=== PATIENT | female | born 1985 | race Caucasian/White ===

== ENCOUNTER 2017-03-28 03:09 | Emergency (ER) | payer MEDICAID ==
[2017-03-28] MEDS ORDERED: Sodium Chloride 0.9% 1,000 ML IV ONE ×2 (03:42→05:45)
[2017-03-28] MEDS ORDERED: HYDROmorphone 2 MG/ML SDV IVPUSH ONE ×2 (03:43→05:08)
[2017-03-28] MEDS ORDERED: diphenhydrAMINE 50 MG/ML SDV IVPUSH ONE ×2 (03:43→05:45)
[2017-03-28] MEDS ORDERED: fentaNYL 100 MCG/2 ML SDV IVPUSH ONE (03:44)
[2017-03-28] MEDS ORDERED: methylPREDNISolone Sodium Succinate 125 MG/2 ML SDV IM ONE (05:30)
[2017-03-28] MEDS ORDERED: Acetaminophen/HYDROcodone 325-5 MG Tab PO ONE (05:34)
[2017-03-28] MEDS ORDERED: methylPREDNISolone Sodium Succinate 125 MG/2 ML SDV IVPUSH ONE (05:55)
[2017-03-28] MEDS ORDERED: Nicotine Polacrilex 2 MG Gum CHEW SCH (06:00)
[2017-03-28] MEDS: Nicotine 21 MG/24 Hr Patch TRDERM ONE ×2 (06:31→08:04)
[2017-03-28 07:05] VITALS: BP 106/75
--- NOTE | 2017-03-29 13:03 | ER ---
DATE SEEN: 03/28/2017 DIAGNOSIS: Abdominal pain. CHIEF COMPLAINT: Abdominal pain. HISTORY OF PRESENT ILLNESS: This is a 31-year-old 3, para 3-0-0-3. Last menstrual period 1 month ago. Comes in with onset of abdominal discomfort after indiscreetly eating grapes. She had urge to eat grapes. She had no other causes of abdominal discomfort. PAST MEDICAL HISTORY: Ulcerative colitis, cyclical vomiting, suicidal ideation, x3, depression, anxiety, developmental delay, obesity, pancreatitis, GERD, and renal stones. No diabetes, heart disease, high blood pressure, or asthma. ALLERGIES: Adhesive, cefdinir, fluticasone, and Dilaudid causes itching. Other allergies: Latex, Seroquel, and Zoloft. CURRENT MEDICATIONS: 1. Sulfasalazine 500 mg b.i.d. 2. Omeprazole 40 mg daily. 3. Remeron 15 mg at bedtime. 4. Vistaril p.r.n. REVIEW OF SYSTEMS: Negative except as noted above. She denies compromise of vision or oral sores. She has some suggestion of fever blister in the right lower lip. HEENT: Otherwise negative. CARDIORESPIRATORY: Negative for shortness of breath, cough, chest pain, irregular heartbeat, lightheadedness, or dizziness. GI: Positive for GERD. Abdominal discomfort intermittently. Denies blood in her stool, black tarry stool, change of bowels. She has had "constipation with CAT scan before" "that chalky stuff." : Denies frequency, urgency, or dysuria. MUSCULOSKELETAL: No complaints. No joint pains. No arthritis. NEURO: Complaints of occipital headache. It is worse as this attack started. PSYCHIATRIC: Depression is unchanged. At this point, she is not suicidal; has mild anxiety and mild depression. PHYSICAL EXAMINATION: VITAL SIGNS: Blood pressure on arrival 135/85, heart rate 92, respirations 20, oxygen saturation 100%, and 37.0 degrees centigrade. Blood pressure is now 114/75. Blood pressure at 0430 hours is 114/75, heart rate 90, respirations 16. GENERAL: Overweight pleasant woman, mild distress. HEENT: PERRLA intact. Pharynx without abnormality. No evidence for opacification or cataracts. Lymph is normal. NECK: Supple. No thyromegaly. No adenopathy. LUNGS: Clear to auscultation without rales or rhonchi. HEART: S1, S2. No irregular rate and rhythm. ABDOMEN: Soft. Mild generalized guarding. No rebound. No heel-jar rebound. RECTAL: Not performed. PELVIC: Not performed. EXTREMITIES: Lower extremities without edema. No joint abnormalities. NEUROLOGIC: Deep tendon reflexes were symmetrical and 1+. Oriented x3. Strength appropriate. LABORATORY FINDINGS: White count 10,500, PMNs 84, lymphs 13, monos 3; mean platelet volume 7.3, is low, platelet count 332,000; hemoglobin 14.2. No abnormality in RBC index. Complete metabolic panel: Low CO2 of 19 reflecting metabolic acidosis, normal sodium 139, potassium 3.6, chloride 109, glucose 155 - reactive glucose elevation, amylase elevated at 139 reflecting pancreatitis. EMERGENCY ROOM COURSE: The patient received 125 mg of Solu-Medrol, fentanyl 100 mcg IV followed by 2 mg of Dilaudid IV, Reglan 10 mg IV, and Zofran 4 mg IV. ASSESSMENT: 1. Ulcerative colitis flare secondary to dietary indiscretion, eating grapes. 2. Overweight. 3. History of depression. 4. Documented gastroesophageal reflux disease, pancreatitis, renal stones, C- sections x3, suicidal ideation in the past, and cyclic vomiting in the past. 5. Pancreatitis. PLAN: 1. Recent endoscopy performed by Dr. Jennings was inadequate because of extensive stools and stopped. It needs to be repeated in 3 months. She needs to follow up with Dr. Jennings to have that rescheduled. 2. The patient dismissed with 8 tablets of Lortab 5/325. 3. Prednisone 10 mg b.i.d. x5 days and then daily for 5 days. 4. Follow up with doctor in the next 3 to 5 days, earlier if worse. Push fluids. The patient dismissed as noted above. The patient was seen at 0335 hours. /[id number] RADHA/HUSSAIN
== END 2017-03-28 06:10 | disposition home or self-care (01) ==
LOC: FB.ED 03:09
DX: K51.90 Ulcerative colitis, unspecified, without complications (principal); K85.90 Acute pancreatitis without necrosis or infection, unspecified; F32.9 Major depressive disorder, single episode, unspecified; E66.9 Obesity, unspecified; K21.9 Gastro-esophageal reflux disease without esophagitis; Z91.040 Latex allergy status
CPT/HCPCS: 36415; 80053; 82150; 85025; 86140; 96365; 96366; 96375; 96376; 99284; A9270; J1170; J1200; J2930; J3010; J7040; 96361; 96374

== ENCOUNTER 2017-04-05 10:12 | Emergency (ER) | payer MEDICAID ==
[2017-04-05] MEDS ORDERED: Alum Hydroxide/Mag Hydroxide 15 ML, Lidocaine 2% 15 ML PO STA ×2 (10:41)
[2017-04-05] MEDS ORDERED: Ondansetron 8 MG Tab.DIS PO ONE (10:41)
--- NOTE | 2017-04-05 10:48 | EDM.PDOC ---
ED HPI GENERAL MEDICAL PROBLEM - General Chief Complaint: Abdominal Pain Stated Complaint: STOMACH PAIN AND NAUSEA Time Seen by Provider: 04/05/17 10:34 Source of Information: Reports: Patient History Limitations: Reports: No Limitations - History of Present Illness INITIAL COMMENTS - FREE TEXT/NARRATIVE: 31 y.o.w.f came to the ed due to N/V since Thursday last week. Pt is well know in this ed for presenting for the same symptoms. Pt denied . She is requesting to be admitted. Onset: Today Onset Date: 04/05/17 Onset Time: 03:00 Duration: Hour(s):, Getting Worse Location: Reports: Abdomen Quality: Reports: Ache, Burning, Dull, Throbbing Severity: Moderate Improves with: Reports: Medication Worsens with: Reports: Eating Context: Reports: Other (was started on Abx Thursday) Associated Symptoms: Reports: Nausea/Vomiting Abdominal Pain Score (Numeric/FACES): 10 - Related Data Allergies Allergy/AdvReac Type Severity Reaction Status Date / Time adhesive Allergy Rash Verified 04/05/17 10:39 cefdinir [From Omnicef] Allergy Rash Verified 04/05/17 10:39 fluticasone propionate Allergy Headache Verified 04/05/17 10:39 [From Flonase] hydrocodone bitartrate Allergy Cannot Verified 04/05/17 10:39 [From Vicodin] Remember hydromorphone [From Dilaudid] Allergy Itching Verified 04/05/17 10:39 latex Allergy Hives Verified 04/05/17 10:39 quetiapine fumarate Allergy Confusion Verified 04/05/17 10:39 [From Seroquel] sertraline HCl [From Zoloft] Allergy Confusion Verified 04/05/17 10:39 Home Meds: Home Meds Mirtazapine [Remeron] 15 mg PO BEDTIME 12/21/15 [History] Omeprazole 40 mg PO DAILY #30 cap.sr 10/14/16 [Rx] Metoclopramide HCl [Reglan] 10 mg PO Q6HR PRN #16 tablet 03/28/17 [Rx] Prednisone [IJD: Prednisone] 10 mg PO BID #15 tab 03/28/17 [Rx] hydrOXYzine Pamoate [Vistaril] 1 cap PO ASDIRECTED 03/28/17 [History] Ondansetron [Zofran ODT] 4 mg PO Q6H PRN #16 tab.dis 04/05/17 [Rx] Sulfamethoxazole/Trimethoprim [IMW: Sulfamethoxazole/Trimethoprim DS] 1 tab PO DAILY 04/05/17 [History] Past Medical History - Past Health History Medical/Surgical History: Denies Medical/Surgical History HEENT History: Reports: Impaired Vision Other HEENT History: CHRONIC MYOPIA Cardiovascular History: Reports: None Respiratory History: Reports: Asthma Other Respiratory History: activity induced asthma Gastrointestinal History: Reports: GERD, Inflammatory Bowel Disease, Pancreatitis Other Gastrointestinal History: colitis Genitourinary History: Reports: Renal Calculus [employer] History: Reports: Neurological History: Reports: Migraines Psychiatric History: Reports: ADHD, Anxiety, Depression, Developmental Delay, Suicide Attempt Endocrine/Metabolic History: Reports: Obesity/BMI 30+ Hematologic History: Reports: None Immunologic History: Reports: None Oncologic (Cancer) History: Reports: None Dermatologic History: Reports: None - Infectious Disease History Infectious Disease History: Reports: Chicken Pox - Past Surgical History Head Surgeries/Procedures: Reports: None Female Surgical History: Reports: Section, Lithotripsy/ESWL, Tubal Ligation Musculoskeletal Surgical History: Reports: Arthroscopic Knee Social & Family History - Family History Cardiac: Reports: SC Musculoskeletal: Reports: RA Oncologic: Reports: Pancreatic - Tobacco Use Smoking Status *Q: Never Smoker Years of Tobacco use: 8 Used Tobacco, but Quit: No Second Hand Smoke Exposure: No - Caffeine Use Caffeine Use: Reports: Soda - Alcohol Use Days Per Week of Alcohol Use: 0 - Recreational Drug Use Recreational Drug Use: No Recreational Drug Type: Reports: Dilaudid, Other (see below) Recreational Drug Use Frequency: Daily ED ROS GENERAL - Review of Systems Review Of Systems: See Below Constitutional: Reports: No Symptoms HEENT: Reports: No Symptoms Respiratory: Reports: No Symptoms Cardiovascular: Reports: No Symptoms Endocrine: Reports: No Symptoms GI/Abdominal: Reports: Abdominal Pain, Nausea, Vomiting : Reports: No Symptoms Musculoskeletal: Reports: No Symptoms Skin: Reports: No Symptoms Neurological: Reports: No Symptoms Psychiatric: Reports: No Symptoms Hematologic/Lymphatic: Reports: No Symptoms Immunologic: Reports: No Symptoms ED EXAM, GI/ABD - Physical Exam Exam: See Below Exam Limited By: No Limitations General Appearance: Alert, WD/WN, Mild Distress, Obese Eyes: Bilateral: Normal Appearance Ears: Normal External Exam Nose: Normal Inspection Throat/Mouth: Normal Inspection Head: Atraumatic, Normocephalic Neck: Normal Inspection, Supple, Non-Tender, Full Range of Motion Respiratory/Chest: No Respiratory Distress, Lungs Clear, Normal Breath Sounds, No Accessory Muscle Use, Chest Non-Tender Cardiovascular: Normal Peripheral Pulses, Regular Rate, Rhythm, No Edema, No Gallop GI/Abdominal Exam: Rebound, Tender (Female) Exam: Deferred Rectal (Female) Exam: Deferred Back Exam: Normal Inspection, Full Range of Motion Extremities: Normal Inspection, Normal Range of Motion, Non-Tender, No Pedal Edema Neurological: Alert, Oriented, CN II-XII Intact, Normal Cognition, Normal Gait Psychiatric: Normal Affect, Normal Mood Skin Exam: Warm, Dry, Intact, Normal Color Lymphatic: No Adenopathy Course - Vital Signs Text/Narrative:: 31 y.o.w.f came to the ed due to N/V since Thursday last week. Pt is well know in this ed for presenting for the same symptoms. Pt denied . She is requesting to be admitted. No DM. PE: well nurished w f with forceful vomiting. No blood in her vomited material. epigastric tenderness. Labs: WBC 14.2, Na and K were nl. Amylase was 173, DB was 0.3 UA: Ketons + Serum Glc 172 HCG urine was neg. Impression: Epigastric tenderness, Gastritis, dehydration. Tx: NS 2 liters, Protonix, Zofran, Reglan, Phenergen and benadry Reexam: Pt stopped vomiting and could keep liquids down after the meds were given. Plan: D/C with instructions Last Recorded V/S: Last Vital Signs Temp 37.1 C 04/05/17 10:34 Pulse 63 04/05/17 10:34 Resp 18 04/05/17 10:34 BP 138/96 H 04/05/17 10:34 Pulse Ox 98 04/05/17 10:34 - Orders/Labs/Meds Orders: Active Orders 24 hr Category Date Time Status Abdomen Ltd [US] Stat Exams 04/06/17 09:30 Ordered Labs: Laboratory Tests 04/05/17 04/05/17 04/05/17 Range/Units 11:00 11:00 11:00 WBC 14.2 H (4.5-12.0) X10-3/uL RBC 4.83 (3.23-5.20) x10(6)uL Hgb 14.6 (11.5-15.5) g/dL Hct 43.1 (30.0-51.3) % MCV 89.3 (80-96) fL MCH 30.2 (27.7-33.6) pg MCHC 33.8 (32.2-35.4) g/dL RDW 13.6 (11.5-15.5) % Plt Count 333 (125-369) X10(3)uL MPV 7.4 (7.4-10.4) fL Add Manual Diff Yes Neutrophils % (Manual) 79 (46-82) % Band Neutrophils % 1 (0-6) % Lymphocytes % (Manual) 18 (13-37) % Monocytes % (Manual) 2 L (4-12) % Sodium 136 (135-145) mmol/L Potassium 3.5 (3.5-5.3) mmol/L Chloride 104 D (100-110) mmol/L Carbon Dioxide 20 L (23-29) mmol/L BUN 13 (5-20) mg/dL Creatinine 1.0 (0.6-1.3) mg/dL Est Cr Clr Drug Dosing 59.62 mL/min Estimated GFR (MDRD) > 60 (>60) BUN/Creatinine Ratio 13.0 (9-20) Glucose 117 H (80-116) mg/dL Calcium 9.4 (8.6-10.2) mg/dL Total Bilirubin 1.1 (0.1-1.3) mg/dL Direct Bilirubin 0.3 H (0.1-0.2) mg/dL AST 28 H D (5-27) IU/L ALT 20 D (14-26) IU/L Alkaline Phosphatase 63 (56-112) IU/L Total Protein 8.4 H (6.0-8.0) g/dL Albumin 4.7 (3.5-5.2) g/dL Amylase (28-100) U/L Urine Color (YELLOW) Urine Appearance (CLEAR) Urine pH (5.0-6.5) Ur Specific [place] (1.010-1.025) Urine Protein (NEGATIVE) mg/dL Urine Glucose (UA) (NEGATIVE) mg/dL Urine Ketones (NEGATIVE) mg/dL Urine Occult Blood (NEGATIVE) Urine Nitrite (NEGATIVE) Urine Bilirubin (NEGATIVE) Urine Urobilinogen (NEGATIVE) mg/dL Ur Leukocyte Esterase (NEGATIVE) Urine RBC (0) Urine WBC (0) Ur Squamous Epith Cells (NS,R,O) Urine Bacteria (NS) Urine Mucus (NS) Urine HCG, Qual (NEGATIVE) 04/05/17 04/05/17 04/05/17 Range/Units 11:00 11:05 11:05 WBC (4.5-12.0) X10-3/uL RBC (3.23-5.20) x10(6)uL Hgb (11.5-15.5) g/dL Hct (30.0-51.3) % MCV (80-96) fL MCH (27.7-33.6) pg MCHC (32.2-35.4) g/dL RDW (11.5-15.5) % Plt Count (125-369) X10(3)uL MPV (7.4-10.4) fL Add Manual Diff Neutrophils % (Manual) (46-82) % Band Neutrophils % (0-6) % Lymphocytes % (Manual) (13-37) % Monocytes % (Manual) (4-12) % Sodium (135-145) mmol/L Potassium (3.5-5.3) mmol/L Chloride (100-110) mmol/L Carbon Dioxide (23-29) mmol/L BUN (5-20) mg/dL Creatinine (0.6-1.3) mg/dL Est Cr Clr Drug Dosing mL/min Estimated GFR (MDRD) (>60) BUN/Creatinine Ratio (9-20) Glucose (80-116) mg/dL Calcium (8.6-10.2) mg/dL Total Bilirubin (0.1-1.3) mg/dL Direct Bilirubin (0.1-0.2) mg/dL AST (5-27) IU/L ALT (14-26) IU/L Alkaline Phosphatase (56-112) IU/L Total Protein (6.0-8.0) g/dL Albumin (3.5-5.2) g/dL Amylase 176 H (28-100) U/L Urine Color Yellow (YELLOW) Urine Appearance Slightly cloudy (CLEAR) Urine pH 6.0 (5.0-6.5) Ur Specific [place] 1.020 (1.010-1.025) Urine Protein Trace (NEGATIVE) mg/dL Urine Glucose (UA) Normal (NEGATIVE) mg/dL Urine Ketones 50 H (NEGATIVE) mg/dL Urine Occult Blood Large H (NEGATIVE) Urine Nitrite Negative (NEGATIVE) Urine Bilirubin Small H (NEGATIVE) Urine Urobilinogen 1 H (NEGATIVE) mg/dL Ur Leukocyte Esterase Negative (NEGATIVE) Urine RBC 0-5 (0) Urine WBC 0-5 (0) Ur Squamous Epith Cells Few H (NS,R,O) Urine Bacteria Few H (NS) Urine Mucus Moderate H (NS) Urine HCG, Qual Negative (NEGATIVE) Meds: Medications Discontinued Medications Generic Name Dose Route Start Last Admin Trade Name Freq PRN Reason Stop Dose Admin Al Hydroxide/Mg Hydroxide 15 0 ml 04/05/17 10:41 04/05/17 13:13 ml/ Lidocaine HCl 15 ml PO 04/05/17 10:42 Not Given ONETIME STA Diphenhydramine HCl 50 mg 04/05/17 11:53 04/05/17 12:01 Benadryl IVPUSH 04/05/17 11:54 50 mg ONETIME ONE Administration Sodium Chloride 1,000 mls @ 999 mls/hr 04/05/17 10:49 04/05/17 11:15 Normal Saline IV 04/05/17 11:49 999 mls/hr .BOLUS ONE Administration Sodium Chloride 1,000 mls @ 999 mls/hr 04/05/17 12:19 04/05/17 12:22 Normal Saline IV 04/05/17 13:19 999 mls/hr .BOLUS ONE Administration Promethazine HCl 12.5 mg/ 50.5 mls @ 200 mls/hr 04/05/17 12:35 04/05/17 12:48 Sodium Chloride IV 04/05/17 12:50 200 mls/hr ONETIME STA Administration Ketorolac Tromethamine 30 mg 04/05/17 12:21 04/05/17 12:24 Toradol IVPUSH 04/05/17 12:22 30 mg ONETIME ONE Administration Metoclopramide HCl 10 mg 04/05/17 12:18 04/05/17 12:24 Reglan IVPUSH 04/05/17 12:19 10 mg ONETIME ONE Administration Ondansetron HCl 8 mg 04/05/17 10:41 04/05/17 10:45 Zofran Odt PO 04/05/17 10:42 8 mg ONETIME ONE Administration Ondansetron HCl 8 mg 04/05/17 10:50 04/05/17 11:16 Zofran IVPUSH 04/05/17 10:51 8 mg ONETIME ONE Administration Pantoprazole Sodium 40 mg 04/05/17 10:51 04/05/17 11:21 Protonix Iv IVPUSH 04/05/17 10:52 40 mg ONETIME ONE Administration Departure - Departure Time of Disposition: 13:41 Disposition: Home, Self-Care 01 Condition: Good Clinical Impression: Dehydration, Epigastric abdominal pain Gastritis Qualifiers: Gastritis type: unspecified gastritis Chronicity: unspecified Gastritis bleeding: without bleeding Qualified Code(s): K29.70 - Gastritis, unspecified, without bleeding - Discharge Information Prescriptions: Ondansetron [Zofran ODT] 4 mg PO Q6H PRN #16 tab.dis PRN Reason: Nausea Referrals: Jordan Seymour MD [Primary Care Provider] - Forms: ED Department Discharge Additional Instructions: Please come back for an US Abdomen limited at 9.30 am. Please do not eat anything after midnight tonight. Please take the meds as recommended. Please come back if your symptoms get worse acutely. You could see Dr. Sung in am as well. - My Orders Last 24 Hours: My Active Orders 04/06/17 09:30 Abdomen Ltd [US] Stat - Assessment/Plan Last 24 Hours: My Active Orders 04/06/17 09:30 Abdomen Ltd [US] Stat
[2017-04-05] MEDS ORDERED: Sodium Chloride 0.9% 1,000 ML IV ONE ×2 (10:49→12:19)
[2017-04-05] MEDS ORDERED: Ondansetron 4 MG/2 ML SDV IVPUSH ONE (10:50)
[2017-04-05] MEDS ORDERED: Pantoprazole 40 MG Vial IVPUSH ONE (10:51)
[2017-04-05] MEDS ORDERED: Sodium Chloride 0.9% 10 ML Syringe FLUSH PRN (11:00)
[2017-04-05] MEDS ORDERED: diphenhydrAMINE 50 MG/ML SDV IVPUSH ONE (11:53)
[2017-04-05] MEDS ORDERED: Metoclopramide 10 MG/2 ML SDV IVPUSH ONE (12:18)
[2017-04-05] MEDS ORDERED: Ketorolac 30 MG/ML SDV IVPUSH ONE (12:21)
[2017-04-05] MEDS ORDERED: Promethazine 12.5 MG in Sodium Chloride 0.9% 50 ML IV STA (12:35)
[2017-04-05 13:54] VITALS: BP 136/78
== END 2017-04-05 13:50 | disposition home or self-care (01) ==
LOC: FB.ED 10:12
DX: E86.0 Dehydration (principal); K29.70 Gastritis, unspecified, without bleeding; F90.9 Attention-deficit hyperactivity disorder, unspecified type; K21.9 Gastro-esophageal reflux disease without esophagitis; J45.909 Unspecified asthma, uncomplicated; F41.9 Anxiety disorder, unspecified; F32.9 Major depressive disorder, single episode, unspecified; E66.9 Obesity, unspecified; Z88.8 Allergy status to other drugs, medicaments and biological substances; Z79.899 Other long term (current) drug therapy; Z98.51 Tubal ligation status; Z68.35 Body mass index [BMI] 35.0-35.9, adult
CPT/HCPCS: 36415; 80048; 80076; 81001; 81025; 82150; 85025; 96361; 96365; 96375; 99284; A9270; C9113; J1200; J1885; J2405; J2550; J2765; J7040; J7050

== ENCOUNTER 2017-04-06 07:17 | Inpatient (IN) | payer MEDICAID ==
[2017-04-06] MEDS ORDERED: Sodium Chloride 0.9% 1,000 ML IV ONE (07:44)
[2017-04-06] MEDS ORDERED: diphenhydrAMINE 50 MG/ML SDV IVPUSH ONE (07:44)
[2017-04-06] MEDS ORDERED: Promethazine 12.5 MG in Sodium Chloride 0.9% 50 ML IV STA (07:44)
[2017-04-06] MEDS ORDERED: Pantoprazole 40 MG Vial IVPUSH SCH (09:00)
[2017-04-06] MEDS ORDERED: Potassium Chloride 20 MEQ Tab.ER PO ONE (09:52)
--- NOTE | 2017-04-06 09:58 | EDM.PDOC ---
ED HPI GENERAL MEDICAL PROBLEM - General Chief Complaint: General Stated Complaint: CHEST PAIN Time Seen by Provider: 04/06/17 07:25 Source of Information: Reports: Patient, EMS History Limitations: Reports: No Limitations - History of Present Illness INITIAL COMMENTS - FREE TEXT/NARRATIVE: 31 y.o.w.f came to the ed with N/V. Pt was seen by me yesterday for same. Pt was admitted multiple times for same. Onset: Unknown/Unsure Onset Date: 04/05/17 Onset Time: 08:00 Duration: Day(s):, Intermittent Location: Reports: Abdomen Quality: Reports: Burning Severity: Moderate Improves with: Reports: Medication Context: Reports: Other (?) Thoracic Pain Score (Numeric/FACES): 8 - Related Data Allergies Allergy/AdvReac Type Severity Reaction Status Date / Time adhesive Allergy Rash Verified 04/06/17 07:24 cefdinir [From Omnicef] Allergy Rash Verified 04/06/17 07:24 fluticasone propionate Allergy Headache Verified 04/06/17 07:24 [From Flonase] hydrocodone bitartrate Allergy Cannot Verified 04/06/17 07:24 [From Vicodin] Remember hydromorphone [From Dilaudid] Allergy Itching Verified 04/06/17 07:24 latex Allergy Hives Verified 04/06/17 07:24 quetiapine fumarate Allergy Confusion Verified 04/06/17 07:24 [From Seroquel] sertraline HCl [From Zoloft] Allergy Confusion Verified 04/06/17 07:24 Home Meds: Home Meds Mirtazapine [Remeron] 15 mg PO BEDTIME 12/21/15 [History] Omeprazole 40 mg PO DAILY #30 cap.sr 10/14/16 [Rx] Metoclopramide HCl [Reglan] 10 mg PO Q6HR PRN #16 tablet 03/28/17 [Rx] Prednisone [IJD: Prednisone] 10 mg PO BID #15 tab 03/28/17 [Rx] hydrOXYzine Pamoate [Vistaril] 1 cap PO ASDIRECTED 03/28/17 [History] Ondansetron [Zofran ODT] 4 mg PO Q6H PRN #16 tab.dis 04/05/17 [Rx] Sulfamethoxazole/Trimethoprim [IMW: Sulfamethoxazole/Trimethoprim DS] 1 tab PO DAILY 04/05/17 [History] Past Medical History - Past Health History Medical/Surgical History: Denies Medical/Surgical History HEENT History: Reports: Impaired Vision, Other (See Below) Other HEENT History: CHRONIC MYOPIA Cardiovascular History: Reports: None Respiratory History: Reports: Asthma Other Respiratory History: activity induced asthma Gastrointestinal History: Reports: GERD, Inflammatory Bowel Disease, Pancreatitis Other Gastrointestinal History: colitis Genitourinary History: Reports: Renal Calculus 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: Neurological History: Reports: Migraines Psychiatric History: Reports: ADHD, Anxiety, Depression, Developmental Delay, Suicide Attempt Endocrine/Metabolic History: Reports: Obesity/BMI 30+ Hematologic History: Reports: None Immunologic History: Reports: None Oncologic (Cancer) History: Reports: None Dermatologic History: Reports: None - Infectious Disease History Infectious Disease History: Reports: Chicken Pox - Past Surgical History Head Surgeries/Procedures: Reports: None Female Surgical History: Reports: Section, Lithotripsy/ESWL, Tubal Ligation Musculoskeletal Surgical History: Reports: Arthroscopic Knee Social & Family History - Family History Cardiac: Reports: [place] Musculoskeletal: Reports: RA Oncologic: Reports: Pancreatic - Tobacco Use Smoking Status *Q: Never Smoker Years of Tobacco use: 8 Used Tobacco, but Quit: No Second Hand Smoke Exposure: No - Caffeine Use Caffeine Use: Reports: Soda - Alcohol Use Days Per Week of Alcohol Use: 0 - Recreational Drug Use Recreational Drug Use: No Recreational Drug Type: Reports: Dilaudid, Other (see below) Recreational Drug Use Frequency: Daily ED ROS GENERAL - Review of Systems Review Of Systems: See Below Constitutional: Reports: No Symptoms HEENT: Reports: No Symptoms Respiratory: Reports: No Symptoms Cardiovascular: Reports: No Symptoms Endocrine: Reports: No Symptoms GI/Abdominal: Reports: Abdominal Pain : Reports: No Symptoms Musculoskeletal: Reports: No Symptoms Skin: Reports: No Symptoms Neurological: Reports: No Symptoms Psychiatric: Reports: No Symptoms Hematologic/Lymphatic: Reports: No Symptoms Immunologic: Reports: No Symptoms ED EXAM, GENERAL - Physical Exam Exam: See Below Exam Limited By: No Limitations General Appearance: Alert, WD/WN, Mild Distress Eye Exam: Bilateral Eye: Normal Inspection Ears: Normal External Exam Ear Exam: Bilateral Ear: Auricle Normal Nose: Normal Inspection, Normal Mucosa Throat/Mouth: Normal Inspection, Normal Lips Head: Atraumatic, Normocephalic Neck: Normal Inspection, Supple, Non-Tender Respiratory/Chest: No Respiratory Distress, Lungs Clear, Normal Breath Sounds Cardiovascular: Normal Peripheral Pulses, Regular Rate, Rhythm, No Edema, No Murmur Peripheral Pulses: 1+: Femoral (L), Femoral (R) GI/Abdominal: Tender (epigastric) (Female) Exam: Deferred Rectal (Female) Exam: Deferred Back Exam: Normal Inspection, Full Range of Motion Extremities: Normal Inspection, Normal Range of Motion Neurological: Alert, Oriented, CN II-XII Intact, Normal Cognition, Normal Gait Psychiatric: Depressed Mood Skin Exam: Warm, Dry, Intact, Normal Color, No Rash Lymphatic: No Adenopathy Course - Vital Signs Text/Narrative:: 31 y.o.w.f came to the ed with N/V. Pt was seen by me yesterday for same. Pt was admitted multiple times for same. PE: obese 31 y.o.w.f. with N/V, chronically, requesting strong pain meds Labs; K 3.2 Amylase 220 Imaging: US limited abd: NAD Impression: N/V intermittent forceful vomitting, Hypokalemia, elevated Amylase. Multiple admissions for same Tx: NS, Zofran, potassium, GI cocktail Reexam: Improved, still requesting "strong painmeds" Plan: D/C and f/u with Dr. Medina Addendum: Received a phone call. Dr. Medina recommended admission to the Hospital, nothing surgical Last Recorded V/S: Last Vital Signs Temp 36.6 C 04/06/17 10:10 Pulse 86 04/06/17 10:10 Resp 20 04/06/17 10:10 BP 132/68 04/06/17 10:10 Pulse Ox 99 04/06/17 10:10 - Orders/Labs/Meds Orders: Active Orders 24 hr Category Date Time Status Abdomen Ltd [US] Stat Exams 04/06/17 10:47 Taken Pantoprazole [ProTONIX IV] Med 04/06/17 09:00 Active 40 mg IVPUSH DAILY EKG 12 Lead [EK] Routine Ther 04/06/17 07:20 Ordered Medication Orders Pantoprazole Sodium (Protonix Iv) 40 mg IVPUSH DAILY [facility] Last Admin: 04/06/17 08:20 Dose: 40 mg Labs: Laboratory Tests 04/06/17 04/06/17 04/06/17 Range/Units 08:00 08:00 08:00 WBC 10.5 (4.5-12.0) X10-3/uL RBC 4.67 (3.23-5.20) x10(6)uL Hgb 13.9 (11.5-15.5) g/dL Hct 41.6 (30.0-51.3) % MCV 88.9 (80-96) fL MCH 29.7 (27.7-33.6) pg MCHC 33.4 (32.2-35.4) g/dL RDW 13.6 (11.5-15.5) % Plt Count 300 (125-369) X10(3)uL MPV 7.1 L (7.4-10.4) fL Neut % (Auto) 79.5 (46-82) % Lymph % (Auto) 14.6 (13-37) % [place] % (Auto) 5.5 (4-12) % Eos % (Auto) 0 L (1.0-5.0) % Baso % (Auto) 0 (0-2) % Neut # (Auto) 8.4 H (1.6-8.3) # Lymph # (Auto) 1.5 (0.6-5.0) # [place] # (Auto) 0.6 (0.0-1.3) # Eos # (Auto) 0.0 (0.0-0.8) # Baso # (Auto) 0.0 (0.0-0.2) # Sodium 136 (135-145) mmol/L Potassium 3.2 L (3.5-5.3) mmol/L Chloride 105 (100-110) mmol/L Carbon Dioxide 19 L (23-29) mmol/L BUN 12 (5-20) mg/dL Creatinine 0.9 (0.6-1.3) mg/dL Est Cr Clr Drug Dosing TNP Estimated GFR (MDRD) > 60 (>60) BUN/Creatinine Ratio 13.3 (9-20) Glucose 105 (80-116) mg/dL Calcium 9.0 (8.6-10.2) mg/dL Amylase 220 H (28-100) U/L Meds: Medications Generic Name Dose Route Start Last Admin Trade Name Freq PRN Reason Stop Dose Admin Pantoprazole Sodium 40 mg 04/06/17 09:00 04/06/17 08:20 Protonix Iv IVPUSH 40 mg DAILY IRIS Administration Discontinued Medications Generic Name Dose Route Start Last Admin Trade Name Angus PRN Reason Stop Dose Admin Al Hydroxide/Mg Hydroxide 15 0 ml 04/06/17 10:02 04/06/17 10:13 ml/ Lidocaine HCl 15 ml PO 04/06/17 10:03 15 ml ONETIME STA Administration Diphenhydramine HCl 50 mg 04/06/17 07:44 04/06/17 08:16 Benadryl IVPUSH 04/06/17 07:45 50 mg ONETIME ONE Administration Promethazine HCl 12.5 mg/ 50.5 mls @ 200 mls/hr 04/06/17 07:44 04/06/17 08:13 Sodium Chloride IV 04/06/17 07:59 200 mls/hr ONETIME STA Administration Sodium Chloride 1,000 mls @ 999 mls/hr 04/06/17 07:44 04/06/17 08:12 Normal Saline IV 04/06/17 08:44 999 mls/hr .BOLUS ONE Administration Potassium Chloride 40 meq 04/06/17 09:52 04/06/17 10:07 Klor-Con M20 PO 04/06/17 09:53 40 meq ONETIME ONE Administration Departure - Departure Time of Disposition: 10:20 Disposition: Home, Self-Care 01 Condition: Good Clinical Impression: Gastritis, Elevated amylase - Discharge Information Referrals: Jordan Seymour MD [Primary Care Provider] - Forms: ED Department Discharge Additional Instructions: SEE DR MEDINA AT 1030 - My Orders Last 24 Hours: My Active Orders 04/06/17 07:20 EKG 12 Lead [EK] Routine 04/06/17 09:00 Pantoprazole [ProTONIX IV] 40 mg IVPUSH DAILY 04/06/17 10:47 Abdomen Ltd [US] Stat - Assessment/Plan Last 24 Hours: My Active Orders 04/06/17 07:20 EKG 12 Lead [EK] Routine 04/06/17 09:00 Pantoprazole [ProTONIX IV] 40 mg IVPUSH DAILY 04/06/17 10:47 Abdomen Ltd [US] Stat
[2017-04-06] MEDS: Alum Hydroxide/Mag Hydroxide 15 ML, Lidocaine 2% 15 ML PO STA ×4 (10:13→13:57)
--- NOTE | 2017-04-06 12:02 | US ---
INDICATION: Right upper quadrant abdominal pain. Mildly elevated liver enzymes. RIGHT UPPER QUADRANT/GALLBLADDER ULTRASOUND: Multiple ultrasonic images revealed the liver to have a normal appearance. The right kidney was unremarkable and measured 9.5 x 4.4 x 5.4 mm. The gallbladder appeared essentially normal except for a positive ultrasonic Carlson sign. The gallbladder measured 5.5 x 2.6 x 2.9 cm. The common bile duct was normal in caliber, measuring 3.6 mm. The IVC was phasic. The aorta was not evaluated. The pancreas was not adequately visualized due to intestinal gas. IMPRESSION: 1. No gallbladder abnormality identified except for a positive ultrasonic Carlson sign correlate clinically. 2. Pancreas not adequately visualized. MTDD
[2017-04-06] MEDS: Sodium Chloride 0.9% 1,000 ML IV SCH ×2 (12:45→21:18)
[2017-04-06] MEDS: Ondansetron 4 MG/2 ML SDV IVPUSH PRN (13:32)
[2017-04-06] MEDS ORDERED: Sodium Chloride 0.9% 1,000 ML IV SCH (14:15)
[2017-04-06] MEDS: Morphine 2 MG/ML Syringe IVPUSH PRN ×3 (14:45→20:13)
[2017-04-06] MEDS: Promethazine 12.5 MG in Sodium Chloride 0.9% 50 ML IV PRN (18:12)
--- NOTE | 2017-04-06 18:31 | PCM.HP ---
H&P History of Present Illness - General Date of Service: 04/06/17 Source of Information: Patient History Limitations: Reports: No Limitations - History of Present Illness Initial Comments - Free Text/Narative: This is a 31-year-old female patient that has a history of ulcerative colitis. She's had abdominal pain for 4 days. She was seen [facility]. She was having abdominal pain, vomiting, nausea. She states they sent her home. The next day she some vomiting some blood. She was seen again at the [facility] and they sent her home. She denies diarrhea, hematochezia or melena. She is the abdominal pain is in the top of her abdomen Alway across. He states is worse when she eats food, water [place] water. She denies L call use her NSAIDs. She denies fevers, chills dysuria, pyuria, hematuria or she does have a history of renal colic. Thoracic Pain Score (Numeric/FACES): 4 - Related Data Allergies/Adverse Reactions: Allergies Allergy/AdvReac Type Severity Reaction Status Date / Time adhesive Allergy Rash Verified 04/06/17 07:24 cefdinir [From Omnicef] Allergy Rash Verified 04/06/17 07:24 fluticasone propionate Allergy Headache Verified 04/06/17 07:24 [From Flonase] hydrocodone bitartrate Allergy Cannot Verified 04/06/17 07:24 [From Vicodin] Remember hydromorphone [From Dilaudid] Allergy Itching Verified 04/06/17 07:24 latex Allergy Hives Verified 04/06/17 07:24 quetiapine fumarate Allergy Confusion Verified 04/06/17 07:24 [From Seroquel] sertraline HCl [From Zoloft] Allergy Confusion Verified 04/06/17 07:24 Home Medications: Home Meds Mirtazapine [Remeron] 15 mg PO BEDTIME 12/21/15 [History] Omeprazole 40 mg PO DAILY #30 cap.sr 10/14/16 [Rx] hydrOXYzine Pamoate [Vistaril] 1 cap PO Q6H PRN 03/28/17 [History] Sulfamethoxazole/Trimethoprim [IMW: Sulfamethoxazole/Trimethoprim DS] 1 tab PO DAILY 04/05/17 [History] Past Medical History - Past Health History Medical/Surgical History: Denies Medical/Surgical History HEENT History: Reports: Impaired Vision, Sinusitis, Other (See Below) Other HEENT History: CHRONIC MYOPIA Cardiovascular History: Reports: None Respiratory History: Reports: Asthma Other Respiratory History: activity induced asthma Gastrointestinal History: Reports: GERD, Inflammatory Bowel Disease, Pancreatitis Other Gastrointestinal History: colitis Genitourinary History: Reports: Renal Calculus 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: Neurological History: Reports: Migraines Psychiatric History: Reports: ADHD, Anxiety, Depression, Developmental Delay, Suicide Attempt Endocrine/Metabolic History: Reports: Obesity/BMI 30+, Other (See Below) 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 Hematologic History: Reports: None Immunologic History: Reports: None Oncologic (Cancer) History: Reports: None Dermatologic History: Reports: None - Infectious Disease History Infectious Disease History: Reports: Chicken Pox - Past Surgical History Female Surgical History: Reports: Section, Lithotripsy/ESWL, Tubal Ligation Musculoskeletal Surgical History: Reports: Arthroscopic Knee Social & Family History - Family History Cardiac: Reports: MS Musculoskeletal: Reports: RA Oncologic: Reports: Pancreatic - Tobacco Use Smoking Status *Q: Never Smoker Years of Tobacco use: 8 Used Tobacco, but Quit: No Second Hand Smoke Exposure: No - Caffeine Use Caffeine Use: Reports: Soda - Alcohol Use Days Per Week of Alcohol Use: 0 - Recreational Drug Use Recreational Drug Use: No Recreational Drug Type: Reports: Dilaudid, Other (see below) Recreational Drug Use Frequency: Daily H&P Review of Systems - Review of Systems: Review Of Systems: See Below General: Reports: Malaise, Weakness, Decreased Appetite HEENT: Reports: No Symptoms Pulmonary: Reports: No Symptoms Cardiovascular: Reports: No Symptoms Gastrointestinal: Reports: Abdominal Pain, Hematemesis, Nausea, Vomiting. Denies: Constipation, Diarrhea, Hematochezia, Melena Genitourinary: Reports: No Symptoms Musculoskeletal: Reports: No Symptoms Skin: Reports: No Symptoms Psychiatric: Reports: No Symptoms Neurological: Reports: No Symptoms Hematologic/Lymphatic: Reports: No Symptoms Immunologic: Reports: No Symptoms Exam - Exam Exam: See Below - Vital Signs Vital Signs: Last Vital Signs Temp 98.1 F 04/06/17 17:12 Pulse 62 04/06/17 17:12 Resp 16 04/06/17 17:12 BP 127/77 04/06/17 17:12 Pulse Ox 100 04/06/17 17:12 Weight: 177 lb 14.4 oz - Exam General: Alert, Oriented, Cooperative, Moderate Distress HEENT: PERRLA, EACs Clear, EOMI, Mucosa Moist & [place], Nares Patent, Normal Nasal Septum, Posterior Pharynx Clear, TMs Clear Neck: Supple, Trachea Midline Lungs: Clear to Auscultation, Normal Respiratory Effort Cardiovascular: Regular Rate, Regular Rhythm, Normal S1, Normal S2. No: Systolic Murmur, Diastolic Murmur GI/Abdominal Exam: Normal Bowel Sounds, Soft, Non-Tender, No Organomegaly, No Distention, No Abnormal Bruit, No Mass Back Exam: Normal Inspection, Full Range of Motion, NT Extremities: Normal Inspection, Normal Range of Motion, No Pedal Edema, Other ( Patient is tender upper abdomen across. Some mild guarding. No rebound. No organomegaly. Carlson sign positive.) Skin: Warm, Dry, Intact Neurological: Normal Speech, Normal Tone Neuro Extensive - Mental Status: Alert, Oriented x3, Normal Cognition. No: Normal Mood/Affect Neuro Extensive - Motor, Sensory, Reflexes: Normal Gait Psychiatric: Alert, Normal Affect, Normal Mood - Patient Data Result Diagrams: 04/06/17 08:00 04/06/17 08:00 *Q Meaningful Use (ADM) - VTE *Q VTE Criteria *Q: - Stroke *Q Stroke Criteria *Q: - AMI *Q AMI Criteria *Q: - Problem List (1) Pancreatitis SNOMED Code(s): 36519199 ICD Code: K85.90 - ACUTE PANCREATITIS WITHOUT NECROSIS OR INFECTION, UNSP Status: Acute Current Visit: Yes (2) Nausea and vomiting SNOMED Code(s): 74618976 ICD Code: R11.2 - NAUSEA WITH VOMITING, UNSPECIFIED Status: Acute Current Visit: No Onset Date: 04/11/14 Problem Details: oral anti-emetics as needed. (3) Ulcerative colitis SNOMED Code(s): 29325044 ICD Code: K51.90 - ULCERATIVE COLITIS, UNSPECIFIED, WITHOUT COMPLICATIONS Status: Acute Current Visit: No Qualifiers: Ulcerative colitis location: unspecified ulcerative colitis location Digestive disease complication type: without complication Qualified Code(s): K51.90 - Ulcerative colitis, unspecified, without complications Problem List Initiated/Reviewed/Updated: Yes Orders Last 24hrs: Active Orders 24 hr Category Date Time Status Notify Provider Consults [RC] ASDIRECTED Care 04/06/17 18:23 Ordered Consult to Physician [CONS] Routine Cons 04/06/17 18:23 Ordered Abdomen Pelvis w wo Cont [CT] Routine Exams 04/06/17 18:24 Ordered AMYLASE [CHEM] AM Lab 04/07/17 05:11 Ordered CBC WITH AUTO DIFF [HEME] AM Lab 04/07/17 05:11 Ordered COMPREHENSIVE METABOLIC PN,CMP [CHEM] AM Lab 04/07/17 05:11 Ordered HCG QUALITATIVE,URINE [URCHEM] Routine Lab 04/06/17 18:21 Uncollected LIPASE [REF] Routine Lab 04/06/17 18:22 Ordered UA W/MICROSCOPIC [URIN] Routine Lab 04/06/17 18:20 Uncollected Mirtazapine [Remeron] Med 04/06/17 21:00 Ordered 15 mg PO BEDTIME Morphine Med 04/06/17 14:28 Active 2 mg IVPUSH Q2H PRN Omeprazole Med 04/07/17 09:00 Ordered 40 mg PO DAILY Ondansetron [Zofran] Med 04/06/17 13:19 Active 4 mg IVPUSH Q6H PRN Promethazine [Phenergan] 12.5 mg Med 04/06/17 14:04 Active Sodium Chloride 0.9% [Normal Saline] 50 ml IV Q6H Sulfamethoxazole/Trimethoprim [Septra DS] Med 04/07/17 09:00 Ordered 1 tab PO DAILY hydrOXYzine Pamoate [Vistaril] Med 04/06/17 18:22 Ordered 1 cap PO Q6H PRN Medication Orders Hydroxyzine Pamoate (Vistaril) mg PO Q6H PRN PRN Reason: Nausea Sodium Chloride (Normal Saline) 1,000 mls @ 125 mls/hr IV ASDIRECTED IRIS Last Admin: 04/06/17 12:45 Dose: 125 mls/hr Promethazine HCl 12.5 mg/ (Sodium Chloride) 50.5 mls @ 200 mls/hr IV Q6H PRN PRN Reason: Nausea/Vomiting Last Admin: 04/06/17 18:12 Dose: 200 mls/hr Morphine Sulfate (Morphine) 2 mg IVPUSH Q2H PRN PRN Reason: Pain Last Admin: 04/06/17 17:29 Dose: 2 mg Admin: 04/06/17 14:45 Dose: 2 mg Non-Formulary Medication (Mirtazapine [Remeron]) 15 mg PO BEDTIME IRIS Omeprazole (Omeprazole) 40 mg PO DAILY [facility] Ondansetron HCl (Zofran) 4 mg IVPUSH Q6H PRN PRN Reason: Nausea/Vomiting Last Admin: 04/06/17 13:32 Dose: 4 mg Pantoprazole Sodium (Protonix Iv) 40 mg IVPUSH DAILY [facility] Last Admin: 04/06/17 08:20 Dose: 40 mg Sodium Chloride (Saline Flush) 10 ml FLUSH ASDIRECTED PRN PRN Reason: Keep Vein Open Trimethoprim/Sulfamethoxazole (Septra Ds) 1 tab PO DAILY [facility] Assessment/Plan Comment:: 1. Admit her for observation. 2. Nothing by mouth but she can have ice chips. IV fluids. 3. MS for pain. 4. Repeat all her labs in the morning. 5. CT abdomen and pelvis. 6. Urine although she's had a tubal just make sure. 7. Discussed care with Dr. Jennings. He saw the clinic and will follow along. 8. Regular medicines with sips of water.
[2017-04-06] MEDS ORDERED: Iopamidol 755 Mg/ML 100 ML Bottle IV ONE (19:26)
[2017-04-06] MEDS: Mirtazapine 15 MG Tab PO SCH (21:50)
[2017-04-07] MEDS: Morphine 2 MG/ML Syringe IVPUSH PRN ×4 (01:32→20:36)
[2017-04-07] MEDS: Sodium Chloride 0.9% 1,000 ML IV SCH (05:01)
[2017-04-07] MEDS: Promethazine 12.5 MG in Sodium Chloride 0.9% 50 ML IV PRN ×2 (07:52→15:56)
--- NOTE | 2017-04-07 08:42 | CT ---
INDICATION: Abdominal pain, pancreatitis, amylase 220. CT ABDOMEN AND PELVIS WITH CONTRAST: Spiral 2.5-mm axial sections were obtained through the abdomen and pelvis with 91 mL Isovue-370 at 2 mL per second , with sagittal and coronal reconstructions, 04/06/2017, and compared with 08/22. Total Exam DLP = 855.93 mGy-cm. The lower lung ervin and pleural spaces visualized appeared normal, as previously. The liver, common bile duct, gallbladder, adrenal glands, kidneys, and spleen appear normal. The pancreas appears similar to the previous examination with an appearance compatible with fatty replacement. No definite evidence of pancreatitis is noted. No retroperitoneal masses were identified. Allowing for a lack of gastric distention, the appearance of the stomach was unremarkable. The appendix appeared normal with no evidence of bowel obstruction. What appears to be a follicular cyst is noted at the right ovary. Follicles are noted at the left ovary, as well as on the right. The urinary bladder was unremarkable. No significant mass lesions, organomegaly, or free fluid collections were identified in the abdomen or pelvis. Tiny, insignificant appearing, umbilical hernia is noted, including only fat. No specific abnormality was identified to suggest an etiology for the patient's upper mid abdomen pain. Depending upon clinical correlation, upper and lower endoscopy may be helpful. IMPRESSION: Essentially normal CT of the abdomen and pelvis with oral and IV contrast. CT PELVIS: Examination of the pelvis was obtained by CT, as noted above. No organomegaly, mass lesions, or free fluid collections of any significance could be identified. Probable follicular cyst is noted of minimal size at the right ovary with follicles present at both ovaries. Report faxed to Dr. Mills on 04/07/2017 at 0842 hours. [facility]
[2017-04-07] MEDS: Pantoprazole 40 MG Tab.CR PO SCH (08:49)
[2017-04-07] MEDS ORDERED: Pantoprazole 40 MG Vial IVPUSH SCH (09:00)
[2017-04-07] MEDS ORDERED: Sulfamethoxazole/Trimethoprim 800-160 MG Tab PO SCH (09:00)
--- NOTE | 2017-04-07 09:03 | PCM.PN ---
- General Info Date of Service: 04/07/17 Admission Dx/Problem (Free Text): Patient states she feels little better today. She states she had a large BM last night and that helped. She states she drank some water this morning and upset her stomach. She denies fevers, chills, dysuria, pyuria, hematuria. - Patient Data Vitals - Most Recent: Last Vital Signs Temp 99.5 F 04/07/17 08:41 Pulse 52 L 04/07/17 08:41 Resp 16 04/07/17 08:41 BP 124/81 04/07/17 08:41 Pulse Ox 98 04/07/17 08:41 Weight - Most Recent: 177 lb 14.4 oz I&O - Last 24 Hours: Intake & Output 04/06/17 04/07/17 04/07/17 22:59 06:59 14:59 Intake Total 1072 1022 Output Total 800 Balance 272 1022 Lab Results Last 24 Hours: Laboratory Results - last 24 hr 04/06/17 04/07/17 04/07/17 Range/Units 20:05 06:50 06:50 WBC 8.2 (4.5-12.0) X10-3/uL RBC 4.06 (3.23-5.20) x10(6)uL Hgb 12.2 (11.5-15.5) g/dL Hct 37.0 (30.0-51.3) % MCV 91.2 (80-96) fL MCH 30.0 (27.7-33.6) pg MCHC 32.9 (32.2-35.4) g/dL RDW 13.4 (11.5-15.5) % Plt Count 233 (125-369) X10(3)uL MPV 7.4 (7.4-10.4) fL Neut % (Auto) 50.0 (46-82) % Lymph % (Auto) 41.6 H (13-37) % [place] % (Auto) 7.2 (4-12) % Eos % (Auto) 1 (1.0-5.0) % Baso % (Auto) 0 (0-2) % Neut # (Auto) 4.1 (1.6-8.3) # Lymph # (Auto) 3.4 (0.6-5.0) # [place] # (Auto) 0.6 (0.0-1.3) # Eos # (Auto) 0.1 (0.0-0.8) # Baso # (Auto) 0.0 (0.0-0.2) # Sodium 135 (135-145) mmol/L Potassium 3.5 (3.5-5.3) mmol/L Chloride 105 (100-110) mmol/L Carbon Dioxide 23 (23-29) mmol/L BUN 9 (5-20) mg/dL Creatinine 0.7 (0.6-1.3) mg/dL Est Cr Clr Drug Dosing 93.79 mL/min Estimated GFR (MDRD) > 60 (>60) BUN/Creatinine Ratio 12.9 (9-20) Glucose 73 L (80-116) mg/dL Calcium 8.1 L (8.6-10.2) mg/dL Total Bilirubin 0.7 (0.1-1.3) mg/dL AST 22 D (5-27) IU/L ALT 31 H (14-26) IU/L Alkaline Phosphatase 47 L (56-112) IU/L Total Protein 6.0 (6.0-8.0) g/dL Albumin 3.4 L (3.5-5.2) g/dL Globulin 2.6 g/dL Albumin/Globulin Ratio 1.3 Amylase 74 (28-100) U/L Urine Color Yellow (YELLOW) Urine Appearance Clear (CLEAR) Urine pH 7.0 H (5.0-6.5) Ur Specific [place] 1.010 (1.010-1.025) Urine Protein Negative (NEGATIVE) mg/dL Urine Glucose (UA) Normal (NEGATIVE) mg/dL Urine Ketones 50 H (NEGATIVE) mg/dL Urine Occult Blood Negative (NEGATIVE) Urine Nitrite Negative (NEGATIVE) Urine Bilirubin Negative (NEGATIVE) Urine Urobilinogen Normal (NEGATIVE) mg/dL Ur Leukocyte Esterase Negative (NEGATIVE) Urine RBC 0-5 (0) Urine WBC 0-5 (0) Ur Squamous Epith Cells Occasional (NS,R,O) Urine Bacteria Rare H (NS) Med Orders - Current: Current Medications Sodium Chloride (Normal Saline) 1,000 mls @ 70 mls/hr IV ASDIRECTED [facility] Last Admin: 04/07/17 05:01 Dose: 125 mls/hr Promethazine HCl 12.5 mg/ (Sodium Chloride) 50.5 mls @ 200 mls/hr IV Q6H PRN PRN Reason: Nausea/Vomiting Last Admin: 04/07/17 07:52 Dose: 200 mls/hr Mirtazapine (Remeron) 15 mg PO BEDTIME [facility] Last Admin: 04/06/17 21:50 Dose: 15 mg Ondansetron HCl (Zofran) 4 mg IVPUSH Q6H PRN PRN Reason: Nausea/Vomiting Last Admin: 04/06/17 13:32 Dose: 4 mg Pantoprazole Sodium (Protonix) 40 mg PO DAILY [facility] Last Admin: 04/07/17 08:49 Dose: 40 mg Sodium Chloride (Saline Flush) 10 ml FLUSH ASDIRECTED PRN PRN Reason: Keep Vein Open Discontinued Medications Al Hydroxide/Mg Hydroxide 15 (ml/ Lidocaine HCl 15 ml) 0 ml PO ONETIME STA Stop: 04/06/17 10:03 Last Admin: 04/06/17 13:57 Dose: Not Given Diphenhydramine HCl (Benadryl) 50 mg IVPUSH ONETIME ONE Stop: 04/06/17 07:45 Last Admin: 04/06/17 08:16 Dose: 50 mg Hydroxyzine Pamoate (Vistaril) 50 mg PO Q6H PRN PRN Reason: Nausea Promethazine HCl 12.5 mg/ (Sodium Chloride) 50.5 mls @ 200 mls/hr IV ONETIME STA Stop: 04/06/17 07:59 Last Admin: 04/06/17 08:13 Dose: 200 mls/hr Sodium Chloride (Normal Saline) 1,000 mls @ 999 mls/hr IV .BOLUS ONE Stop: 04/06/17 08:44 Last Admin: 04/06/17 08:12 Dose: 999 mls/hr Sodium Chloride (Normal Saline) 1,000 mls @ 125 mls/hr IV ASDIRECTED [facility] Iopamidol (Isovue-370 (76%)) 100 ml IV . DIRECTED ONE Stop: 04/06/17 19:27 Last Admin: 04/06/17 19:47 Dose: 91 ml Morphine Sulfate (Morphine) 2 mg IVPUSH Q2H PRN PRN Reason: Pain Last Admin: 04/07/17 07:50 Dose: 2 mg Pantoprazole Sodium (Protonix Iv) 40 mg IVPUSH DAILY [facility] Last Admin: 04/06/17 08:20 Dose: 40 mg Pantoprazole Sodium (Protonix Iv) 40 mg IVPUSH DAILY [facility] Potassium Chloride (Klor-Con M20) 40 meq PO ONETIME ONE Stop: 04/06/17 09:53 Last Admin: 04/06/17 10:07 Dose: 40 meq Trimethoprim/Sulfamethoxazole (Septra Ds) 1 tab PO DAILY [facility] Last Admin: 04/07/17 08:49 Dose: 1 tab - Exam General: Alert, Oriented, Cooperative, No Acute Distress Neck: Supple Lungs: Normal Respiratory Effort GI/Abdominal Exam: Normal Bowel Sounds, Soft, Non-Tender, No Organomegaly, No Abnormal Bruit, No Mass - Problem List & Annotations (1) Pancreatitis SNOMED Code(s): 24740631 Code(s): K85.90 - ACUTE PANCREATITIS WITHOUT NECROSIS OR INFECTION, UNSP Status: Acute Current Visit: Yes (2) Nausea and vomiting SNOMED Code(s): 24472048 Code(s): R11.2 - NAUSEA WITH VOMITING, UNSPECIFIED Status: Acute Current Visit: No Onset Date: 04/11/14 Annotation/Comment:: oral anti-emetics as needed. (3) Ulcerative colitis SNOMED Code(s): 57226234 Code(s): K51.90 - ULCERATIVE COLITIS, UNSPECIFIED, WITHOUT COMPLICATIONS Status: Acute Current Visit: No Qualifiers: Ulcerative colitis location: unspecified ulcerative colitis location Digestive disease complication type: without complication Qualified Code(s): K51.90 - Ulcerative colitis, unspecified, without complications - Problem List Review Problem List Initiated/Reviewed/Updated: Yes - My Orders Last 24 Hours: My Active Orders 04/06/17 13:19 Ondansetron [Zofran] 4 mg IVPUSH Q6H PRN 04/06/17 18:23 Notify Provider Consults [RC] ASDIRECTED Consult to Physician [CONS] Routine 04/06/17 21:00 Mirtazapine [Remeron] 15 mg PO BEDTIME 04/07/17 09:00 Acetaminophen/HYDROcodone [[place] 325-5 MG] 1 tab PO Q4H PRN Pantoprazole [ProTONIX] 40 mg PO DAILY 04/07/17 Lunch Regular Diet [DIET] - Plan Plan:: 1. Changes including pancreatitis, amylase is back to normal. I'll start to advance her diet. 2. Stop morphine and use hydrocodone 5 x 3 25 one pill every 4 hours p.m. for pain. Comes up as an allergy but she states she's taken the past it she denies this allergy. I discussed it with her. 3. Increase ambulation. 4. Decrease IV rate from 125 mL an hour to 70 mL an hour.
[2017-04-07] MEDS: Ondansetron 4 MG/2 ML SDV IVPUSH PRN (11:17)
--- NOTE | 2017-04-07 11:30 | CONS ---
DATE OF CONSULTATION: 04/06/2017 CHIEF COMPLAINT: Epigastric abdominal pain. HISTORY OF PRESENT ILLNESS: This is a 31-year-old white female, who was admitted yesterday. She was seen by me in the clinic and thought to have signs and symptoms consistent with acute pancreatitis. She presented to the emergency department twice; once on Thursday and once on Thursday in the past 2 to 3 days complaining of pain in the epigastrium. Denies any exacerbating factors. Denies any ETOH use. She was currently on Remeron as well as Azulfidine, and she reports emesis. Amylase was elevated and was up at 220 on the day of admission. There were no LFTs done. However, an ultrasound was performed which demonstrated a normal biliary tree with no evidence of cholelithiasis or choledocholithiasis as well as no ductal dilatation. She has a history of ulcerative colitis in the past. Denies any change in bowel habits, diarrhea, black, or bloody stools. She does have a history of multiple admissions for abdominal pain which resolved after several days of bowel rest. On the basis of my evaluation, I thought she has had acute pancreatitis and I recommended admission to the medical service. I was asked to evaluate her today. She reports that the pain is still there but she is feeling better and nausea is better. MEDICATIONS: At the time includes, 1. Vistaril 50 mg 3 times a day for anxiety. 2. Remeron 30 mg once a day. 3. Azulfidine 500 mg 2 times a day with meals. 4. Xanax 0.25 mg every 12 hours as needed for nervousness. 5. Imitrex 100 mg tablets as needed for migraine. 6. Tylenol 500 mg 2 tablets by mouth every 6 hours as needed for headache. ALLERGIES: Include adhesives, Flonase, ketorolac, latex, Omnicef, Seroquel, silicon, Vicodin, and Zoloft. PAST MEDICAL HISTORY: Significant for depression, esophageal reflux, chronic lymphocytic thyroiditis, myopia, history of nephrolithiasis, ulcerative colitis, frontal sinus, dysuria, as well as anxiety. PAST SURGICAL HISTORY: Significant for bilateral knee scopes, section x3, colonoscopy, tubal ligation, lithotripsy via extracorporal shockwave therapy, tubal ligation, and upper endoscopy. FAMILY HISTORY: Significant for hypertension. SOCIAL HISTORY: She is single and works at the [employer]. She has never smoked and she denies any alcohol use or abuse. REVIEW OF SYSTEMS: GENERAL: Positive for appetite change. HEENT, RESPIRATORY, AND CARDIOVASCULAR: Negative. GASTROINTESTINAL: Positive for abdominal pain, nausea, and vomiting. GENITOURINARY: Denied any dysuria or any genitourinary issues. PHYSICAL EXAMINATION: GENERAL: On exam, this is a well-developed, well- nourished white female appearing much improved than she was yesterday. VITAL SIGNS: Her vital signs are stable. She is afebrile. LUNGS: Clear to auscultation. HEART: Regular rate and rhythm. ABDOMEN: Demonstrated some mild tenderness in the epigastrium but markedly improved from yesterday. PERTINENT DIAGNOSTIC DATA: Ultrasound as noted was negative. Lab work was essentially unremarkable. CT scan was obtained. I do not have a formal port but verbal report via Dr. Mills states she has no evidence of pancreatitis. ASSESSMENT: Epigastric pain, questionable etiology. RECOMMENDATIONS: Would continue bowel rest. As pain improves, I would advance her diet. She will probably follow her usual course of improvement after several days and then be able to be discharged to home. /[id number] /MODL
[2017-04-07] MEDS: Aluminum Hydroxide/Magnesium Hydroxide Susp 30 ML Cup PO PRN (13:29)
[2017-04-07] MEDS: Acetaminophen/HYDROcodone 325-5 MG Tab PO PRN (14:20)
[2017-04-07] MEDS: Sodium Chloride 0.9% 10 ML Syringe FLUSH PRN ×3 (15:55→20:40)
[2017-04-07] MEDS ORDERED: methylPREDNISolone Sodium Succinate 40 MG/1 ML SDV IVPUSH SCH ×2 (19:00→20:00)
[2017-04-07] MEDS: Mirtazapine 15 MG Tab PO SCH (20:35)
[2017-04-07] MEDS: sulfaSALAzine 500 MG Tab PO SCH (20:39)
--- NOTE | 2017-04-08 07:54 | PCM.PN ---
- General Info Date of Service: 04/08/17 Admission Dx/Problem (Free Text): Patient states she slept last night. Pain is much improved. Nurses stated she did not have any pain medication today. She states she felt a little nauseated but much better. She is moving her bowels. The pain is in the epigastric and cross stop the abdomen. She denies any vaginal discharge or lower abdominal pain. She denies pelvic pain. - Patient Data Vitals - Most Recent: Last Vital Signs Temp 98.2 F 04/08/17 04:00 Pulse 62 04/08/17 04:00 Resp 17 04/08/17 04:00 BP 123/80 04/08/17 04:00 Pulse Ox 96 04/08/17 04:00 Weight - Most Recent: 177 lb 14.4 oz I&O - Last 24 Hours: Intake & Output 04/07/17 04/08/17 04/08/17 22:59 06:59 14:59 Intake Total 0 Balance 0 Lab Results Last 24 Hours: Laboratory Results - last 24 hr 04/08/17 04/08/17 Range/Units 07:21 07:21 WBC 11.1 (4.5-12.0) X10-3/uL RBC 4.79 (3.23-5.20) x10(6)uL Hgb 14.5 (11.5-15.5) g/dL Hct 42.6 (30.0-51.3) % MCV 89.0 (80-96) fL MCH 30.2 (27.7-33.6) pg MCHC 34.0 (32.2-35.4) g/dL RDW 13.7 (11.5-15.5) % Plt Count 278 (125-369) X10(3)uL MPV 7.6 (7.4-10.4) fL Add Manual Diff Yes Sodium 132 L (135-145) mmol/L Potassium 3.8 (3.5-5.3) mmol/L Chloride 99 L D (100-110) mmol/L Carbon Dioxide 23 (23-29) mmol/L BUN 12 (5-20) mg/dL Creatinine 0.8 (0.6-1.3) mg/dL Est Cr Clr Drug Dosing 82.06 mL/min Estimated GFR (MDRD) > 60 (>60) BUN/Creatinine Ratio 15.0 (9-20) Glucose 155 H D (80-116) mg/dL Calcium 8.7 (8.6-10.2) mg/dL Total Bilirubin 0.7 (0.1-1.3) mg/dL AST 17 D (5-27) IU/L ALT 29 H (14-26) IU/L Alkaline Phosphatase 58 (56-112) IU/L Total Protein 7.1 (6.0-8.0) g/dL Albumin 3.9 (3.5-5.2) g/dL Globulin 3.2 g/dL Albumin/Globulin Ratio 1.2 Amylase 97 (28-100) U/L Med Orders - Current: Current Medications Hydrocodone Bitart/Acetaminophen ([place] 325-5 Mg) 1 tab PO Q4H PRN PRN Reason: Pain Last Admin: 04/07/17 14:20 Dose: 1 tab Al Hydroxide/Mg Hydroxide (Mag-Al Susp) 15 ml PO Q2H PRN PRN Reason: Indigestion Last Admin: 04/07/17 13:29 Dose: 15 ml Promethazine HCl 12.5 mg/ (Sodium Chloride) 50.5 mls @ 200 mls/hr IV Q6H PRN PRN Reason: Nausea/Vomiting Last Admin: 04/07/17 15:56 Dose: 200 mls/hr Methylprednisolone Sodium Succinate (Solu-Medrol) 40 mg IVPUSH DAILY [facility] Last Admin: 04/07/17 20:35 Dose: 40 mg Mirtazapine (Remeron) 15 mg PO BEDTIME [facility] INCLUDES [facility] Last Admin: 04/07/17 20:35 Dose: 15 mg Morphine Sulfate (Morphine) 2 mg IVPUSH Q2H PRN PRN Reason: Pain Last Admin: 04/07/17 20:36 Dose: 2 mg Ondansetron HCl (Zofran) 4 mg IVPUSH Q6H PRN PRN Reason: Nausea/Vomiting Last Admin: 04/07/17 11:17 Dose: 4 mg Pantoprazole Sodium (Protonix) 40 mg PO DAILY [facility] Last Admin: 04/07/17 08:49 Dose: 40 mg Sodium Chloride (Saline Flush) 10 ml FLUSH ASDIRECTED PRN PRN Reason: Keep Vein Open Last Admin: 04/07/17 20:40 Dose: 10 ml Sulfasalazine (Sulfasalazine) 500 mg PO BID COUNT [facility]CLUDES [facility] Last Admin: 04/07/17 20:39 Dose: 500 mg Discontinued Medications Al Hydroxide/Mg Hydroxide 15 (ml/ Lidocaine HCl 15 ml) 0 ml PO ONETIME STA Stop: 04/06/17 10:03 Last Admin: 04/06/17 13:57 Dose: Not Given Diphenhydramine HCl (Benadryl) 50 mg IVPUSH ONETIME ONE Stop: 04/06/17 07:45 Last Admin: 04/06/17 08:16 Dose: 50 mg Hydroxyzine Pamoate (Vistaril) 50 mg PO Q6H PRN PRN Reason: Nausea Promethazine HCl 12.5 mg/ (Sodium Chloride) 50.5 mls @ 200 mls/hr IV ONETIME STA Stop: 04/06/17 07:59 Last Admin: 04/06/17 08:13 Dose: 200 mls/hr Sodium Chloride (Normal Saline) 1,000 mls @ 999 mls/hr IV .BOLUS ONE Stop: 04/06/17 08:44 Last Admin: 04/06/17 08:12 Dose: 999 mls/hr Sodium Chloride (Normal Saline) 1,000 mls @ 70 mls/hr IV ASDIRECTED [facility] Last Infusion: 04/07/17 12:00 Dose: 70 mls/hr Sodium Chloride (Normal Saline) 1,000 mls @ 125 mls/hr IV ASDIRECTED [facility] Iopamidol (Isovue-370 (76%)) 100 ml IV . DIRECTED ONE Stop: 04/06/17 19:27 Last Admin: 04/06/17 19:47 Dose: 91 ml Methylprednisolone Sodium Succinate (Solu-Medrol) 40 mg IVPUSH DAILY [facility]CLUD[facility] Morphine Sulfate (Morphine) 2 mg IVPUSH Q2H PRN PRN Reason: Pain Last Admin: 04/07/17 07:50 Dose: 2 mg Pantoprazole Sodium (Protonix Iv) 40 mg IVPUSH DAILY [facility] Last Admin: 04/06/17 08:20 Dose: 40 mg Pantoprazole Sodium (Protonix Iv) 40 mg IVPUSH DAILY [facility] Potassium Chloride (Klor-Con M20) 40 meq PO ONETIME ONE Stop: 04/06/17 09:53 Last Admin: 04/06/17 10:07 Dose: 40 meq Trimethoprim/Sulfamethoxazole (Septra Ds) 1 tab PO DAILY [facility] Last Admin: 04/07/17 08:49 Dose: 1 tab - Exam General: Alert, Oriented, Severe Distress Lungs: Normal Respiratory Effort GI/Abdominal Exam: Normal Bowel Sounds, Soft, No Organomegaly, Other (Mild tenderness across the upper abdomen. No rebound or guarding. Actually improved) - Problem List & Annotations (1) Pancreatitis SNOMED Code(s): 72644603 Code(s): K85.90 - ACUTE PANCREATITIS WITHOUT NECROSIS OR INFECTION, UNSP Status: Acute Current Visit: Yes (2) Nausea and vomiting SNOMED Code(s): 70398234 Code(s): R11.2 - NAUSEA WITH VOMITING, UNSPECIFIED Status: Acute Current Visit: No Onset Date: 04/11/14 Annotation/Comment:: oral anti-emetics as needed. (3) Ulcerative colitis SNOMED Code(s): 79584176 Code(s): K51.90 - ULCERATIVE COLITIS, UNSPECIFIED, WITHOUT COMPLICATIONS Status: Acute Current Visit: No Qualifiers: Ulcerative colitis location: unspecified ulcerative colitis location Digestive disease complication type: without complication Qualified Code(s): K51.90 - Ulcerative colitis, unspecified, without complications - Problem List Review Problem List Initiated/Reviewed/Updated: Yes - My Orders Last 24 Hours: My Active Orders 04/07/17 09:00 Acetaminophen/HYDROcodone [[place] 325-5 MG] 1 tab PO Q4H PRN Pantoprazole [ProTONIX] 40 mg PO DAILY 04/07/17 13:14 Alum Hydroxide/Mag Hydroxide [Mag-Al Susp] 15 ml PO Q2H PRN 04/07/17 14:41 Convert IV to Saline Lock [OM.PC] Routine 04/07/17 17:57 Morphine 2 mg IVPUSH Q2H PRN 04/07/17 20:00 methylPREDNISolone Sod Succ [Solu-MEDROL] 40 mg IVPUSH DAILY 04/07/17 21:00 sulfaSALAzine 500 mg PO BID 04/08/17 07:21 CBC WITH AUTO DIFF [HEME] Routine SEDIMENTATION RATE MANUAL [HEME] Routine 04/08/17 Lunch Clear Liquid Diet [DIET] - Plan Plan:: 1. Labs pending 2. Stop Solu-Medrol and start prednisone. Will confer with Dr. Jennings in regards to the patient. 3. Clear liquids 4. Ambulate minimum 4 times a day
[2017-04-08] MEDS: Pantoprazole 40 MG Tab.CR PO SCH (08:32)
[2017-04-08] MEDS: predniSONE 20 MG Tab PO SCH (08:56)
[2017-04-08] MEDS: sulfaSALAzine 500 MG Tab PO SCH ×2 (09:01→23:33)
--- NOTE | 2017-04-08 11:24 | PCM.SURGPN ---
- General Info Date of Service: 04/08/17 - Review of Systems General: Reports: No Symptoms Gastrointestinal: Reports: No Symptoms - Patient Data Vitals - Most Recent: Last Vital Signs Temp 37.0 C 04/08/17 08:20 Pulse 64 04/08/17 08:20 Resp 16 04/08/17 08:20 BP 114/70 04/08/17 08:20 Pulse Ox 98 04/08/17 08:20 Weight - Most Recent: 80.694 kg I&O - Last 24 Hours: Intake & Output 04/07/17 04/08/17 04/08/17 22:59 06:59 14:59 Intake Total 0 Balance 0 Lab Results Last 24 Hrs: Laboratory Results - last 24 hr 04/08/17 04/08/17 04/08/17 Range/Units 07:21 07:21 07:21 WBC 11.1 (4.5-12.0) X10-3/uL RBC 4.79 (3.23-5.20) x10(6)uL Hgb 14.5 (11.5-15.5) g/dL Hct 42.6 (30.0-51.3) % MCV 89.0 (80-96) fL MCH 30.2 (27.7-33.6) pg MCHC 34.0 (32.2-35.4) g/dL RDW 13.7 (11.5-15.5) % Plt Count 278 (125-369) X10(3)uL MPV 7.6 (7.4-10.4) fL Add Manual Diff Yes Neutrophils % (Manual) 89 H (46-82) % Lymphocytes % (Manual) 10 L (13-37) % Monocytes % (Manual) 1 L (4-12) % ESR 7 (0-20) mm/hr Sodium 132 L (135-145) mmol/L Potassium 3.8 (3.5-5.3) mmol/L Chloride 99 L D (100-110) mmol/L Carbon Dioxide 23 (23-29) mmol/L BUN 12 (5-20) mg/dL Creatinine 0.8 (0.6-1.3) mg/dL Est Cr Clr Drug Dosing 82.06 mL/min Estimated GFR (MDRD) > 60 (>60) BUN/Creatinine Ratio 15.0 (9-20) Glucose 155 H D (80-116) mg/dL Calcium 8.7 (8.6-10.2) mg/dL Total Bilirubin 0.7 (0.1-1.3) mg/dL AST 17 D (5-27) IU/L ALT 29 H (14-26) IU/L Alkaline Phosphatase 58 (56-112) IU/L Total Protein 7.1 (6.0-8.0) g/dL Albumin 3.9 (3.5-5.2) g/dL Globulin 3.2 g/dL Albumin/Globulin Ratio 1.2 Amylase 97 (28-100) U/L Med Orders - Current: Current Medications Hydrocodone Bitart/Acetaminophen ([place] 325-5 Mg) 1 tab PO Q4H PRN PRN Reason: Pain Last Admin: 04/07/17 14:20 Dose: 1 tab Al Hydroxide/Mg Hydroxide (Mag-Al Susp) 15 ml PO Q2H PRN PRN Reason: Indigestion Last Admin: 04/07/17 13:29 Dose: 15 ml Promethazine HCl 12.5 mg/ (Sodium Chloride) 50.5 mls @ 200 mls/hr IV Q6H PRN PRN Reason: Nausea/Vomiting Last Admin: 04/07/17 15:56 Dose: 200 mls/hr Mirtazapine (Remeron) 15 mg PO BEDTIME [facility] Last Admin: 04/07/17 20:35 Dose: 15 mg Morphine Sulfate (Morphine) 2 mg IVPUSH Q2H PRN PRN Reason: Pain Last Admin: 04/07/17 20:36 Dose: 2 mg Ondansetron HCl (Zofran) 4 mg IVPUSH Q6H PRN PRN Reason: Nausea/Vomiting Last Admin: 04/07/17 11:17 Dose: 4 mg Pantoprazole Sodium (Protonix) 40 mg PO DAILY [facility] Last Admin: 04/08/17 08:32 Dose: 40 mg Prednisone (Prednisone) 40 mg PO WITHBREAKFAST [facility] Last Admin: 04/08/17 08:56 Dose: 40 mg Sodium Chloride (Saline Flush) 10 ml FLUSH ASDIRECTED PRN PRN Reason: Keep Vein Open Last Admin: 04/07/17 20:40 Dose: 10 ml Sulfasalazine (Sulfasalazine) 500 mg PO BID [facility] Last Admin: 04/08/17 09:01 Dose: 500 mg Discontinued Medications Al Hydroxide/Mg Hydroxide 15 (ml/ Lidocaine HCl 15 ml) 0 ml PO ONETIME STA Stop: 04/06/17 10:03 Last Admin: 04/06/17 13:57 Dose: Not Given Diphenhydramine HCl (Benadryl) 50 mg IVPUSH ONETIME ONE Stop: 04/06/17 07:45 Last Admin: 04/06/17 08:16 Dose: 50 mg Hydroxyzine Pamoate (Vistaril) 50 mg PO Q6H PRN PRN Reason: Nausea Promethazine HCl 12.5 mg/ (Sodium Chloride) 50.5 mls @ 200 mls/hr IV ONETIME STA Stop: 04/06/17 07:59 Last Admin: 04/06/17 08:13 Dose: 200 mls/hr Sodium Chloride (Normal Saline) 1,000 mls @ 999 mls/hr IV .BOLUS ONE Stop: 04/06/17 08:44 Last Admin: 04/06/17 08:12 Dose: 999 mls/hr Sodium Chloride (Normal Saline) 1,000 mls @ 70 mls/hr IV ASDIRECTED [facility] Last Infusion: 04/07/17 12:00 Dose: 70 mls/hr Sodium Chloride (Normal Saline) 1,000 mls @ 125 mls/hr IV ASDIRECTED [facility] Iopamidol (Isovue-370 (76%)) 100 ml IV . DIRECTED ONE Stop: 04/06/17 19:27 Last Admin: 04/06/17 19:47 Dose: 91 ml Methylprednisolone Sodium Succinate (Solu-Medrol) 40 mg IVPUSH DAILY [facility] Methylprednisolone Sodium Succinate (Solu-Medrol) 40 mg IVPUSH DAILY [facility] Last Admin: 04/07/17 20:35 Dose: 40 mg Morphine Sulfate (Morphine) 2 mg IVPUSH Q2H PRN PRN Reason: Pain Last Admin: 04/07/17 07:50 Dose: 2 mg Pantoprazole Sodium (Protonix Iv) 40 mg IVPUSH DAILY [facility] Last Admin: 04/06/17 08:20 Dose: 40 mg Pantoprazole Sodium (Protonix Iv) 40 mg IVPUSH DAILY [facility] Potassium Chloride (Klor-Con M20) 40 meq PO ONETIME ONE Stop: 04/06/17 09:53 Last Admin: 04/06/17 10:07 Dose: 40 meq Trimethoprim/Sulfamethoxazole (Septra Ds) 1 tab PO DAILY [facility] Last Admin: 04/07/17 08:49 Dose: 1 tab - Exam General: Alert, Oriented, No Acute Distress Lungs: Clear to Auscultation, Normal Respiratory Effort Cardiovascular: Regular Rate, Regular Rhythm GI/Abdominal Exam: Normal Bowel Sounds, Soft, Non-Tender - Problem List & Annotations (1) Abdominal pain SNOMED Code(s): 82099781 Code(s): R10.9 - UNSPECIFIED ABDOMINAL PAIN Status: Acute Priority: High Current Visit: No Annotation/Comment:: resolved. tolerating diet. - Problem List Review Problem List Initiated/Reviewed/Updated: Yes - My Orders Last 24 Hours: Active Orders 24 hr Category Date Time Status BRAT Diet [DIET] Diet 04/08/17 Dinner Active Clear Liquid Diet [DIET] Diet 04/08/17 Lunch Active Alum Hydroxide/Mag Hydroxide [Mag-Al Susp] Med 04/07/17 13:14 Active 15 ml PO Q2H PRN Morphine Med 04/07/17 17:57 Active 2 mg IVPUSH Q2H PRN predniSONE Med 04/08/17 08:00 Active 40 mg PO WITHBREAKFAST sulfaSALAzine Med 04/07/17 21:00 Active 500 mg PO BID Convert IV to Saline Lock [OM.PC] Routine Oth 04/07/17 14:41 Ordered Medication Orders Hydrocodone Bitart/Acetaminophen ([place] 325-5 Mg) 1 tab PO Q4H PRN PRN Reason: Pain Last Admin: 04/07/17 14:20 Dose: 1 tab Al Hydroxide/Mg Hydroxide (Mag-Al Susp) 15 ml PO Q2H PRN PRN Reason: Indigestion Last Admin: 04/07/17 13:29 Dose: 15 ml Promethazine HCl 12.5 mg/ (Sodium Chloride) 50.5 mls @ 200 mls/hr IV Q6H PRN PRN Reason: Nausea/Vomiting Last Admin: 04/07/17 15:56 Dose: 200 mls/hr Admin: 04/07/17 07:52 Dose: 200 mls/hr Admin: 04/06/17 18:12 Dose: 200 mls/hr Mirtazapine (Remeron) 15 mg PO BEDTIME [facility] Last Admin: 04/07/17 20:35 Dose: 15 mg Admin: 04/06/17 21:50 Dose: 15 mg Morphine Sulfate (Morphine) 2 mg IVPUSH Q2H PRN PRN Reason: Pain Last Admin: 04/07/17 20:36 Dose: 2 mg Admin: 04/07/17 18:15 Dose: 2 mg Ondansetron HCl (Zofran) 4 mg IVPUSH Q6H PRN PRN Reason: Nausea/Vomiting Last Admin: 04/07/17 11:17 Dose: 4 mg Admin: 04/06/17 13:32 Dose: 4 mg Pantoprazole Sodium (Protonix) 40 mg PO DAILY [facility] Last Admin: 04/08/17 08:32 Dose: 40 mg Admin: 04/07/17 08:49 Dose: 40 mg Prednisone (Prednisone) 40 mg PO WITHBREAKFAST [facility] Last Admin: 04/08/17 08:56 Dose: 40 mg Sodium Chloride (Saline Flush) 10 ml FLUSH ASDIRECTED PRN PRN Reason: Keep Vein Open Last Admin: 04/07/17 20:40 Dose: 10 ml Admin: 04/07/17 18:15 Dose: 10 ml Admin: 04/07/17 15:55 Dose: 10 ml Sulfasalazine (Sulfasalazine) 500 mg PO BID [facility] Last Admin: 04/08/17 09:01 Dose: 500 mg Admin: 04/07/17 20:39 Dose: 500 mg - Assessment Assessment (Free Text/Narrative):: appears to be getting better - Plan Plan (Free Text/Narrative):: will sign off. no recommendations
[2017-04-08] MEDS: Aluminum Hydroxide/Magnesium Hydroxide Susp 30 ML Cup PO PRN ×2 (13:48→17:53)
[2017-04-08] MEDS: Acetaminophen/HYDROcodone 325-5 MG Tab PO PRN (13:49)
[2017-04-08] MEDS: Ondansetron 4 MG/2 ML SDV IVPUSH PRN (15:34)
[2017-04-08] MEDS: Sodium Chloride 0.9% 10 ML Syringe FLUSH PRN ×2 (15:35→21:25)
[2017-04-08] MEDS: Ondansetron 4 MG Tab.DIS PO PRN ×2 (16:34→23:32)
[2017-04-08] MEDS ORDERED: Lidocaine 2% Viscous Solution 15 ML Cup PO ONE (17:42)
[2017-04-08] MEDS: Ketorolac 30 MG/ML SDV IVPUSH PRN (19:51)
[2017-04-08] MEDS: Morphine 2 MG/ML Syringe IVPUSH PRN (21:24)
[2017-04-08] MEDS: Mirtazapine 15 MG Tab PO SCH (23:33)
[2017-04-09] MEDS: Ketorolac 30 MG/ML SDV IVPUSH PRN (06:16)
[2017-04-09] MEDS: Sodium Chloride 0.9% 10 ML Syringe FLUSH PRN (06:17)
[2017-04-09] MEDS: Ondansetron 4 MG/2 ML SDV IVPUSH PRN (06:23)
[2017-04-09] MEDS: Acetaminophen/HYDROcodone 325-5 MG Tab PO PRN ×2 (07:41→12:11)
[2017-04-09] MEDS: predniSONE 20 MG Tab PO SCH (07:43)
[2017-04-09] MEDS ORDERED: LORazepam 2 MG/ML MDV IVPUSH ONE (08:03)
[2017-04-09] MEDS ORDERED: LORazepam 2 MG/ML MDV ONE (08:13)
[2017-04-09] MEDS: sulfaSALAzine 500 MG Tab PO SCH (09:08)
[2017-04-09] MEDS: Pantoprazole 40 MG Tab.CR PO SCH (09:08)
[2017-04-09] MEDS ORDERED: Omeprazole 40 MG Cap.CR PO PRN (09:08)
[2017-04-09] MEDS ORDERED: Bisacodyl 10 MG Supp RECTAL ONE (09:11)
--- NOTE | 2017-04-09 09:20 | PCM.PN ---
- General Info Date of Service: 04/09/17 Admission Dx/Problem (Free Text): Patient states she's having horrible abdominal pain this morning with vomiting. She states now it is not epigastric but it's down on her line in her lower abdomen. She denies dysuria, pyuria, hematuria, vaginal discharge. Fevers , chills. She's not moved her bowels in 2 days. - Patient Data Vitals - Most Recent: Last Vital Signs Temp 98.2 F 04/09/17 08:30 Pulse 61 04/09/17 08:30 Resp 14 04/09/17 08:30 BP 128/88 04/09/17 08:30 Pulse Ox 93 L 04/09/17 08:30 Weight - Most Recent: 177 lb 14.4 oz Med Orders - Current: Current Medications Hydrocodone Bitart/Acetaminophen ([place] 325-5 Mg) 1 tab PO Q4H PRN PRN Reason: Pain Last Admin: 04/09/17 07:41 Dose: 1 tab Ketorolac Tromethamine (Toradol) 30 mg IVPUSH Q6H PRN PRN Reason: Pain Stop: 04/13/17 18:30 Last Admin: 04/09/17 06:16 Dose: 30 mg Mirtazapine (Remeron) 30 mg PO BEDTIME [facility] Morphine Sulfate (Morphine) 2 mg IVPUSH Q2H PRN PRN Reason: Pain Last Admin: 04/08/17 21:24 Dose: 2 mg Omeprazole (Omeprazole) 40 mg PO DAILY PRN PRN Reason: Heartburn Ondansetron HCl (Zofran) 4 mg IVPUSH Q6H PRN PRN Reason: Nausea/Vomiting Last Admin: 04/09/17 06:23 Dose: 4 mg Ondansetron HCl (Zofran Odt) 4 mg PO Q6H PRN PRN Reason: Nausea/Vomiting Last Admin: 04/08/17 23:32 Dose: 4 mg Prednisone (Prednisone) 30 mg PO WITHBREAKFAST [facility] Sodium Chloride (Saline Flush) 10 ml FLUSH ASDIRECTED PRN PRN Reason: Keep Vein Open Last Admin: 04/09/17 06:17 Dose: 10 ml Sulfasalazine (Sulfasalazine) 500 mg PO BID [facility] Last Admin: 04/09/17 09:08 Dose: 500 mg Discontinued Medications Al Hydroxide/Mg Hydroxide (Mag-Al Susp) 15 ml PO Q2H PRN PRN Reason: Indigestion Last Admin: 04/08/17 17:53 Dose: 15 ml Al Hydroxide/Mg Hydroxide 15 (ml/ Lidocaine HCl 15 ml) 0 ml PO ONETIME STA Stop: 04/06/17 10:03 Last Admin: 04/06/17 13:57 Dose: Not Given Diphenhydramine HCl (Benadryl) 50 mg IVPUSH ONETIME ONE Stop: 04/06/17 07:45 Last Admin: 04/06/17 08:16 Dose: 50 mg Hydroxyzine Pamoate (Vistaril) 50 mg PO Q6H PRN PRN Reason: Nausea Promethazine HCl 12.5 mg/ (Sodium Chloride) 50.5 mls @ 200 mls/hr IV ONETIME STA Stop: 04/06/17 07:59 Last Admin: 04/06/17 08:13 Dose: 200 mls/hr Sodium Chloride (Normal Saline) 1,000 mls @ 999 mls/hr IV .BOLUS ONE Stop: 04/06/17 08:44 Last Admin: 04/06/17 08:12 Dose: 999 mls/hr Sodium Chloride (Normal Saline) 1,000 mls @ 70 mls/hr IV ASDIRECTED [facility] Last Infusion: 04/07/17 12:00 Dose: 70 mls/hr Promethazine HCl 12.5 mg/ (Sodium Chloride) 50.5 mls @ 200 mls/hr IV Q6H PRN PRN Reason: Nausea/Vomiting Last Admin: 04/07/17 15:56 Dose: 200 mls/hr Sodium Chloride (Normal Saline) 1,000 mls @ 125 mls/hr IV ASDIRECTED [facility] Iopamidol (Isovue-370 (76%)) 100 ml IV . DIRECTED ONE Stop: 04/06/17 19:27 Last Admin: 04/06/17 19:47 Dose: 91 ml Lidocaine HCl (Xylocaine 2% Viscous) 15 ml PO ONETIME ONE Stop: 04/08/17 17:43 Last Admin: 04/08/17 17:53 Dose: 15 ml Lorazepam (Ativan) 0.5 mg IVPUSH ONETIME ONE Stop: 04/09/17 08:04 Last Admin: 04/09/17 08:19 Dose: 0.5 mg Lorazepam (Ativan) Confirm Administered Dose 2 mg .ROUTE .STK-MED ONE Stop: 04/09/17 08:14 Methylprednisolone Sodium Succinate (Solu-Medrol) 40 mg IVPUSH DAILY [facility] Methylprednisolone Sodium Succinate (Solu-Medrol) 40 mg IVPUSH DAILY [facility] Last Admin: 04/07/17 20:35 Dose: 40 mg Mirtazapine (Remeron) 15 mg PO BEDTIME [facility] Last Admin: 04/08/17 23:33 Dose: 15 mg Morphine Sulfate (Morphine) 2 mg IVPUSH Q2H PRN PRN Reason: Pain Last Admin: 04/07/17 07:50 Dose: 2 mg Pantoprazole Sodium (Protonix Iv) 40 mg IVPUSH DAILY [facility] Last Admin: 04/06/17 08:20 Dose: 40 mg Pantoprazole Sodium (Protonix Iv) 40 mg IVPUSH DAILY [facility] Pantoprazole Sodium (Protonix) 40 mg PO DAILY [facility] Last Admin: 04/09/17 09:08 Dose: 40 mg Potassium Chloride (Klor-Con M20) 40 meq PO ONETIME ONE Stop: 04/06/17 09:53 Last Admin: 04/06/17 10:07 Dose: 40 meq Prednisone (Prednisone) 40 mg PO WITHBREAKFAST [facility] Last Admin: 04/09/17 07:43 Dose: 40 mg Trimethoprim/Sulfamethoxazole (Septra Ds) 1 tab PO DAILY [facility] Last Admin: 04/07/17 08:49 Dose: 1 tab - Exam General: Alert, Oriented, Cooperative, Moderate Distress Neck: Supple GI/Abdominal Exam: No Organomegaly, No Abnormal Bruit, Distended (Mild), Guarding (Mild), Tender. No: Rigid, Rebound, Mass, Hepatomegaly, Splenomegaly Back Exam: Normal Inspection, Full Range of Motion Extremities: No Pedal Edema Psy/Mental Status: Alert, Depressed, Agitated, Withdrawal Symptoms - Problem List & Annotations (1) Nausea and vomiting SNOMED Code(s): 56650516 Code(s): R11.2 - NAUSEA WITH VOMITING, UNSPECIFIED Status: Acute Current Visit: No Onset Date: 04/11/14 Annotation/Comment:: oral anti-emetics as needed. (2) Ulcerative colitis SNOMED Code(s): 85419029 Code(s): K51.90 - ULCERATIVE COLITIS, UNSPECIFIED, WITHOUT COMPLICATIONS Status: Acute Current Visit: No Qualifiers: Ulcerative colitis location: unspecified ulcerative colitis location Digestive disease complication type: without complication Qualified Code(s): K51.90 - Ulcerative colitis, unspecified, without complications (3) Anxiety SNOMED Code(s): 95560574 Code(s): F41.9 - ANXIETY DISORDER, UNSPECIFIED Status: Acute Current Visit: No Onset Date: 04/07/14 Annotation/Comment:: home meds restarted. - Problem List Review Problem List Initiated/Reviewed/Updated: Yes - My Orders Last 24 Hours: My Active Orders 04/08/17 16:00 Ondansetron [Zofran ODT] 4 mg PO Q6H PRN 04/08/17 18:30 Ketorolac [Toradol] 30 mg IVPUSH Q6H PRN 04/09/17 09:08 Omeprazole 40 mg PO DAILY PRN 04/09/17 09:10 predniSONE 30 mg PO WITHBREAKFAST 04/09/17 09:11 Up ad Adriana [RC] ASDIRECTED Bisacodyl [Dulcolax] 10 mg RECTAL ONETIME ONE 04/09/17 09:12 LORazepam [Ativan] 0.5 mg PO Q4H PRN 04/09/17 21:00 Mirtazapine [Remeron] 30 mg PO BEDTIME 04/09/17 Lunch Regular Diet [DIET] - Plan Plan:: 1. Patient not improving so I discussed care with Dr. Seymour her primary physician. He states she has ulcerative colitis but when she has stress in her life or stressful events she gets pain like this and usually some Xanax or Ativan helps. I will give her some IV Ativan see the subsequent abdominal pain. 2. Advance her diet as she tolerates it. 3. Up ad adriana. 4. Restarted Premarin. 5. She only had a little BM yesterday and none today. She will get Dulcolax suppository today.
[2017-04-09] MEDS: LORazepam 0.5 MG Tab PO PRN ×3 (09:58→20:10)
[2017-04-09] MEDS: Ondansetron 4 MG Tab.DIS PO PRN (12:12)
--- NOTE | 2017-04-09 16:33 | PCM.SURGPN ---
- General Info Date of Service: 04/09/17 Functional Status: Denies: Tolerating Diet - Review of Systems Gastrointestinal: Reports: Other (recurrent nausea and vomiting. ) - Patient Data Vitals - Most Recent: Last Vital Signs Temp 36.9 C 04/09/17 15:38 Pulse 73 04/09/17 15:38 Resp 14 04/09/17 15:38 BP 139/96 H 04/09/17 15:38 Pulse Ox 99 04/09/17 15:38 Weight - Most Recent: 80.694 kg Med Orders - Current: Current Medications Hydrocodone Bitart/Acetaminophen ([place] 325-5 Mg) 1 tab PO Q4H PRN PRN Reason: Pain Last Admin: 04/09/17 12:11 Dose: 1 tab Lorazepam (Ativan) 0.5 mg PO Q4H PRN PRN Reason: Abdominal Pain Last Admin: 04/09/17 15:55 Dose: 0.5 mg Mirtazapine (Remeron) 30 mg PO BEDTIME [facility] Omeprazole (Omeprazole) 40 mg PO DAILY PRN PRN Reason: Heartburn Ondansetron HCl (Zofran) 4 mg IVPUSH Q6H PRN PRN Reason: Nausea/Vomiting Last Admin: 04/09/17 06:23 Dose: 4 mg Ondansetron HCl (Zofran Odt) 4 mg PO Q6H PRN PRN Reason: Nausea/Vomiting Last Admin: 04/09/17 12:12 Dose: 4 mg Prednisone (Prednisone) 30 mg PO WITHBREAKFAST [facility] Sodium Chloride (Saline Flush) 10 ml FLUSH ASDIRECTED PRN PRN Reason: Keep Vein Open Last Admin: 04/09/17 06:17 Dose: 10 ml Sulfasalazine (Sulfasalazine) 500 mg PO BID [facility] Last Admin: 04/09/17 09:08 Dose: 500 mg Discontinued Medications Al Hydroxide/Mg Hydroxide (Mag-Al Susp) 15 ml PO Q2H PRN PRN Reason: Indigestion Last Admin: 04/08/17 17:53 Dose: 15 ml Bisacodyl (Dulcolax) 10 mg RECTAL ONETIME ONE Stop: 04/09/17 09:12 Last Admin: 04/09/17 09:58 Dose: 10 mg Al Hydroxide/Mg Hydroxide 15 (ml/ Lidocaine HCl 15 ml) 0 ml PO ONETIME STA Stop: 04/06/17 10:03 Last Admin: 04/06/17 13:57 Dose: Not Given Diphenhydramine HCl (Benadryl) 50 mg IVPUSH ONETIME ONE Stop: 04/06/17 07:45 Last Admin: 04/06/17 08:16 Dose: 50 mg Hydroxyzine Pamoate (Vistaril) 50 mg PO Q6H PRN PRN Reason: Nausea Promethazine HCl 12.5 mg/ (Sodium Chloride) 50.5 mls @ 200 mls/hr IV ONETIME STA Stop: 04/06/17 07:59 Last Admin: 04/06/17 08:13 Dose: 200 mls/hr Sodium Chloride (Normal Saline) 1,000 mls @ 999 mls/hr IV .BOLUS ONE Stop: 04/06/17 08:44 Last Admin: 04/06/17 08:12 Dose: 999 mls/hr Sodium Chloride (Normal Saline) 1,000 mls @ 70 mls/hr IV ASDIRECTED [facility] Last Infusion: 04/07/17 12:00 Dose: 70 mls/hr Promethazine HCl 12.5 mg/ (Sodium Chloride) 50.5 mls @ 200 mls/hr IV Q6H PRN PRN Reason: Nausea/Vomiting Last Admin: 04/07/17 15:56 Dose: 200 mls/hr Sodium Chloride (Normal Saline) 1,000 mls @ 125 mls/hr IV ASDIRECTED [facility] Iopamidol (Isovue-370 (76%)) 100 ml IV . DIRECTED ONE Stop: 04/06/17 19:27 Last Admin: 04/06/17 19:47 Dose: 91 ml Ketorolac Tromethamine (Toradol) 30 mg IVPUSH Q6H PRN PRN Reason: Pain Stop: 04/13/17 18:30 Last Admin: 04/09/17 06:16 Dose: 30 mg Lidocaine HCl (Xylocaine 2% Viscous) 15 ml PO ONETIME ONE Stop: 04/08/17 17:43 Last Admin: 04/08/17 17:53 Dose: 15 ml Lorazepam (Ativan) 0.5 mg IVPUSH ONETIME ONE Stop: 04/09/17 08:04 Last Admin: 04/09/17 08:19 Dose: 0.5 mg Lorazepam (Ativan) Confirm Administered Dose 2 mg .ROUTE .STK-MED ONE Stop: 04/09/17 08:14 Last Admin: 04/09/17 09:46 Dose: Not Given Methylprednisolone Sodium Succinate (Solu-Medrol) 40 mg IVPUSH DAILY [facility] Methylprednisolone Sodium Succinate (Solu-Medrol) 40 mg IVPUSH DAILY [facility] Last Admin: 04/07/17 20:35 Dose: 40 mg Mirtazapine (Remeron) 15 mg PO BEDTIME [facility] Last Admin: 04/08/17 23:33 Dose: 15 mg Morphine Sulfate (Morphine) 2 mg IVPUSH Q2H PRN PRN Reason: Pain Last Admin: 04/07/17 07:50 Dose: 2 mg Morphine Sulfate (Morphine) 2 mg IVPUSH Q2H PRN PRN Reason: Pain Last Admin: 04/08/17 21:24 Dose: 2 mg Pantoprazole Sodium (Protonix Iv) 40 mg IVPUSH DAILY [facility] Last Admin: 04/06/17 08:20 Dose: 40 mg Pantoprazole Sodium (Protonix Iv) 40 mg IVPUSH DAILY [facility] Pantoprazole Sodium (Protonix) 40 mg PO DAILY [facility] Last Admin: 04/09/17 09:08 Dose: 40 mg Potassium Chloride (Klor-Con M20) 40 meq PO ONETIME ONE Stop: 04/06/17 09:53 Last Admin: 04/06/17 10:07 Dose: 40 meq Prednisone (Prednisone) 40 mg PO WITHBREAKFAST [facility] Last Admin: 04/09/17 07:43 Dose: 40 mg Trimethoprim/Sulfamethoxazole (Septra Ds) 1 tab PO DAILY [facility] Last Admin: 04/07/17 08:49 Dose: 1 tab - Exam General: Mild Distress Lungs: Clear to Auscultation, Normal Respiratory Effort Cardiovascular: Regular Rate, Regular Rhythm GI/Abdominal Exam: Normal Bowel Sounds, Soft, Non-Tender - Problem List & Annotations (1) Abdominal pain SNOMED Code(s): 36624038 Code(s): R10.9 - UNSPECIFIED ABDOMINAL PAIN Status: Acute Priority: High Current Visit: No Annotation/Comment:: resolved. tolerating diet. - Problem List Review Problem List Initiated/Reviewed/Updated: Yes - My Orders Last 24 Hours: Active Orders 24 hr Category Date Time Status Up ad Adriana [RC] ASDIRECTED Care 04/09/17 09:11 Active Regular Diet [DIET] Diet 04/09/17 Lunch Active LORazepam [Ativan] Med 04/09/17 09:12 Active 0.5 mg PO Q4H PRN Mirtazapine [Remeron] Med 04/09/17 21:00 Active 30 mg PO BEDTIME Omeprazole Med 04/09/17 09:08 Active 40 mg PO DAILY PRN Ondansetron [Zofran ODT] Med 04/08/17 16:00 Active 4 mg PO Q6H PRN predniSONE Med 04/10/17 08:00 Active 30 mg PO WITHBREAKFAST Medication Orders Hydrocodone Bitart/Acetaminophen ([place] 325-5 Mg) 1 tab PO Q4H PRN PRN Reason: Pain Last Admin: 04/09/17 12:11 Dose: 1 tab Admin: 04/09/17 07:41 Dose: 1 tab Admin: 04/08/17 13:49 Dose: 1 tab Admin: 04/07/17 14:20 Dose: 1 tab Lorazepam (Ativan) 0.5 mg PO Q4H PRN PRN Reason: Abdominal Pain Last Admin: 04/09/17 15:55 Dose: 0.5 mg Admin: 04/09/17 09:58 Dose: 0.5 mg Mirtazapine (Remeron) 30 mg PO BEDTIME [facility] Omeprazole (Omeprazole) 40 mg PO DAILY PRN PRN Reason: Heartburn Ondansetron HCl (Zofran) 4 mg IVPUSH Q6H PRN PRN Reason: Nausea/Vomiting Last Admin: 04/09/17 06:23 Dose: 4 mg Admin: 04/07/17 11:17 Dose: 4 mg Admin: 04/06/17 13:32 Dose: 4 mg Ondansetron HCl (Zofran Odt) 4 mg PO Q6H PRN PRN Reason: Nausea/Vomiting Last Admin: 04/09/17 12:12 Dose: 4 mg Admin: 04/08/17 23:32 Dose: 4 mg Admin: 04/08/17 16:34 Dose: 4 mg Prednisone (Prednisone) 30 mg PO WITHBREAKFAST [facility] Sodium Chloride (Saline Flush) 10 ml FLUSH ASDIRECTED PRN PRN Reason: Keep Vein Open Last Admin: 04/09/17 06:17 Dose: 10 ml Admin: 04/08/17 21:25 Dose: 10 ml Admin: 04/08/17 15:35 Dose: 10 ml Admin: 04/07/17 20:40 Dose: 10 ml Admin: 04/07/17 18:15 Dose: 10 ml Admin: 04/07/17 15:55 Dose: 10 ml Sulfasalazine (Sulfasalazine) 500 mg PO BID [facility] Last Admin: 04/09/17 09:08 Dose: 500 mg Admin: 04/08/17 23:33 Dose: 500 mg Admin: 04/08/17 09:01 Dose: 500 mg Admin: 04/07/17 20:39 Dose: 500 mg - Assessment Assessment (Free Text/Narrative):: with recurrent emesis will plan on EGD in am . - Plan Plan (Free Text/Narrative):: NPO IVF egd in am. procedure and risks explained to the pt to include bleeding, infection and perforation. she asks us to proceed.
[2017-04-09] MEDS: Lactated Ringers 1,000 ML IV SCH (16:44)
[2017-04-09] MEDS ORDERED: Mirtazapine 30 MG Tab PO SCH (21:00)
[2017-04-10] MEDS: sulfaSALAzine 500 MG Tab PO SCH ×2 (00:17→09:26)
[2017-04-10] MEDS: Lactated Ringers 1,000 ML IV SCH (00:51)
[2017-04-10] MEDS: LORazepam 0.5 MG Tab PO PRN (04:26)
[2017-04-10] MEDS: Acetaminophen/HYDROcodone 325-5 MG Tab PO PRN ×2 (05:17→13:31)
[2017-04-10] MEDS: Ondansetron 4 MG/2 ML SDV IVPUSH PRN (05:17)
[2017-04-10] MEDS ORDERED: predniSONE 10 MG Tab PO SCH (08:00)
--- NOTE | 2017-04-10 08:38 | PCM.PN ---
- General Info Date of Service: 04/10/17 Admission Dx/Problem (Free Text): Patient states she was vomiting yesterday. She slept most of the night and then this morning needed Ativan, Zofran, hydrocodone. She states now the pain in the epigastrium and right upper quadrant coming back. She did not have a BM yesterday. She denies fevers or chills. - Patient Data Vitals - Most Recent: Last Vital Signs Temp 98.2 F 04/10/17 08:20 Pulse 70 04/10/17 08:20 Resp 18 04/10/17 08:20 BP 136/58 L 04/10/17 08:20 Pulse Ox 99 04/10/17 08:20 Weight - Most Recent: 177 lb 14.4 oz I&O - Last 24 Hours: Intake & Output 04/09/17 04/10/17 04/10/17 22:59 06:59 14:59 Intake Total 700 940 Balance 700 940 Med Orders - Current: Current Medications Hydrocodone Bitart/Acetaminophen ([place] 325-5 Mg) 1 tab PO Q4H PRN PRN Reason: Pain Last Admin: 04/10/17 05:17 Dose: 1 tab Lactated Ringer's (Ringers, Lactated) 1,000 mls @ 125 mls/hr IV ASDIRECTED [facility] Last Admin: 04/10/17 00:51 Dose: 125 mls/hr Lorazepam (Ativan) 0.5 mg PO Q4H PRN PRN Reason: Abdominal Pain Last Admin: 04/10/17 04:26 Dose: 0.5 mg Mirtazapine (Remeron) 30 mg PO BEDTIME [facility] Last Admin: 04/10/17 00:17 Dose: Not Given Omeprazole (Omeprazole) 40 mg PO DAILY PRN PRN Reason: Heartburn Ondansetron HCl (Zofran) 4 mg IVPUSH Q6H PRN PRN Reason: Nausea/Vomiting Last Admin: 04/10/17 05:17 Dose: 4 mg Ondansetron HCl (Zofran Odt) 4 mg PO Q6H PRN PRN Reason: Nausea/Vomiting Last Admin: 04/09/17 12:12 Dose: 4 mg Prednisone (Prednisone) 30 mg PO WITHBREAKFAST [facility] Sodium Chloride (Saline Flush) 10 ml FLUSH ASDIRECTED PRN PRN Reason: Keep Vein Open Last Admin: 04/09/17 06:17 Dose: 10 ml Sulfasalazine (Sulfasalazine) 500 mg PO BID [facility] Last Admin: 04/10/17 00:17 Dose: Not Given Discontinued Medications Al Hydroxide/Mg Hydroxide (Mag-Al Susp) 15 ml PO Q2H PRN PRN Reason: Indigestion Last Admin: 04/08/17 17:53 Dose: 15 ml Bisacodyl (Dulcolax) 10 mg RECTAL ONETIME ONE Stop: 04/09/17 09:12 Last Admin: 04/09/17 09:58 Dose: 10 mg Al Hydroxide/Mg Hydroxide 15 (ml/ Lidocaine HCl 15 ml) 0 ml PO ONETIME STA Stop: 04/06/17 10:03 Last Admin: 04/06/17 13:57 Dose: Not Given Diphenhydramine HCl (Benadryl) 50 mg IVPUSH ONETIME ONE Stop: 04/06/17 07:45 Last Admin: 04/06/17 08:16 Dose: 50 mg Hydroxyzine Pamoate (Vistaril) 50 mg PO Q6H PRN PRN Reason: Nausea Promethazine HCl 12.5 mg/ (Sodium Chloride) 50.5 mls @ 200 mls/hr IV ONETIME STA Stop: 04/06/17 07:59 Last Admin: 04/06/17 08:13 Dose: 200 mls/hr Sodium Chloride (Normal Saline) 1,000 mls @ 999 mls/hr IV .BOLUS ONE Stop: 04/06/17 08:44 Last Admin: 04/06/17 08:12 Dose: 999 mls/hr Sodium Chloride (Normal Saline) 1,000 mls @ 70 mls/hr IV ASDIRECTED [facility] Last Infusion: 04/07/17 12:00 Dose: 70 mls/hr Promethazine HCl 12.5 mg/ (Sodium Chloride) 50.5 mls @ 200 mls/hr IV Q6H PRN PRN Reason: Nausea/Vomiting Last Admin: 04/07/17 15:56 Dose: 200 mls/hr Sodium Chloride (Normal Saline) 1,000 mls @ 125 mls/hr IV ASDIRECTED [facility] Iopamidol (Isovue-370 (76%)) 100 ml IV . DIRECTED ONE Stop: 04/06/17 19:27 Last Admin: 04/06/17 19:47 Dose: 91 ml Ketorolac Tromethamine (Toradol) 30 mg IVPUSH Q6H PRN PRN Reason: Pain Stop: 04/13/17 18:30 Last Admin: 04/09/17 06:16 Dose: 30 mg Lidocaine HCl (Xylocaine 2% Viscous) 15 ml PO ONETIME ONE Stop: 04/08/17 17:43 Last Admin: 04/08/17 17:53 Dose: 15 ml Lorazepam (Ativan) 0.5 mg IVPUSH ONETIME ONE Stop: 04/09/17 08:04 Last Admin: 04/09/17 08:19 Dose: 0.5 mg Lorazepam (Ativan) Confirm Administered Dose 2 mg .ROUTE .STK-MED ONE Stop: 04/09/17 08:14 Last Admin: 04/09/17 09:46 Dose: Not Given Methylprednisolone Sodium Succinate (Solu-Medrol) 40 mg IVPUSH DAILY [facility] Methylprednisolone Sodium Succinate (Solu-Medrol) 40 mg IVPUSH DAILY [facility] Last Admin: 04/07/17 20:35 Dose: 40 mg Mirtazapine (Remeron) 15 mg PO BEDTIME [facility] Last Admin: 04/08/17 23:33 Dose: 15 mg Morphine Sulfate (Morphine) 2 mg IVPUSH Q2H PRN PRN Reason: Pain Last Admin: 04/07/17 07:50 Dose: 2 mg Morphine Sulfate (Morphine) 2 mg IVPUSH Q2H PRN PRN Reason: Pain Last Admin: 04/08/17 21:24 Dose: 2 mg Pantoprazole Sodium (Protonix Iv) 40 mg IVPUSH DAILY [facility] Last Admin: 04/06/17 08:20 Dose: 40 mg Pantoprazole Sodium (Protonix Iv) 40 mg IVPUSH DAILY [facility] Pantoprazole Sodium (Protonix) 40 mg PO DAILY [facility] Last Admin: 04/09/17 09:08 Dose: 40 mg Potassium Chloride (Klor-Con M20) 40 meq PO ONETIME ONE Stop: 04/06/17 09:53 Last Admin: 04/06/17 10:07 Dose: 40 meq Prednisone (Prednisone) 40 mg PO WITHBREAKFAST [facility] Last Admin: 04/09/17 07:43 Dose: 40 mg Trimethoprim/Sulfamethoxazole (Septra Ds) 1 tab PO DAILY [facility] Last Admin: 04/07/17 08:49 Dose: 1 tab - Exam General: Alert, Oriented, Cooperative Lungs: Normal Respiratory Effort GI/Abdominal Exam: Normal Bowel Sounds, Tender (Mild epigastric. No rebound, guarding) Psy/Mental Status: Alert, Depressed, Withdrawal Symptoms - Problem List & Annotations (1) Nausea and vomiting SNOMED Code(s): 76221060 Code(s): R11.2 - NAUSEA WITH VOMITING, UNSPECIFIED Status: Acute Current Visit: No Onset Date: 04/11/14 Annotation/Comment:: oral anti-emetics as needed. (2) Ulcerative colitis SNOMED Code(s): 94002854 Code(s): K51.90 - ULCERATIVE COLITIS, UNSPECIFIED, WITHOUT COMPLICATIONS Status: Acute Current Visit: No Qualifiers: Ulcerative colitis location: unspecified ulcerative colitis location Digestive disease complication type: without complication Qualified Code(s): K51.90 - Ulcerative colitis, unspecified, without complications (3) Anxiety SNOMED Code(s): 33428412 Code(s): F41.9 - ANXIETY DISORDER, UNSPECIFIED Status: Acute Current Visit: No Onset Date: 04/07/14 Annotation/Comment:: home meds restarted. - Problem List Review Problem List Initiated/Reviewed/Updated: Yes - My Orders Last 24 Hours: My Active Orders 04/09/17 09:08 Omeprazole 40 mg PO DAILY PRN 04/09/17 09:11 Up ad Adriana [RC] ASDIRECTED 04/09/17 09:12 LORazepam [Ativan] 0.5 mg PO Q4H PRN 04/09/17 21:00 Mirtazapine [Remeron] 30 mg PO BEDTIME 04/10/17 08:00 predniSONE 30 mg PO WITHBREAKFAST - Assessment Assessment:: EGD today. - Plan Plan:: 1. Patient not improving so I discussed care with Dr. Seymour her primary physician. He states she has ulcerative colitis but when she has stress in her life or stressful events she gets pain like this and usually some Xanax or Ativan helps. I will give her some IV Ativan see the subsequent abdominal pain. 2. Advance her diet as she tolerates it. 3. Up ad adriana. 4. Restarted Premarin. 5. She only had a little BM yesterday and none today. She will get Dulcolax suppository today.
[2017-04-10] MEDS ORDERED: Lidocaine 2% 100 MG/5 ML Syringe IVPUSH ONE (09:45)
--- NOTE | 2017-04-10 10:25 | PCM.OPNOTE ---
- General Post-Op/Procedure Note Date of Surgery/Procedure: 04/10/17 Operative Procedure(s): egd with bx Findings: mild gastritis Pre Op Diagnosis: emesis Post-Op Diagnosis: Same Anesthesia Technique: MAC Primary Surgeon: Carlos A Jennings Anesthesia Provider: Barb Day Pathology: gastric Complications: None Condition: Good Free Text/Narrative:: Intake & Output 04/09/17 04/10/17 04/10/17 22:59 06:59 14:59 Intake Total 700 940 Balance 700 940 see dictation
--- NOTE | 2017-04-10 11:54 | OR ---
DATE OF OPERATION: 04/10/2017 SURGEON: Carlos A Jennings MD PROCEDURE PERFORMED: Esophagogastroduodenoscopy with cold forceps biopsy. PREOPERATIVE DIAGNOSIS: Emesis. POSTOPERATIVE DIAGNOSIS: Emesis with mild gastritis. INDICATIONS FOR PROCEDURE: This is a 31-year-old white female, who has been hospitalized since the with epigastric abdominal pain and nausea. Workup to date has been negative except for elevated amylase which has returned to normal. She was ready for discharge yesterday. However, had repeat episodes of emesis and was therefore offered and accepted an EGD. DESCRIPTION OF OPERATION: After an excellent IV sedation was administered, the bite block was inserted. The flexible endoscope was passed without difficulty down the patient's esophagus into the stomach. The stomach was insufflated. The scope was passed through the pylorus to the second portion of duodenum and slowly withdrawn. The following findings were noted. Duodenum is unremarkable. Stomach demonstrated very mild gastritis. Multiple biopsies were taken. Distal esophagus unremarkable. Stomach was deflated, scope was removed. The patient tolerated the procedure well and was taken back to recovery in good condition. /[id number] /MODL
[2017-04-10 12:29] VITALS: BP 153/67
--- NOTE | 2017-04-10 13:32 | PCM.SN ---
- Free Text/Narrative Note: EGD was reported by Dr. Jennings is very mild gastritis. Talked to patient and she is willing to try to go home. We'll set her home with some hydrocodone, Ativan both when necessary. And Zofran when necessary.
--- NOTE | 2017-04-10 13:38 | PCM.DCSUM1 ---
Discharge Summary - Hospital Course Free Text/Narrative:: Hospital course-patient was admitted for pain control and nausea and vomiting. She had ultrasound that showed no cholelithiasis and a CT scan was essentially negative. She has a history of ulcerative colitis. She had no rectal bleeding. She will give her fluids, Zofran and morphine for pain. She has surgical consultation. Amylase was initially elevated at 200 and by the next day was normal. The rest of her labs looked okay and she had a negative urine and test. Her pain was epigastric to right upper quadrant. So no STD testing was done. She didn't improve much. Tried some steroids seemed to help initially but then she started having abdominal pain again with nausea and vomiting. Talk to her primary physician who stated she gets like this when she is anxious. I try some Ativan which helped but she still continued the vomiting. Dr. Jennings do EGD that showed very minimal gastritis. Talk to the patient about the negative studies and she is willing to try at home and we'll send her to home with hydrocodone for pain, Zofran for nausea, Ativan for anxiety. Brief History: This is a 31-year-old female patient that has a history of ulcerative colitis. She's had abdominal pain for 4 days. She was seen [facility]. She was having abdominal pain, vomiting, nausea. She states they sent her home. The next day she some vomiting some blood. She was seen again at the [facility] and they sent her home. She denies diarrhea, hematochezia or melena. She is the abdominal pain is in the top of her abdomen Alway across. He states is worse when she eats food, water Jenckes water. She denies L call use her NSAIDs. She denies fevers, chills dysuria, pyuria, hematuria or she does have a history of renal colic. - Discharge Data Discharge Date: 04/10/17 Discharge Disposition: Home, Self-Care 01 Condition: Good - Discharge Diagnosis/Problem(s) (1) Nausea and vomiting SNOMED Code(s): 30089003 ICD Code: R11.2 - NAUSEA WITH VOMITING, UNSPECIFIED Status: Acute Current Visit: No Onset Date: 04/11/14 Problem Details: oral anti-emetics as needed. (2) Ulcerative colitis SNOMED Code(s): 38972694 ICD Code: K51.90 - ULCERATIVE COLITIS, UNSPECIFIED, WITHOUT COMPLICATIONS Status: Acute Current Visit: No Qualifiers: Ulcerative colitis location: unspecified ulcerative colitis location Digestive disease complication type: without complication Qualified Code(s): K51.90 - Ulcerative colitis, unspecified, without complications (3) Anxiety SNOMED Code(s): 91388215 ICD Code: F41.9 - ANXIETY DISORDER, UNSPECIFIED Status: Acute Current Visit: No Onset Date: 04/07/14 Problem Details: home meds restarted. - Patient Summary/Data Operative Procedure(s) Performed: egd with bx Consults: Consultations 04/06/17 18:23 Consult to Physician [CONS] Routine Consulting Provider: Carlos A Jennings Courtesy Call Completed to Consulting Physician: Yes - Patient Instructions Diet: Regular Diet as Tolerated Activity: As Tolerated Driving: May Drive Today Showering/Bathing: May Shower Notify Provider of: Fever, Increased Pain, Nausea and/or Vomiting Other/Special Instructions: 1. Recheck with Dr. Parry in 1 week. - Discharge Plan Prescriptions/Med Rec: Ondansetron [Zofran ODT] 4 mg PO Q6H PRN #30 tab.dis PRN Reason: Nausea Home Medications: Home Meds hydrOXYzine Pamoate [Vistaril] 50 mg PO TID PRN 03/28/17 [History] sulfaSALAzine [Azulfidine] 500 mg PO BID 04/07/17 [History] Mirtazapine 30 mg PO BEDTIME 04/08/17 [History] Omeprazole 40 mg PO DAILY PRN 04/08/17 [History] Acetaminophen/HYDROcodone [[place] 325-5 MG] 1 tab PO Q4H PRN #0 tablet 04/10/17 [ Rx] LORazepam [Ativan] 0.5 mg PO Q4H PRN #0 tablet 04/10/17 [Rx] Ondansetron [Zofran ODT] 4 mg PO Q6H PRN #30 tab.dis 04/10/17 [Rx] Patient Handouts: Nausea, Adult, Gastritis, Adult, [id number], Deep Vein Thrombosis Forms: ED Department Discharge Referrals: Jordan Seymour MD [Primary Care Provider] - - Discharge Summary/Plan Comment DC Time >30 min.: No - Patient Data Vitals - Most Recent: Last Vital Signs Temp 98.2 F 04/10/17 08:20 Pulse 60 04/10/17 12:15 Resp 20 04/10/17 12:15 BP 153/67 H 04/10/17 12:15 Pulse Ox 98 04/10/17 12:15 Weight - Most Recent: 177 lb 14.4 oz I&O - Last 24 hours: Intake & Output 04/09/17 04/10/17 04/10/17 22:59 06:59 14:59 Intake Total 700 940 Balance 700 940 Med Orders - Current: Current Medications Hydrocodone Bitart/Acetaminophen ([place] 325-5 Mg) 1 tab PO Q4H PRN PRN Reason: Pain Last Admin: 04/10/17 13:31 Dose: 1 tab Lorazepam (Ativan) 0.5 mg PO Q4H PRN PRN Reason: Abdominal Pain Last Admin: 04/10/17 04:26 Dose: 0.5 mg Mirtazapine (Remeron) 30 mg PO BEDTIME [facility] Last Admin: 04/10/17 00:17 Dose: Not Given Omeprazole (Omeprazole) 40 mg PO DAILY PRN PRN Reason: Heartburn Ondansetron HCl (Zofran) 4 mg IVPUSH Q6H PRN PRN Reason: Nausea/Vomiting Last Admin: 04/10/17 05:17 Dose: 4 mg Ondansetron HCl (Zofran Odt) 4 mg PO Q6H PRN PRN Reason: Nausea/Vomiting Last Admin: 04/09/17 12:12 Dose: 4 mg Prednisone (Prednisone) 30 mg PO WITHBREAKFAST [facility] Last Admin: 04/10/17 09:26 Dose: Not Given Sodium Chloride (Saline Flush) 10 ml FLUSH ASDIRECTED PRN PRN Reason: Keep Vein Open Last Admin: 04/09/17 06:17 Dose: 10 ml Sulfasalazine (Sulfasalazine) 500 mg PO BID [facility] Last Admin: 04/10/17 09:26 Dose: Not Given Discontinued Medications Al Hydroxide/Mg Hydroxide (Mag-Al Susp) 15 ml PO Q2H PRN PRN Reason: Indigestion Last Admin: 04/08/17 17:53 Dose: 15 ml Bisacodyl (Dulcolax) 10 mg RECTAL ONETIME ONE Stop: 04/09/17 09:12 Last Admin: 04/09/17 09:58 Dose: 10 mg Al Hydroxide/Mg Hydroxide 15 (ml/ Lidocaine HCl 15 ml) 0 ml PO ONETIME STA Stop: 04/06/17 10:03 Last Admin: 04/06/17 13:57 Dose: Not Given Diphenhydramine HCl (Benadryl) 50 mg IVPUSH ONETIME ONE Stop: 04/06/17 07:45 Last Admin: 04/06/17 08:16 Dose: 50 mg Hydroxyzine Pamoate (Vistaril) 50 mg PO Q6H PRN PRN Reason: Nausea Promethazine HCl 12.5 mg/ (Sodium Chloride) 50.5 mls @ 200 mls/hr IV ONETIME STA Stop: 04/06/17 07:59 Last Admin: 04/06/17 08:13 Dose: 200 mls/hr Sodium Chloride (Normal Saline) 1,000 mls @ 999 mls/hr IV .BOLUS ONE Stop: 04/06/17 08:44 Last Admin: 04/06/17 08:12 Dose: 999 mls/hr Sodium Chloride (Normal Saline) 1,000 mls @ 70 mls/hr IV ASDIRECTED [facility] Last Infusion: 04/07/17 12:00 Dose: 70 mls/hr Promethazine HCl 12.5 mg/ (Sodium Chloride) 50.5 mls @ 200 mls/hr IV Q6H PRN PRN Reason: Nausea/Vomiting Last Admin: 04/07/17 15:56 Dose: 200 mls/hr Sodium Chloride (Normal Saline) 1,000 mls @ 125 mls/hr IV ASDIRECTED [facility] Lactated Ringer's (Ringers, Lactated) 1,000 mls @ 125 mls/hr IV ASDIRECTED [facility] Last Admin: 04/10/17 00:51 Dose: 125 mls/hr Iopamidol (Isovue-370 (76%)) 100 ml IV . DIRECTED ONE Stop: 04/06/17 19:27 Last Admin: 04/06/17 19:47 Dose: 91 ml Ketorolac Tromethamine (Toradol) 30 mg IVPUSH Q6H PRN PRN Reason: Pain Stop: 04/13/17 18:30 Last Admin: 04/09/17 06:16 Dose: 30 mg Lidocaine HCl (Xylocaine 2% Viscous) 15 ml PO ONETIME ONE Stop: 04/08/17 17:43 Last Admin: 04/08/17 17:53 Dose: 15 ml Lorazepam (Ativan) 0.5 mg IVPUSH ONETIME ONE Stop: 04/09/17 08:04 Last Admin: 04/09/17 08:19 Dose: 0.5 mg Lorazepam (Ativan) Confirm Administered Dose 2 mg .ROUTE .STK-MED ONE Stop: 04/09/17 08:14 Last Admin: 04/09/17 09:46 Dose: Not Given Methylprednisolone Sodium Succinate (Solu-Medrol) 40 mg IVPUSH DAILY [facility] Methylprednisolone Sodium Succinate (Solu-Medrol) 40 mg IVPUSH DAILY [facility] Last Admin: 04/07/17 20:35 Dose: 40 mg Mirtazapine (Remeron) 15 mg PO BEDTIME [facility] Last Admin: 04/08/17 23:33 Dose: 15 mg Morphine Sulfate (Morphine) 2 mg IVPUSH Q2H PRN PRN Reason: Pain Last Admin: 04/07/17 07:50 Dose: 2 mg Morphine Sulfate (Morphine) 2 mg IVPUSH Q2H PRN PRN Reason: Pain Last Admin: 04/08/17 21:24 Dose: 2 mg Pantoprazole Sodium (Protonix Iv) 40 mg IVPUSH DAILY [facility] Last Admin: 04/06/17 08:20 Dose: 40 mg Pantoprazole Sodium (Protonix Iv) 40 mg IVPUSH DAILY [facility] Pantoprazole Sodium (Protonix) 40 mg PO DAILY [facility] Last Admin: 04/09/17 09:08 Dose: 40 mg Potassium Chloride (Klor-Con M20) 40 meq PO ONETIME ONE Stop: 04/06/17 09:53 Last Admin: 04/06/17 10:07 Dose: 40 meq Prednisone (Prednisone) 40 mg PO WITHBREAKFAST [facility] Last Admin: 04/09/17 07:43 Dose: 40 mg Trimethoprim/Sulfamethoxazole (Septra Ds) 1 tab PO DAILY [facility] Last Admin: 04/07/17 08:49 Dose: 1 tab *Q Meaningful Use (DIS) - VTE *Q VTE Criteria *Q: - Stroke *Q Stroke Criteria *Q: - AMI *Q AMI Criteria *Q:
[2017-04-10] MEDS ORDERED: fentaNYL 100 MCG/2 ML SDV IV ONE (13:56)
[2017-04-10] MEDS ORDERED: Propofol 200 MG/20 ML SDV IV ONE (13:56)
[2017-04-10] MEDS ORDERED: Midazolam 1 MG/ML 2 ML SDV IV ONE (13:56)
== END 2017-04-10 13:57 | disposition home or self-care (01) | DRG 880 ==
LOC: FB.ED 07:17 → FB.MS 11:36 → OBSVTOIN 11:36
PROVIDERS: ADMIT Surgery; ATTEND Family Medicine
PROC: 0DB68ZX Excision of Stomach, Via Natural or Artificial Opening Endoscopic, Diagnostic (ICD-10-PCS; principal; 2017-04-10)
DX: F41.9 Anxiety disorder, unspecified (principal); K51.90 Ulcerative colitis, unspecified, without complications; E87.6 Hypokalemia; K29.60 Other gastritis without bleeding; F32.9 Major depressive disorder, single episode, unspecified; K21.9 Gastro-esophageal reflux disease without esophagitis; H54.7 Unspecified visual loss; Z91.5 Personal history of self-harm; Z88.1 Allergy status to other antibiotic agents; Z91.040 Latex allergy status; Z88.8 Allergy status to other drugs, medicaments and biological substances; Z79.52 Long term (current) use of systemic steroids; Z91.048 Other nonmedicinal substance allergy status; R11.2 Nausea with vomiting, unspecified; R10.13 Epigastric pain
CPT/HCPCS: 36415; 74177; 76705; 80048; 80053; 80076; 81001; 82150; 83690; 85025; 85651; 88305; 88342; 93005; 96361; 96365; 96366; 96375; 96376; 99285; A9270-GY; C9113; G0378; J1200; J1885; J2060; J2250; J2270; J2405; J2550; J2704; J2920; J3010; J7040; J7050; J7120; Q9967

== ENCOUNTER 2017-07-13 17:44 | Emergency (ER) | payer MEDICAID ==
[2017-07-13] MEDS ORDERED: Ondansetron 4 MG Tab.DIS PO ONE (17:45)
[2017-07-13] MEDS ORDERED: Acetaminophen/HYDROcodone 325-5 MG Tab PO ONE ×2 (17:45→20:13)
[2017-07-13] MEDS ORDERED: Lactated Ringers 1,000 ML IV ONE ×2 (17:58→19:09)
[2017-07-13] MEDS ORDERED: Metoclopramide 10 MG/2 ML SDV IVPUSH ONE (17:58)
[2017-07-13] MEDS ORDERED: Morphine 2 MG/ML Syringe IVPUSH ONE (18:01)
--- NOTE | 2017-07-13 18:07 | EDM.PDOC ---
ED HPI GENERAL MEDICAL PROBLEM - General Chief Complaint: Gastrointestinal Problem Stated Complaint: N/V Time Seen by Provider: 07/13/17 17:45 Source of Information: Reports: Patient, Old Records, RN History Limitations: Reports: No Limitations - History of Present Illness INITIAL COMMENTS - FREE TEXT/NARRATIVE: 31 yo female with a pHx of ulcerative colitis presents with nausea, vomiting, diarrhea, and abdominal pain since last Thursday that got a lot worse today. Was seen in the clinic today and was given Toradol IM without benefit. Denies bleeding. No fever. Her grandfather drove her in from her home. Onset Date: 07/08/17 Duration: Day(s):, Getting Worse Location: Reports: Abdomen Quality: Reports: Other (crampy) Severity: Moderate Improves with: Reports: None Worsens with: Reports: Other (eating) Context: Reports: Other (PHx of ulcerative colitis) Associated Symptoms: Reports: Loss of Appetite, Nausea/Vomiting. Denies: Fever/ Chills Treatments CONE WINDER: Reports: NSAIDS - Related Data Allergies Allergy/AdvReac Type Severity Reaction Status Date / Time adhesive Allergy Rash Verified 07/13/17 17:52 cefdinir [From Omnicef] Allergy Rash Verified 07/13/17 17:52 fluticasone propionate Allergy Headache Verified 07/13/17 17:52 [From Flonase] hydrocodone bitartrate Allergy Cannot Verified 07/13/17 17:52 [From Vicodin] Remember hydromorphone [From Dilaudid] Allergy Itching Verified 07/13/17 17:52 latex Allergy Hives Verified 07/13/17 17:52 quetiapine fumarate Allergy Confusion Verified 07/13/17 17:52 [From Seroquel] sertraline HCl [From Zoloft] Allergy Confusion Verified 07/13/17 17:52 Home Meds: Home Meds sulfaSALAzine [Azulfidine] 500 mg PO BID 04/07/17 [History] Ondansetron [Zofran ODT] 4 mg PO Q6H PRN #30 tab.dis 04/10/17 [Rx] Past Medical History - Past Health History Medical/Surgical History: Denies Medical/Surgical History HEENT History: Reports: Impaired Vision, Sinusitis, Other (See Below) Other HEENT History: CHRONIC MYOPIA Cardiovascular History: Reports: None Respiratory History: Reports: Asthma Other Respiratory History: activity induced asthma Gastrointestinal History: Reports: GERD, Inflammatory Bowel Disease, Pancreatitis Other Gastrointestinal History: colitis Genitourinary History: Reports: Renal Calculus DRAWER FITTER History: Reports: Neurological History: Reports: Migraines Psychiatric History: Reports: ADHD, Anxiety, Depression, Developmental Delay, Suicide Attempt Endocrine/Metabolic History: Reports: Obesity/BMI 30+, Other (See Below) 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 Hematologic History: Reports: None Immunologic History: Reports: None Oncologic (Cancer) History: Reports: None Dermatologic History: Reports: None - Infectious Disease History Infectious Disease History: Reports: Chicken Pox - Past Surgical History Female Surgical History: Reports: Section, Lithotripsy/ESWL, Tubal Ligation Musculoskeletal Surgical History: Reports: Arthroscopic Knee Social & Family History - Family History Cardiac: Reports: [place] Musculoskeletal: Reports: RA Oncologic: Reports: Pancreatic - Tobacco Use Smoking Status *Q: Never Smoker Years of Tobacco use: 8 Used Tobacco, but Quit: No Second Hand Smoke Exposure: No - Caffeine Use Caffeine Use: Reports: Soda - Alcohol Use Days Per Week of Alcohol Use: 0 - Recreational Drug Use Recreational Drug Use: No Recreational Drug Type: Reports: Dilaudid, Other (see below) Recreational Drug Use Frequency: Daily ED ROS GENERAL - Review of Systems Review Of Systems: See Below Constitutional: Reports: Decreased Appetite HEENT: Reports: No Symptoms Respiratory: Reports: No Symptoms Cardiovascular: Reports: No Symptoms Endocrine: Reports: No Symptoms GI/Abdominal: Reports: Abdominal Pain, Diarrhea, Decreased Appetite, Nausea, Vomiting. Denies: Black Stool, Bloody Stool, Constipation, Distension, Flatus, Hematemesis, Hematochezia, Melena, Stool Incontinence : Reports: No Symptoms Musculoskeletal: Reports: No Symptoms Skin: Reports: No Symptoms Neurological: Reports: No Symptoms Psychiatric: Reports: No Symptoms ED EXAM, GI/ABD - Physical Exam Exam: See Below Exam Limited By: No Limitations General Appearance: Alert, WD/WN, No Apparent Distress, Obese Eyes: Bilateral: Normal Appearance Ears: Normal External Exam, Normal Canal, Hearing Grossly Normal, Normal TMs Nose: Normal Inspection, Normal Mucosa, No Blood Throat/Mouth: Normal Inspection, Normal Lips, Normal Oropharynx, Normal Voice, No Airway Compromise Head: Atraumatic, Normocephalic Neck: Normal Inspection, Supple, Non-Tender Respiratory/Chest: No Respiratory Distress, Lungs Clear, Normal Breath Sounds, No Accessory Muscle Use Cardiovascular: Regular Rate, Rhythm, No Edema GI/Abdominal Exam: Normal Bowel Sounds, Soft, No Distention, Tender (diffuse) Back Exam: Normal Inspection. No: CVA Tenderness (R), CVA Tenderness (L) Extremities: Normal Inspection, Normal Range of Motion, Non-Tender, No Pedal Edema Neurological: Alert, Oriented, CN II-XII Intact, Normal Cognition, No Motor/ Sensory Deficits Psychiatric: Normal Affect, Normal Mood Skin Exam: Warm, Dry, Intact, Normal Color, No Rash Lymphatic: No Adenopathy Course - Vital Signs Last Recorded V/S: Last Vital Signs Temp 37.3 C 07/13/17 17:57 Pulse 74 07/13/17 17:57 Resp 18 07/13/17 17:57 BP 93/46 L 07/13/17 17:57 Pulse Ox 100 07/13/17 17:57 - Orders/Labs/Meds Labs: Laboratory Tests 07/13/17 07/13/17 Range/Units 18:05 18:05 WBC 13.8 H (4.5-12.0) X10-3/uL RBC 5.13 (3.23-5.20) x10(6)uL Hgb 15.5 (11.5-15.5) g/dL Hct 45.7 (30.0-51.3) % MCV 89.1 (80-96) fL MCH 30.2 (27.7-33.6) pg MCHC 33.9 (32.2-35.4) g/dL RDW 12.3 (11.5-15.5) % Plt Count 372 H (125-369) X10(3)uL Sodium 143 D (135-145) mmol/L Potassium 4.1 (3.5-5.3) mmol/L Chloride 104 D (100-110) mmol/L Carbon Dioxide 22 L (23-29) mmol/L BUN 12 (5-20) mg/dL Creatinine 1.3 (0.6-1.3) mg/dL Est Cr Clr Drug Dosing 45.86 mL/min Estimated GFR (MDRD) 48 L (>60) BUN/Creatinine Ratio 9.2 (9-20) Glucose 177 H (80-116) mg/dL Calcium 9.7 (8.6-10.2) mg/dL C-Reactive Protein 0.7 (0.0-1.0) mg/dL Meds: Medications Discontinued Medications Generic Name Dose Route Start Last Admin Trade Name Angus PRN Reason Stop Dose Admin Hydrocodone Bitart/Acetaminophen 1 tab 07/13/17 20:13 [place] 325-5 Mg PO 07/13/17 20:14 ONETIME ONE Lactated Ringer's 1,000 mls @ 1,000 mls/hr 07/13/17 17:58 07/13/17 18:29 Ringers, Lactated IV 07/13/17 18:57 1,000 mls/hr BOLUS ONE Administration Lactated Ringer's 1,000 mls @ 1,000 mls/hr 07/13/17 19:09 07/13/17 19:23 Ringers, Lactated IV 07/13/17 20:08 1,000 mls/hr BOLUS ONE Administration Methylprednisolone Sodium Succinate 125 mg 07/13/17 18:48 07/13/17 18:55 Solu-Medrol IVPUSH 07/13/17 18:49 125 mg ONETIME ONE Administration Metoclopramide HCl 10 mg 07/13/17 17:58 07/13/17 18:31 Reglan IVPUSH 07/13/17 17:59 10 mg ONETIME ONE Administration Morphine Sulfate 2 mg 07/13/17 18:01 07/13/17 18:30 Morphine IVPUSH 07/13/17 18:02 2 mg ONETIME ONE Administration Morphine Sulfate 4 mg 07/13/17 18:42 07/13/17 18:57 Morphine IVPUSH 07/13/17 18:43 4 mg ONETIME ONE Administration Departure - Departure Time of Disposition: 20:35 Disposition: Home, Self-Care 01 Condition: Fair Clinical Impression: Nausea and vomiting, Diarrhea Ulcerative colitis Qualifiers: Ulcerative colitis location: unspecified ulcerative colitis location Digestive disease complication type: without complication Qualified Code(s): K51.90 - Ulcerative colitis, unspecified, without complications - Discharge Information Referrals: Jordan Seymour MD [Primary Care Provider] - Forms: ED Department Discharge Additional Instructions: Follow up in the clinic tomorrow for recheck. Clear liquid diet only. Take Zofran ODT 4 mg every 6 hrs as needed for nausea. Take [place] 1-2 po every 4 hrs as needed for pain relief. No driving tonight.
[2017-07-13] MEDS ORDERED: Morphine 4 MG/ML Syringe IVPUSH ONE (18:42)
[2017-07-13] MEDS ORDERED: methylPREDNISolone Sodium Succinate 125 MG/2 ML SDV IVPUSH ONE (18:48)
[2017-07-13 20:52] VITALS: BP 144/80
== END 2017-07-13 20:50 | disposition home or self-care (01) ==
LOC: FB.ED 17:44
DX: K51.90 Ulcerative colitis, unspecified, without complications (principal); Z88.5 Allergy status to narcotic agent; Z88.8 Allergy status to other drugs, medicaments and biological substances; Z91.040 Latex allergy status; Z91.048 Other nonmedicinal substance allergy status
CPT/HCPCS: 36415; 80048; 85027; 86140; 96361; 96374; 96375; 99284; A9270; J2270; J2765; J2930; J7120

== ENCOUNTER 2017-07-15 10:20 | Emergency (ER) | payer MEDICAID ==
[2017-07-15] MEDS ORDERED: Lactated Ringers 1,000 ML IV ONE (10:32)
[2017-07-15] MEDS ORDERED: Metoclopramide 10 MG/2 ML SDV IVPUSH ONE (10:33)
[2017-07-15] MEDS ORDERED: Sodium Chloride 0.9% 10 ML Syringe FLUSH PRN (10:44)
[2017-07-15] MEDS ORDERED: HYDROmorphone 2 MG/ML SDV IVPUSH ONE (10:46)
--- NOTE | 2017-07-15 10:46 | EDM.PDOC ---
ED HPI GENERAL MEDICAL PROBLEM - General Chief Complaint: Gastrointestinal Problem Stated Complaint: VOMITING POSSIBLE KIDNEY STONE Time Seen by Provider: 07/15/17 10:30 Source of Information: Reports: Patient, Old Records, RN History Limitations: Reports: No Limitations - History of Present Illness INITIAL COMMENTS - FREE TEXT/NARRATIVE: 31 yo female presents with reported upper abdominal pain and vomiting. Was seen 2 days ago for the same. Since then she saw her GI specialist for f/u on her colitis and was in urgent care in [place] where they told her she had "kidney stones". She has no change in bowels. No hematemesis. No fever. Is not dizzy with standing. Comes often for recurrent vomiting. Onset Date: 07/11/17 Duration: Day(s): Location: Reports: Abdomen Quality: Reports: Ache Severity: Moderate Improves with: Reports: None Worsens with: Reports: None Context: Reports: Other (Hx of Chronic ulcerative colitis) Associated Symptoms: Reports: Loss of Appetite, Nausea/Vomiting. Denies: Fever/ Chills Treatments [employer]ER: Reports: Other (see below) (none today) Abdominal Pain Score (Numeric/FACES): 10 - Related Data Allergies Allergy/AdvReac Type Severity Reaction Status Date / Time adhesive Allergy Rash Verified 07/15/17 11:13 cefdinir [From Omnicef] Allergy Rash Verified 07/15/17 11:13 fluticasone propionate Allergy Headache Verified 07/15/17 11:13 [From Flonase] hydrocodone bitartrate Allergy Cannot Verified 07/15/17 11:13 [From Vicodin] Remember hydromorphone [From Dilaudid] Allergy Itching Verified 07/15/17 11:13 latex Allergy Hives Verified 07/15/17 11:13 quetiapine fumarate Allergy Confusion Verified 07/15/17 11:13 [From Seroquel] sertraline HCl [From Zoloft] Allergy Confusion Verified 07/15/17 11:13 Home Meds: Home Meds sulfaSALAzine [Azulfidine] 500 mg PO BID 04/07/17 [History] Ondansetron [Zofran ODT] 4 mg PO Q6H PRN #30 tab.dis 04/10/17 [Rx] Acetaminophen/HYDROcodone [[place] 325-5 MG] 1 - 2 tab PO Q6H PRN #20 tab [Rx] Famotidine 40 mg PO DAILY #30 tablet 07/15/17 [Rx] Ondansetron [Zofran ODT] 4 mg PO Q6H PRN #14 tab.dis 07/15/17 [Rx] Potassium Chloride 10 meq PO TID #20 cap.er 07/15/17 [Rx] Past Medical History - Past Health History Medical/Surgical History: Denies Medical/Surgical History HEENT History: Reports: Impaired Vision, Sinusitis, Other (See Below) Other HEENT History: CHRONIC MYOPIA Cardiovascular History: Reports: None Respiratory History: Reports: Asthma Other Respiratory History: activity induced asthma Gastrointestinal History: Reports: GERD, Inflammatory Bowel Disease, Pancreatitis Other Gastrointestinal History: colitis Genitourinary History: Reports: Renal Calculus [employer]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: Neurological History: Reports: Migraines Psychiatric History: Reports: ADHD, Anxiety, Depression, Developmental Delay, Suicide Attempt Endocrine/Metabolic History: Reports: Obesity/BMI 30+, Other (See Below) 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 Hematologic History: Reports: None Immunologic History: Reports: None Oncologic (Cancer) History: Reports: None Dermatologic History: Reports: None - Infectious Disease History Infectious Disease History: Reports: Chicken Pox - Past Surgical History Head Surgeries/Procedures: Reports: None Female Surgical History: Reports: Section, Lithotripsy/ESWL, Tubal Ligation Musculoskeletal Surgical History: Reports: Arthroscopic Knee Social & Family History - Family History Cardiac: Reports: [place] Musculoskeletal: Reports: RA Oncologic: Reports: Pancreatic - Tobacco Use Smoking Status *Q: Never Smoker Years of Tobacco use: 8 Used Tobacco, but Quit: No Second Hand Smoke Exposure: No - Caffeine Use Caffeine Use: Reports: Soda - Alcohol Use Days Per Week of Alcohol Use: 0 - Recreational Drug Use Recreational Drug Use: No Recreational Drug Type: Reports: Dilaudid, Other (see below) Recreational Drug Use Frequency: Daily ED ROS GENERAL - Review of Systems Review Of Systems: See Below Constitutional: Reports: No Symptoms HEENT: Reports: No Symptoms Respiratory: Reports: No Symptoms Cardiovascular: Reports: No Symptoms Endocrine: Reports: No Symptoms GI/Abdominal: Reports: Abdominal Pain (upper abdomen), Anorexia, Decreased Appetite, Nausea, Vomiting. Denies: Black Stool, Bloody Stool, Constipation, Diarrhea, Distension, Hematemesis, Hematochezia, Melena : Reports: No Symptoms Musculoskeletal: Reports: No Symptoms Skin: Reports: No Symptoms Neurological: Reports: No Symptoms Psychiatric: Reports: No Symptoms ED EXAM, GI/ABD - Physical Exam Exam: See Below Exam Limited By: No Limitations General Appearance: Alert, WD/WN, No Apparent Distress Eyes: Bilateral: Normal Appearance Ears: Normal External Exam, Normal Canal, Hearing Grossly Normal Nose: Normal Inspection, Normal Mucosa, No Blood Throat/Mouth: Normal Inspection, Normal Lips, Normal Oropharynx, Normal Voice, No Airway Compromise Head: Atraumatic, Normocephalic Neck: Normal Inspection, Supple Respiratory/Chest: No Respiratory Distress, Lungs Clear, Normal Breath Sounds Cardiovascular: Regular Rate, Rhythm, No Edema GI/Abdominal Exam: Normal Bowel Sounds, Soft, No Distention, Tender (upper abdomen). No: No Mass, Distended Back Exam: Normal Inspection. No: CVA Tenderness (R), CVA Tenderness (L) Extremities: Normal Inspection, Normal Range of Motion, Non-Tender, No Pedal Edema Neurological: Alert, Oriented, CN II-XII Intact, Normal Cognition, No Motor/ Sensory Deficits Psychiatric: Normal Affect, Normal Mood Skin Exam: Warm, Dry, Intact, Normal Color, No Rash Lymphatic: No Adenopathy Course - Vital Signs Text/Narrative:: Feeling better, pedraza reduced, nausea gone after treatment in the ER. Last Recorded V/S: Last Vital Signs Temp 36.9 C 07/15/17 12:23 Pulse 60 07/15/17 12:23 Resp 16 07/15/17 12:23 BP 92/43 L 07/15/17 12:23 Pulse Ox 100 07/15/17 10:29 Orthostatic Blood Pressure [ 111/75 Standing] Orthostatic Blood Pressure [ 113/62 Sitting] Orthostatic Blood Pressure [ 117/73 Supine] - Orders/Labs/Meds Orders: Active Orders 24 hr Category Date Time Status Orthostatic Vital Signs [RC] ASDIRECTED Care 07/15/17 10:33 Active HELICOBACTER PYLORI AG, STOOL [REF] Stat Lab 07/15/17 13:38 Ordered NS + KCl 20mEq/L [Normal Saline with 20 mEq KCl] 1,000 Med 07/15/17 12:15 Active ml IV ASDIRECTED Sodium Chloride 0.9% [Saline Flush] Med 07/15/17 10:44 Active 10 ml FLUSH ASDIRECTED PRN Saline Lock Insert [OM.PC] Routine Oth 07/15/17 10:44 Ordered Medication Orders Potassium Chloride/Sodium Chloride (Normal Saline With 20 Meq Kcl) 1,000 mls @ 500 mls/hr IV ASDIRECTED IRIS Last Admin: 07/15/17 12:21 Dose: 500 mls/hr Sodium Chloride (Saline Flush) 10 ml FLUSH ASDIRECTED PRN PRN Reason: Keep Vein Open Last Admin: 07/15/17 10:45 Dose: 10 ml Labs: Laboratory Tests 07/15/17 07/15/17 07/15/17 Range/Units 10:50 10:50 10:50 WBC 14.8 H (4.5-12.0) X10-3/uL RBC 4.72 (3.23-5.20) x10(6)uL Hgb 14.2 (11.5-15.5) g/dL Hct 41.8 (30.0-51.3) % MCV 88.7 (80-96) fL MCH 30.0 (27.7-33.6) pg MCHC 33.8 (32.2-35.4) g/dL RDW 12.4 (11.5-15.5) % Plt Count 328 (125-369) X10(3)uL Sodium 136 (135-145) mmol/L Potassium 2.9 L D (3.5-5.3) mmol/L Chloride 102 (100-110) mmol/L Carbon Dioxide 20 L (23-29) mmol/L BUN 16 (5-20) mg/dL Creatinine 1.0 (0.6-1.3) mg/dL Est Cr Clr Drug Dosing 59.62 mL/min Estimated GFR (MDRD) > 60 (>60) BUN/Creatinine Ratio 16.0 (9-20) Glucose 113 (80-116) mg/dL Lactic Acid 2.0 (0.5-2.2) mmol/L Calcium 8.7 (8.6-10.2) mg/dL Magnesium (1.8-2.5) mg/dL Amylase 70 (28-100) U/L Urine Opiates Screen (NEGATIVE) Ur Oxycodone Screen (NEGATIVE) Ur Propoxyphene Screen (NEGATIVE) Ur Barbituates Screen (NEGATIVE) Ur Tricyclics Screen (NEGATIVE) Ur Phencyclidine Scrn (NEGATIVE) Ur Amphetamine Screen (NEGATIVE) Urine MDMA Screen (NEGATIVE) U Benzodiazepines Scrn (NEGATIVE) U Cocaine Metab Screen (NEGATIVE) U Marijuana (THC) Screen (NEGATIVE) 07/15/17 07/15/17 Range/Units 10:50 11:34 WBC (4.5-12.0) X10-3/uL RBC (3.23-5.20) x10(6)uL Hgb (11.5-15.5) g/dL Hct (30.0-51.3) % MCV (80-96) fL MCH (27.7-33.6) pg MCHC (32.2-35.4) g/dL RDW (11.5-15.5) % Plt Count (125-369) X10(3)uL Sodium (135-145) mmol/L Potassium (3.5-5.3) mmol/L Chloride (100-110) mmol/L Carbon Dioxide (23-29) mmol/L BUN (5-20) mg/dL Creatinine (0.6-1.3) mg/dL Est Cr Clr Drug Dosing mL/min Estimated GFR (MDRD) (>60) BUN/Creatinine Ratio (9-20) Glucose (80-116) mg/dL Lactic Acid (0.5-2.2) mmol/L Calcium (8.6-10.2) mg/dL Magnesium 2.0 (1.8-2.5) mg/dL Amylase (28-100) U/L Urine Opiates Screen Positive H (NEGATIVE) Ur Oxycodone Screen Negative (NEGATIVE) Ur Propoxyphene Screen Negative (NEGATIVE) Ur Barbituates Screen Negative (NEGATIVE) Ur Tricyclics Screen Negative (NEGATIVE) Ur Phencyclidine Scrn Negative (NEGATIVE) Ur Amphetamine Screen Negative (NEGATIVE) Urine MDMA Screen Negative (NEGATIVE) U Benzodiazepines Scrn Negative (NEGATIVE) U Cocaine Metab Screen Negative (NEGATIVE) U Marijuana (THC) Screen Negative (NEGATIVE) Meds: Medications Generic Name Dose Route Start Last Admin Trade Name Freq PRN Reason Stop Dose Admin Potassium Chloride/Sodium Chloride 1,000 mls @ 500 mls/hr 07/15/17 12:15 04/23 12:21 Normal Saline With 20 Meq Kcl IV 500 mls/hr ASDIRECTED IRIS Administration Sodium Chloride 10 ml 07/15/17 10:44 07/15/17 10:45 Saline Flush FLUSH 10 ml ASDIRECTED PRN Administration Keep Vein Open Discontinued Medications Generic Name Dose Route Start Last Admin Trade Name Ajq PRN Reason Stop Dose Admin Hydromorphone HCl 1 mg 07/15/17 10:46 07/15/17 10:54 Dilaudid IVPUSH 07/15/17 10:47 1 mg ONETIME ONE Administration Lactated Ringer's 1,000 mls @ 1,000 mls/hr 07/15/17 10:32 07/15/17 10:46 Ringers, Lactated IV 07/15/17 11:31 1,000 mls/hr BOLUS ONE Administration Famotidine 20 mg/ Premix 50 mls @ 200 mls/hr 07/15/17 10:48 07/15/17 10:58 IV 07/15/17 10:49 200 mls/hr ONETIME ONE Administration Metoclopramide HCl 10 mg 07/15/17 10:33 07/15/17 10:53 Reglan IVPUSH 07/15/17 10:34 10 mg ONETIME ONE Administration Potassium Chloride 40 meq 07/15/17 11:10 07/15/17 11:22 Klor-Con 10 PO 07/15/17 11:11 40 meq ONETIME ONE Administration Departure - Departure Time of Disposition: 14:23 Disposition: Home, Self-Care 01 Condition: Fair Clinical Impression: Gastritis, Hypokalemia Nausea and vomiting Qualifiers: Vomiting type: unspecified Vomiting Intractability: non-intractable Qualified Code(s): R11.2 - Nausea with vomiting, unspecified - Discharge Information Prescriptions: Acetaminophen/HYDROcodone [[place] 325-5 MG] 1 - 2 tab PO Q6H PRN #20 tab PRN Reason: Pain Famotidine 40 mg PO DAILY #30 tablet Ondansetron [Zofran ODT] 4 mg PO Q6H PRN #14 tab.dis PRN Reason: Nausea Potassium Chloride 10 meq PO TID #20 cap.er Referrals: Jordan Seymour MD [Primary Care Provider] - Forms: ED Department Discharge Additional Instructions: See your doctor for recheck in the next few days, call for an appt. Take famotidine as directed for your stomach. Take potassium as directed for your low potassium level. Follow a high potassium diet. Take Zofran as needed for nausea control. Take [place] or acetaminophen for pain relief. Avoid aspirin, ibuprofen, Aleve, caffeine, or carbonated beverages or tobacco/alcohol. - My Orders Last 24 Hours: My Active Orders 07/15/17 10:33 Orthostatic Vital Signs [RC] ASDIRECTED 07/15/17 10:44 Sodium Chloride 0.9% [Saline Flush] 10 ml FLUSH ASDIRECTED PRN Saline Lock Insert [OM.PC] Routine 07/15/17 12:15 NS + KCl 20mEq/L [Normal Saline with 20 mEq KCl] 1,000 ml IV ASDIRECTED 07/15/17 13:38 HELICOBACTER PYLORI AG, STOOL [REF] Stat - Assessment/Plan Last 24 Hours: My Active Orders 07/15/17 10:33 Orthostatic Vital Signs [RC] ASDIRECTED 07/15/17 10:44 Sodium Chloride 0.9% [Saline Flush] 10 ml FLUSH ASDIRECTED PRN Saline Lock Insert [OM.PC] Routine 07/15/17 12:15 NS + KCl 20mEq/L [Normal Saline with 20 mEq KCl] 1,000 ml IV ASDIRECTED 07/15/17 13:38 HELICOBACTER PYLORI AG, STOOL [REF] Stat
[2017-07-15] MEDS ORDERED: Famotidine/Normal Saline 20 MG in Premix Bag 1 BAG IV ONE (10:48)
[2017-07-15] MEDS ORDERED: Potassium Chloride 10 MEQ Tab.ER PO ONE (11:10)
[2017-07-15] MEDS ORDERED: NS + KCl 20mEq/L 1,000 ML IV SCH (12:15)
[2017-07-15 14:45] VITALS: BP 110/87
== END 2017-07-15 14:30 | disposition home or self-care (01) ==
LOC: FB.ED 10:20
DX: K29.70 Gastritis, unspecified, without bleeding (principal); E87.6 Hypokalemia; K21.9 Gastro-esophageal reflux disease without esophagitis; Z79.899 Other long term (current) drug therapy; Z88.5 Allergy status to narcotic agent; Z91.040 Latex allergy status; Z88.8 Allergy status to other drugs, medicaments and biological substances; Z91.048 Other nonmedicinal substance allergy status
CPT/HCPCS: 36415; 80048; 80305; 82150; 83605; 83735; 85027; 96361; 96365; 96366; 96375; 99284; A9270; J1170; J2765; J3480; J7050; J7120

== ENCOUNTER 2017-07-18 02:19 | Emergency (ER) | payer MEDICAID ==
--- NOTE | 2017-07-18 03:23 | EDM.PDOC ---
ED HPI GENERAL MEDICAL PROBLEM - General Chief Complaint: Abdominal Pain Stated Complaint: ABD PAIN Time Seen by Provider: 07/18/17 03:00 Source of Information: Reports: Patient, Family, Old Records History Limitations: Reports: No Limitations - History of Present Illness INITIAL COMMENTS - FREE TEXT/NARRATIVE: Evelina returns to [facility] ED with ongoing issues with midline abdominal pain, nausea and vomiting. Sxs appeared to escalate this evening after an uneventful day. Mother reports she ate some [employer] at dinner time. She has a PMH of UC with some diarrhea, but this has not escalated. She was seen in [place] for a GI consult 4 days ago, but was instead seen in and diagnoses with kidney stones by abdominal CT, reports unavailable. - Related Data Allergies Allergy/AdvReac Type Severity Reaction Status Date / Time adhesive Allergy Rash Verified 07/15/17 11:13 cefdinir [From Omnicef] Allergy Rash Verified 07/15/17 11:13 fluticasone propionate Allergy Headache Verified 07/15/17 11:13 [From Flonase] hydrocodone bitartrate Allergy Cannot Verified 07/15/17 11:13 [From Vicodin] Remember hydromorphone [From Dilaudid] Allergy Itching Verified 07/15/17 11:13 latex Allergy Hives Verified 07/15/17 11:13 quetiapine fumarate Allergy Confusion Verified 07/15/17 11:13 [From Seroquel] sertraline HCl [From Zoloft] Allergy Confusion Verified 07/15/17 11:13 Home Meds: Home Meds sulfaSALAzine [Azulfidine] 500 mg PO BID 04/07/17 [History] Ondansetron [Zofran ODT] 4 mg PO Q6H PRN #30 tab.dis 04/10/17 [Rx] Acetaminophen/HYDROcodone [[place] 325-5 MG] 1 - 2 tab PO Q6H PRN #20 tab [Rx] Famotidine 40 mg PO DAILY #30 tablet 07/15/17 [Rx] Ondansetron [Zofran ODT] 4 mg PO Q6H PRN #14 tab.dis 07/15/17 [Rx] Potassium Chloride 10 meq PO TID #20 cap.er 07/15/17 [Rx] Past Medical History - Past Health History Medical/Surgical History: Denies Medical/Surgical History HEENT History: Reports: Impaired Vision, Sinusitis, Other (See Below) Other HEENT History: CHRONIC MYOPIA Cardiovascular History: Reports: None Respiratory History: Reports: Asthma Other Respiratory History: activity induced asthma Gastrointestinal History: Reports: GERD, Inflammatory Bowel Disease, Pancreatitis Other Gastrointestinal History: colitis Genitourinary History: Reports: Renal Calculus [employer]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: Neurological History: Reports: Migraines Psychiatric History: Reports: ADHD, Anxiety, Depression, Developmental Delay, Suicide Attempt Endocrine/Metabolic History: Reports: Obesity/BMI 30+, Other (See Below) 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 Hematologic History: Reports: None Immunologic History: Reports: None Oncologic (Cancer) History: Reports: None Dermatologic History: Reports: None - Infectious Disease History Infectious Disease History: Reports: Chicken Pox - Past Surgical History Head Surgeries/Procedures: Reports: None Female Surgical History: Reports: Section, Lithotripsy/ESWL, Tubal Ligation Musculoskeletal Surgical History: Reports: Arthroscopic Knee Social & Family History - Family History Cardiac: Reports: CT Musculoskeletal: Reports: RA Oncologic: Reports: Pancreatic - Tobacco Use Smoking Status *Q: Never Smoker Years of Tobacco use: 8 Used Tobacco, but Quit: No Second Hand Smoke Exposure: No - Caffeine Use Caffeine Use: Reports: Soda - Alcohol Use Days Per Week of Alcohol Use: 0 - Recreational Drug Use Recreational Drug Use: No Recreational Drug Type: Reports: Dilaudid, Other (see below) Recreational Drug Use Frequency: Daily ED ROS GENERAL - Review of Systems Review Of Systems: See Below Constitutional: Reports: Malaise, Decreased Appetite HEENT: Reports: No Symptoms Respiratory: Reports: No Symptoms Cardiovascular: Reports: No Symptoms Endocrine: Reports: No Symptoms GI/Abdominal: Reports: Abdominal Pain, Diarrhea, Decreased Appetite, Nausea, Vomiting : Reports: No Symptoms Musculoskeletal: Reports: No Symptoms Skin: Reports: No Symptoms Neurological: Reports: No Symptoms Psychiatric: Reports: Anxiety Hematologic/Lymphatic: Reports: No Symptoms Immunologic: Reports: No Symptoms ED EXAM, GI/ABD - Physical Exam Exam: See Below Exam Limited By: No Limitations General Appearance: Alert, WD/WN, Mild Distress Eyes: Bilateral: Normal Appearance Ears: Normal External Exam Nose: Normal Inspection Throat/Mouth: Normal Inspection, Normal Oropharynx Head: Normocephalic Neck: Normal Inspection, Supple Respiratory/Chest: Lungs Clear Cardiovascular: Regular Rate, Rhythm GI/Abdominal Exam: Normal Bowel Sounds, Soft, No Organomegaly, No Distention, No Mass, Tender (limited midline tenderness without rebound or guarding) Rectal (Female) Exam: Deferred Back Exam: Normal Inspection Extremities: Normal Inspection Neurological: Alert, Oriented, CN II-XII Intact, Normal Cognition, No Motor/ Sensory Deficits Psychiatric: Normal Affect, Anxious Skin Exam: Warm, Dry Lymphatic: No Adenopathy Course - Vital Signs Text/Narrative:: Evelina was administered Toradol 60 mg IM and Compazine 10 mg IM for sx relief. She left in the company of her mother, and will need follow up in [place] regarding digestive issues. Departure - Departure Time of Disposition: 03:32 Disposition: Home, Self-Care 01 Condition: Fair Clinical Impression: Nausea and vomiting Qualifiers: Vomiting type: unspecified Vomiting Intractability: non-intractable Qualified Code(s): R11.2 - Nausea with vomiting, unspecified - Discharge Information Referrals: Jordan Seymour MD [Primary Care Provider] - Forms: ED Department Discharge - Problem List & Annotations (1) Nausea and vomiting SNOMED Code(s): 54224590 Code(s): R11.2 - NAUSEA WITH VOMITING, UNSPECIFIED Status: Acute Current Visit: Yes Annotation/Comment:: Evelina will need follow up in [place] for digestive issues. Qualifiers: Vomiting type: unspecified Vomiting Intractability: non-intractable Qualified Code(s): R11.2 - Nausea with vomiting, unspecified - Problem List Review Problem List Initiated/Reviewed/Updated: Yes - Assessment/Plan Plan: Follow up with GI is consultant.
[2017-07-18] MEDS ORDERED: Prochlorperazine 10 MG/2 ML SDV IM ONE (03:28)
[2017-07-18] MEDS ORDERED: Ketorolac 60 MG/2 ML SDV IM ONE (03:28)
[2017-07-20 12:28] VITALS: BP 152/96
== END 2017-07-18 03:50 | disposition home or self-care (01) ==
LOC: FB.ED 02:19
DX: R11.2 Nausea with vomiting, unspecified (principal); Z88.8 Allergy status to other drugs, medicaments and biological substances
CPT/HCPCS: 96372; 99283; J0780; J1885

== ENCOUNTER 2017-11-11 13:48 | Emergency (ER) | payer MEDICAID, SELFPAY ==
[2017-11-11] MEDS ORDERED: Sodium Chloride 0.9% 1,000 ML IV SCH ×2 (14:45→16:15)
[2017-11-11] MEDS ORDERED: Ondansetron 4 MG/2 ML SDV IVPUSH ONE (14:45)
[2017-11-11] MEDS ORDERED: diphenhydrAMINE 50 MG/ML SDV IVPUSH ONE ×2 (14:45→17:18)
[2017-11-11] MEDS ORDERED: Ketorolac 30 MG/ML SDV IVPUSH ONE (14:45)
[2017-11-11] MEDS ORDERED: Sodium Chloride 0.9% 10 ML Syringe FLUSH PRN (15:26)
[2017-11-11] MEDS ORDERED: Promethazine 25 MG/ML SDV IM ONE (16:17)
--- NOTE | 2017-11-11 17:07 | EDM.PDOC ---
ED HPI GENERAL MEDICAL PROBLEM - General Chief Complaint: Gastrointestinal Problem Stated Complaint: VOMITTING Time Seen by Provider: 11/11/17 17:01 Source of Information: Reports: Patient History Limitations: Reports: No Limitations - History of Present Illness INITIAL COMMENTS - FREE TEXT/NARRATIVE: c/o abd pain x 4d and vomiting x 1d h/o cyclic vomiting syndrome and ulcerative colitis, 3 loose brown BM today, little PO intake, no f/c/d was seen in ED 7x in 2016 with c/o abd pain, was admitted 04/23, EGD then showed very mild gastritis, pt then with vomiting in hospital despite steroids and Ativan, was d/c'ed on hydrocodone pt says abd pain is d/t stress (single parent of 3, money issues, unemployed), in 04/23 she attributed sxs to anxiety no f/c/d pt's first question was whether she would be admitted pt states she is still having sxs after Benadryl 50 mg IV, Phenergan 50 mg IM, NS x 2 liters, Toradol 30 mg IV. whole abdomen Pain Score (Numeric/FACES): 10 - Related Data Allergies Allergy/AdvReac Type Severity Reaction Status Date / Time adhesive Allergy Rash Verified 11/11/17 15:09 cefdinir [From Omnicef] Allergy Rash Verified 11/11/17 15:09 fluticasone propionate Allergy Headache Verified 11/11/17 15:09 [From Flonase] hydrocodone bitartrate Allergy Cannot Verified 11/11/17 15:09 [From Vicodin] Remember hydromorphone [From Dilaudid] Allergy Itching Verified 11/11/17 15:09 latex Allergy Hives Verified 11/11/17 15:09 quetiapine fumarate Allergy Confusion Verified 11/11/17 15:09 [From Seroquel] sertraline HCl [From Zoloft] Allergy Confusion Verified 11/11/17 15:09 Home Meds: Home Meds sulfaSALAzine [Azulfidine] 500 mg PO BID 04/07/17 [History] Ondansetron [Zofran ODT] 4 mg PO Q6H PRN #30 tab.dis 04/10/17 [Rx] Acetaminophen/HYDROcodone [[place] 325-5 MG] 1 - 2 tab PO Q6H PRN #20 tab [Rx] Famotidine 40 mg PO DAILY #30 tablet 07/15/17 [Rx] Dicyclomine HCl [Bentyl] 10 mg PO Q6H PRN #20 capsule 11/11/17 [Rx] Ondansetron [Zofran ODT] 4 mg PO Q6H PRN #6 tab.dis 11/11/17 [Rx] Past Medical History - Past Health History Medical/Surgical History: Denies Medical/Surgical History HEENT History: Reports: Impaired Vision, Sinusitis, Other (See Below) Other HEENT History: CHRONIC MYOPIA Cardiovascular History: Reports: None Respiratory History: Reports: Asthma Other Respiratory History: activity induced asthma Gastrointestinal History: Reports: GERD, Inflammatory Bowel Disease, Pancreatitis Other Gastrointestinal History: colitis Genitourinary History: Reports: Renal Calculus 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: Neurological History: Reports: Migraines Psychiatric History: Reports: ADHD, Anxiety, Depression, Developmental Delay, Suicide Attempt Endocrine/Metabolic History: Reports: Obesity/BMI 30+, Other (See Below) 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 Hematologic History: Reports: None Immunologic History: Reports: None Oncologic (Cancer) History: Reports: None Dermatologic History: Reports: None - Infectious Disease History Infectious Disease History: Reports: Chicken Pox - Past Surgical History Head Surgeries/Procedures: Reports: None Female Surgical History: Reports: Section, Lithotripsy/ESWL, Tubal Ligation Musculoskeletal Surgical History: Reports: Arthroscopic Knee Social & Family History - Family History Family Medical History: Unobtainable Cardiac: Reports: [place] Musculoskeletal: Reports: RA Oncologic: Reports: Pancreatic - Tobacco Use Smoking Status *Q: Never Smoker Years of Tobacco use: 8 Used Tobacco, but Quit: No Second Hand Smoke Exposure: No - Caffeine Use Caffeine Use: Reports: None - Alcohol Use Days Per Week of Alcohol Use: 0 - Recreational Drug Use Recreational Drug Use: No Recreational Drug Type: Reports: Dilaudid, Other (see below) Recreational Drug Use Frequency: Daily ED ROS GENERAL - Review of Systems Review Of Systems: See Below Constitutional: Reports: No Symptoms HEENT: Reports: No Symptoms Respiratory: Reports: No Symptoms Cardiovascular: Reports: No Symptoms Endocrine: Reports: No Symptoms GI/Abdominal: Reports: Abdominal Pain, Nausea, Vomiting : Reports: No Symptoms Musculoskeletal: Reports: No Symptoms Skin: Reports: No Symptoms Neurological: Reports: No Symptoms Psychiatric: Reports: No Symptoms Hematologic/Lymphatic: Reports: No Symptoms Immunologic: Reports: No Symptoms ED EXAM, GI/ABD - Physical Exam Exam: See Below Exam Limited By: No Limitations General Appearance: Alert, WD/WN, Mild Distress, Other (alert, nontoxic) Ears: Normal External Exam Nose: Normal Inspection, Normal Mucosa, No Blood Throat/Mouth: Normal Inspection, Normal Lips, Normal Teeth, Normal Gums, Normal Oropharynx, Normal Voice, No Airway Compromise Head: Atraumatic, Normocephalic Neck: Normal Inspection, Supple, Non-Tender, Full Range of Motion Respiratory/Chest: No Respiratory Distress, Lungs Clear, Normal Breath Sounds, No Accessory Muscle Use, Chest Non-Tender Cardiovascular: Regular Rate, Rhythm, No Edema, No Gallop, No JVD, No Rub GI/Abdominal Exam: Normal Bowel Sounds, Soft, No Organomegaly, No Distention, No Mass, Pelvis Stable, Other (nonspecific mild tenderness of abd everywhere, no localized tenderness, no guard, no rebound, nl BS x 4, ND) Back Exam: Normal Inspection, Full Range of Motion, NT Extremities: Normal Inspection, Normal Range of Motion, Non-Tender, No Pedal Edema Neurological: Alert, Oriented, CN II-XII Intact, Normal Cognition, No Motor/ Sensory Deficits Psychiatric: Normal Affect, Normal Mood Skin Exam: Warm, Dry, Intact, Normal Color, No Rash Lymphatic: No Adenopathy Course - Vital Signs Last Recorded V/S: Last Vital Signs Temp 37.1 C 11/11/17 13:55 Pulse 80 11/11/17 13:55 Resp 17 11/11/17 13:55 BP 127/85 11/11/17 13:55 Pulse Ox 100 11/11/17 13:55 - Orders/Labs/Meds Orders: Active Orders 24 hr Category Date Time Status Sodium Chloride 0.9% [Normal Saline] 1,000 ml Med 11/11/17 14:45 Active IV ASDIRECTED Sodium Chloride 0.9% [Normal Saline] 1,000 ml Med 11/11/17 16:15 Active IV ASDIRECTED Sodium Chloride 0.9% [Saline Flush] Med 11/11/17 15:26 Active 10 ml FLUSH ASDIRECTED PRN Saline Lock Insert [OM.PC] Routine Oth 11/11/17 15:26 Ordered Medication Orders Sodium Chloride (Normal Saline) 1,000 mls @ 999 mls/hr IV ASDIRECTED IRIS Last Admin: 11/11/17 15:30 Dose: 999 mls/hr Sodium Chloride (Normal Saline) 1,000 mls @ 999 mls/hr IV ASDIRECTED IRIS Last Admin: 11/11/17 16:26 Dose: 999 mls/hr Sodium Chloride (Saline Flush) 10 ml FLUSH ASDIRECTED PRN PRN Reason: Keep Vein Open Last Admin: 11/11/17 15:29 Dose: 10 ml Labs: Laboratory Tests 11/11/17 11/11/17 11/11/17 Range/Units 15:29 15:30 15:30 WBC 11.0 (4.5-12.0) X10-3/uL RBC 4.92 (3.23-5.20) x10(6)uL Hgb 14.7 (11.5-15.5) g/dL Hct 43.7 (30.0-51.3) % MCV 88.8 (80-96) fL MCH 30.0 (27.7-33.6) pg MCHC 33.7 (32.2-35.4) g/dL RDW 13.4 (11.5-15.5) % Plt Count 293 (125-369) X10(3)uL MPV 7.7 (7.4-10.4) fL Neut % (Auto) 85.3 H (46-82) % Lymph % (Auto) 9.5 L (13-37) % [place] % (Auto) 2.8 L (4-12) % Eos % (Auto) 0 L (1.0-5.0) % Baso % (Auto) 2 (0-2) % Neut # (Auto) 9.4 H (1.6-8.3) # Lymph # (Auto) 1.0 (0.6-5.0) # [place] # (Auto) 0.3 (0.0-1.3) # Eos # (Auto) 0.0 (0.0-0.8) # Baso # (Auto) 0.3 H (0.0-0.2) # Sodium 142 (135-145) mmol/L Potassium 3.6 (3.5-5.3) mmol/L Chloride 105 (100-110) mmol/L Carbon Dioxide 19 L (21-32) mmol/L BUN 12 (7-18) mg/dL Creatinine 1.1 H (0.55-1.02) mg/dL Est Cr Clr Drug Dosing 59.15 mL/min Estimated GFR (MDRD) 58 L (>60) BUN/Creatinine Ratio 10.9 (9-20) Glucose 164 H (80-116) mg/dL Calcium 9.4 (8.6-10.2) mg/dL Total Bilirubin 0.5 (0.1-1.3) mg/dL AST 17 (5-25) IU/L ALT 21 (12-36) U/L Alkaline Phosphatase 72 (56-112) IU/L C-Reactive Protein (0.5-0.9) mg/dL Total Protein 8.4 H (6.0-8.0) g/dL Albumin 4.3 (3.5-5.2) g/dL Globulin 4.1 g/dL Albumin/Globulin Ratio 1.1 Amylase (25-115) U/L Urine Color Yellow (YELLOW) Urine Appearance Slightly cloudy (CLEAR) Urine pH 5.0 (5.0-6.5) Ur Specific [place] 1.020 (1.010-1.025) Urine Protein 30 H (NEGATIVE) mg/dL Urine Glucose (UA) 50 H (NEGATIVE) mg/dL Urine Ketones 150 H (NEGATIVE) mg/dL Urine Occult Blood Moderate H (NEGATIVE) Urine Nitrite Negative (NEGATIVE) Urine Bilirubin Small H (NEGATIVE) Urine Urobilinogen 1 H (NEGATIVE) mg/dL Ur Leukocyte Esterase Negative (NEGATIVE) Urine RBC 5-10 (0) Urine WBC 0-5 (0) Ur Squamous Epith Cells Many H (NS,R,O) Urine Bacteria Moderate H (NS) Hyaline Casts Moderate H (NS) Urine Mucus Many H (NS) 11/11/17 11/11/17 Range/Units 15:30 15:30 WBC (4.5-12.0) X10-3/uL RBC (3.23-5.20) x10(6)uL Hgb (11.5-15.5) g/dL Hct (30.0-51.3) % MCV (80-96) fL MCH (27.7-33.6) pg MCHC (32.2-35.4) g/dL RDW (11.5-15.5) % Plt Count (125-369) X10(3)uL MPV (7.4-10.4) fL Neut % (Auto) (46-82) % Lymph % (Auto) (13-37) % [place] % (Auto) (4-12) % Eos % (Auto) (1.0-5.0) % Baso % (Auto) (0-2) % Neut # (Auto) (1.6-8.3) # Lymph # (Auto) (0.6-5.0) # [place] # (Auto) (0.0-1.3) # Eos # (Auto) (0.0-0.8) # Baso # (Auto) (0.0-0.2) # Sodium (135-145) mmol/L Potassium (3.5-5.3) mmol/L Chloride (100-110) mmol/L Carbon Dioxide (21-32) mmol/L BUN (7-18) mg/dL Creatinine (0.55-1.02) mg/dL Est Cr Clr Drug Dosing mL/min Estimated GFR (MDRD) (>60) BUN/Creatinine Ratio (9-20) Glucose (80-116) mg/dL Calcium (8.6-10.2) mg/dL Total Bilirubin (0.1-1.3) mg/dL AST (5-25) IU/L ALT (12-36) U/L Alkaline Phosphatase (56-112) IU/L C-Reactive Protein 0.9 (0.5-0.9) mg/dL Total Protein (6.0-8.0) g/dL Albumin (3.5-5.2) g/dL Globulin g/dL Albumin/Globulin Ratio Amylase 63 (25-115) U/L Urine Color (YELLOW) Urine Appearance (CLEAR) Urine pH (5.0-6.5) Ur Specific [place] (1.010-1.025) Urine Protein (NEGATIVE) mg/dL Urine Glucose (UA) (NEGATIVE) mg/dL Urine Ketones (NEGATIVE) mg/dL Urine Occult Blood (NEGATIVE) Urine Nitrite (NEGATIVE) Urine Bilirubin (NEGATIVE) Urine Urobilinogen (NEGATIVE) mg/dL Ur Leukocyte Esterase (NEGATIVE) Urine RBC (0) Urine WBC (0) Ur Squamous Epith Cells (NS,R,O) Urine Bacteria (NS) Hyaline Casts (NS) Urine Mucus (NS) Meds: Medications Generic Name Dose Route Start Last Admin Trade Name Freq PRN Reason Stop Dose Admin Sodium Chloride 1,000 mls @ 999 mls/hr 11/11/17 14:45 11/11/17 15:30 Normal Saline IV 999 mls/hr ASDIRECTED IRIS Administration Sodium Chloride 1,000 mls @ 999 mls/hr 11/11/17 16:15 11/11/17 16:26 Normal Saline IV 999 mls/hr ASDIRECTED IRIS Administration Sodium Chloride 10 ml 11/11/17 15:26 11/11/17 15:29 Saline Flush FLUSH 10 ml ASDIRECTED PRN Administration Keep Vein Open Discontinued Medications Generic Name Dose Route Start Last Admin Trade Name Freq PRN Reason Stop Dose Admin Diphenhydramine HCl 50 mg 11/11/17 14:45 11/11/17 15:37 Benadryl IVPUSH 11/11/17 14:46 50 mg ONETIME ONE Administration Ketorolac Tromethamine 30 mg 11/11/17 14:45 11/11/17 15:34 Toradol IVPUSH 11/11/17 14:46 30 mg ONETIME ONE Administration Ondansetron HCl 4 mg 11/11/17 14:45 11/11/17 15:31 Zofran IVPUSH 11/11/17 14:46 4 mg ONETIME ONE Administration Promethazine HCl 50 mg 11/11/17 16:17 11/11/17 16:22 Phenergan IM 11/11/17 16:18 50 mg ONETIME ONE Administration - Re-Assessments/Exams Free Text/Narrative Re-Assessment/Exam: 11/11/17 17:10 labs show dehydration, no acute process Departure - Departure Time of Disposition: 17:18 Disposition: Home, Self-Care 01 Condition: Good Clinical Impression: Cyclic vomiting syndrome, Anxiety, Stress, Dehydration - Discharge Information Prescriptions: Dicyclomine HCl [Bentyl] 10 mg PO Q6H PRN #20 capsule PRN Reason: Abdominal Pain Ondansetron [Zofran ODT] 4 mg PO Q6H PRN #6 tab.dis PRN Reason: Nausea Instructions: Nausea and Vomiting, Adult Referrals: Jordan Seymour MD [Primary Care Provider] - Forms: ED Department Discharge Additional Instructions: Continue current meds. For pain and cramping, take ibuprofen 200 mg 3 tabs and acetaminophen 500 mg 2 tabs 4 times a day for 5 days. For cramping, as needed, also take dicyclomine 10 mg 1 tab every 6 hours. For nausea, take Zofran ODT 4 mg 1 tab every 6 hours as needed. Soak in warm tub for 10 minutes 4 times a day. Rest. Increase fluids. See your doctor in 1-2 days. - My Orders Last 24 Hours: My Active Orders 11/11/17 14:45 Sodium Chloride 0.9% [Normal Saline] 1,000 ml IV ASDIRECTED 11/11/17 15:26 Sodium Chloride 0.9% [Saline Flush] 10 ml FLUSH ASDIRECTED PRN Saline Lock Insert [OM.PC] Routine 11/11/17 16:15 Sodium Chloride 0.9% [Normal Saline] 1,000 ml IV ASDIRECTED - Assessment/Plan Last 24 Hours: My Active Orders 11/11/17 14:45 Sodium Chloride 0.9% [Normal Saline] 1,000 ml IV ASDIRECTED 11/11/17 15:26 Sodium Chloride 0.9% [Saline Flush] 10 ml FLUSH ASDIRECTED PRN Saline Lock Insert [OM.PC] Routine 11/11/17 16:15 Sodium Chloride 0.9% [Normal Saline] 1,000 ml IV ASDIRECTED
[2017-11-11] MEDS ORDERED: Dicyclomine 10 MG Cap PO PRN (17:15)
[2017-11-11] MEDS ORDERED: Ondansetron 4 MG Tab.DIS PO PRN (17:16)
[2017-11-11 18:22] VITALS: BP 109/65
== END 2017-11-11 18:10 | disposition home or self-care (01) ==
LOC: FB.ED 13:48
DX: G43.A0 Cyclical vomiting, in migraine, not intractable (principal); F41.9 Anxiety disorder, unspecified; F43.9 Reaction to severe stress, unspecified; E86.0 Dehydration; K21.9 Gastro-esophageal reflux disease without esophagitis; F90.9 Attention-deficit hyperactivity disorder, unspecified type; J45.909 Unspecified asthma, uncomplicated; F32.9 Major depressive disorder, single episode, unspecified; Z91.040 Latex allergy status; Z79.899 Other long term (current) drug therapy; Z88.8 Allergy status to other drugs, medicaments and biological substances; Z91.09 Other allergy status, other than to drugs and biological substances; Z88.6 Allergy status to analgesic agent
CPT/HCPCS: 36415; 80053; 81001; 82150; 85025; 86140; 96361; 96374; 96375; 96376; 99284; A9270; J1200; J1885; J2405; J2550; J7040; J7050

== ENCOUNTER 2017-11-12 14:36 | Emergency (ER) | payer MEDICAID ==
[2017-11-12] MEDS ORDERED: Ondansetron 4 MG/2 ML SDV IVPUSH ONE (16:02)
[2017-11-12] MEDS ORDERED: Ketorolac 30 MG/ML SDV IVPUSH ONE (16:02)
[2017-11-12] MEDS ORDERED: diphenhydrAMINE 50 MG/ML SDV IVPUSH ONE ×2 (16:03→18:41)
--- NOTE | 2017-11-12 16:10 | EDM.PDOC ---
ED HPI GENERAL MEDICAL PROBLEM - General Chief Complaint: Abdominal Pain Stated Complaint: STOMACH PAIN Time Seen by Provider: 11/12/17 15:50 Source of Information: Reports: Patient History Limitations: Reports: No Limitations - History of Present Illness INITIAL COMMENTS - FREE TEXT/NARRATIVE: c/o abd pain x 2d in ED yesterday moaning in abd pain dx as cramps from home stress, labs next except for mild dehydration, tx with NS x 2 liters, Benadryl 100 mg IV, Toradol 30 mg IV, Zofran 4 mg IV and promethazine 50 mg IM. [address] PCP Dr Seymour this AM who did not change meds and advised her to return to ED if she still had sxs. little PO today, has had vomiting yesterday was d/c'ed from ED with advise to take APAP, ibuprofen, dicyclomine, and Zofran ODT QID which she says she "has been doing as best I can", has been soaking tub which has helped her 2 older children are at school, her youngest is 4 yo and "has a lot of problems" and was nonverbal until last yr, he goes to special school 4h qMon-[employer] , pt's father is watching him now pt lives with her father and 3 children, comes to ED via EMS says her abd "hurts all over" altho no localizing tenderness no f/c/d, has V x 12 today, no c/d mid abdominal radiating to the whole abdomen Pain Score (Numeric/FACES): 8 - Related Data Allergies Allergy/AdvReac Type Severity Reaction Status Date / Time adhesive Allergy Rash Verified 11/12/17 15:34 cefdinir [From Omnicef] Allergy Rash Verified 11/12/17 15:34 fluticasone propionate Allergy Headache Verified 11/12/17 15:34 [From Flonase] hydrocodone bitartrate Allergy Cannot Verified 11/12/17 15:34 [From Vicodin] Remember hydromorphone [From Dilaudid] Allergy Itching Verified 11/12/17 15:34 latex Allergy Hives Verified 11/12/17 15:34 quetiapine fumarate Allergy Confusion Verified 11/12/17 15:34 [From Seroquel] sertraline HCl [From Zoloft] Allergy Confusion Verified 03/08/18 15:34 Home Meds: Home Meds sulfaSALAzine [Azulfidine] 500 mg PO BID 04/07/17 [History] Acetaminophen/HYDROcodone [[place] 325-5 MG] 1 - 2 tab PO Q6H PRN #20 tab [Rx] Famotidine 40 mg PO DAILY #30 tablet 07/15/17 [Rx] Dicyclomine HCl [Bentyl] 10 mg PO Q6H PRN #20 capsule 11/11/17 [Rx] Ondansetron [Zofran ODT] 4 mg PO Q6H PRN #6 tab.dis 11/11/17 [Rx] Past Medical History - Past Health History Medical/Surgical History: Denies Medical/Surgical History HEENT History: Reports: Impaired Vision, Sinusitis, Other (See Below) Other HEENT History: CHRONIC MYOPIA Cardiovascular History: Reports: None Respiratory History: Reports: Asthma Other Respiratory History: activity induced asthma Gastrointestinal History: Reports: GERD, Inflammatory Bowel Disease, Pancreatitis Other Gastrointestinal History: colitis Genitourinary History: Reports: Renal Calculus 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: Neurological History: Reports: Migraines Psychiatric History: Reports: ADHD, Anxiety, Depression, Developmental Delay, Suicide Attempt Endocrine/Metabolic History: Reports: Obesity/BMI 30+, Other (See Below) 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 Hematologic History: Reports: None Immunologic History: Reports: None Oncologic (Cancer) History: Reports: None Dermatologic History: Reports: None - Infectious Disease History Infectious Disease History: Reports: Chicken Pox - Past Surgical History Head Surgeries/Procedures: Reports: None Female Surgical History: Reports: Section, Lithotripsy/ESWL, Tubal Ligation Musculoskeletal Surgical History: Reports: Arthroscopic Knee Social & Family History - Family History Family Medical History: Unobtainable Cardiac: Reports: [place] Musculoskeletal: Reports: RA Oncologic: Reports: Pancreatic - Tobacco Use Smoking Status *Q: Never Smoker Years of Tobacco use: 8 Used Tobacco, but Quit: No Second Hand Smoke Exposure: No - Caffeine Use Caffeine Use: Reports: None - Alcohol Use Days Per Week of Alcohol Use: 0 - Recreational Drug Use Recreational Drug Use: No Recreational Drug Type: Reports: Dilaudid, Other (see below) Recreational Drug Use Frequency: Daily ED ROS GENERAL - Review of Systems Review Of Systems: See Below Constitutional: Reports: No Symptoms HEENT: Reports: No Symptoms Respiratory: Reports: No Symptoms Cardiovascular: Reports: No Symptoms Endocrine: Reports: No Symptoms GI/Abdominal: Reports: Abdominal Pain, Nausea, Vomiting : Reports: No Symptoms Musculoskeletal: Reports: No Symptoms Skin: Reports: No Symptoms Neurological: Reports: No Symptoms Psychiatric: Reports: No Symptoms Hematologic/Lymphatic: Reports: No Symptoms Immunologic: Reports: No Symptoms ED EXAM, GI/ABD - Physical Exam Exam: See Below Exam Limited By: No Limitations General Appearance: Alert, WD/WN, No Apparent Distress Ears: Normal External Exam Nose: Normal Inspection, Normal Mucosa, No Blood Throat/Mouth: Normal Inspection, Normal Lips, Normal Teeth, Normal Gums, Normal Oropharynx, Normal Voice, No Airway Compromise Head: Atraumatic, Normocephalic Neck: Normal Inspection, Supple, Non-Tender, Full Range of Motion Respiratory/Chest: No Respiratory Distress, Lungs Clear, Normal Breath Sounds, No Accessory Muscle Use, Chest Non-Tender Cardiovascular: Regular Rate, Rhythm, No Edema, No Gallop, No JVD, No Murmur, No Rub GI/Abdominal Exam: Normal Bowel Sounds, Soft, Non-Tender, No Organomegaly, No Distention, No Mass, Other (resting comfortably, no guard, no definite tender to palpation, ND, good BS x 4) Back Exam: Normal Inspection, Full Range of Motion, NT Extremities: Normal Inspection, Normal Range of Motion, Non-Tender, Normal Capillary Refill, No Pedal Edema Neurological: Alert, Oriented, CN II-XII Intact, Normal Cognition, Normal Gait, No Motor/Sensory Deficits Psychiatric: Normal Affect, Normal Mood Skin Exam: Warm, Dry, Intact, Normal Color, No Rash Lymphatic: No Adenopathy Course - Vital Signs Last Recorded V/S: Last Vital Signs Temp 36.9 C 11/12/17 14:40 Pulse 71 11/12/17 14:40 Resp 16 11/12/17 14:40 BP 102/60 11/12/17 14:40 Pulse Ox 99 11/12/17 14:40 - Orders/Labs/Meds Orders: Active Orders 24 hr Category Date Time Status Sodium Chloride 0.9% [Normal Saline] 1,000 ml Med 11/12/17 16:15 Active IV ASDIRECTED diphenhydrAMINE [Benadryl] Med 11/12/17 18:41 Once 50 mg IVPUSH ONETIME ONE Medication Orders Sodium Chloride (Normal Saline) 1,000 mls @ 999 mls/hr IV ASDIRECTED IRIS Last Admin: 11/12/17 17:35 Dose: 999 mls/hr Labs: Laboratory Tests 11/12/17 11/12/17 Range/Units 16:30 16:30 WBC 12.9 H (4.5-12.0) X10-3/uL RBC 4.16 (3.23-5.20) x10(6)uL Hgb 12.5 (11.5-15.5) g/dL Hct 36.9 (30.0-51.3) % MCV 88.7 (80-96) fL MCH 30.1 (27.7-33.6) pg MCHC 33.9 (32.2-35.4) g/dL RDW 13.4 (11.5-15.5) % Plt Count 235 (125-369) X10(3)uL MPV 8.1 (7.4-10.4) fL Neut % (Auto) 78.1 (46-82) % Lymph % (Auto) 14.8 (13-37) % [place] % (Auto) 6.7 (4-12) % Eos % (Auto) 0 L (1.0-5.0) % Baso % (Auto) 0 (0-2) % Neut # (Auto) 10.0 H (1.6-8.3) # Lymph # (Auto) 1.9 (0.6-5.0) # [place] # (Auto) 0.9 (0.0-1.3) # Eos # (Auto) 0.0 (0.0-0.8) # Baso # (Auto) 0.1 (0.0-0.2) # Sodium 144 (135-145) mmol/L Potassium 3.4 L (3.5-5.3) mmol/L Chloride 108 (100-110) mmol/L Carbon Dioxide 26 (21-32) mmol/L BUN 11 (7-18) mg/dL Creatinine 1.0 (0.55-1.02) mg/dL Est Cr Clr Drug Dosing 65.06 mL/min Estimated GFR (MDRD) > 60 (>60) BUN/Creatinine Ratio 11.0 (9-20) Glucose 85 (80-116) mg/dL Calcium 8.3 L (8.6-10.2) mg/dL Meds: Medications Generic Name Dose Route Start Last Admin Trade Name Angus PRN Reason Stop Dose Admin Sodium Chloride 1,000 mls @ 999 mls/hr 11/12/17 16:15 11/12/17 17:35 Normal Saline IV 999 mls/hr ASDIRECTED IRIS Administration Discontinued Medications Generic Name Dose Route Start Last Admin Trade Name Angus PRN Reason Stop Dose Admin Diphenhydramine HCl 50 mg 11/12/17 16:03 11/12/17 18:07 Benadryl IVPUSH 11/12/17 16:04 50 mg ONETIME ONE Administration Ketorolac Tromethamine 30 mg 11/12/17 16:02 11/12/17 18:14 Toradol IVPUSH 11/12/17 16:03 30 mg ONETIME ONE Administration Ondansetron HCl 4 mg 11/12/17 16:02 11/12/17 17:54 Zofran IVPUSH 11/12/17 16:03 4 mg ONETIME ONE Administration Potassium Chloride 40 meq 11/12/17 17:32 11/12/17 18:15 Klor-Con M20 PO 11/12/17 17:33 40 meq ONETIME ONE Administration - Re-Assessments/Exams Free Text/Narrative Re-Assessment/Exam: 11/12/17 18:42 feeling better, still some cramps and nausea pt has a job interview in 5d at retirement 1 [address] from where she lives her 2 school age children are in 3rd and 5th grade need to consistently take meds for next days reviewed, as well as importance of drinking fluids every hour while awake Departure - Departure Time of Disposition: 18:42 Disposition: Home, Self-Care 01 Condition: Good Clinical Impression: Nausea and vomiting, Abdominal pain, Hypokalemia - Discharge Information Instructions: Nausea and Vomiting, Adult, Hypokalemia Referrals: Jordan Seymour MD [Primary Care Provider] - Forms: ED Department Discharge Additional Instructions: Continue the ibuprofen 200 mg 3 tabs and acetaminophen 500 mg 2 tabs and dicyclomine 10 mg 1 tab 4 times a day (meals and bedtime) for the next 5 days, in order to break the pain cycle, longer if needed. Take a Zofran ODT 4 mg 1 tab under the tongue 15-30 minutes prior to taking the other meds. Drink fluids without caffeine every hour while awake, as at least half of the fluids will stay down even if you should vomit. Continue to soak in the tub for 10 minutes 4 times a day. - My Orders Last 24 Hours: My Active Orders 11/12/17 16:15 Sodium Chloride 0.9% [Normal Saline] 1,000 ml IV ASDIRECTED 11/12/17 18:41 diphenhydrAMINE [Benadryl] 50 mg IVPUSH ONETIME ONE - Assessment/Plan Last 24 Hours: My Active Orders 11/12/17 16:15 Sodium Chloride 0.9% [Normal Saline] 1,000 ml IV ASDIRECTED 11/12/17 18:41 diphenhydrAMINE [Benadryl] 50 mg IVPUSH ONETIME ONE
[2017-11-12] MEDS ORDERED: Sodium Chloride 0.9% 1,000 ML IV SCH (16:15)
[2017-11-12] MEDS ORDERED: Potassium Chloride 20 MEQ Tab.ER PO ONE (17:32)
[2017-11-12 20:23] VITALS: BP 119/69
== END 2017-11-12 20:05 | disposition home or self-care (01) ==
LOC: FB.ED 14:36
DX: R10.9 Unspecified abdominal pain (principal); R11.2 Nausea with vomiting, unspecified; E87.6 Hypokalemia; E66.9 Obesity, unspecified; Z88.1 Allergy status to other antibiotic agents; Z88.5 Allergy status to narcotic agent; Z88.8 Allergy status to other drugs, medicaments and biological substances; Z79.899 Other long term (current) drug therapy
CPT/HCPCS: 36415; 80048; 85025; 96361; 96374; 96375; 96376; 99284; A9270; J1200; J1885; J2405; J7040; J7030

== ENCOUNTER 2017-11-13 14:50 | Observation (INO) | payer MEDICAID ==
[2017-11-13] MEDS ORDERED: Pantoprazole 40 MG in Sodium Chloride 0.9% 100 ML IV SCH (15:45)
[2017-11-13] MEDS: Lactated Ringers 1,000 ML IV SCH ×2 (16:01→22:52)
[2017-11-13] MEDS: Ketorolac 30 MG/ML SDV IVPUSH PRN (16:06)
[2017-11-13] MEDS: Pantoprazole 40 MG Vial IV SCH (16:08)
[2017-11-13] MEDS: Ondansetron 4 MG/2 ML SDV IVPUSH PRN ×2 (16:16→20:22)
[2017-11-13] MEDS: Sodium Chloride 0.9% 10 ML Syringe FLUSH PRN (16:20)
[2017-11-13] MEDS ORDERED: hydrOXYzine HCl 25 MG Tab ONE (19:04)
[2017-11-13] MEDS: sulfaSALAzine 500 MG Tab PO SCH (19:07)
[2017-11-13] MEDS: Sucralfate 1 GM Tab PO SCH (19:07)
[2017-11-13] MEDS: hydrOXYzine HCl 25 MG Tab PO PRN (19:08)
[2017-11-14] MEDS: Ketorolac 30 MG/ML SDV IVPUSH PRN ×3 (00:20→16:13)
[2017-11-14] MEDS: Ondansetron 4 MG/2 ML SDV IVPUSH PRN ×2 (00:25→08:29)
[2017-11-14] MEDS: hydrOXYzine HCl 25 MG Tab PO PRN (02:07)
[2017-11-14] MEDS: Lactated Ringers 1,000 ML IV SCH (05:32)
[2017-11-14] MEDS: Sucralfate 1 GM Tab PO SCH ×3 (08:40→18:24)
[2017-11-14] MEDS: sulfaSALAzine 500 MG Tab PO SCH ×2 (08:40→18:25)
[2017-11-14] MEDS ORDERED: Promethazine 12.5 MG in Sodium Chloride 0.9% 50 ML IV PRN (09:44)
[2017-11-14] MEDS: hydrOXYzine HCl 50 MG/ML SDV IM PRN ×2 (09:46→16:43)
[2017-11-14] MEDS: Metoclopramide 10 MG/2 ML SDV IV SCH ×2 (09:47→17:41)
--- NOTE | 2017-11-14 10:08 | PCM.PN ---
- General Info Date of Service: 11/14/17 Functional Status: Reports: Urinating - Review of Systems Gastrointestinal: Reports: Abdominal Pain (pain continues to be an issue. states toradol is not helping), Vomiting - Patient Data Vitals - Most Recent: Last Vital Signs Temp 36.9 C 11/14/17 08:13 Pulse 64 11/14/17 00:00 Resp 20 11/14/17 08:13 BP 137/90 11/14/17 08:13 Pulse Ox 99 11/14/17 08:13 Weight - Most Recent: 80.513 kg I&O - Last 24 Hours: Intake & Output 11/13/17 11/14/17 11/14/17 22:59 06:59 14:59 Output Total 200 200 Balance -200 -200 Lab Results Last 24 Hours: Laboratory Results - last 24 hr 11/13/17 11/13/17 Range/Units 15:55 15:55 WBC 10.9 (4.5-12.0) X10-3/uL RBC 4.33 (3.23-5.20) x10(6)uL Hgb 13.3 (11.5-15.5) g/dL Hct 39.0 (30.0-51.3) % MCV 90.1 (80-96) fL MCH 30.7 (27.7-33.6) pg MCHC 34.1 (32.2-35.4) g/dL RDW 13.6 (11.5-15.5) % Plt Count 236 (125-369) X10(3)uL MPV 7.9 (7.4-10.4) fL Neut % (Auto) 81.4 (46-82) % Lymph % (Auto) 13.1 (13-37) % Lake % (Auto) 4.7 (4-12) % Eos % (Auto) 0 L (1.0-5.0) % Baso % (Auto) 1 (0-2) % Neut # (Auto) 8.9 H (1.6-8.3) # Lymph # (Auto) 1.4 (0.6-5.0) # Lake # (Auto) 0.5 (0.0-1.3) # Eos # (Auto) 0.0 (0.0-0.8) # Baso # (Auto) 0.1 (0.0-0.2) # Sodium 140 (135-145) mmol/L Potassium 3.1 L (3.5-5.3) mmol/L Chloride 103 D (100-110) mmol/L Carbon Dioxide 24 (21-32) mmol/L BUN 9 (7-18) mg/dL Creatinine 0.9 (0.55-1.02) mg/dL Est Cr Clr Drug Dosing 72.29 mL/min Estimated GFR (MDRD) > 60 (>60) BUN/Creatinine Ratio 10.0 (9-20) Glucose 102 (80-116) mg/dL Calcium 8.4 L (8.6-10.2) mg/dL Med Orders - Current: Current Medications Hydroxyzine HCl (Vistaril) 50 mg IM Q4H PRN PRN Reason: Pain Last Admin: 11/14/17 09:46 Dose: 50 mg Potassium Chloride/Dextrose/Sod Cl (D5 1/2 Ns W/ 20 Meq/L Kcl) 1,000 mls @ 125 mls/hr IV Q8H [facility] Promethazine HCl 12.5 mg/ (Sodium Chloride) 50.5 mls @ 200 mls/hr IV Q6H PRN PRN Reason: Nausea/Vomiting Ketorolac Tromethamine (Toradol) 30 mg IVPUSH Q8H PRN PRN Reason: Pain Stop: 11/18/17 15:39 Last Admin: 11/14/17 08:27 Dose: 30 mg Metoclopramide HCl (Reglan) 10 mg IV Q8H [facility] Last Admin: 11/14/17 09:47 Dose: 10 mg Ondansetron HCl (Zofran) 8 mg IVPUSH Q4H PRN PRN Reason: Nausea/Vomiting Last Admin: 11/14/17 08:29 Dose: 8 mg Pantoprazole Sodium (Protonix Iv) 40 mg IV Q24H [facility] Last Admin: 11/13/17 16:08 Dose: 40 mg Prednisone (Prednisone) 20 mg PO WITHBREAKFAST [facility] Sodium Chloride (Saline Flush) 10 ml FLUSH ASDIRECTED PRN PRN Reason: Keep Vein Open Last Admin: 11/13/17 16:20 Dose: 10 ml Sucralfate (Carafate) 1 gm PO TIDAC [facility] Last Admin: 11/14/17 08:40 Dose: 1 gm Sulfasalazine (Sulfasalazine) 500 mg PO BIDMEALS [facility] Last Admin: 11/14/17 08:40 Dose: 500 mg Discontinued Medications Hydroxyzine HCl (Atarax) 25 mg PO Q4H PRN PRN Reason: pain or rest Last Admin: 11/14/17 02:07 Dose: 25 mg Hydroxyzine HCl (Atarax) Confirm Administered Dose 25 mg .ROUTE .STK-MED ONE Stop: 11/13/17 19:05 Last Admin: 11/13/17 19:09 Dose: Not Given Lactated Ringer's (Ringers, Lactated) 1,000 mls @ 150 mls/hr IV .BOLUS [facility] Last Admin: 11/14/17 05:32 Dose: 150 mls/hr - Exam General: Alert, Cooperative, Mild Distress Lungs: Clear to Auscultation, Normal Respiratory Effort Cardiovascular: Regular Rate, Regular Rhythm GI/Abdominal Exam: Normal Bowel Sounds, Soft, Non-Tender, No Organomegaly - Problem List & Annotations (1) Abdominal pain SNOMED Code(s): 88855587 Code(s): R10.9 - UNSPECIFIED ABDOMINAL PAIN Status: Acute Priority: High Current Visit: No Annotation/Comment:: - Problem List Review Problem List Initiated/Reviewed/Updated: Yes - My Orders Last 24 Hours: My Active Orders 11/13/17 15:34 Patient Status [ADT] Routine Oxygen Therapy [RC] PRN Vital Signs [RC] 08,14,20,02 Ondansetron [Zofran] 8 mg IVPUSH Q4H PRN Resuscitation Status Routine 11/13/17 15:39 Ketorolac [Toradol] 30 mg IVPUSH Q8H PRN 11/13/17 16:00 Pantoprazole [ProTONIX IV] 40 mg IV Q24H Sodium Chloride 0.9% [Saline Flush] 10 ml FLUSH ASDIRECTED PRN 11/13/17 17:30 Sucralfate [Carafate] 1 gm PO TIDAC 11/13/17 18:00 sulfaSALAzine 500 mg PO BIDMEALS 11/13/17 19:30 Communication Order [RC] ROUTINE 11/13/17 Dinner Nothing per Oral Now Diet [DIET] 11/14/17 08:00 predniSONE 20 mg PO WITHBREAKFAST 11/14/17 09:33 hydrOXYzine HCl [Vistaril] 50 mg IM Q4H PRN 11/14/17 09:44 Promethazine [Phenergan] 12.5 mg Sodium Chloride 0.9% [Normal Saline] 50 ml IV Q6H 11/14/17 09:45 D5 1/2 NS w/ 20 mEq/L KCl 1,000 ml IV Q8H 11/14/17 10:00 Metoclopramide [Reglan] 10 mg IV Q8H 11/14/17 10:15 Acetaminophen [Ofirmev] 1,000 mg Premix Bag 1 bag IV Q6H - Assessment Assessment:: abd pain continues to be an issue - Plan Plan:: will restart steroid taper. continue NPO IV tylenol, d/c zofran go to phenergan IV to D5 !/2 NS with 20 Meq KCL
[2017-11-14] MEDS: Acetaminophen 1,000 MG in Premix Bag 1 BAG IV SCH ×3 (10:48→22:20)
[2017-11-14] MEDS: D5 1/2 NS w/ 20 mEq/L KCl 1,000 ML IV SCH ×2 (11:34→20:43)
[2017-11-14] MEDS: predniSONE 20 MG Tab PO SCH (13:17)
[2017-11-14] MEDS: Pantoprazole 40 MG Vial IV SCH (16:15)
[2017-11-15] MEDS: Metoclopramide 10 MG/2 ML SDV IV SCH ×2 (01:51→09:16)
[2017-11-15] MEDS: Acetaminophen 1,000 MG in Premix Bag 1 BAG IV SCH (05:01)
[2017-11-15] MEDS: D5 1/2 NS w/ 20 mEq/L KCl 1,000 ML IV SCH ×2 (05:22→10:24)
[2017-11-15] MEDS: Sucralfate 1 GM Tab PO SCH ×2 (06:42→11:38)
--- NOTE | 2017-11-15 08:59 | PCM.SURGPN ---
- General Info Date of Service: 11/15/17 Functional Status: Reports: Pain Controlled - Review of Systems Pulmonary: Reports: No Symptoms Cardiovascular: Reports: No Symptoms Gastrointestinal: Reports: No Symptoms - Patient Data Vitals - Most Recent: Last Vital Signs Temp 36.9 C 11/14/17 23:30 Pulse 51 L 11/14/17 23:30 Resp 18 11/14/17 23:30 BP 119/70 11/14/17 23:30 Pulse Ox 99 11/14/17 23:30 Weight - Most Recent: 80.513 kg Med Orders - Current: Current Medications Hydroxyzine HCl (Vistaril) 50 mg IM Q4H PRN PRN Reason: Pain Last Admin: 11/14/17 16:43 Dose: 50 mg Potassium Chloride/Dextrose/Sod Cl (D5 1/2 Ns W/ 20 Meq/L Kcl) 1,000 mls @ 125 mls/hr IV Q8H [facility] Last Admin: 11/15/17 05:22 Dose: 125 mls/hr Promethazine HCl 12.5 mg/ (Sodium Chloride) 50.5 mls @ 200 mls/hr IV Q6H PRN PRN Reason: Nausea/Vomiting Last Admin: 11/14/17 11:30 Dose: 200 mls/hr Ketorolac Tromethamine (Toradol) 30 mg IVPUSH Q8H PRN PRN Reason: Pain Stop: 11/18/17 15:39 Last Admin: 11/14/17 16:13 Dose: 30 mg Metoclopramide HCl (Reglan) 10 mg IV Q8H [facility] Last Admin: 11/15/17 01:51 Dose: 10 mg Ondansetron HCl (Zofran) 8 mg IVPUSH Q4H PRN PRN Reason: Nausea/Vomiting Last Admin: 11/14/17 08:29 Dose: 8 mg Pantoprazole Sodium (Protonix Iv) 40 mg IV Q24H [facility] Last Admin: 11/14/17 16:15 Dose: 40 mg Prednisone (Prednisone) 20 mg PO WITHBREAKFAST [facility] Last Admin: 11/14/17 13:17 Dose: 20 mg Sodium Chloride (Saline Flush) 10 ml FLUSH ASDIRECTED PRN PRN Reason: Keep Vein Open Last Admin: 11/13/17 16:20 Dose: 10 ml Sucralfate (Carafate) 1 gm PO TIDAC [facility] Last Admin: 11/15/17 06:42 Dose: 1 gm Sulfasalazine (Sulfasalazine) 500 mg PO BIDMEALS [facility] Last Admin: 11/14/17 18:25 Dose: 500 mg Discontinued Medications Hydroxyzine HCl (Atarax) 25 mg PO Q4H PRN PRN Reason: pain or rest Last Admin: 11/14/17 02:07 Dose: 25 mg Hydroxyzine HCl (Atarax) Confirm Administered Dose 25 mg .ROUTE .STK-MED ONE Stop: 11/13/17 19:05 Last Admin: 11/13/17 19:09 Dose: Not Given Lactated Ringer's (Ringers, Lactated) 1,000 mls @ 150 mls/hr IV .BOLUS [facility] Last Admin: 11/14/17 05:32 Dose: 150 mls/hr Acetaminophen 1,000 mg/ Premix 100 mls @ 400 mls/hr IV Q6H [facility] Stop: 11/15/17 04:29 Last Admin: 11/15/17 05:01 Dose: 400 mls/hr - Exam General: Alert Cardiovascular: Regular Rate, Regular Rhythm GI/Abdominal Exam: Normal Bowel Sounds, Soft, Non-Tender - Problem List & Annotations (1) Abdominal pain SNOMED Code(s): 91931565 Code(s): R10.9 - UNSPECIFIED ABDOMINAL PAIN Status: Acute Priority: High Current Visit: No Annotation/Comment:: - Problem List Review Problem List Initiated/Reviewed/Updated: Yes - My Orders Last 24 Hours: Active Orders 24 hr Category Date Time Status IS (RT) [RT Incentive Spirometry] [RC] Q4HWA Care 11/14/17 17:23 Active Clear Liquid Diet [DIET] Diet 11/15/17 Breakfast Ordered D5 1/2 NS w/ 20 mEq/L KCl 1,000 ml Med 11/14/17 09:45 Active IV Q8H Metoclopramide [Reglan] Med 11/14/17 10:00 Active 10 mg IV Q8H Promethazine [Phenergan] 12.5 mg Med 11/14/17 09:44 Active Sodium Chloride 0.9% [Normal Saline] 50 ml IV Q6H hydrOXYzine HCl [Vistaril] Med 11/14/17 09:33 Active 50 mg IM Q4H PRN predniSONE Med 11/14/17 08:00 Active 20 mg PO WITHBREAKFAST Convert IV to Saline Lock [OM.PC] Routine Oth 11/15/17 08:56 Ordered Medication Orders Hydroxyzine HCl (Vistaril) 50 mg IM Q4H PRN PRN Reason: Pain Last Admin: 11/14/17 16:43 Dose: 50 mg Admin: 11/14/17 09:46 Dose: 50 mg Potassium Chloride/Dextrose/Sod Cl (D5 1/2 Ns W/ 20 Meq/L Kcl) 1,000 mls @ 125 mls/hr IV Q8H [facility] Last Admin: 11/15/17 05:22 Dose: 125 mls/hr Infusion: 11/15/17 05:22 Dose: 125 mls/hr Admin: 11/14/17 20:43 Dose: 125 mls/hr Infusion: 11/14/17 19:34 Dose: 125 mls/hr Admin: 11/14/17 11:34 Dose: 125 mls/hr Promethazine HCl 12.5 mg/ (Sodium Chloride) 50.5 mls @ 200 mls/hr IV Q6H PRN PRN Reason: Nausea/Vomiting Last Admin: 11/14/17 11:30 Dose: 200 mls/hr Ketorolac Tromethamine (Toradol) 30 mg IVPUSH Q8H PRN PRN Reason: Pain Stop: 11/18/17 15:39 Last Admin: 11/14/17 16:13 Dose: 30 mg Admin: 11/14/17 08:27 Dose: 30 mg Admin: 11/14/17 00:20 Dose: 30 mg Admin: 11/13/17 16:06 Dose: 30 mg Metoclopramide HCl (Reglan) 10 mg IV Q8H [facility] Last Admin: 11/15/17 01:51 Dose: 10 mg Admin: 11/14/17 17:41 Dose: 10 mg Admin: 11/14/17 09:47 Dose: 10 mg Ondansetron HCl (Zofran) 8 mg IVPUSH Q4H PRN PRN Reason: Nausea/Vomiting Last Admin: 11/14/17 08:29 Dose: 8 mg Admin: 11/14/17 00:25 Dose: 8 mg Admin: 11/13/17 20:22 Dose: 8 mg Admin: 11/13/17 16:16 Dose: 8 mg Pantoprazole Sodium (Protonix Iv) 40 mg IV Q24H [facility] Last Admin: 11/14/17 16:15 Dose: 40 mg Admin: 11/13/17 16:08 Dose: 40 mg Prednisone (Prednisone) 20 mg PO WITHBREAKFAST [facility] Last Admin: 11/14/17 13:17 Dose: 20 mg Sodium Chloride (Saline Flush) 10 ml FLUSH ASDIRECTED PRN PRN Reason: Keep Vein Open Last Admin: 11/13/17 16:20 Dose: 10 ml Sucralfate (Carafate) 1 gm PO TIDAC [facility] Last Admin: 11/15/17 06:42 Dose: 1 gm Admin: 11/14/17 18:24 Dose: 1 gm Admin: 11/14/17 13:17 Dose: 1 gm Admin: 11/14/17 08:40 Dose: 1 gm Admin: 11/13/17 19:07 Dose: 1 gm Sulfasalazine (Sulfasalazine) 500 mg PO BIDMEALS [facility] Last Admin: 11/14/17 18:25 Dose: 500 mg Admin: 11/14/17 08:40 Dose: 500 mg Admin: 11/13/17 19:07 Dose: 500 mg - Assessment Assessment (Free Text/Narrative):: improved. - Plan Plan (Free Text/Narrative):: will advance diet d/c later today if better.
[2017-11-15] MEDS: predniSONE 20 MG Tab PO SCH (09:05)
[2017-11-15] MEDS: sulfaSALAzine 500 MG Tab PO SCH (09:05)
[2017-11-15] MEDS: Sodium Chloride 0.9% 10 ML Syringe FLUSH PRN (09:22)
--- NOTE | 2017-11-15 15:40 | PCM.SN ---
- Free Text/Narrative Note: Abd pain is better and she is tolerating liquids. would like to go home. lungs cta heart rrr abd soft nontender. will have her continue her home meds rx for carafate that she can pick remover tomorrow.
[2017-11-15 16:14] VITALS: BP 130/94
== END 2017-11-15 16:30 | disposition home or self-care (01) ==
LOC: FB.MS 14:50
PROVIDERS: ADMIT Surgery; ATTEND Surgery
DX: R10.9 Unspecified abdominal pain (principal); G43.A0 Cyclical vomiting, in migraine, not intractable; F32.9 Major depressive disorder, single episode, unspecified; K21.9 Gastro-esophageal reflux disease without esophagitis; E06.3 Autoimmune thyroiditis; F41.9 Anxiety disorder, unspecified; Z79.899 Other long term (current) drug therapy; Z91.09 Other allergy status, other than to drugs and biological substances; Z88.8 Allergy status to other drugs, medicaments and biological substances; Z88.5 Allergy status to narcotic agent; Z91.040 Latex allergy status
CPT/HCPCS: 36415; 80048; 85025; A9270-GY; C9113; J0131; J1885; J2405; J2550; J2765; J3410; J3480; J7050; J7120

== ENCOUNTER 2019-05-27 15:57 | Emergency (ER) | payer MEDICAID ==
[2019-05-27] MEDS ORDERED: Sodium Chloride 0.9% 1,000 ML IV ONE ×2 (16:06→18:45)
--- NOTE | 2019-05-27 16:14 | EDM.PDOC ---
ED HPI GENERAL MEDICAL PROBLEM - General Stated Complaint: HIGH GLUCOSE Time Seen by Provider: 05/27/19 15:57 Source of Information: Reports: Patient, Family History Limitations: Reports: No Limitations - History of Present Illness INITIAL COMMENTS - FREE TEXT/NARRATIVE: 33 y.o.w.f with a H/O Ulcerative colitis went the the clinic today not feeling well. Her blood glucose was found to be >700. She was rushed to the ED for further evaluation. Pt felt weak, nauseated and had a headache. No trauma. Pt has a F/H of DM was never diagnosed with DM in the past. No other acute med issues. BP 126/66 RR 18 Pulse ox 94% on RA Temp 36.8 Onset Date: 05/27/19 Onset Time: 08:00 Duration: Day(s):, Getting Worse, Intermittent Location: Reports: Generalized Quality: Reports: Other Severity: Mild Improves with: Reports: Other Worsens with: Reports: Other Context: Reports: Other Associated Symptoms: Reports: Other (nausea) - Related Data Allergies Allergy/AdvReac Type Severity Reaction Status Date / Time adhesive Allergy Rash Verified 05/27/19 18:21 cefdinir [From Omnicef] Allergy Rash Verified 05/27/19 18:21 fluticasone propionate Allergy Headache Verified 05/27/19 18:21 [From Flonase] hydrocodone bitartrate Allergy Cannot Verified 05/27/19 18:21 [From Vicodin] Remember hydromorphone [From Dilaudid] Allergy Itching Verified 05/27/19 18:21 latex Allergy Hives Verified 05/27/19 18:21 quetiapine fumarate Allergy Confusion Verified 05/27/19 18:21 [From Seroquel] sertraline HCl [From Zoloft] Allergy Confusion Verified 05/27/19 18:21 Home Meds: Home Meds sulfaSALAzine [Azulfidine] 500 mg PO DAILY 04/07/17 [History] Acetaminophen [Tylenol] 650 mg PO Q6H PRN 11/13/17 [History] LORazepam 0.5 mg PO QID PRN 11/13/17 [History] Mirtazapine [Remeron] 30 mg PO BEDTIME 11/13/17 [History] SUMAtriptan Succinate [Imitrex] 100 mg PO ASDIRECTED 03/09/18 [History] metFORMIN [Glucophage XR] 500 mg PO WITHDINNER #7 tab.er 05/27/19 [Rx] Past Medical History - Past Health History Medical/Surgical History: Denies Medical/Surgical History HEENT History: Reports: Impaired Vision, Sinusitis, Other (See Below) Other HEENT History: CHRONIC MYOPIA Cardiovascular History: Reports: None Respiratory History: Reports: Asthma Other Respiratory History: activity induced asthma Gastrointestinal History: Reports: GERD, Inflammatory Bowel Disease, Pancreatitis Other Gastrointestinal History: colitis Genitourinary History: Reports: Renal Calculus [employer] History: Reports: Neurological History: Reports: Migraines Psychiatric History: Reports: ADHD, Anxiety, Depression, Developmental Delay, Suicide Attempt Endocrine/Metabolic History: Reports: Obesity/BMI 30+, Other (See Below) 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 Hematologic History: Reports: None Immunologic History: Reports: None Oncologic (Cancer) History: Reports: None Dermatologic History: Reports: None - Infectious Disease History Infectious Disease History: Reports: Chicken Pox - Past Surgical History Head Surgeries/Procedures: Reports: None Female Surgical History: Reports: Section, Lithotripsy/ESWL, Tubal Ligation Musculoskeletal Surgical History: Reports: Arthroscopic Knee Social & Family History - Family History Family Medical History: Unobtainable Cardiac: Reports: ID Musculoskeletal: Reports: RA Oncologic: Reports: Pancreatic - Caffeine Use Caffeine Use: Reports: None ED ROS GENERAL - Review of Systems Review Of Systems: See Below Constitutional: Reports: Weakness, Fatigue, Night Sweats HEENT: Reports: No Symptoms Respiratory: Reports: No Symptoms Cardiovascular: Reports: No Symptoms Endocrine: Reports: High Glucose GI/Abdominal: Reports: No Symptoms : Reports: No Symptoms Musculoskeletal: Reports: No Symptoms Skin: Reports: No Symptoms Neurological: Reports: No Symptoms Psychiatric: Reports: No Symptoms Hematologic/Lymphatic: Reports: No Symptoms Immunologic: Reports: No Symptoms ED EXAM GENERAL NO PERIP PULSE - Physical Exam Exam: See Below Exam Limited By: No Limitations General Appearance: Alert, WD/WN, Mild Distress, Obese Eye Exam: Bilateral Eye: Normal Inspection Ears: Normal External Exam, Normal Canal Nose: Normal Inspection Throat/Mouth: Normal Inspection, Normal Lips, Normal Voice, No Airway Compromise Head: Atraumatic, Normocephalic Neck: Normal Inspection, Supple, Non-Tender, Full Range of Motion Respiratory/Chest: No Respiratory Distress, Lungs Clear, Normal Breath Sounds, No Accessory Muscle Use, Chest Non-Tender Cardiovascular: Normal Peripheral Pulses GI/Abdominal: Normal Bowel Sounds, Soft, Non-Tender, No Organomegaly, Pelvis Stable (Female) Exam: Deferred Rectal (Female) Exam: Deferred Back Exam: Normal Inspection Extremities: Normal Inspection Neurological: Alert, Oriented, CN II-XII Intact, Normal Cognition Psychiatric: Normal Affect, Normal Mood Skin Exam: Warm, Dry, Intact, Normal Color, No Rash Lymphatic: No Adenopathy Course - Vital Signs Text/Narrative:: 33 y.o.w.f with a H/O Ulcerative colitis went the the clinic today not feeling well. Her blood glucose was found to be >700. She was rushed to the ED for further evaluation. Pt felt weak, nauseated and had a headache. No trauma. Pt has a F/H of DM was never diagnosed with DM in the past. No other acute med issues. BP 126/66 RR 18 Pulse ox 94% on RA Temp 36.8 PE: WNWD W F with nausea and "not feeling well" Labs: CBCnl Na 129 Glc 676 HGB A1C 10.4 GFR 52 Cr 1.2 Anion blue: 24 Impression: Diabetes Mellitus, new onset, high anion blue metabolic acidosis Tx: NS, Insulin, Zofran Reexam: Improved Pt's BS on D/C was 267 Consultation: Dr. Seymour, Hospitalist: No admission indicated, NS, Insulin, metformin, F/U in his clinic the Thursday Plan: D/C with instructions Last Recorded V/S: Last Vital Signs Temp 36.8 C 05/27/19 20:00 Pulse 85 05/27/19 20:00 Resp 16 05/27/19 20:00 BP 107/71 05/27/19 20:00 Pulse Ox 100 05/27/19 20:00 - Orders/Labs/Meds Orders: Active Orders 24 hr Category Date Time Status Accu Check [Blood Glucose Check, Bedside] [RC] ONETIME Care 05/27/19 19:46 Active Labs: Laboratory Tests 05/27/19 05/27/19 05/27/19 Range/Units 16:16 16:16 16:16 WBC 9.6 (4.5-12.0) X10-3/uL RBC 5.11 (3.23-5.20) x10(6)uL Hgb 15.5 (11.5-15.5) g/dL Hct 46.7 (30.0-51.3) % MCV 91.3 (80-96) fL MCH 30.4 (27.7-33.6) pg MCHC 33.2 (32.2-35.4) g/dL RDW 12.3 (11.5-15.5) % Plt Count 288 (125-369) X10(3)uL MPV 8.8 (7.4-10.4) fL Neut % (Auto) 86.1 H (46-82) % Lymph % (Auto) 10.5 L (13-37) % Emery % (Auto) 3.1 L (4-12) % Eos % (Auto) 0 L (1.0-5.0) % Baso % (Auto) 0 (0-2) % Neut # (Auto) 8.3 (1.6-8.3) # Lymph # (Auto) 1.0 (0.6-5.0) # Emery # (Auto) 0.3 (0.0-1.3) # Eos # (Auto) 0.0 (0.0-0.8) # Baso # (Auto) 0.0 (0.0-0.2) # Sodium 129 L D (135-145) mmol/L Potassium 4.1 D (3.5-5.3) mmol/L Chloride 92 L D (100-110) mmol/L Carbon Dioxide 13 L (21-32) mmol/L BUN 12 (7-18) mg/dL Creatinine 1.2 H (0.55-1.02) mg/dL Est Cr Clr Drug Dosing TNP Estimated GFR (MDRD) 52 L (>60) BUN/Creatinine Ratio 10.0 (9-20) Glucose 617 H* D (80-116) mg/dL POC Glucose (80-116) mg/dL Hemoglobin A1c 10.5 H (4.5-6.2) % Calcium 8.8 (8.6-10.2) mg/dL 05/27/19 Range/Units 19:49 WBC (4.5-12.0) X10-3/uL RBC (3.23-5.20) x10(6)uL Hgb (11.5-15.5) g/dL Hct (30.0-51.3) % MCV (80-96) fL MCH (27.7-33.6) pg MCHC (32.2-35.4) g/dL RDW (11.5-15.5) % Plt Count (125-369) X10(3)uL MPV (7.4-10.4) fL Neut % (Auto) (46-82) % Lymph % (Auto) (13-37) % Emery % (Auto) (4-12) % Eos % (Auto) (1.0-5.0) % Baso % (Auto) (0-2) % Neut # (Auto) (1.6-8.3) # Lymph # (Auto) (0.6-5.0) # Emery # (Auto) (0.0-1.3) # Eos # (Auto) (0.0-0.8) # Baso # (Auto) (0.0-0.2) # Sodium (135-145) mmol/L Potassium (3.5-5.3) mmol/L Chloride (100-110) mmol/L Carbon Dioxide (21-32) mmol/L BUN (7-18) mg/dL Creatinine (0.55-1.02) mg/dL Est Cr Clr Drug Dosing Estimated GFR (MDRD) (>60) BUN/Creatinine Ratio (9-20) Glucose (80-116) mg/dL POC Glucose 279 H (80-116) mg/dL Hemoglobin A1c (4.5-6.2) % Calcium (8.6-10.2) mg/dL Meds: Medications Discontinued Medications Generic Name Dose Route Start Last Admin Trade Name Freq PRN Reason Stop Dose Admin Sodium Chloride 1,000 mls @ 999 mls/hr 05/27/19 16:06 05/27/19 17:43 Normal Saline IV 05/27/19 17:06 999 mls/hr .BOLUS ONE Administration Sodium Chloride 1,000 mls @ 999 mls/hr 05/27/19 18:45 05/27/19 18:45 Normal Saline IV 05/27/19 19:45 999 mls/hr .BOLUS ONE Administration Insulin Human Regular 10 unit 05/27/19 17:13 05/27/19 17:51 Humulin R IV 05/27/19 17:14 10 units ONETIME ONE Administration Ketorolac Tromethamine 30 mg 05/27/19 17:18 05/27/19 20:15 Toradol IVPUSH 05/27/19 17:19 Not Given ONETIME ONE Ondansetron HCl 8 mg 05/27/19 17:17 05/27/19 18:42 Zofran IVPUSH 05/27/19 17:18 8 mg ONETIME ONE Administration Sodium Chloride 10 ml 05/27/19 17:57 05/27/19 18:00 Saline Flush FLUSH 10 ml ASDIRECTED PRN Administration IV Use Departure - Departure Time of Disposition: 19:55 Disposition: Home, Self-Care 01 Condition: Good Clinical Impression: Newly diagnosed diabetes - Discharge Information Prescriptions: metFORMIN [Glucophage XR] 500 mg PO WITHDINNER #7 tab.er Instructions: Type 2 Diabetes Mellitus, Diagnosis, Adult, Metformin tablets Referrals: Jordan Seymour MD [Primary Care Provider] - Forms: ED Department Discharge Additional Instructions: Please take Metformin as recommended, please increase water intake, please f/u with Dr. Seymour this Thursday for diabetic teaching and further care. Please come back if your symptoms get worse acutely. - My Orders Last 24 Hours: My Active Orders 05/27/19 19:46 Accu Check [Blood Glucose Check, Bedside] [RC] ONETIME - Assessment/Plan Last 24 Hours: My Active Orders 05/27/19 19:46 Accu Check [Blood Glucose Check, Bedside] [RC] ONETIME
[2019-05-27 16:38] LABS: HEMOGLOBIN A1C 10.5 % (4.5-6.2)
[2019-05-27] MEDS ORDERED: Insulin Regular, Human 100 Units/ML 3 ML Vial IV ONE (17:13)
[2019-05-27] MEDS: Sodium Chloride 0.9% 10 ML Syringe FLUSH PRN ×2 (17:15→18:00)
[2019-05-27] MEDS ORDERED: Ondansetron 4 MG/2 ML SDV IVPUSH ONE (17:17)
[2019-05-27] MEDS ORDERED: Ketorolac 30 MG/ML SDV IVPUSH ONE (17:18)
[2019-05-27 20:14] VITALS: BP 107/71; PULSE 85
== END 2019-05-27 20:10 | disposition home or self-care (01) ==
LOC: FB.ED 15:57
DX: E11.9 Type 2 diabetes mellitus without complications (principal); F41.9 Anxiety disorder, unspecified; F32.9 Major depressive disorder, single episode, unspecified; F90.9 Attention-deficit hyperactivity disorder, unspecified type; E66.9 Obesity, unspecified; Z79.899 Other long term (current) drug therapy; Z79.84 Long term (current) use of oral hypoglycemic drugs; Z68.31 Body mass index [BMI] 31.0-31.9, adult; Z91.048 Other nonmedicinal substance allergy status; Z88.8 Allergy status to other drugs, medicaments and biological substances; Z91.040 Latex allergy status
CPT/HCPCS: 36415; 80048; 82962; 83036; 85025; 96361; 96374; 96375; 99284; J1815; J2405; J7030

== ENCOUNTER 2020-04-04 09:27 | Emergency (ER) | payer MEDICAID, OTHER ==
[2020-04-04] MEDS ORDERED: Insulin Lispro 100 Unit/ML 3 ML KwikPen SUBCUT ONE (09:28)
[2020-04-04] MEDS ORDERED: Sodium Chloride 0.9% 10 ML Syringe FLUSH PRN (10:13)
[2020-04-04] MEDS ORDERED: Sodium Chloride 0.9% 1,000 ML IV SCH (10:15)
[2020-04-04] MEDS ORDERED: Insulin Lispro 100 Unit/ML 3 ML KwikPen SUBCUT STA (10:37)
[2020-04-04] MEDS ORDERED: LORazepam 2 MG/ML SDV IVPUSH STA (10:37)
--- NOTE | 2020-04-04 11:09 | CR ---
CHEST ONE VIEW INDICATION: Possible Covid. Portable AP right view of the chest 04/04/2020 was compared with 07/16/2013 and 08/01/2012. No significant appearing interval change is noted with no evidence of an acute abnormality identified -- no active infiltrate or effusion was seen with pulmonary markings similar to the previous examination. Heart, mediastinum, and bony thorax are unremarkable. IMPRESSION: No significant change or definite active disease. MTDD
[2020-04-04] MEDS ORDERED: Ondansetron 4 MG/2 ML SDV IVPUSH ONE (11:13)
--- NOTE | 2020-04-04 12:04 | EDM.PDOC ---
ED HPI GENERAL MEDICAL PROBLEM - General Stated Complaint: N/V,follow up covid test Time Seen by Provider: 04/04/20 11:00 Source of Information: Reports: Patient History Limitations: Reports: No Limitations - History of Present Illness INITIAL COMMENTS - FREE TEXT/NARRATIVE: Patient presented to the ED because of N/V, denies any abdominal pain or diarrhea. She has fever and chills x2 days and was tested for covid yesterday and result isn't back yet. He BS is debby elevated at 400 because she has not been taking her metformin due to nausea. - Related Data Allergies Allergy/AdvReac Type Severity Reaction Status Date / Time adhesive Allergy Rash Verified 05/27/19 18:21 cefdinir [From Omnicef] Allergy Rash Verified 05/27/19 18:21 fluticasone propionate Allergy Headache Verified 05/27/19 18:21 [From Flonase] hydrocodone bitartrate Allergy Cannot Verified 05/27/19 18:21 [From Vicodin] Remember hydromorphone [From Dilaudid] Allergy Itching Verified 05/27/19 18:21 latex Allergy Hives Verified 05/27/19 18:21 quetiapine fumarate Allergy Confusion Verified 05/27/19 18:21 [From Seroquel] sertraline HCl [From Zoloft] Allergy Confusion Verified 05/27/19 18:21 Home Meds: Home Meds sulfaSALAzine [Azulfidine] 500 mg PO DAILY 04/07/17 [History] Acetaminophen [Tylenol] 650 mg PO Q6H PRN 11/13/17 [History] LORazepam 0.5 mg PO QID PRN 11/13/17 [History] Mirtazapine [Remeron] 30 mg PO BEDTIME 11/13/17 [History] SUMAtriptan succinate [Imitrex] 100 mg PO ASDIRECTED 11/13/17 [History] metFORMIN [Glucophage XR] 500 mg PO WITHDINNER #7 tab.er 05/27/19 [Rx] Ondansetron [Zofran ODT] 4 mg PO Q4H PRN #7 tab.dis 04/04/20 [Rx] Past Medical History - Past Health History Medical/Surgical History: Denies Medical/Surgical History HEENT History: Reports: Impaired Vision, Sinusitis, Other (See Below) Other HEENT History: CHRONIC MYOPIA Cardiovascular History: Reports: None Respiratory History: Reports: Asthma Other Respiratory History: activity induced asthma Gastrointestinal History: Reports: GERD, Inflammatory Bowel Disease, Pancreatitis Other Gastrointestinal History: colitis Genitourinary History: Reports: Renal Calculus [employer] REPA[employer]ER History: Reports: Neurological History: Reports: Migraines Psychiatric History: Reports: ADHD, Anxiety, Depression, Developmental Delay, Suicide Attempt Endocrine/Metabolic History: Reports: Obesity/BMI 30+, Other (See Below) 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 Hematologic History: Reports: None Immunologic History: Reports: None Oncologic (Cancer) History: Reports: None Dermatologic History: Reports: None - Infectious Disease History Infectious Disease History: Reports: Chicken Pox - Past Surgical History Head Surgeries/Procedures: Reports: None Female Surgical History: Reports: Section, Lithotripsy/ESWL, Tubal Ligation Musculoskeletal Surgical History: Reports: Arthroscopic Knee Social & Family History - Family History Family Medical History: Unobtainable Cardiac: Reports: [facility] Musculoskeletal: Reports: RA Oncologic: Reports: Pancreatic - Caffeine Use Caffeine Use: Reports: None ED ROS GENERAL - Review of Systems Review Of Systems: See Below Constitutional: Reports: No Symptoms HEENT: Reports: No Symptoms Respiratory: Reports: Cough Cardiovascular: Reports: No Symptoms Endocrine: Reports: No Symptoms GI/Abdominal: Reports: Nausea, Vomiting Musculoskeletal: Reports: No Symptoms Skin: Reports: No Symptoms Neurological: Reports: No Symptoms ED EXAM, GENERAL - Physical Exam Exam: See Below Exam Limited By: No Limitations General Appearance: Alert, No Apparent Distress Eye Exam: Bilateral Eye: PERRL Ears: Normal External Exam, Normal Canal Nose: Normal Inspection, Normal Mucosa Throat/Mouth: Normal Inspection, Normal Lips, Normal Teeth Head: Atraumatic, Normocephalic Neck: Normal Inspection, Supple, Non-Tender Respiratory/Chest: No Respiratory Distress, Lungs Clear, Normal Breath Sounds Cardiovascular: Normal Peripheral Pulses, Regular Rate, Rhythm, No Edema GI/Abdominal: Normal Bowel Sounds, Soft, Non-Tender, No Organomegaly Course - Vital Signs Text/Narrative:: Labs/CXR was discussed with patient and verbalized full understanding NS 1 L bolus Zofran 4 mg IV x1 Ativan 1 mg IV x1 Humalog 15 U SC x1 COVID test-pos - Orders/Labs/Meds Orders: Active Orders 24 hr Category Date Time Status Sodium Chloride 0.9% [Normal Saline] 1,000 ml Med 04/04/20 10:15 Active IV ASDIRECTED Sodium Chloride 0.9% [Saline Flush] Med 04/04/20 10:13 Active 10 ml FLUSH ASDIRECTED PRN Saline Lock Insert [OM.PC] Routine Oth 04/04/20 10:13 Ordered Medication Orders Sodium Chloride (Normal Saline) 1,000 mls @ 999 mls/hr IV ASDIRECTED IRIS Last Admin: 04/04/20 11:24 Dose: 999 mls/hr Documented by: NITHIN Sodium Chloride (Saline Flush) 10 ml FLUSH ASDIRECTED PRN PRN Reason: Keep Vein Open Labs: Laboratory Tests 04/04/20 04/04/20 Range/Units 11:00 11:00 WBC 5.4 (4.5-12.0) X10-3/uL RBC 5.34 H (3.23-5.20) x10(6)uL Hgb 16.1 H (11.5-15.5) g/dL Hct 49.5 (30.0-51.3) % MCV 92.7 (80-96) fL MCH 30.2 (27.7-33.6) pg MCHC 32.6 (32.2-35.4) g/dL RDW 12.9 (11.5-15.5) % Plt Count 207 (125-369) X10(3)uL MPV 7.9 (7.4-10.4) fL Neut % (Auto) 81.4 (46-82) % Lymph % (Auto) 13.5 (13-37) % [place] % (Auto) 4.8 (4-12) % Eos % (Auto) 0 L (1.0-5.0) % Baso % (Auto) 0 (0-2) % Neut # (Auto) 4.4 (1.6-8.3) # Lymph # (Auto) 0.7 (0.6-5.0) # [place] # (Auto) 0.3 (0.0-1.3) # Eos # (Auto) 0.0 (0.0-0.8) # Baso # (Auto) 0.0 (0.0-0.2) # Sodium 135 (135-145) mmol/L Potassium 5.1 D (3.5-5.3) mmol/L Chloride 100 D (100-110) mmol/L Carbon Dioxide 9 L* (21-32) mmol/L BUN 13 (7-18) mg/dL Creatinine 1.2 H (0.55-1.02) mg/dL Est Cr Clr Drug Dosing TNP Estimated GFR (MDRD) 52 L (>60) BUN/Creatinine Ratio 10.8 (9-20) Glucose 407 H* D (80-116) mg/dL Calcium 9.0 (8.6-10.2) mg/dL Total Bilirubin 0.4 (0.1-1.3) mg/dL AST 25 D (5-25) IU/L ALT 27 D (12-36) U/L Alkaline Phosphatase 74 (56-112) IU/L Total Protein 9.5 H (6.0-8.0) g/dL Albumin 4.7 (3.5-5.2) g/dL Globulin 4.8 g/dL Albumin/Globulin Ratio 1.0 Meds: Medications Generic Name Dose Route Start Last Admin Trade Name Freq PRN Reason Stop Dose Admin Sodium Chloride 1,000 mls @ 999 mls/hr 04/04/20 10:15 04/04/20 11:24 Normal Saline IV 999 mls/hr ASDIRECTED IRIS Administration Sodium Chloride 10 ml 04/04/20 10:13 Saline Flush FLUSH ASDIRECTED PRN Keep Vein Open Discontinued Medications Generic Name Dose Route Start Last Admin Trade Name Freq PRN Reason Stop Dose Admin Insulin Human Lispro 15 unit 04/04/20 10:37 04/04/20 10:59 Humalog SUBCUT 04/04/20 10:38 15 units NOW STA Administration Lorazepam 1 mg 04/04/20 10:37 04/04/20 11:20 Ativan IVPUSH 04/04/20 10:38 1 mg NOW STA Administration Ondansetron HCl 4 mg 04/04/20 11:13 04/04/20 11:23 Zofran IVPUSH 04/04/20 11:14 4 mg ONETIME ONE Administration Departure - Departure Time of Disposition: 12:30 Disposition: Home, Self-Care 01 Condition: Good Clinical Impression: Anxiety attack, COVID-19 - Discharge Information Prescriptions: Ondansetron [Zofran ODT] 4 mg PO Q4H PRN #7 tab.dis PRN Reason: Nausea Referrals: PCP,None [Primary Care Provider] - Additional Instructions: Please read discharge instructions on COVID exposure Your covid test is positive-you don't need to stay in the hospital, just isolate yourself for 14 days Increase oral fluids Zofran ODT 4 mg every 4 hours as needed for nausea/vomiting Start taking your metformin twice daily Follow up as needed - My Orders Last 24 Hours: My Active Orders 04/04/20 10:13 Sodium Chloride 0.9% [Saline Flush] 10 ml FLUSH ASDIRECTED PRN Saline Lock Insert [OM.PC] Routine 04/04/20 10:15 Sodium Chloride 0.9% [Normal Saline] 1,000 ml IV ASDIRECTED - Assessment/Plan Last 24 Hours: My Active Orders 04/04/20 10:13 Sodium Chloride 0.9% [Saline Flush] 10 ml FLUSH ASDIRECTED PRN Saline Lock Insert [OM.PC] Routine 04/04/20 10:15 Sodium Chloride 0.9% [Normal Saline] 1,000 ml IV ASDIRECTED
[2020-04-04 12:32] VITALS: BP 119/60; PULSE 95
== END 2020-04-04 12:40 | disposition home or self-care (01) ==
LOC: FB.ED 09:27
DX: U07.1 COVID-19 (principal); F41.9 Anxiety disorder, unspecified; J45.909 Unspecified asthma, uncomplicated; E66.9 Obesity, unspecified; Z91.048 Other nonmedicinal substance allergy status; Z88.1 Allergy status to other antibiotic agents; Z88.5 Allergy status to narcotic agent; Z91.040 Latex allergy status; Z88.8 Allergy status to other drugs, medicaments and biological substances; Z68.28 Body mass index [BMI] 28.0-28.9, adult
CPT/HCPCS: 36415; 71045; 80053; 82962; 85025; 96361; 96374; 96375; 99284; J1815; J2060; J2405; J7030

== ENCOUNTER 2021-03-22 21:16 | Observation (INO) | payer OTHER, MEDICAID ==
[2021-03-22] MEDS ORDERED: Sodium Chloride 0.9% 10 ML Syringe FLUSH PRN (22:05)
[2021-03-22] MEDS ORDERED: Ondansetron 4 MG/2 ML SDV IVPUSH STA (22:06)
[2021-03-22] MEDS ORDERED: Sodium Chloride 0.9% 1,000 ML IV SCH (22:15)
[2021-03-22] MEDS ORDERED: Morphine 2 MG/ML SYRINGE IVPUSH STA (22:15)
[2021-03-22] MEDS ORDERED: methylPREDNISolone Sodium Succinate 125 MG/2 ML SDV IVPUSH STA (22:18)
[2021-03-22] MEDS: Ondansetron 4 MG/2 ML SDV IVPUSH STA ×2 (22:31→23:08)
[2021-03-22] MEDS ORDERED: Morphine 2 MG/ML SYRINGE ONE (22:41)
[2021-03-22] MEDS ORDERED: Acetaminophen 325 MG Tab PO PRN (23:59)
[2021-03-22] MEDS ORDERED: Non-Formulary Medication 1 Each (Sumatriptan Succinate [Imitrex] 100 MG Tablet) PO PRN (23:59)
[2021-03-23] MEDS ORDERED: hydrOXYzine HCl 50 MG/ML SDV IM ONE (00:05)
--- NOTE | 2021-03-23 00:10 | EDM.PDOC ---
ED HPI GENERAL MEDICAL PROBLEM - General Chief Complaint: Abdominal Pain Stated Complaint: vomiting Time Seen by Provider: 03/22/21 21:30 Source of Information: Reports: Patient, Family History Limitations: Reports: No Limitations - History of Present Illness INITIAL COMMENTS - FREE TEXT/NARRATIVE: Patient is a 35 YO WF who has known history of Ulcerative Colitis presented to [facility] ED because of abdominal pain, nausea, vomiting which started 6 days ago and is progressively getting worse. Her pain is sharp and cramping, diffuse,9/10. There is no associated hematochezia or melanotic stool. Denies any changes in bowel movements or urinary symptoms. No fever,chills,cough or cold symptoms. She was seen at [facility] in [place] today and an Abdominal xray and Abdominal ultrasound were both normal. - Related Data Allergies Allergy/AdvReac Type Severity Reaction Status Date / Time adhesive Allergy Rash Verified 05/15/20 11:22 cefdinir [From Omnicef] Allergy Rash Verified 05/15/20 11:22 fluticasone propionate Allergy Headache Verified 05/15/20 11:22 [From Flonase] hydrocodone bitartrate Allergy Cannot Verified 05/15/20 11:22 [From Vicodin] Remember hydromorphone [From Dilaudid] Allergy Itching Verified 05/15/20 11:22 latex Allergy Hives Verified 05/15/20 11:22 quetiapine fumarate Allergy Confusion Verified 05/15/20 11:22 [From Seroquel] sertraline HCl [From Zoloft] Allergy Confusion Verified 05/15/20 11:22 Home Meds: Home Meds Acetaminophen [Tylenol] 650 mg PO Q6H PRN 11/13/17 [History] Mirtazapine [Remeron] 30 mg PO BEDTIME 11/13/17 [History] SUMAtriptan succinate [Imitrex] 100 mg PO ASDIRECTED PRN 11/13/17 [History] Insulin Aspart [NovoLOG] 3 units SQ DAILY 03/22/21 [History] Insulin Degludec [Tresiba] 16 units SQ BEDTIME 03/22/21 [History] Levothyroxine Sodium [Levothyroxine] 25 mcg PO DAILY 03/22/21 [History] Past Medical History - Past Health History Medical/Surgical History: Denies Medical/Surgical History HEENT History: Reports: Impaired Vision, Sinusitis, Other (See Below) Other HEENT History: CHRONIC MYOPIA Cardiovascular History: Reports: None Respiratory History: Reports: Asthma Other Respiratory History: activity induced asthma Gastrointestinal History: Reports: GERD, Inflammatory Bowel Disease, Pancreatitis Other Gastrointestinal History: colitis Genitourinary History: Reports: Renal Calculus [employer] History: Reports: Neurological History: Reports: Migraines Psychiatric History: Reports: ADHD, Anxiety, Depression, Developmental Delay, Suicide Attempt Endocrine/Metabolic History: Reports: Diabetes, Type I, Obesity/BMI 30+, Other (See Below) 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 Hematologic History: Reports: None Immunologic History: Reports: None Oncologic (Cancer) History: Reports: None Dermatologic History: Reports: None - Infectious Disease History Infectious Disease History: Reports: Chicken Pox - Past Surgical History Head Surgeries/Procedures: Reports: None GI Surgical History: Reports: Colonoscopy, EGD Female Surgical History: Reports: Section, Lithotripsy/ESWL, Tubal Ligation Other Female Surgeries/Procedures: 3 c-sections Musculoskeletal Surgical History: Reports: Arthroscopic Knee Other Musculoskeletal Surgeries/Procedures:: R KNEE ARTHROSCOPY Social & Family History - Family History Family Medical History: Unobtainable Cardiac: Reports: ND Musculoskeletal: Reports: RA Oncologic: Reports: Pancreatic - Tobacco Use Tobacco Use Status *Q: Never Tobacco User Second Hand Smoke Exposure: No - Caffeine Use Caffeine Use: Reports: None - Recreational Drug Use Recreational Drug Use: No ED ROS GENERAL - Review of Systems Review Of Systems: See Below Constitutional: Reports: No Symptoms HEENT: Reports: No Symptoms Respiratory: Reports: No Symptoms Cardiovascular: Reports: No Symptoms Endocrine: Reports: No Symptoms GI/Abdominal: Reports: Abdominal Pain, Nausea, Vomiting : Reports: No Symptoms Musculoskeletal: Reports: No Symptoms Skin: Reports: No Symptoms Neurological: Reports: No Symptoms Psychiatric: Reports: No Symptoms Hematologic/Lymphatic: Reports: No Symptoms ED EXAM, GI/ABD - Physical Exam Exam: See Below Exam Limited By: No Limitations General Appearance: Alert, No Apparent Distress Ears: Normal External Exam, Normal Canal Nose: Normal Inspection, Normal Mucosa, No Blood Throat/Mouth: Normal Inspection, Normal Lips, Normal Teeth, Normal Gums Head: Atraumatic, Normocephalic Neck: Normal Inspection, Supple, Non-Tender, Full Range of Motion Respiratory/Chest: No Respiratory Distress, Lungs Clear, Normal Breath Sounds, No Accessory Muscle Use, Chest Non-Tender Cardiovascular: Normal Peripheral Pulses, Regular Rate, Rhythm, No Edema, No Gallop, No JVD, No Murmur, No Rub GI/Abdominal Exam: Normal Bowel Sounds, Soft, No Organomegaly, No Distention, Other (epigastric T) Back Exam: Normal Inspection, Full Range of Motion Extremities: Normal Inspection, Normal Range of Motion, Non-Tender, No Pedal Edema Neurological: Alert, Oriented, CN II-XII Intact, Normal Cognition, Normal Gait, Normal Reflexes, No Motor/Sensory Deficits Psychiatric: Normal Affect Course - Vital Signs Text/Narrative:: Lab/Abd xray and ultrasound result was reviewed and discussed with patient NS 1 L bolus Zofran 4 mg IV x1 Morphine 4 mg IV x1 Vistaril 50 mg IM x1 Last Recorded V/S: Last Vital Signs Temp 37.2 C 03/22/21 23:15 Pulse 78 03/22/21 23:15 Resp 16 03/22/21 23:15 BP 144/95 H 03/22/21 23:15 Pulse Ox 100 03/22/21 23:15 - Orders/Labs/Meds Orders: Active Orders 24 hr Category Date Time Status Patient Status [ADT] Routine ADT 03/22/21 23:52 Ordered Blood Glucose Check, Bedside [RC] WITHMEALSANDBED Care 03/22/21 23:51 Ordered Height and Weight [RC] DAILY Care 03/22/21 23:51 Ordered Intake and Output [RC] QSHIFT Care 03/22/21 23:53 Ordered Oxygen Therapy [RC] PRN Care 03/22/21 23:52 Ordered Pulse Oximetry [RC] CONTINUOUS Care 03/22/21 23:54 Ordered Up With Assistance [RC] ASDIRECTED Care 03/22/21 23:51 Ordered VTE/DVT Education [RC] Per Unit Routine Care 03/22/21 23:52 Ordered Vital Signs [RC] Q4H Care 03/22/21 23:52 Ordered Nothing per Oral Now Diet [DIET] Diet 03/23/21 Breakfast Ordered BASIC METABOLIC PANEL,BMP [CHEM] AM Lab 03/23/21 05:11 Ordered CBC WITH AUTO DIFF [HEME] AM Lab 03/23/21 05:11 Ordered DRUG SCREEN, URINE ALERE [URCHEM] Stat Lab 03/23/21 00:01 Ordered Acetaminophen [TylenoL] Med 03/22/21 23:59 Ordered 650 mg PO Q6H PRN Docusate Sodium/Sennosides [Senna Plus] Med 03/22/21 23:51 Ordered 1 tab PO BID PRN Enoxaparin [Lovenox] Med 03/22/21 23:45 Ordered 40 mg SUBCUT Q24H Insulin Aspart [NovoLOG] Med 03/23/21 09:00 Ordered 3 units SQ DAILY Insulin Degludec [Tresiba] Med 03/23/21 21:00 Ordered 16 units SQ BEDTIME Levothyroxine Sodium [Levothyroxine] Med 03/23/21 09:00 Ordered 25 mcg PO DAILY Mirtazapine [Remeron] Med 03/23/21 21:00 Ordered 30 mg PO BEDTIME Morphine Med 03/22/21 23:51 Ordered 2 mg IVPUSH Q2H PRN SUMAtriptan succinate [Imitrex] Med 03/22/21 23:59 Ordered 100 mg PO ASDIRECTED PRN Sodium Chloride 0.9% @ 125 MLS/HR (1000ml) Med 03/22/21 23:45 Ordered Sodium Chloride 0.9% [Normal Saline] 1,000 ml IV ASDIRECTED Sodium Chloride 0.9% [Normal Saline] 1,000 ml Med 03/22/21 22:15 Active IV ASDIRECTED Sodium Chloride 0.9% [Saline Flush] Med 03/22/21 22:05 Active 10 ml FLUSH ASDIRECTED PRN hydrOXYzine HCL [Vistaril] Med 03/22/21 23:51 Ordered 50 mg IM Q6H PRN Saline Lock Insert [OM.PC] Routine Oth 03/22/21 22:05 Ordered Sequential Compression Device [OM.PC] Per Unit Routine Oth 03/22/21 23:54 Ordered Resuscitation Status Routine Resus Stat 03/22/21 23:51 Ordered Medication Orders Acetaminophen (Acetaminophen 325 Mg Tab) 650 mg PO Q6H PRN PRN Reason: Headache Enoxaparin Sodium (Enoxaparin 40 Mg/0.4 Ml Syringe) 40 mg SUBCUT Q24H IRIS Hydroxyzine HCl (Hydroxyzine Hcl 50 Mg/Ml Sdv) 50 mg IM Q6H PRN PRN Reason: Nausea/Vomiting Sodium Chloride (Normal Saline) 1,000 mls @ 999 mls/hr IV ASDIRECTED IRIS Last Admin: 03/22/21 22:19 Dose: 999 mls/hr Documented by: SELVIN Sodium Chloride (Normal Saline) 1,000 mls @ 125 mls/hr IV ASDIRECTED IRIS Mirtazapine (Mirtazapine 30 Mg Tab) 30 mg PO BEDTIME IRIS Morphine Sulfate (Morphine 2 Mg/Ml Syringe) 2 mg IVPUSH Q2H PRN PRN Reason: Pain (severe 7-10) Non-Formulary Medication (Insulin Aspart [Novolog]) 3 units SQ DAILY IRIS Non-Formulary Medication (Insulin Degludec [Tresiba]) 16 units SQ BEDTIME IRIS Non-Formulary Medication (Levothyroxine Sodium [Levothyroxine]) 25 mcg PO DAILY IRIS Non-Formulary Medication (Sumatriptan Succinate [Imitrex]) 100 mg PO ASDIRECTED PRN PRN Reason: Headache Senna/Docusate Sodium (Docusate Sodium/Sennosides 50-8.6 Mg Tab) 1 tab PO BID PRN PRN Reason: Constipation Sodium Chloride (Sodium Chloride 0.9% 10 Ml Syringe) 10 ml FLUSH ASDIRECTED PRN PRN Reason: Keep Vein Open Labs: Laboratory Tests 03/22/21 03/22/21 03/22/21 Range/Units 22:00 22:13 22:13 WBC 11.7 H (3.0-10.3) x10-3/uL RBC 4.17 (3.60-5.20) x10(6)uL Hgb 13.0 (11.4-15.5) g/dL Hct 38.4 (34.2-48.2) % MCV 91.9 (76.7-100.5) fL MCH 31.0 (23.9-33.9) pg MCHC 33.8 (31.9-34.8) g/dL RDW 13.2 (12.3-16.5) % Plt Count 272 (151-488) x10(3)uL MPV 7.1 (7.1-12.4) fL Neut % (Auto) 74.6 (30.8-76.2) % Lymph % (Auto) 17.9 L (18.4-52.1) % [place] % (Auto) 7.0 (4.4-15.7) % Eos % (Auto) 0.2 L (0.6-8.1) % Baso % (Auto) 0.3 (0.2-1.5) % Neut # (Auto) 8.7 H (1.5-6.3) x10-3/uL Lymph # (Auto) 2.1 (1.0-4.4) x10-3/uL [place] # (Auto) 0.8 (0.3-1.0) x10-3/uL Eos # (Auto) 0.0 (0.0-0.8) x10-3/uL Baso # (Auto) 0.0 (0.0-0.1) x10-3/uL Sodium 142 (135-145) mmol/L Potassium 3.5 D (3.5-5.3) mmol/L Chloride 104 (100-110) mmol/L Carbon Dioxide 23 (21-32) mmol/L BUN 10 (7-18) mg/dL Creatinine 1.0 (0.55-1.02) mg/dL Est Cr Clr Drug Dosing 60.38 mL/min Estimated GFR (MDRD) > 60 (>60) BUN/Creatinine Ratio 10.0 (9-20) Glucose 159 H D (80-116) mg/dL Calcium 8.3 L (8.6-10.2) mg/dL Total Bilirubin 0.6 (0.1-1.3) mg/dL AST 16 D (5-25) IU/L ALT 25 (12-36) U/L Alkaline Phosphatase 55 L (56-112) IU/L Total Protein 7.0 (6.0-8.0) g/dL Albumin 3.7 (3.5-5.2) g/dL Globulin 3.3 g/dL Albumin/Globulin Ratio 1.1 Amylase 93 (25-115) U/L Lipase (73-393) U/L Urine Color Yellow (YELLOW) Urine Appearance Slightly cloudy (CLEAR) Urine pH 6.0 (5.0-6.5) Ur Specific [place] 1.025 (1.010-1.025) Urine Protein Negative (NEGATIVE) mg/dL Urine Glucose (UA) 250 H (NORMAL) mg/dL Urine Ketones 50 H (NEGATIVE) mg/dL Urine Occult Blood Negative (NEGATIVE) Urine Nitrite Negative (NEGATIVE) Urine Bilirubin Negative (NEGATIVE) Urine Urobilinogen Normal (NEGATIVE) mg/dL Ur Leukocyte Esterase Negative (NEGATIVE) Urine RBC 0-5 (0-5) Urine WBC 0-5 (0-5) Ur Squamous Epith Cells Few H (NS,R,O) Urine Bacteria Few H (NS) Urine Mucus Few H (NS) 03/22/21 Range/Units 22:13 WBC (3.0-10.3) x10-3/uL RBC (3.60-5.20) x10(6)uL Hgb (11.4-15.5) g/dL Hct (34.2-48.2) % MCV (76.7-100.5) fL MCH (23.9-33.9) pg MCHC (31.9-34.8) g/dL RDW (12.3-16.5) % Plt Count (151-488) x10(3)uL MPV (7.1-12.4) fL Neut % (Auto) (30.8-76.2) % Lymph % (Auto) (18.4-52.1) % [place] % (Auto) (4.4-15.7) % Eos % (Auto) (0.6-8.1) % Baso % (Auto) (0.2-1.5) % Neut # (Auto) (1.5-6.3) x10-3/uL Lymph # (Auto) (1.0-4.4) x10-3/uL [place] # (Auto) (0.3-1.0) x10-3/uL Eos # (Auto) (0.0-0.8) x10-3/uL Baso # (Auto) (0.0-0.1) x10-3/uL Sodium (135-145) mmol/L Potassium (3.5-5.3) mmol/L Chloride (100-110) mmol/L Carbon Dioxide (21-32) mmol/L BUN (7-18) mg/dL Creatinine (0.55-1.02) mg/dL Est Cr Clr Drug Dosing mL/min Estimated GFR (MDRD) (>60) BUN/Creatinine Ratio (9-20) Glucose (80-116) mg/dL Calcium (8.6-10.2) mg/dL Total Bilirubin (0.1-1.3) mg/dL AST (5-25) IU/L ALT (12-36) U/L Alkaline Phosphatase (56-112) IU/L Total Protein (6.0-8.0) g/dL Albumin (3.5-5.2) g/dL Globulin g/dL Albumin/Globulin Ratio Amylase (25-115) U/L Lipase 37 L (73-393) U/L Urine Color (YELLOW) Urine Appearance (CLEAR) Urine pH (5.0-6.5) Ur Specific [place] (1.010-1.025) Urine Protein (NEGATIVE) mg/dL Urine Glucose (UA) (NORMAL) mg/dL Urine Ketones (NEGATIVE) mg/dL Urine Occult Blood (NEGATIVE) Urine Nitrite (NEGATIVE) Urine Bilirubin (NEGATIVE) Urine Urobilinogen (NEGATIVE) mg/dL Ur Leukocyte Esterase (NEGATIVE) Urine RBC (0-5) Urine WBC (0-5) Ur Squamous Epith Cells (NS,R,O) Urine Bacteria (NS) Urine Mucus (NS) Meds: Medications Generic Name Dose Route Start Last Admin Trade Name Freq PRN Reason Stop Dose Admin Acetaminophen 650 mg 03/22/21 23:59 Acetaminophen 325 Mg Tab PO Q6H PRN Headache Enoxaparin Sodium 40 mg 03/22/21 23:45 Enoxaparin 40 Mg/0.4 Ml Syringe SUBCUT Q24H IRIS Hydroxyzine HCl 50 mg 03/22/21 23:51 Hydroxyzine Hcl 50 Mg/Ml Sdv IM Q6H PRN Nausea/Vomiting Sodium Chloride 1,000 mls @ 999 mls/hr 03/22/21 22:15 03/22/21 22:19 Normal Saline IV 999 mls/hr ASDIRECTED IRIS Administration Sodium Chloride 1,000 mls @ 125 mls/hr 03/22/21 23:45 Normal Saline IV ASDIRECTED IRIS Mirtazapine 30 mg 03/23/21 21:00 Mirtazapine 30 Mg Tab PO BEDTIME IRIS Morphine Sulfate 2 mg 03/22/21 23:51 Morphine 2 Mg/Ml Syringe IVPUSH Q2H PRN Pain (severe 7-10) Non-Formulary Medication 3 units 03/23/21 09:00 Insulin Aspart [Novolog] SQ DAILY IRIS Non-Formulary Medication 16 units 03/23/21 21:00 Insulin Degludec [Tresiba] SQ BEDTIME IRIS Non-Formulary Medication 25 mcg 03/23/21 09:00 Levothyroxine Sodium [Levothyroxine] PO DAILY IRIS Non-Formulary Medication 100 mg 03/22/21 23:59 Sumatriptan Succinate [Imitrex] PO ASDIRECTED PRN Headache Senna/Docusate Sodium 1 tab 03/22/21 23:51 Docusate Sodium/Sennosides 50-8.6 Mg Tab PO BID PRN Constipation Sodium Chloride 10 ml 03/22/21 22:05 Sodium Chloride 0.9% 10 Ml Syringe FLUSH ASDIRECTED PRN Keep Vein Open Discontinued Medications Generic Name Dose Route Start Last Admin Trade Name Ajq PRN Reason Stop Dose Admin Methylprednisolone Sodium Succinate 250 mg 03/22/21 22:18 03/22/21 22:33 Methylprednisolone Sodium Succinate 125 Mg/2 Ml Sdv IVPUSH 03/22/21 22:19 250 mg NOW STA Administration Morphine Sulfate 4 mg 03/22/21 22:15 03/22/21 22:42 Morphine 2 Mg/Ml Syringe IVPUSH 03/22/21 22:16 4 mg NOW STA Administration Morphine Sulfate Confirm 03/22/21 22:41 03/22/21 23:07 Morphine 2 Mg/Ml Syringe Administered 03/22/21 22:42 Not Given Dose 2 mg .ROUTE .STK-MED ONE Ondansetron HCl 4 mg 03/22/21 22:06 03/22/21 22:26 Ondansetron 4 Mg/2 Ml Sdv IVPUSH 03/22/21 22:07 4 mg NOW STA Administration Ondansetron HCl 4 mg 03/22/21 22:15 03/22/21 23:08 Ondansetron 4 Mg/2 Ml Sdv IVPUSH 03/22/21 22:16 Not Given NOW STA Departure - Departure Time of Disposition: 12:00 Disposition: Home, Self-Care 01 Condition: Good Clinical Impression: Cyclic vomiting syndrome, Diabetes mellitus Ulcerative colitis Qualifiers: Ulcerative colitis location: unspecified ulcerative colitis location Digestive disease complication type: without complication Qualified Code(s): K51.90 - Ulcerative colitis, unspecified, without complications - Discharge Information Referrals: Jordan Seymour MD [Primary Care Provider] - Sepsis Event Note (ED) - Evaluation Sepsis Screening Result: No Definite Risk - Focused Exam Vital Signs: Vital Signs Temp Pulse Resp BP Pulse Ox 03/22/21 23:15 37.2 C 78 16 144/95 H 100 03/22/21 21:22 37.4 C 82 18 155/99 H 99 - My Orders Last 24 Hours: My Active Orders 03/22/21 22:05 Sodium Chloride 0.9% [Saline Flush] 10 ml FLUSH ASDIRECTED PRN Saline Lock Insert [OM.PC] Routine 03/22/21 22:15 Sodium Chloride 0.9% [Normal Saline] 1,000 ml IV ASDIRECTED 03/22/21 23:45 Enoxaparin [Lovenox] 40 mg SUBCUT Q24H Sodium Chloride 0.9% @ 125 MLS/HR (1000ml) Sodium Chloride 0.9% [Normal Saline] 1,000 ml IV ASDIRECTED 03/22/21 23:51 Blood Glucose Check, Bedside [RC] WITHMEALSANDBED Height and Weight [RC] DAILY Up With Assistance [RC] ASDIRECTED Docusate Sodium/Sennosides [Senna Plus] 1 tab PO BID PRN Morphine 2 mg IVPUSH Q2H PRN hydrOXYzine HCL [Vistaril] 50 mg IM Q6H PRN Resuscitation Status Routine 03/22/21 23:52 Patient Status [ADT] Routine Oxygen Therapy [RC] PRN VTE/DVT Education [RC] Per Unit Routine Vital Signs [RC] Q4H 03/22/21 23:53 Intake and Output [RC] QSHIFT 03/22/21 23:54 Pulse Oximetry [RC] CONTINUOUS Sequential Compression Device [OM.PC] Per Unit Routine 03/22/21 23:59 Acetaminophen [TylenoL] 650 mg PO Q6H PRN 03/22/21 23:59 SUMAtriptan succinate [Imitrex] 100 mg PO ASDIRECTED PRN 03/23/21 00:01 DRUG SCREEN, URINE ALERE [URCHEM] Stat 03/23/21 05:11 BASIC METABOLIC PANEL,BMP [CHEM] AM CBC WITH AUTO DIFF [HEME] AM 03/23/21 Breakfast Nothing per Oral Now Diet [DIET] 03/23/21 09:00 Insulin Aspart [NovoLOG] 3 units SQ DAILY Levothyroxine Sodium [Levothyroxine] 25 mcg PO DAILY 03/23/21 21:00 Insulin Degludec [Tresiba] 16 units SQ BEDTIME Mirtazapine [Remeron] 30 mg PO BEDTIME - Assessment/Plan Last 24 Hours: My Active Orders 03/22/21 22:05 Sodium Chloride 0.9% [Saline Flush] 10 ml FLUSH ASDIRECTED PRN Saline Lock Insert [OM.PC] Routine 03/22/21 22:15 Sodium Chloride 0.9% [Normal Saline] 1,000 ml IV ASDIRECTED 03/22/21 23:45 Enoxaparin [Lovenox] 40 mg SUBCUT Q24H Sodium Chloride 0.9% @ 125 MLS/HR (1000ml) Sodium Chloride 0.9% [Normal Saline] 1,000 ml IV ASDIRECTED 03/22/21 23:51 Blood Glucose Check, Bedside [RC] WITHMEALSANDBED Height and Weight [RC] DAILY Up With Assistance [RC] ASDIRECTED Docusate Sodium/Sennosides [Senna Plus] 1 tab PO BID PRN Morphine 2 mg IVPUSH Q2H PRN hydrOXYzine HCL [Vistaril] 50 mg IM Q6H PRN Resuscitation Status Routine 03/22/21 23:52 Patient Status [ADT] Routine Oxygen Therapy [RC] PRN VTE/DVT Education [RC] Per Unit Routine Vital Signs [RC] Q4H 03/22/21 23:53 Intake and Output [RC] QSHIFT 03/22/21 23:54 Pulse Oximetry [RC] CONTINUOUS Sequential Compression Device [OM.PC] Per Unit Routine 03/22/21 23:59 Acetaminophen [TylenoL] 650 mg PO Q6H PRN 03/22/21 23:59 SUMAtriptan succinate [Imitrex] 100 mg PO ASDIRECTED PRN 03/23/21 00:01 DRUG SCREEN, URINE ALERE [URCHEM] Stat 03/23/21 05:11 BASIC METABOLIC PANEL,BMP [CHEM] AM CBC WITH AUTO DIFF [HEME] AM 03/23/21 Breakfast Nothing per Oral Now Diet [DIET] 03/23/21 09:00 Insulin Aspart [NovoLOG] 3 units SQ DAILY Levothyroxine Sodium [Levothyroxine] 25 mcg PO DAILY 03/23/21 21:00 Insulin Degludec [Tresiba] 16 units SQ BEDTIME Mirtazapine [Remeron] 30 mg PO BEDTIME
[2021-03-23] MEDS: Sodium Chloride 0.9% 1,000 ML IV SCH ×3 (00:13→19:14)
[2021-03-23] MEDS: Enoxaparin 40 MG/0.4 ML Syringe SUBCUT SCH ×2 (01:04→23:44)
[2021-03-23] MEDS: hydrOXYzine HCl 50 MG/ML SDV IM PRN ×2 (07:31→13:34)
[2021-03-23] MEDS: Morphine 2 MG/ML SYRINGE IVPUSH PRN ×3 (07:41→20:24)
[2021-03-23] MEDS ORDERED: Insulin Lispro 100 Unit/ML 3 ML KwikPen SUBCUT SCH ×2 (09:00→18:00)
[2021-03-23] MEDS: Levothyroxine 25 MCG Tab PO SCH (09:12)
[2021-03-23] MEDS ORDERED: Glucagon,Human Recombinant 1 MG Vial IM PRN (09:15)
[2021-03-23] MEDS ORDERED: 50% Dextrose in Water 50 ML Syringe IVPUSH PRN (09:15)
[2021-03-23] MEDS ORDERED: Insulin Lispro 100 Unit/ML 3 ML KwikPen SUBCUT ONE ×2 (09:15→09:25)
[2021-03-23] MEDS ORDERED: Insulin Lispro Protamine/Lispro 75-25 100 Units/ML 3 ML KwikPen SUBCUT ONE (09:25)
[2021-03-23] MEDS: Ketorolac 30 MG/ML SDV IVPUSH SCH ×3 (09:35→21:12)
--- NOTE | 2021-03-23 10:56 | PCM.HP.2 ---
H&P History of Present Illness - General Date of Service: 03/23/21 Admit Problem/Dx: Admission Diagnosis/Problem Admission Diagnosis/Problem Nausea, vomiting & abdominal pain Source of Information: Patient, EMS Notes Reviewed, Old Records - History of Present Illness Initial Comments - Free Text/Narative: Evelina was discharged from [facility] yesterday where she had been admitted since 03/20 for abdominal pain, nausea, vomiting. She reported after her discharge and drive home to [place] she was vomiting the whole way home so stopped at [facility] for evaluation. She had RUQ ultrasound and abdominal x-ray during her hospital admission in [place] which was negative for gallstones but has chronic bilateral kidney stones present. She has history of ulcerative colitis found on colonoscopy by Dr Jennings, has been off Sulfasalazine because was told its no longer being made. She denies any fevers, chills, sore throat but states she has a cough. No shortness of breath, chest pain. Last BM was 03/19, states she gets constipated when she gets colitis flares, would like something to help with bowel movement. No flank pain, hematuria or frequency. LMP 7/, occurs every 30 days, lasts 3-4 days normal flow with passing clots. History of Tubal ligation, caesarean section x 3. She has appointment on Thursday with Dr Seymour as she has been having issues with her periods(passing clots). She was seen by Psychiatry for some intentional feigning behaviors. She was seen by Psychiatry for this, they were unsure if this was reflective of a secondary gain process or flection of patient wanting to relieve pain and not feeling she was heard. She was referred for outpatient psychiatry appt to evaluate for factitious disorder vs somatoform disorder. She is currently on BuSpar 10 mg bid and Mirtazapine 30 mg at bedtime, she was discharged on Xanax 0.25 2 tab q12, #8 dispensed and Zofran 8 mg as well as hydrocodone/APAP as needed for severe pain. Also referral to GI for Ulcerative colitis, EGD/Colonoscopies have been done here with Dr Jennings, 06/14/2013 report showed colitis of rectum & ascending colon, multiple biopsies were done but reports were sent to Dr Jennings's office at [place] so will try to get these. Per our records she was on Sulfasalazine 500 mg bid as a home medication last filled 04/[address] Jennings. Abdomen Pain Score (Numeric/FACES): 7 - Related Data Allergies/Adverse Reactions: Allergies Allergy/AdvReac Type Severity Reaction Status Date / Time adhesive Allergy Rash Verified 05/15/20 11:22 cefdinir [From Omnicef] Allergy Rash Verified 05/15/20 11:22 fluticasone propionate Allergy Headache Verified 05/15/20 11:22 [From Flonase] hydrocodone bitartrate Allergy Cannot Verified 05/15/20 11:22 [From Vicodin] Remember hydromorphone [From Dilaudid] Allergy Itching Verified 05/15/20 11:22 latex Allergy Hives Verified 05/15/20 11:22 quetiapine fumarate Allergy Confusion Verified 05/15/20 11:22 [From Seroquel] sertraline HCl [From Zoloft] Allergy Confusion Verified 05/15/20 11:22 Home Medications: Home Meds Mirtazapine [Remeron] 30 mg PO BEDTIME 11/13/17 [History] SUMAtriptan succinate [Imitrex] 100 mg PO ASDIRECTED PRN 11/13/17 [History] Insulin Aspart [NovoLOG] 3 units SQ DAILY 03/22/21 [History] Insulin Degludec [Tresiba] 17 units SQ BEDTIME 03/22/21 [History] Levothyroxine Sodium [Levothyroxine] 25 mcg PO DAILY 03/22/21 [History] ALPRAZolam [Alprazolam] 2 tab PO Q12H PRN 03/23/21 [History] Acetaminophen [Acetaminophen Extra Strength] 2 tab PO Q6H PRN 03/23/21 [History] Calcium Carbonate [Tums] 2 tab PO Q4H PRN 03/23/21 [History] Melatonin 1 tab PO BEDTIME 03/23/21 [History] Ondansetron [Zofran ODT] 1 tab PO TID PRN 03/23/21 [History] busPIRone [Buspar] 10 mg PO BID 03/23/21 [History] Past Medical History - Past Health History Medical/Surgical History: Denies Medical/Surgical History HEENT History: Reports: Impaired Vision, Sinusitis, Other (See Below) Other HEENT History: CHRONIC MYOPIA Cardiovascular History: Reports: None Respiratory History: Reports: Asthma Other Respiratory History: activity induced asthma Gastrointestinal History: Reports: GERD, Inflammatory Bowel Disease, Pancreatitis Other Gastrointestinal History: colitis Genitourinary History: Reports: Renal Calculus [employer]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: Neurological History: Reports: Migraines Psychiatric History: Reports: ADHD, Anxiety, Depression, Developmental Delay, Suicide Attempt Endocrine/Metabolic History: Reports: Diabetes, Type I, Obesity/BMI 30+, Other (See Below) 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 Hematologic History: Reports: None Immunologic History: Reports: None Oncologic (Cancer) History: Reports: None Dermatologic History: Reports: None - Infectious Disease History Infectious Disease History: Reports: Chicken Pox - Past Surgical History Head Surgeries/Procedures: Reports: None GI Surgical History: Reports: Colonoscopy, EGD Female Surgical History: Reports: Section, Lithotripsy/ESWL, Tubal Ligation Other Female Surgeries/Procedures: 3 c-sections Musculoskeletal Surgical History: Reports: Arthroscopic Knee Other Musculoskeletal Surgeries/Procedures:: R KNEE ARTHROSCOPY Social & Family History - Family History Family Medical History: Unobtainable Cardiac: Reports: SC Musculoskeletal: Reports: RA Oncologic: Reports: Pancreatic - Tobacco Use Tobacco Use Status *Q: Never Tobacco User Second Hand Smoke Exposure: No - Caffeine Use Caffeine Use: Reports: None - Recreational Drug Use Recreational Drug Use: No H&P Review of Systems - Review of Systems: Review Of Systems: See Below General: Reports: Decreased Appetite. Denies: Fever, Chills, Weakness HEENT: Reports: No Symptoms Pulmonary: Reports: Cough Cardiovascular: Reports: No Symptoms Gastrointestinal: Reports: Abdominal Pain, Constipation, Decreased Appetite, Nausea, Vomiting. Denies: Black Stool, Bloody Stool Genitourinary: Reports: No Symptoms Musculoskeletal: Reports: No Symptoms Skin: Reports: No Symptoms Psychiatric: Reports: Anxiety Neurological: Reports: No Symptoms Hematologic/Lymphatic: Reports: No Symptoms Immunologic: Reports: No Symptoms Exam - Exam Exam: See Below - Vital Signs Vital Signs: Last Vital Signs Temp 99.2 F 03/23/21 09:20 Pulse 74 03/23/21 09:20 Resp 18 03/23/21 09:20 BP 141/90 H 03/23/21 09:20 Pulse Ox 96 03/23/21 09:20 Weight: 189 lb 7 oz - Exam General: Alert, Oriented, Cooperative. No: Mild Distress HEENT: PERRLA, Conjunctiva Clear, EOMI, Hearing Intact, Mucosa Moist & [place] (white film on tongue), Normal Nasal Septum, Posterior Pharynx Clear Neck: Trachea Midline. No: Lymphadenopathy Lungs: Clear to Auscultation, Normal Respiratory Effort Cardiovascular: Regular Rate, Regular Rhythm GI/Abdominal Exam: Soft, No Distention, Guarding, Tender (diffuse TTP), Abnormal Bowel Sounds (hypoactive BS x 4). No: Rigid, Rebound (Female) Exam: Deferred Rectal (Female) Exam: Deferred Back Exam: No: CVA Tenderness (R), CVA Tenderness (L) Extremities: No Pedal Edema Peripheral Pulses: 2+: Radial (L), Radial (R) Neurological: Cranial Nerves Intact Psychiatric: No: Normal Affect (flat affect), Anxious - Patient Data Lab Results Last 24 hrs: Laboratory Results - last 24 hr 03/22/21 03/22/21 03/22/21 Range/Units 22:00 22:00 22:13 WBC 11.7 H (3.0-10.3) x10-3/uL RBC 4.17 (3.60-5.20) x10(6)uL Hgb 13.0 (11.4-15.5) g/dL Hct 38.4 (34.2-48.2) % MCV 91.9 (76.7-100.5) fL MCH 31.0 (23.9-33.9) pg MCHC 33.8 (31.9-34.8) g/dL RDW 13.2 (12.3-16.5) % Plt Count 272 (151-488) x10(3)uL MPV 7.1 (7.1-12.4) fL Neut % (Auto) 74.6 (30.8-76.2) % Lymph % (Auto) 17.9 L (18.4-52.1) % [place] % (Auto) 7.0 (4.4-15.7) % Eos % (Auto) 0.2 L (0.6-8.1) % Baso % (Auto) 0.3 (0.2-1.5) % Neut # (Auto) 8.7 H (1.5-6.3) x10-3/uL Lymph # (Auto) 2.1 (1.0-4.4) x10-3/uL [place] # (Auto) 0.8 (0.3-1.0) x10-3/uL Eos # (Auto) 0.0 (0.0-0.8) x10-3/uL Baso # (Auto) 0.0 (0.0-0.1) x10-3/uL Sodium (135-145) mmol/L Potassium (3.5-5.3) mmol/L Chloride (100-110) mmol/L Carbon Dioxide (21-32) mmol/L BUN (7-18) mg/dL Creatinine (0.55-1.02) mg/dL Est Cr Clr Drug Dosing mL/min Estimated GFR (MDRD) (>60) BUN/Creatinine Ratio (9-20) Glucose (80-116) mg/dL Calcium (8.6-10.2) mg/dL Total Bilirubin (0.1-1.3) mg/dL AST (5-25) IU/L ALT (12-36) U/L Alkaline Phosphatase (56-112) IU/L Total Protein (6.0-8.0) g/dL Albumin (3.5-5.2) g/dL Globulin g/dL Albumin/Globulin Ratio Amylase (25-115) U/L Lipase (73-393) U/L Urine Color Yellow (YELLOW) Urine Appearance Slightly cloudy (CLEAR) Urine pH 6.0 (5.0-6.5) Ur Specific Basile 1.025 (1.010-1.025) Urine Protein Negative (NEGATIVE) mg/dL Urine Glucose (UA) 250 H (NORMAL) mg/dL Urine Ketones 50 H (NEGATIVE) mg/dL Urine Occult Blood Negative (NEGATIVE) Urine Nitrite Negative (NEGATIVE) Urine Bilirubin Negative (NEGATIVE) Urine Urobilinogen Normal (NEGATIVE) mg/dL Ur Leukocyte Esterase Negative (NEGATIVE) Urine RBC 0-5 (0-5) Urine WBC 0-5 (0-5) Ur Squamous Epith Cells Few H (NS,R,O) Urine Bacteria Few H (NS) Urine Mucus Few H (NS) Urine HCG, Qual Negative (NEGATIVE) Urine Opiates Screen (NEGATIVE) Ur Oxycodone Screen (NEGATIVE) Ur Propoxyphene Screen (NEGATIVE) Ur Barbituates Screen (NEGATIVE) Ur Tricyclics Screen (NEGATIVE) Ur Phencyclidine Scrn (NEGATIVE) Ur Amphetamine Screen (NEGATIVE) Urine MDMA Screen (NEGATIVE) U Benzodiazepines Scrn (NEGATIVE) U Cocaine Metab Screen (NEGATIVE) U Marijuana (THC) Screen (NEGATIVE) 03/22/21 03/22/21 03/23/21 Range/Units 22:13 22:13 00:01 WBC (3.0-10.3) x10-3/uL RBC (3.60-5.20) x10(6)uL Hgb (11.4-15.5) g/dL Hct (34.2-48.2) % MCV (76.7-100.5) fL MCH (23.9-33.9) pg MCHC (31.9-34.8) g/dL RDW (12.3-16.5) % Plt Count (151-488) x10(3)uL MPV (7.1-12.4) fL Neut % (Auto) (30.8-76.2) % Lymph % (Auto) (18.4-52.1) % Ulster % (Auto) (4.4-15.7) % Eos % (Auto) (0.6-8.1) % Baso % (Auto) (0.2-1.5) % Neut # (Auto) (1.5-6.3) x10-3/uL Lymph # (Auto) (1.0-4.4) x10-3/uL [place] # (Auto) (0.3-1.0) x10-3/uL Eos # (Auto) (0.0-0.8) x10-3/uL Baso # (Auto) (0.0-0.1) x10-3/uL Sodium 142 (135-145) mmol/L Potassium 3.5 D (3.5-5.3) mmol/L Chloride 104 (100-110) mmol/L Carbon Dioxide 23 (21-32) mmol/L BUN 10 (7-18) mg/dL Creatinine 1.0 (0.55-1.02) mg/dL Est Cr Clr Drug Dosing 60.38 mL/min Estimated GFR (MDRD) > 60 (>60) BUN/Creatinine Ratio 10.0 (9-20) Glucose 159 H D (80-116) mg/dL Calcium 8.3 L (8.6-10.2) mg/dL Total Bilirubin 0.6 (0.1-1.3) mg/dL AST 16 D (5-25) IU/L ALT 25 (12-36) U/L Alkaline Phosphatase 55 L (56-112) IU/L Total Protein 7.0 (6.0-8.0) g/dL Albumin 3.7 (3.5-5.2) g/dL Globulin 3.3 g/dL Albumin/Globulin Ratio 1.1 Amylase 93 (25-115) U/L Lipase 37 L (73-393) U/L Urine Color (YELLOW) Urine Appearance (CLEAR) Urine pH (5.0-6.5) Ur Specific Basile (1.010-1.025) Urine Protein (NEGATIVE) mg/dL Urine Glucose (UA) (NORMAL) mg/dL Urine Ketones (NEGATIVE) mg/dL Urine Occult Blood (NEGATIVE) Urine Nitrite (NEGATIVE) Urine Bilirubin (NEGATIVE) Urine Urobilinogen (NEGATIVE) mg/dL Ur Leukocyte Esterase (NEGATIVE) Urine RBC (0-5) Urine WBC (0-5) Ur Squamous Epith Cells (NS,R,O) Urine Bacteria (NS) Urine Mucus (NS) Urine HCG, Qual (NEGATIVE) Urine Opiates Screen Positive H (NEGATIVE) Ur Oxycodone Screen Negative (NEGATIVE) Ur Propoxyphene Screen Negative (NEGATIVE) Ur Barbituates Screen Negative (NEGATIVE) Ur Tricyclics Screen Negative (NEGATIVE) Ur Phencyclidine Scrn Negative (NEGATIVE) Ur Amphetamine Screen Negative (NEGATIVE) Urine MDMA Screen Negative (NEGATIVE) U Benzodiazepines Scrn Positive H (NEGATIVE) U Cocaine Metab Screen Negative (NEGATIVE) U Marijuana (THC) Screen Negative (NEGATIVE) 03/23/21 03/23/21 Range/Units 06:35 06:35 WBC 8.6 (3.0-10.3) x10-3/uL RBC 4.01 (3.60-5.20) x10(6)uL Hgb 12.5 (11.4-15.5) g/dL Hct 37.3 (34.2-48.2) % MCV 93.0 (76.7-100.5) fL MCH 31.3 (23.9-33.9) pg MCHC 33.6 (31.9-34.8) g/dL RDW 13.0 (12.3-16.5) % Plt Count 246 (151-488) x10(3)uL MPV 7.3 (7.1-12.4) fL Neut % (Auto) 86.4 H (30.8-76.2) % Lymph % (Auto) 11.7 L (18.4-52.1) % [place] % (Auto) 1.8 L (4.4-15.7) % Eos % (Auto) 0.0 L (0.6-8.1) % Baso % (Auto) 0.1 L (0.2-1.5) % Neut # (Auto) 7.4 H (1.5-6.3) x10-3/uL Lymph # (Auto) 1.0 (1.0-4.4) x10-3/uL [place] # (Auto) 0.2 L (0.3-1.0) x10-3/uL Eos # (Auto) 0.0 (0.0-0.8) x10-3/uL Baso # (Auto) 0.0 (0.0-0.1) x10-3/uL Sodium 141 (135-145) mmol/L Potassium 3.6 (3.5-5.3) mmol/L Chloride 104 (100-110) mmol/L Carbon Dioxide 21 (21-32) mmol/L BUN 10 (7-18) mg/dL Creatinine 0.8 (0.55-1.02) mg/dL Est Cr Clr Drug Dosing 75.48 mL/min Estimated GFR (MDRD) > 60 (>60) BUN/Creatinine Ratio 12.5 (9-20) Glucose 196 H (80-116) mg/dL Calcium 7.6 L (8.6-10.2) mg/dL Total Bilirubin (0.1-1.3) mg/dL AST (5-25) IU/L ALT (12-36) U/L Alkaline Phosphatase (56-112) IU/L Total Protein (6.0-8.0) g/dL Albumin (3.5-5.2) g/dL Globulin g/dL Albumin/Globulin Ratio Amylase (25-115) U/L Lipase (73-393) U/L Urine Color (YELLOW) Urine Appearance (CLEAR) Urine pH (5.0-6.5) Ur Specific Basile (1.010-1.025) Urine Protein (NEGATIVE) mg/dL Urine Glucose (UA) (NORMAL) mg/dL Urine Ketones (NEGATIVE) mg/dL Urine Occult Blood (NEGATIVE) Urine Nitrite (NEGATIVE) Urine Bilirubin (NEGATIVE) Urine Urobilinogen (NEGATIVE) mg/dL Ur Leukocyte Esterase (NEGATIVE) Urine RBC (0-5) Urine WBC (0-5) Ur Squamous Epith Cells (NS,R,O) Urine Bacteria (NS) Urine Mucus (NS) Urine HCG, Qual (NEGATIVE) Urine Opiates Screen (NEGATIVE) Ur Oxycodone Screen (NEGATIVE) Ur Propoxyphene Screen (NEGATIVE) Ur Barbituates Screen (NEGATIVE) Ur Tricyclics Screen (NEGATIVE) Ur Phencyclidine Scrn (NEGATIVE) Ur Amphetamine Screen (NEGATIVE) Urine MDMA Screen (NEGATIVE) U Benzodiazepines Scrn (NEGATIVE) U Cocaine Metab Screen (NEGATIVE) U Marijuana (THC) Screen (NEGATIVE) Result Diagrams: 03/23/21 06:35 03/23/21 06:35 Imaging Impressions Last 24 hrs: CT abdomen/pelvis without contrast: diverticula without diverticulitis; bilateral renal calculi, largest 3 mm in right lower pole. No findings for acute pain. See printed report in physical chart. Sepsis Event Note - Evaluation Sepsis Screening Result: No Definite Risk - Focused Exam Vital Signs: Vital Signs Temp Pulse Resp BP Pulse Ox 03/23/21 09:20 99.2 F 74 18 141/90 H 96 03/23/21 03:19 98.4 F 72 16 114/72 96 03/23/21 00:30 99.4 F 70 16 142/87 H 96 03/23/21 00:26 99.4 F 72 16 144/89 H 96 03/22/21 23:54 98 03/22/21 23:15 99 F 78 16 144/95 H 100 *Q Meaningful Use (ADM) - VTE Risk Assess *Q Each Risk Factor Represents 1 Point: None Total Score 1 Point Risk Factors: 0 Each Risk Factor Represents 2 Points: None Total Score 2 Point Risk Factors: 0 Each Risk Factor Represents 3 Points: None Total Score 3 Point Risk Factors: 0 Each Risk Factor Represents 5 Points: None Total Score 5 Point Risk Factors: 0 Venous Thromboembolism Risk Factor Score *Q: 0 - Problem List (1) Nausea and vomiting SNOMED Code(s): 21985871 ICD Code: R11.2 - NAUSEA WITH VOMITING, UNSPECIFIED Status: Acute Current Visit: No Onset Date: 04/11/14 (2) Epigastric abdominal pain SNOMED Code(s): 44839408 ICD Code: R10.13 - EPIGASTRIC PAIN Status: Acute Current Visit: No (3) Dehydration SNOMED Code(s): 42336736 ICD Code: E86.0 - DEHYDRATION Status: Acute Current Visit: No Problem Details: Ketones & glucose present on UA, no signs of infection. (4) Ulcerative colitis SNOMED Code(s): 28444363 ICD Code: K51.90 - ULCERATIVE COLITIS, UNSPECIFIED, WITHOUT COMPLICATIONS Status: Chronic Current Visit: Yes Qualifiers: Ulcerative colitis location: unspecified ulcerative colitis location [facility] [place] disease complication type: without complication Qualified Code(s): K51.90 - Ulcerative colitis, unspecified, without complications (5) Diabetes mellitus SNOMED Code(s): 44502830 ICD Code: E11.9 - TYPE 2 DIABETES MELLITUS WITHOUT COMPLICATIONS Status: Chronic Current Visit: Yes Qualifiers: Diabetes mellitus fdc insulin use: with fdc use (6) Anxiety SNOMED Code(s): 06519947 ICD Code: F41.9 - ANXIETY DISORDER, UNSPECIFIED Status: Chronic Current Visit: No Onset Date: 04/07/14 Problem List Initiated/Reviewed/Updated: Yes Orders Last 24hrs: Active Orders 24 hr Category Date Time Status Patient Status [ADT] Routine ADT 03/22/21 23:52 Active Blood Glucose Check, Bedside [RC] WITHMEALSANDBED Care 03/22/21 23:51 Active Height and Weight [RC] DAILY Care 03/22/21 23:51 Active Intake and Output [RC] QSHIFT Care 03/22/21 23:53 Active Oxygen Therapy [RC] PRN Care 03/22/21 23:52 Active Pulse Oximetry [RC] CONTINUOUS Care 03/22/21 23:54 Active Up With Assistance [RC] ASDIRECTED Care 03/22/21 23:51 Active VTE/DVT Education [RC] Per Unit Routine Care 03/22/21 23:52 Active Vital Signs [RC] Q4H Care 03/22/21 23:52 Active Nothing per Oral Now Diet [DIET] Diet 03/23/21 Breakfast Ordered Abdomen Pelvis wo Cont [CT] Routine Exams 03/23/21 09:11 Taken OCCULT BLOOD SCREEN [OP] Routine Lab 03/23/21 09:13 Ordered Acetaminophen [TylenoL] Med 03/22/21 23:59 Active 650 mg PO Q6H PRN Dextrose 50% in Water Med 03/23/21 09:15 Active 50 ml IVPUSH ASDIRECTED PRN Docusate Sodium/Sennosides [Senna Plus] Med 03/22/21 23:51 Active 1 tab PO BID PRN Enoxaparin [Lovenox] Med 03/22/21 23:45 Active 40 mg SUBCUT Q24H Glucagon,Human Recombinant [GlucaGen] Med 03/23/21 09:15 Active 1 mg IM ASDIRECTED PRN Insulin Degludec [Tresiba] Med 03/23/21 21:00 Pending 16 units SQ BEDTIME Insulin Lispro [HumaLOG] Med 03/23/21 09:00 Hold 3 unit SUBCUT DAILY Ketorolac [Toradol] Med 03/23/21 10:00 Active 30 mg IVPUSH Q6H Levothyroxine Med 03/23/21 09:00 Active 25 mcg PO DAILY Mirtazapine [Remeron] Med 03/23/21 21:00 Active 30 mg PO BEDTIME Morphine Med 03/22/21 23:51 Active 2 mg IVPUSH Q2H PRN SUMAtriptan succinate [Imitrex] Med 03/22/21 23:59 Pending 100 mg PO ASDIRECTED PRN Sodium Chloride 0.9% [Normal Saline] 1,000 ml Med 03/22/21 23:45 Active IV ASDIRECTED Sodium Chloride 0.9% [Saline Flush] Med 03/22/21 22:05 Active 10 ml FLUSH ASDIRECTED PRN hydrOXYzine HCL [Vistaril] Med 03/22/21 23:51 Active 50 mg IM Q6H PRN Saline Lock Insert [OM.PC] Routine Oth 03/22/21 22:05 Ordered Sequential Compression Device [OM.PC] Per Unit Routine Oth 03/22/21 23:54 Ordered Resuscitation Status Routine Resus Stat 03/22/21 23:51 Ordered Medication Orders Acetaminophen (Acetaminophen 325 Mg Tab) 650 mg PO Q6H PRN PRN Reason: Headache Dextrose/Water (50% Dextrose In Water 50 Ml Syringe) 50 ml IVPUSH ASDIRECTED PRN PRN Reason: Hypoglycemia Enoxaparin Sodium (Enoxaparin 40 Mg/0.4 Ml Syringe) 40 mg SUBCUT Q24H ON LICENSE OF [facility] Last Admin: 03/23/21 01:04 Dose: 40 mg Documented by: JAZMÍN Glucagon (Glucagon,Human Recombinant 1 Mg Vial) 1 mg IM ASDIRECTED PRN PRN Reason: Hypoglycemia Hydroxyzine HCl (Hydroxyzine Hcl 50 Mg/Ml Sdv) 50 mg IM Q6H PRN PRN Reason: Nausea/Vomiting Last Admin: 03/23/21 07:31 Dose: 50 mg Documented by: NITHIN Sodium Chloride (Normal Saline) 1,000 mls @ 125 mls/hr IV ASDIRECTED ON LICENSE OF [facility] Last Admin: 03/23/21 09:09 Dose: 125 mls/hr Documented by: Infusion: 03/23/21 08:13 Dose: 125 mls/hr Documented by: Admin: 03/23/21 00:13 Dose: 125 mls/hr Documented by: SELVIN Insulin Human Lispro (Insulin Lispro 100 Unit/Ml 3 Ml Kwikpen) 3 unit SUBCUT DAILY ON LICENSE OF [facility] Last Admin: 03/23/21 09:19 Dose: Not Given Documented by: NITHIN Ketorolac Tromethamine (Ketorolac 30 Mg/Ml Sdv) 30 mg IVPUSH Q6H ON LICENSE OF [facility] Stop: 03/28/21 10:01 Last Admin: 03/23/21 09:35 Dose: 30 mg Documented by: NITHIN Levothyroxine Sodium (Levothyroxine 25 Mcg Tab) 25 mcg PO DAILY ON LICENSE OF [facility] Last Admin: 03/23/21 09:12 Dose: Not Given Documented by: NITHIN Mirtazapine (Mirtazapine 30 Mg Tab) 30 mg PO BEDTIME ON LICENSE OF [facility] Morphine Sulfate (Morphine 2 Mg/Ml Syringe) 2 mg IVPUSH Q2H PRN PRN Reason: Pain (severe 7-10) Last Admin: 03/23/21 07:41 Dose: 2 mg Documented by: NITHIN Non-Formulary Medication (Insulin Degludec [Tresiba]) 16 units SQ BEDTIME ON LICENSE OF [facility] Non-Formulary Medication (Sumatriptan Succinate [Imitrex]) 100 mg PO ASDIRECTED PRN PRN Reason: Headache Senna/Docusate Sodium (Docusate Sodium/Sennosides 50-8.6 Mg Tab) 1 tab PO BID PRN PRN Reason: Constipation Sodium Chloride (Sodium Chloride 0.9% 10 Ml Syringe) 10 ml FLUSH ASDIRECTED PRN PRN Reason: Keep Vein Open Assessment/Plan Comment:: 1. Admitted for observation for nausea, vomiting, generalized abdominal pain. 2. Abdominal pain/N/V: Vistaril 50 mg IM q6h as needed, Toradol 30 mg IV q6h, morphine 2 mg IV q2h as needed, Tylenol 650 mg po as needed. CT abdomen/pelvis showed chronic diverticula & bilateral renal stones but no obstructive uropathy. History of bladder tumor. Labs within normal limits, lipase low. 3. Dehydration: ketones/glucose on UA, NS at 125 ml/hr. 4. UC: will try to get biopsy results from [facility] for 06/2013 colonoscopy which showed colitis. Received SoluMedrol 125 mg IV in ER. Toradol 30 mg IV q6h, if tolerates oral diet, then will restart her sulfasalazine 500 mg bid. MiraLax daily and Senna as needed constipation. 5. Anxiety: once tolerates clear liquids will increase her BuSpar to 10 mg tid, continue Mirtazapine 30 mg at bedtime, Follow up with Psychiatry as scheduled. 6. DM: Held her am Humalog 3 unit dose, BS was 196, onetime Humalog 1 unit, if she tolerates her lunch will continue her home evening dose of Treisba 16 units. Accuchecks ac & hs. 7. Diet: advance to clear liquids. 8. DVT prophylaxis: ambulate. 9. CODE STATUS: FULL. 10. Discharge: advance diet, adjust treatments as needed. Anticipate discharge 24-48 hours, advised to keep appointment on Sunday 03/[address] Seymour. - Mortality Measure Prognosis:: Good
[2021-03-23] MEDS: Calcium Carbonate 500 MG Tab.Chew PO PRN (11:58)
[2021-03-23] MEDS ORDERED: Ondansetron 4 MG Tab.DIS PO PRN (12:00)
[2021-03-23] MEDS: Metoclopramide 10 MG/2 ML SDV IVPUSH PRN ×2 (13:01→19:53)
[2021-03-23] MEDS: Insulin Lispro 100 Unit/ML 3 ML KwikPen SUBCUT SCH (18:52)
[2021-03-23] MEDS ORDERED: Bisacodyl 10 MG Supp RECTAL PRN (20:44)
[2021-03-23] MEDS: Mirtazapine 30 MG Tab PO SCH (20:46)
[2021-03-23] MEDS: sulfaSALAzine 500 MG Tab PO SCH (20:46)
[2021-03-23] MEDS: Melatonin 3 MG Tab PO SCH (20:46)
[2021-03-23] MEDS ORDERED: Non-Formulary Medication 1 Each (Melatonin [Melatonin] 10 MG Tablet) PO SCH (21:00)
[2021-03-23] MEDS ORDERED: Non-Formulary Medication 1 Each (Insulin Degludec [Tresiba] 100 UNIT/ML Vial) SQ SCH (21:00)
[2021-03-24] MEDS: Morphine 2 MG/ML SYRINGE IVPUSH PRN ×2 (01:30→08:21)
[2021-03-24] MEDS: hydrOXYzine HCl 50 MG/ML SDV IM PRN (01:33)
[2021-03-24] MEDS: Sodium Chloride 0.9% 1,000 ML IV SCH ×3 (03:00→19:47)
[2021-03-24] MEDS ORDERED: Sodium Phosphate,Monobasic/Sodium Phosphate,Dibasic Enema 133 ML Bottle RECTAL PRN (03:16)
[2021-03-24] MEDS: Ketorolac 30 MG/ML SDV IVPUSH SCH ×4 (03:41→21:19)
[2021-03-24] MEDS: Metoclopramide 10 MG/2 ML SDV IVPUSH PRN ×3 (08:20→21:58)
[2021-03-24] MEDS: Polyethylene Glycol 3350 Powder 17 GM Packet PO SCH (10:04)
[2021-03-24] MEDS: sulfaSALAzine 500 MG Tab PO SCH ×2 (10:11→21:19)
[2021-03-24] MEDS: Levothyroxine 25 MCG Tab PO SCH (10:11)
--- NOTE | 2021-03-24 10:12 | PCM.PN ---
- General Info Date of Service: 03/24/21 Subjective Update: Evelina had no emesis overnight since 1500 yesterday also did not have morphine then vomited her cranberry juice this morning, then a very minimal amount, clear. She did have morphine this morning. Has allergies to Dilaudid and oxycodone. She states she was told Sulfasalazine she could no longer get it after Dr Jennings left, that they weren't making it, he last prescribed it November 2020. Advised that we are still able to get generic form will check with [employer] if it is that [facility] can't get from distributor. She has been on this medication since Jul 2013 and has had more abdominal pain since going off the medication, more hospital/ER visits. She states BuSpar was started in the last few months and seems to be helping her anxiety, denies that when she gets anxious that she gets nauseous or vomits. She has not had a good bowel movement since Monday 03/19. CT did show stool in the colon and small bowel, minimal gas patterns. - Patient Data Vitals - Most Recent: Last Vital Signs Temp 99.1 F 03/24/21 05:00 Pulse 72 03/24/21 05:00 Resp 19 03/24/21 05:00 BP 145/89 H 03/24/21 05:00 Pulse Ox 97 03/24/21 05:00 Weight - Most Recent: 189 lb 3 oz I&O - Last 24 Hours: Intake & Output 03/23/21 03/24/21 03/24/21 22:59 06:59 14:59 Intake Total 490 716 Output Total 950 Balance 490 -234 Lab Results Last 24 Hours: Laboratory Results - last 24 hr 03/23/21 03/23/21 03/23/21 Range/Units 12:43 17:46 20:28 POC Glucose 207 H 193 H 194 H (80-116) mg/dL 03/23/21 03/24/21 Range/Units 22:12 05:29 POC Glucose 195 H 164 H (80-116) mg/dL Damian Results Last 24 Hours: Microbiology 03/24/21 03:35 Occult Blood - Final Stool / Feces Med Orders - Current: Current Medications Acetaminophen (Acetaminophen 650 Mg Supp) 650 mg RECTAL Q6H [facility] Bisacodyl (Bisacodyl 10 Mg Supp) 10 mg RECTAL DAILY PRN PRN Reason: Constipation Last Admin: 03/23/21 21:03 Dose: 10 mg Documented by: Calcium Carbonate/Glycine (Calcium Carbonate 500 Mg Tab.Chew) 1,000 mg PO Q4H PRN PRN Reason: Dyspepsia Last Admin: 03/23/21 11:58 Dose: 1,000 mg Documented by: Dextrose/Water (50% Dextrose In Water 50 Ml Syringe) 50 ml IVPUSH ASDIRECTED PRN PRN Reason: Hypoglycemia Enoxaparin Sodium (Enoxaparin 40 Mg/0.4 Ml Syringe) 40 mg SUBCUT Q24H [facility] Last Admin: 03/23/21 23:44 Dose: 40 mg Documented by: Glucagon (Glucagon,Human Recombinant 1 Mg Vial) 1 mg IM ASDIRECTED PRN PRN Reason: Hypoglycemia Hydroxyzine HCl (Hydroxyzine Hcl 50 Mg/Ml Sdv) 50 mg IM Q6H PRN PRN Reason: Nausea/Vomiting Last Admin: 03/24/21 01:33 Dose: 50 mg Documented by: Sodium Chloride (Normal Saline) 1,000 mls @ 125 mls/hr IV ASDIRECTED [facility] Last Admin: 03/24/21 03:00 Dose: 125 mls/hr Documented by: Insulin Human Lispro (Insulin Lispro 100 Unit/Ml 3 Ml Kwikpen) 4 unit SUBCUT DAILY@1200 [facility] Insulin Human Lispro (Insulin Lispro 100 Unit/Ml 3 Ml Kwikpen) 3 unit SUBCUT BIDMEALS [facility] Last Admin: 03/23/21 18:52 Dose: Not Given Documented by: Ketorolac Tromethamine (Ketorolac 30 Mg/Ml Sdv) 30 mg IVPUSH Q6H [facility] Stop: 03/28/21 10:01 Last Admin: 03/24/21 03:41 Dose: 30 mg Documented by: Levothyroxine Sodium (Levothyroxine 25 Mcg Tab) 25 mcg PO DAILY [facility] Last Admin: 03/23/21 09:12 Dose: Not Given Documented by: Melatonin (Melatonin 3 Mg Tab) 9 mg PO BEDTIME [facility] Last Admin: 03/23/21 20:46 Dose: Not Given Documented by: Metoclopramide HCl (Metoclopramide 10 Mg/2 Ml Sdv) 10 mg IVPUSH Q6H PRN PRN Reason: Nausea Last Admin: 03/24/21 08:20 Dose: 10 mg Documented by: Mirtazapine (Mirtazapine 30 Mg Tab) 30 mg PO BEDTIME [facility] Last Admin: 03/23/21 20:46 Dose: Not Given Documented by: Non-Formulary Medication (Sumatriptan Succinate [Imitrex]) 100 mg PO ASDIRECTED PRN PRN Reason: Headache Ondansetron HCl (Ondansetron 4 Mg Tab.Dis) 4 mg PO Q4H PRN PRN Reason: Nausea/Vomiting Pantoprazole Sodium (Pantoprazole 40 Mg Vial) 40 mg IVPUSH BID [facility] (Insulin Degludec [ Tresiba] Flex-Touch) *Pt Own Med* 0 each SUBCUT BEDTIME [facility] Last Admin: 03/23/21 20:59 Dose: 17 each Documented by: Polyethylene Glycol (Polyethylene Glycol 3350 Powder 17 Gm Packet) 17 gm PO DAILY [facility] Senna/Docusate Sodium (Docusate Sodium/Sennosides 50-8.6 Mg Tab) 1 tab PO BID PRN PRN Reason: Constipation Last Admin: 03/23/21 16:00 Dose: 1 tab Documented by: Senna/Docusate Sodium (Docusate Sodium/Sennosides 50-8.6 Mg Tab) 1 tab PO DAILY PRN PRN Reason: Constipation Sodium Biphosphate/Sodium Phosphate (Sodium Phosphate,Monobasic/Sodium Phosphate,Dibasic Enema 133 Ml Bottle) 133 ml RECTAL ONETIME PRN PRN Reason: Constipation Sodium Chloride (Sodium Chloride 0.9% 10 Ml Syringe) 10 ml FLUSH ASDIRECTED PRN PRN Reason: Keep Vein Open Last Admin: 03/23/21 17:07 Dose: 10 ml Documented by: Sulfasalazine (Sulfasalazine 500 Mg Tab) 500 mg PO BID [facility] Last Admin: 03/23/21 20:46 Dose: Not Given Documented by: Discontinued Medications Acetaminophen (Acetaminophen 325 Mg Tab) 650 mg PO Q6H PRN PRN Reason: Headache Last Admin: 03/23/21 11:53 Dose: 650 mg Documented by: Hydroxyzine HCl (Hydroxyzine Hcl 50 Mg/Ml Sdv) 50 mg IM ONETIME ONE Stop: 03/23/21 00:06 Last Admin: 03/23/21 00:20 Dose: 50 mg Documented by: Sodium Chloride (Normal Saline) 1,000 mls @ 999 mls/hr IV ASDIRECTED [facility] Last Admin: 03/22/21 22:19 Dose: 999 mls/hr Documented by: Acetaminophen 1,000 mg/ Premix 100 mls @ 400 mls/hr IV Q6H [facility] Stop: 03/25/21 13:01 Insulin Human Lispro (Insulin Lispro 100 Unit/Ml 3 Ml Kwikpen) 3 unit SUBCUT DAILY [facility] Last Admin: 03/23/21 09:19 Dose: Not Given Documented by: Insulin Human Lispro (Insulin Lispro 100 Unit/Ml 3 Ml Kwikpen) 1 unit SUBCUT ONETIME ONE Stop: 03/23/21 09:16 Last Admin: 03/23/21 09:27 Dose: 1 unit Documented by: Insulin Human Lispro (Insulin Lispro 100 Unit/Ml 3 Ml Kwikpen) 3 unit SUBCUT BIDMEALS [facility] Methylprednisolone Sodium Succinate (Methylprednisolone Sodium Succinate 125 Mg/2 Ml Sdv) 250 mg IVPUSH NOW STA Stop: 03/22/21 22:19 Last Admin: 03/22/21 22:33 Dose: 250 mg Documented by: Morphine Sulfate (Morphine 2 Mg/Ml Syringe) 4 mg IVPUSH NOW STA Stop: 03/22/21 22:16 Last Admin: 03/22/21 22:42 Dose: 4 mg Documented by: Morphine Sulfate (Morphine 2 Mg/Ml Syringe) Confirm Administered Dose 2 mg .ROUTE .STK-MED ONE Stop: 03/22/21 22:42 Last Admin: 03/22/21 23:07 Dose: Not Given Documented by: Morphine Sulfate (Morphine 2 Mg/Ml Syringe) 2 mg IVPUSH Q2H PRN PRN Reason: Pain (severe 7-10) Last Admin: 03/24/21 08:21 Dose: 2 mg Documented by: Non-Formulary Medication (Insulin Degludec [Tresiba]) 16 units SQ BEDTIME [facility] Non-Formulary Medication (Melatonin [Melatonin]) 1 tab PO BEDTIME [facility] Ondansetron HCl (Ondansetron 4 Mg/2 Ml Sdv) 4 mg IVPUSH NOW STA Stop: 03/22/21 22:07 Last Admin: 03/22/21 22:26 Dose: 4 mg Documented by: Ondansetron HCl (Ondansetron 4 Mg/2 Ml Sdv) 4 mg IVPUSH NOW STA Stop: 03/22/21 22:16 Last Admin: 03/22/21 23:08 Dose: Not Given Documented by: - Exam General: Alert, Oriented, Cooperative, No Acute Distress Lungs: Clear to Auscultation, Normal Respiratory Effort Cardiovascular: Regular Rate, Regular Rhythm GI/Abdominal Exam: Soft, No Distention, Guarding, Tender, Abnormal Bowel Sounds (hypoactive BS x 4, slight improvement from yesterday). No: Rigid, Rebound Extremities: No Pedal Edema Peripheral Pulses: 2+: Radial (L), Radial (R), Posterior Tibial (L), Posterior Tibial (R), Dorsalis Pedis (L), Dorsalis Pedis (R) Psy/Mental Status: Anxious. No: Normal Affect (flat) - Patient Data Lab Results Last 24 hrs: Laboratory Results - last 24 hr 03/23/21 03/23/21 03/23/21 Range/Units 12:43 17:46 20:28 POC Glucose 207 H 193 H 194 H (80-116) mg/dL 03/23/21 03/24/21 Range/Units 22:12 05:29 POC Glucose 195 H 164 H (80-116) mg/dL Result Diagrams: 03/23/21 06:35 03/23/21 06:35 Damian Results Last 24 hrs: Microbiology 03/24/21 03:35 Occult Blood - Final Stool / Feces Sepsis Event Note - Evaluation Sepsis Screening Result: No Definite Risk - Focused Exam Vital Signs: Vital Signs Temp Pulse Resp BP Pulse Ox 03/24/21 05:00 99.1 F 72 19 145/89 H 97 03/24/21 01:00 99.2 F 84 19 150/94 H 99 03/23/21 23:54 97 - Problem List & Annotations (1) Nausea and vomiting SNOMED Code(s): 44368232 Code(s): R11.2 - NAUSEA WITH VOMITING, UNSPECIFIED Status: Acute Current Visit: No Onset Date: 04/11/14 (2) Epigastric abdominal pain SNOMED Code(s): 30006256 Code(s): R10.13 - EPIGASTRIC PAIN Status: Acute Current Visit: No (3) Dehydration SNOMED Code(s): 81857444 Code(s): E86.0 - DEHYDRATION Status: Resolved Current Visit: No (4) Ulcerative colitis SNOMED Code(s): 67866130 Code(s): K51.90 - ULCERATIVE COLITIS, UNSPECIFIED, WITHOUT COMPLICATIONS Status: Chronic Current Visit: Yes Qualifiers: Ulcerative colitis location: unspecified ulcerative colitis location Digestive disease complication type: without complication Qualified Code(s): K51.90 - Ulcerative colitis, unspecified, without complications (5) Diabetes mellitus SNOMED Code(s): 84737517 Code(s): E11.9 - TYPE 2 DIABETES MELLITUS WITHOUT COMPLICATIONS Status: Chronic Current Visit: Yes Qualifiers: Diabetes mellitus fuse cup expander insulin use: with residential use (6) Anxiety SNOMED Code(s): 63672587 Code(s): F41.9 - ANXIETY DISORDER, UNSPECIFIED Status: Chronic Current Visit: No Onset Date: 04/07/14 - Problem List Review Problem List Initiated/Reviewed/Updated: Yes - My Orders Last 24 Hours: My Active Orders 03/23/21 09:11 Abdomen Pelvis wo Cont [CT] Routine 03/23/21 09:15 Dextrose 50% in Water 50 ml IVPUSH ASDIRECTED PRN Glucagon,Human Recombinant [GlucaGen] 1 mg IM ASDIRECTED PRN 03/23/21 10:00 Ketorolac [Toradol] 30 mg IVPUSH Q6H 03/23/21 Lunch Clear Liquid Diet [DIET] 03/23/21 11:36 Calcium Carbonate [Tums] 1,000 mg PO Q4H PRN 03/23/21 11:37 Docusate Sodium/Sennosides [Senna Plus] 1 tab PO DAILY PRN 03/23/21 12:00 Ondansetron [Zofran ODT] 4 mg PO Q4H PRN 03/23/21 12:52 Metoclopramide [Reglan] 10 mg IVPUSH Q6H PRN 03/23/21 18:00 Insulin Lispro [HumaLOG] 3 unit SUBCUT BIDMEALS 03/23/21 20:44 bisacodyL [Dulcolax] 10 mg RECTAL DAILY PRN 03/23/21 21:00 Melatonin 9 mg PO BEDTIME Patient's Own Medication [Ptom] 0 each SUBCUT BEDTIME sulfaSALAzine 500 mg PO BID 03/24/21 03:16 Na Phos,M-B/Na Phos,DI-B [Fleet Enema] 133 ml RECTAL ONETIME PRN 03/24/21 09:00 polyethylene glycoL 3350 [MiraLAX] 17 gm PO DAILY 03/24/21 09:15 Pantoprazole [ProTONIX IV] 40 mg IVPUSH BID 03/24/21 09:28 Antiembolic Hose [OM.PC] Routine 03/24/21 09:29 Communication Order [RC] ROUTINE 03/24/21 12:00 Insulin Lispro [HumaLOG] 4 unit SUBCUT DAILY@1200 03/24/21 13:00 Acetaminophen [Tylenol] 650 mg RECTAL Q6H - Plan Plan:: 1. Abdominal pain/N/V: Vistaril 50 mg IM q6h or Reglan 10 mg IV q6h as needed nausea/vomiting, Toradol 30 mg IV q6h, discontinue Morphine as this could be making nausea/vomiting worse, Tylenol 650 mg VA q6h alternating with Toradol since IV acetaminophen is not available. She asked about fleet enema to help have BM, if not adequate response, then would do soap suds enema. Protonix 40 mg IV bid. Stated she did trial of PPI after EGD found gastritis but was discontinued after she completed 8 weeks treatment course. 2. Dehydration: resolved. Urinating well. 3. UC: biopsy results from [facility] for 06/2013 colonoscopy which showed colitis, per office visit 06/28/[address] Jennings(printed copy in physical chart). Reading Dr Jennings notes, had minimal response to steroids in the past, has been on Sulfasalazine since 07/2013 until December 2020 when she was told it was not longer made, though we have it here. Could be pharmacy's distributor can't get. Sulfasalazine 500 mg bid. 4. Anxiety: BuSpar increase 10 mg tid, continue Mirtazapine 30 mg at bedtime, Follow up with Psychiatry as scheduled. 5. DM: Humalog 3 units at breakfast & supper, 4 units at noon, hold for sugars <200 if not eating. Tresiba 17 units at bedtime per her home dose. Accuchecks ac & hs. 6. Diet: advance to clear liquids. 7. Discharge: advance diet, adjust treatments as needed. Anticipate discharge 24-48 hours, advised to keep appointment on Sunday 03/[address] Seymour.
[2021-03-24] MEDS: Pantoprazole 40 MG Vial IVPUSH SCH ×2 (10:13→21:18)
[2021-03-24] MEDS: Insulin Lispro 100 Unit/ML 3 ML KwikPen SUBCUT SCH ×3 (10:29→18:01)
[2021-03-24] MEDS ORDERED: Acetaminophen 1,000 MG in Premix Bag 1 BAG IV SCH (13:00)
[2021-03-24] MEDS: Acetaminophen 650 MG Supp RECTAL SCH ×2 (13:12→19:15)
[2021-03-24] MEDS: Melatonin 3 MG Tab PO SCH (21:18)
[2021-03-24] MEDS: Mirtazapine 30 MG Tab PO SCH (21:19)
[2021-03-24] MEDS: Enoxaparin 40 MG/0.4 ML Syringe SUBCUT SCH (22:28)
[2021-03-25] MEDS: Acetaminophen 650 MG Supp RECTAL SCH ×2 (01:29→06:04)
[2021-03-25] MEDS: Sodium Chloride 0.9% 1,000 ML IV SCH (03:53)
[2021-03-25] MEDS: Ketorolac 30 MG/ML SDV IVPUSH SCH (03:57)
[2021-03-25] MEDS: Metoclopramide 10 MG/2 ML SDV IVPUSH PRN (07:35)
[2021-03-25 09:13] VITALS: BP 142/103; PULSE 75
[2021-03-25] MEDS: Insulin Lispro 100 Unit/ML 3 ML KwikPen SUBCUT SCH ×2 (09:32→12:08)
[2021-03-25] MEDS ORDERED: Ibuprofen 200 MG Tab PO SCH (10:00)
[2021-03-25] MEDS ORDERED: Pantoprazole 40 MG Tab.CR PO SCH (10:15)
[2021-03-25] MEDS: Polyethylene Glycol 3350 Powder 17 GM Packet PO SCH (10:41)
[2021-03-25] MEDS: Levothyroxine 25 MCG Tab PO SCH (10:41)
[2021-03-25] MEDS: sulfaSALAzine 500 MG Tab PO SCH (10:43)
--- NOTE | 2021-03-25 10:51 | PCM.DCSUM1 ---
Discharge Summary - Hospital Course HPI Initial Comments: Evelina was discharged from [facility] yesterday where she had been admitted since 03/20 for abdominal pain, nausea, vomiting. She reported after her discharge and drive home to [place] she was vomiting the whole way home so stopped at [facility] for evaluation. She had RUQ ultrasound and abdominal x-ray during her hospital admission in [place] which was negative for gallstones but has chronic bilateral kidney stones present. She has history of ulcerative colitis found on colonoscopy by Dr Jennings, has been off Sulfasalazine because was told its no longer being made. She denies any fevers, chills, sore throat but states she has a cough. No shortness of breath, chest pain. Last BM was 03/19, states she gets constipated when she gets colitis flares, would like something to help with bowel movement. No flank pain, hematuria or frequency. LMP 03/09, occurs every 30 days, lasts 3-4 days normal flow with passing clots. History of Tubal ligation, caesarean section x 3. She has appointment on Thursday with Dr Seymour as she has been having issues with her periods(passing clots). She was seen by Psychiatry for some intentional feigning behaviors. She was seen by Psychiatry for this, they were unsure if this was reflective of a secondary gain process or flection of patient wanting to relieve pain and not feeling she was heard. She was referred for outpatient psychiatry appt to evaluate for factitious disorder vs somatoform disorder. She is currently on BuSpar 10 mg bid and Mirtazapine 30 mg at bedtime, she was discharged on Xanax 0.25 2 tab q12, #8 dispensed and Zofran 8 mg as well as hydrocodone/APAP as needed for severe pain. Also referral to GI for Ulcerative colitis, EGD/Colonoscopies have been done here with Dr Jennings, 06/14/2013 report showed colitis of rectum & ascending colon, multiple biopsies were done, biopsy reports were sent to Dr Jennings's office at [place]. Office visit 06/28/2013 show that her biopsy results came back chronic colitis consistent with ulcerative colitis. She was placed on Prednisone taper which did not control her symptoms then started on Sulfasalazine 500 mg bid Jul 2013, last filled 11/[address] Jennings. [facility] has not been able to get it. It was on shortage for a little while but now supplies are back to normal. Diagnosis: Stroke: No - Discharge Data Discharge Date: 03/25/21 Discharge Disposition: Home, Self-Care 01 Condition: Good - Referral to Home Health Primary Care Physician: Jordan Seymour MD - Discharge Diagnosis/Problem(s) (1) Diabetic gastroparesis SNOMED Code(s): 474504020 ICD Code: E11.43 - TYPE 2 DIABETES W DIABETIC AUTONOMIC (POLY)NEUROPATHY; K31.84 - GASTROPARESIS Status: Acute Current Visit: Yes (2) Nausea and vomiting SNOMED Code(s): 63269408 ICD Code: R11.2 - NAUSEA WITH VOMITING, UNSPECIFIED Status: Resolved Current Visit: No Onset Date: 04/11/14 (3) Epigastric abdominal pain SNOMED Code(s): 20855677 ICD Code: R10.13 - EPIGASTRIC PAIN Status: Resolved Current Visit: No (4) Dehydration SNOMED Code(s): 74027783 ICD Code: E86.0 - DEHYDRATION Status: Resolved Current Visit: No (5) Ulcerative colitis SNOMED Code(s): 48808855 ICD Code: K51.90 - ULCERATIVE COLITIS, UNSPECIFIED, WITHOUT COMPLICATIONS Status: Chronic Current Visit: Yes Qualifiers: Ulcerative colitis location: unspecified ulcerative colitis location Digestive disease complication type: without complication Qualified Code(s): K51.90 - Ulcerative colitis, unspecified, without complications (6) Diabetes mellitus SNOMED Code(s): 31118329 ICD Code: E11.9 - TYPE 2 DIABETES MELLITUS WITHOUT COMPLICATIONS Status: Chronic Current Visit: Yes Qualifiers: Diabetes mellitus prison insulin use: 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 Labs were normal so not repeated during stay. She was on clear liquids over the weekend, sometimes would have posttussive emesis but was only if staff were present in the room, otherwise she would be sleeping. She never had any emesis with night nurses. She had not BM since 03/18, had suppository and then fleet enema with small results. Morphine was held as felt was compounding her nausea and slowing her bowel down. Pain controlled with Toradol/Acetaminophen, switched to Ibuprofen schedule with Tylenol. Metoclopramide switched from q6h as needed to qidac&hs for suspected gastroparesis. Her last EGD/colonoscopy was with Dr Jennings, had gastritis and chronic colitis consistent with ulcerative colitis on biopsies(see office note 06/28/2013 [place] chart). Restarted Sulfasalazine 500 mg bid, has been on this since Jul 2013, was stopped in December due to med shortage and local pharmacy not able to get it. Increased her Buspar to 10 mg tid. Restarted her pantoprazole 40 mg bid. Her sugars stayed in 150-190s range all weekend, held her meal time Humalog but she was getting her Tresiba 17 units at bedtime. Had feigning behaviors all weekend, needs to keep her psychiatry appointment, referral was sent by [facility] on her discharge from [place] on 03/22. She also will need EGD/colonoscopy as outpatient. - Patient Instructions Diet: Diabetic Diet Activity: As Tolerated Driving: Do Not Drive Showering/Bathing: May Shower Notify Provider of: Fever, Increased Pain, Nausea and/or Vomiting Other/Special Instructions: Keep your appt with Dr Seymour next week in [place] to set up EGD/colonoscopy. Increase BuSpar to three times a day for your anxiety. Metoclopramide 10 mg before meals and at bedtime to help your stomach empty. Pantoprazole 40 mg twice a day use up what you have a home. New script for Sulfasalazine 500 mg twice a day sent to [facility]. [place] [facility] will be calling you to set up appointment. - Discharge Plan *PRESCRIPTION DRUG MONITORING PROGRAM REVIEWED*: Yes *COPY OF PRESCRIPTION DRUG MONITORING REPORT IN PATIENT JOCELYNN: Not Applicable Prescriptions/Med Rec: busPIRone [Buspar] 10 mg PO TID 7 Days #21 tab Metoclopramide HCl 10 mg PO QIDACANDBED 7 Days #28 tablet Docusate Sodium/Sennosides [Senna Plus] 1 tab PO DAILY PRN #7 tablet PRN Reason: Constipation sulfaSALAzine 500 mg PO BID #60 tablet Home Medications: Home Meds Mirtazapine [Remeron] 30 mg PO BEDTIME 11/13/17 [History] SUMAtriptan succinate [Imitrex] 100 mg PO ASDIRECTED PRN 11/13/17 [History] Insulin Degludec [Tresiba] 17 units SQ BEDTIME 03/22/21 [History] Levothyroxine Sodium [Levothyroxine] 25 mcg PO DAILY 03/22/21 [History] ALPRAZolam [Alprazolam] 2 tab PO Q12H PRN 03/23/21 [History] Acetaminophen [Acetaminophen Extra Strength] 2 tab PO Q6H PRN 03/23/21 [History] Calcium Carbonate [Tums] 2 tab PO Q4H PRN 03/23/21 [History] Melatonin 1 tab PO BEDTIME 03/23/21 [History] Ondansetron [Zofran ODT] 1 tab PO TID PRN 03/23/21 [History] Docusate Sodium/Sennosides [Senna Plus] 1 tab PO DAILY PRN #7 tablet 03/25/21 [Rx] Insulin Lispro [Humalog] 3 unit SUBCUT BIDMEALS pen 03/25/21 [Rx] Insulin Lispro [Humalog] 4 unit SUBCUT DAILY@1200 pen 03/25/21 [Rx] Metoclopramide HCl 10 mg PO QIDACANDBED 7 Days #28 tablet 03/25/21 [Rx] Pantoprazole [ProTONIX] 40 mg PO BID tab.cr 03/25/21 [Rx] busPIRone [Buspar] 10 mg PO TID 7 Days #21 tab 03/25/21 [Rx] sulfaSALAzine 500 mg PO BID #60 tablet 03/25/21 [Rx] Patient Handouts: Metoclopramide tablets, Sulfasalazine tablets, Buspirone tablets, Nausea and Vomiting, Adult, Ulcerative Colitis, Adult, Venous Thromboembolism Prevention, Diabetes Mellitus and Nutrition, Adult Forms: ED Department Discharge Referrals: Jordan Seymour MD [Primary Care Provider] - - Discharge Summary/Plan Comment DC Time >30 min.: No - General Info Date of Service: 03/25/21 Subjective Update: Evelina has had some feigning behaviors over the weekend, also reported in her documentation at [place], some nurses she would have no vomiting episodes and would ambulate in the halls and then with other nurses she would have posttussive emesis which staff felt was induced by patient, also she asking to use bedpan rather than walking to the toilet. She could have some diabetic gastroparesis, had been using Reglan as needed nausea, will change to qidac&bedtime. She also had history of gastritis on EGD, she does have pantoprazole at home, will get oral here, advised to restart at home. She will go home today, she cancelled her appointment with Dr Seymour today though we had discussed that I was going to discharge her to go to that appointment all weekend. She moved appt to next week. Increased her dose BuSpar to 10 mg tid. She had fleet enema, some yellow/orange stools with mucus present. Restarted Sulfasalazine. 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 - Patient Data Vitals - Most Recent: Last Vital Signs Temp 99.1 F 03/25/21 09:00 Pulse 75 03/25/21 09:00 Resp 12 03/25/21 09:00 BP 142/103 H 03/25/21 09:00 Pulse Ox 96 03/25/21 09:00 Weight - Most Recent: 187 lb 1 oz I&O - Last 24 hours: Intake & Output 03/24/21 03/25/21 03/25/21 22:59 06:59 14:59 Intake Total 1643 1015 847 Output Total 900 900 500 Balance 743 115 347 Lab Results - Last 24 hrs: Laboratory Results - last 24 hr 03/24/21 03/24/21 03/24/21 Range/Units 10:37 17:31 21:47 POC Glucose 162 H 152 H 136 H (80-116) mg/dL 03/25/21 Range/Units 07:48 POC Glucose 167 H (80-116) mg/dL Med Orders - Current: Current Medications Acetaminophen (Acetaminophen 500 Mg Tab) 500 mg PO Q6H [facility] Calcium Carbonate/Glycine (Calcium Carbonate 500 Mg Tab.Chew) 1,000 mg PO Q4H PRN PRN Reason: Dyspepsia Last Admin: 03/23/21 11:58 Dose: 1,000 mg Documented by: Dextrose/Water (50% Dextrose In Water 50 Ml Syringe) 50 ml IVPUSH ASDIRECTED PRN PRN Reason: Hypoglycemia Enoxaparin Sodium (Enoxaparin 40 Mg/0.4 Ml Syringe) 40 mg SUBCUT Q24H [facility] Glucagon (Glucagon,Human Recombinant 1 Mg Vial) 1 mg IM ASDIRECTED PRN PRN Reason: Hypoglycemia Hydroxyzine HCl (Hydroxyzine Hcl 50 Mg/Ml Sdv) 50 mg IM Q6H PRN PRN Reason: Nausea/Vomiting Last Admin: 03/24/21 01:33 Dose: 50 mg Documented by: Sodium Chloride (Normal Saline) 1,000 mls @ 125 mls/hr IV ASDIRECTED [facility] Last Admin: 03/25/21 03:53 Dose: 125 mls/hr Documented by: Ibuprofen (Ibuprofen 200 Mg Tab) 200 mg PO Q6H [facility] Insulin Human Lispro (Insulin Lispro 100 Unit/Ml 3 Ml Kwikpen) 4 unit SUBCUT DAILY@1200 [facility] Last Admin: 03/24/21 12:00 Dose: Not Given Documented by: Insulin Human Lispro (Insulin Lispro 100 Unit/Ml 3 Ml Kwikpen) 3 unit SUBCUT BIDMEALS [facility] Last Admin: 03/25/21 09:32 Dose: Not Given Documented by: Levothyroxine Sodium (Levothyroxine 25 Mcg Tab) 25 mcg PO DAILY [facility] Last Admin: 03/24/21 10:11 Dose: 25 mcg Documented by: Melatonin (Melatonin 3 Mg Tab) 9 mg PO BEDTIME [facility] Last Admin: 03/24/21 21:18 Dose: 9 mg Documented by: Metoclopramide HCl (Metoclopramide 10 Mg Tab) 10 mg PO QIDACANDBED [facility] Mirtazapine (Mirtazapine 30 Mg Tab) 30 mg PO BEDTIME [facility] Last Admin: 03/24/21 21:19 Dose: 30 mg Documented by: Non-Formulary Medication (Sumatriptan Succinate [Imitrex]) 100 mg PO ASDIRECTED PRN PRN Reason: Headache Ondansetron HCl (Ondansetron 4 Mg Tab.Dis) 4 mg PO Q4H PRN PRN Reason: Nausea/Vomiting Pantoprazole Sodium (Pantoprazole 40 Mg Tab.Cr) 40 mg PO BID [facility] (Insulin Degludec [ Tresiba] Flex-Touch) *Pt Own Med* 0 each SUBCUT BEDTIME [facility] Last Admin: 03/24/21 21:09 Dose: Not Given Documented by: Polyethylene Glycol (Polyethylene Glycol 3350 Powder 17 Gm Packet) 17 gm PO DAILY [facility] Last Admin: 03/24/21 10:04 Dose: Not Given Documented by: Senna/Docusate Sodium (Docusate Sodium/Sennosides 50-8.6 Mg Tab) 1 tab PO BID PRN PRN Reason: Constipation Last Admin: 03/23/21 16:00 Dose: 1 tab Documented by: Senna/Docusate Sodium (Docusate Sodium/Sennosides 50-8.6 Mg Tab) 1 tab PO DAILY PRN PRN Reason: Constipation Sodium Biphosphate/Sodium Phosphate (Sodium Phosphate,Monobasic/Sodium Phosphate,Dibasic Enema 133 Ml Bottle) 133 ml RECTAL ONETIME PRN PRN Reason: Constipation Last Admin: 03/24/21 10:31 Dose: 133 ml Documented by: Sodium Chloride (Sodium Chloride 0.9% 10 Ml Syringe) 10 ml FLUSH ASDIRECTED PRN PRN Reason: Keep Vein Open Last Admin: 03/23/21 17:07 Dose: 10 ml Documented by: Sulfasalazine (Sulfasalazine 500 Mg Tab) 500 mg PO BID [facility] Last Admin: 03/24/21 21:19 Dose: 500 mg Documented by: Discontinued Medications Acetaminophen (Acetaminophen 325 Mg Tab) 650 mg PO Q6H PRN PRN Reason: Headache Last Admin: 03/23/21 11:53 Dose: 650 mg Documented by: Acetaminophen (Acetaminophen 650 Mg Supp) 650 mg RECTAL Q6H [facility] Last Admin: 03/25/21 06:04 Dose: 650 mg Documented by: Bisacodyl (Bisacodyl 10 Mg Supp) 10 mg RECTAL DAILY PRN PRN Reason: Constipation Last Admin: 03/23/21 21:03 Dose: 10 mg Documented by: Enoxaparin Sodium (Enoxaparin 40 Mg/0.4 Ml Syringe) 40 mg SUBCUT Q24H [facility] Last Admin: 03/24/21 22:28 Dose: 40 mg Documented by: Hydroxyzine HCl (Hydroxyzine Hcl 50 Mg/Ml Sdv) 50 mg IM ONETIME ONE Stop: 03/23/21 00:06 Last Admin: 03/23/21 00:20 Dose: 50 mg Documented by: Sodium Chloride (Normal Saline) 1,000 mls @ 999 mls/hr IV ASDIRECTED [facility] Last Admin: 03/22/21 22:19 Dose: 999 mls/hr Documented by: Acetaminophen 1,000 mg/ Premix 100 mls @ 400 mls/hr IV Q6H [facility] Stop: 03/25/21 13:01 Insulin Human Lispro (Insulin Lispro 100 Unit/Ml 3 Ml Kwikpen) 3 unit SUBCUT DAILY [facility] Last Admin: 03/23/21 09:19 Dose: Not Given Documented by: Insulin Human Lispro (Insulin Lispro 100 Unit/Ml 3 Ml Kwikpen) 1 unit SUBCUT ONETIME ONE Stop: 03/23/21 09:16 Last Admin: 03/23/21 09:27 Dose: 1 unit Documented by: Insulin Human Lispro (Insulin Lispro 100 Unit/Ml 3 Ml Kwikpen) 3 unit SUBCUT BIDMEALS [facility] Ketorolac Tromethamine (Ketorolac 30 Mg/Ml Sdv) 30 mg IVPUSH Q6H [facility] Stop: 03/28/21 10:01 Last Admin: 03/25/21 03:57 Dose: 30 mg Documented by: Methylprednisolone Sodium Succinate (Methylprednisolone Sodium Succinate 125 Mg/2 Ml Sdv) 250 mg IVPUSH NOW STA Stop: 03/22/21 22:19 Last Admin: 03/22/21 22:33 Dose: 250 mg Documented by: Metoclopramide HCl (Metoclopramide 10 Mg/2 Ml Sdv) 10 mg IVPUSH Q6H PRN PRN Reason: Nausea Last Admin: 03/25/21 07:35 Dose: 10 mg Documented by: Morphine Sulfate (Morphine 2 Mg/Ml Syringe) 4 mg IVPUSH NOW STA Stop: 03/22/21 22:16 Last Admin: 03/22/21 22:42 Dose: 4 mg Documented by: Morphine Sulfate (Morphine 2 Mg/Ml Syringe) Confirm Administered Dose 2 mg .ROUTE .STK-MED ONE Stop: 03/22/21 22:42 Last Admin: 03/22/21 23:07 Dose: Not Given Documented by: Morphine Sulfate (Morphine 2 Mg/Ml Syringe) 2 mg IVPUSH Q2H PRN PRN Reason: Pain (severe 7-10) Last Admin: 03/24/21 08:21 Dose: 2 mg Documented by: Non-Formulary Medication (Insulin Degludec [Tresiba]) 16 units SQ BEDTIME [facility] Non-Formulary Medication (Melatonin [Melatonin]) 1 tab PO BEDTIME [facility] Ondansetron HCl (Ondansetron 4 Mg/2 Ml Sdv) 4 mg IVPUSH NOW STA Stop: 03/22/21 22:07 Last Admin: 03/22/21 22:26 Dose: 4 mg Documented by: Ondansetron HCl (Ondansetron 4 Mg/2 Ml Sdv) 4 mg IVPUSH NOW STA Stop: 03/22/21 22:16 Last Admin: 03/22/21 23:08 Dose: Not Given Documented by: Pantoprazole Sodium (Pantoprazole 40 Mg Vial) 40 mg IVPUSH BID [facility] Last Admin: 03/24/21 21:18 Dose: 40 mg Documented by: - Exam General: Reports: Alert, Oriented, Cooperative, No Acute Distress Lungs: Reports: Clear to Auscultation Cardiovascular: Reports: Regular Rate, Regular Rhythm GI/Abdominal Exam: Normal Bowel Sounds, Soft, Non-Tender, No Distention Extremities: No Pedal Edema Psy/Mental Status: Denies: Normal Affect
[2021-03-25] MEDS ORDERED: Metoclopramide 10 MG Tab PO SCH (11:30)
[2021-03-25] MEDS: Acetaminophen 500 MG Tab PO SCH ×2 (12:00→12:06)
[2021-03-25] MEDS ORDERED: Enoxaparin 40 MG/0.4 ML Syringe SUBCUT SCH (21:00)
== END 2021-03-25 12:30 | disposition home or self-care (01) ==
LOC: FB.ED 21:16 → FB.MS 03-23 00:02
PROVIDERS: ADMIT Emergency Medicine; ATTEND Family Medicine
DX: E10.43 Type 1 diabetes mellitus with diabetic autonomic (poly)neuropathy (principal); K31.84 Gastroparesis; E86.0 Dehydration; K51.90 Ulcerative colitis, unspecified, without complications; F41.9 Anxiety disorder, unspecified; E66.9 Obesity, unspecified; Z79.899 Other long term (current) drug therapy; Z88.5 Allergy status to narcotic agent; Z88.8 Allergy status to other drugs, medicaments and biological substances; Z87.19 Personal history of other diseases of the digestive system; Z98.890 Other specified postprocedural states
CPT/HCPCS: 36415; 74176; 80048; 80053; 80305-QW; 81001; 81025; 82150; 82270; 82947; 83690; 85025; 96372; 96374; 96375; 96376; 99285; 99285-25; A9270-GY; C9113; G0378; J1650; J1815; J1815-GY; J1885; J2270; J2405; J2765; J2930; J3410; J7030

== ENCOUNTER 2021-03-26 13:54 | Emergency (ER) | payer OTHER, MEDICAID ==
[2021-03-26] MEDS ORDERED: Sodium Chloride 0.9% 1,000 ML IV ONE ×2 (14:22→16:09)
[2021-03-26] MEDS ORDERED: Ondansetron 4 MG/2 ML SDV IVPUSH ONE (14:22)
--- NOTE | 2021-03-26 14:28 | EDM.PDOC ---
ED HPI GENERAL MEDICAL PROBLEM - General Stated Complaint: nausa/vomiting/pain upper abdomin Time Seen by Provider: 03/26/21 14:15 Source of Information: Reports: Patient History Limitations: Reports: No Limitations - History of Present Illness INITIAL COMMENTS - FREE TEXT/NARRATIVE: c/o n/v pt has h/o cyclic vomiting syndrome, PTSD, anxiety did apparently have ulcerative colitis in the distant past, has not seen GI in over 5y was hosp x 2d last week at [facility] and noted to have factitious vomiting then, would vomit when certain RNs walked in the room and the would feign a faint, not when others were there, then on drive lives alone, not working, says she is dealing PTSD d/t COVID which she had one yr ago says she is working with a counselor had a telehealth visit with PCP Dr Seymour, Dr Lawton called hospitalist Dr Mehta and said he was sending pt to ED, Dr Mehta spoke with me re pt's recent tx, Dr Mehta began pt on sulfasazine and Reglan which pt has taken labs 3d ago neg except 50 mg/dl ketones in urine, last abd CT neg pt states she was fluids and meds Epigastric Pain Score (Numeric/FACES): 8 - Related Data Allergies Allergy/AdvReac Type Severity Reaction Status Date / Time adhesive Allergy Rash Verified 05/15/20 11:22 cefdinir [From Omnicef] Allergy Rash Verified 05/15/20 11:22 fluticasone propionate Allergy Headache Verified 05/15/20 11:22 [From Flonase] hydrocodone bitartrate Allergy Cannot Verified 05/15/20 11:22 [From Vicodin] Remember hydromorphone [From Dilaudid] Allergy Itching Verified 05/15/20 11:22 latex Allergy Hives Verified 05/15/20 11:22 quetiapine fumarate Allergy Confusion Verified 05/15/20 11:22 [From Seroquel] sertraline HCl [From Zoloft] Allergy Confusion Verified 05/15/20 11:22 Home Meds: Home Meds Mirtazapine [Remeron] 30 mg PO BEDTIME 11/13/17 [History] SUMAtriptan succinate [Imitrex] 100 mg PO ASDIRECTED PRN 03/09/18 [History] Insulin Degludec [Tresiba] 17 units SQ BEDTIME 03/22/21 [History] Levothyroxine Sodium [Levothyroxine] 25 mcg PO DAILY 03/22/21 [History] ALPRAZolam [Alprazolam] 2 tab PO Q12H PRN 03/23/21 [History] Acetaminophen [Acetaminophen Extra Strength] 2 tab PO Q6H PRN 03/23/21 [History] Calcium Carbonate [Tums] 2 tab PO Q4H PRN 03/23/21 [History] Melatonin 1 tab PO BEDTIME 03/23/21 [History] Ondansetron [Zofran ODT] 1 tab PO TID PRN 03/23/21 [History] Docusate Sodium/Sennosides [Senna Plus] 1 tab PO DAILY PRN #7 tablet 03/25/21 [Rx] Insulin Lispro [Humalog] 3 unit SUBCUT BIDMEALS pen 03/25/21 [Rx] Insulin Lispro [Humalog] 4 unit SUBCUT DAILY@1200 pen 03/25/21 [Rx] Metoclopramide HCl 10 mg PO QIDACANDBED 7 Days #28 tablet 03/25/21 [Rx] Pantoprazole [ProTONIX] 40 mg PO BID tab.cr 03/25/21 [Rx] busPIRone [Buspar] 10 mg PO TID 7 Days #21 tab 03/25/21 [Rx] sulfaSALAzine 500 mg PO BID #60 tablet 03/25/21 [Rx] Ciprofloxacin [Cipro XR] 500 mg PO BID #10 tab.er 03/26/21 [Rx] Hydrocort/Neomycin/Polymyxin B [Ofqzuesb-Ljjbyeoie-QD Otic Susp] 3 drop EARLF TID 5 Days #5 ml 03/26/21 [Rx] Past Medical History - Past Health History Medical/Surgical History: Denies Medical/Surgical History HEENT History: Reports: Impaired Vision, Sinusitis, Other (See Below) Other HEENT History: CHRONIC MYOPIA Cardiovascular History: Reports: None Respiratory History: Reports: Asthma Other Respiratory History: activity induced asthma Gastrointestinal History: Reports: GERD, Inflammatory Bowel Disease, Pancreatitis Other Gastrointestinal History: colitis Genitourinary History: Reports: Renal Calculus 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: Neurological History: Reports: Migraines Psychiatric History: Reports: ADHD, Anxiety, Depression, Developmental Delay, Suicide Attempt Endocrine/Metabolic History: Reports: Diabetes, Type I, Obesity/BMI 30+, Other (See Below) 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 Hematologic History: Reports: None Immunologic History: Reports: None Oncologic (Cancer) History: Reports: None Dermatologic History: Reports: None - Infectious Disease History Infectious Disease History: Reports: Chicken Pox - Past Surgical History Head Surgeries/Procedures: Reports: None GI Surgical History: Reports: Colonoscopy, EGD Female Surgical History: Reports: Section, Lithotripsy/ESWL, Tubal Ligation Other Female Surgeries/Procedures: 3 c-sections Musculoskeletal Surgical History: Reports: Arthroscopic Knee Other Musculoskeletal Surgeries/Procedures:: R KNEE ARTHROSCOPY Social & Family History - Family History Family Medical History: Unobtainable Cardiac: Reports: MS Musculoskeletal: Reports: RA Oncologic: Reports: Pancreatic - Caffeine Use Caffeine Use: Reports: None ED ROS GENERAL - Review of Systems Review Of Systems: See Below Constitutional: Reports: No Symptoms HEENT: Reports: No Symptoms Respiratory: Reports: No Symptoms Cardiovascular: Reports: No Symptoms Endocrine: Reports: No Symptoms GI/Abdominal: Reports: Abdominal Pain, Nausea, Vomiting : Reports: No Symptoms Musculoskeletal: Reports: No Symptoms Skin: Reports: No Symptoms Neurological: Reports: No Symptoms Psychiatric: Reports: No Symptoms Hematologic/Lymphatic: Reports: No Symptoms Immunologic: Reports: No Symptoms ED EXAM, GI/ABD - Physical Exam Exam: See Below Exam Limited By: No Limitations General Appearance: Alert, WD/WN, No Apparent Distress, Other (sitting cross legged on bed, rocking back and forth, answers questions, makes eye contact, is evasive in her answers) Head: Atraumatic Neck: Normal Inspection Respiratory/Chest: No Respiratory Distress Cardiovascular: Regular Rate, Rhythm, No Edema Back Exam: Normal Inspection, Full Range of Motion. No: CVA Tenderness (R), CVA Tenderness (L) Extremities: Normal Inspection, Normal Range of Motion, Non-Tender, No Pedal Andrea ma Neurological: Alert, Oriented, CN II-XII Intact, No Motor/Sensory Deficits Skin Exam: Warm, Dry, Intact, Normal Color, No Rash Lymphatic: No Adenopathy Comments: turgor wnl, trace epigastric tender, abd soft and NT elsewhere, pt states she wants fluids and "meds", her agenda is not clear Course - Vital Signs Last Recorded V/S: Last Vital Signs Temp 37.0 C 03/26/21 13:58 Pulse 62 03/26/21 13:58 Resp 18 03/26/21 13:58 BP 192/109 H 03/26/21 13:58 Pulse Ox 98 03/26/21 13:58 - Orders/Labs/Meds Orders: Active Orders 24 hr Category Date Time Status CULTURE URINE [RM] Stat Lab 03/26/21 16:09 Ordered Ciprofloxacin [Ciprofloxacin HCl] Med 03/26/21 18:03 Once 500 mg PO ONETIME ONE Medication Orders Ciprofloxacin (Ciprofloxacin 500 Mg Tab) 500 mg PO ONETIME ONE Stop: 03/26/21 18:04 Labs: Laboratory Tests 03/26/21 03/26/21 03/26/21 Range/Units 15:24 16:30 16:30 WBC 11.5 H (3.0-10.3) x10-3/uL RBC 4.63 (3.60-5.20) x10(6)uL Hgb 14.2 (11.4-15.5) g/dL Hct 41.9 (34.2-48.2) % MCV 90.6 (76.7-100.5) fL MCH 30.8 (23.9-33.9) pg MCHC 34.0 (31.9-34.8) g/dL RDW 12.9 (12.3-16.5) % Plt Count 277 (151-488) x10(3)uL MPV 7.0 L (7.1-12.4) fL Neut % (Auto) 81.4 H (30.8-76.2) % Lymph % (Auto) 12.9 L (18.4-52.1) % [place] % (Auto) 5.4 (4.4-15.7) % Eos % (Auto) 0.0 L (0.6-8.1) % Baso % (Auto) 0.3 (0.2-1.5) % Neut # (Auto) 9.3 H (1.5-6.3) x10-3/uL Lymph # (Auto) 1.5 (1.0-4.4) x10-3/uL [place] # (Auto) 0.6 (0.3-1.0) x10-3/uL Eos # (Auto) 0.0 (0.0-0.8) x10-3/uL Baso # (Auto) 0.0 (0.0-0.1) x10-3/uL POC VBG pH (7.32-7.43) pH Units POC VBG pCO2 (41-51) mmHg POC VBG HCO3 (21-29) mmol/L VBG Base Excess (-2-3) mmol/L O2 Delivery Device Sodium 142 (135-145) mmol/L Potassium 3.5 (3.5-5.3) mmol/L Chloride 101 (100-110) mmol/L Carbon Dioxide 26 (21-32) mmol/L BUN 15 (7-18) mg/dL Creatinine 0.8 (0.55-1.02) mg/dL Est Cr Clr Drug Dosing 75.48 mL/min Estimated GFR (MDRD) > 60 (>60) BUN/Creatinine Ratio 18.8 (9-20) Glucose 190 H (80-116) mg/dL Hemoglobin A1c (<5.7) % Calcium 8.1 L (8.6-10.2) mg/dL Total Bilirubin 0.7 (0.1-1.3) mg/dL AST 11 D (5-25) IU/L ALT 24 (12-36) U/L Alkaline Phosphatase 49 L (56-112) IU/L C-Reactive Protein (0.5-0.9) mg/dL Total Protein 7.0 (6.0-8.0) g/dL Albumin 3.6 (3.5-5.2) g/dL Globulin 3.4 g/dL Albumin/Globulin Ratio 1.1 Urine Color Eddy (YELLOW) Urine Appearance Slightly cloudy (CLEAR) Urine pH 6.0 (5.0-6.5) Ur Specific [place] 1.020 (1.010-1.025) Urine Protein 30 H (NEGATIVE) mg/dL Urine Glucose (UA) >1000 H (NORMAL) mg/dL Urine Ketones 150 H (NEGATIVE) mg/dL Urine Occult Blood Large H (NEGATIVE) Urine Nitrite Negative (NEGATIVE) Urine Bilirubin Small H (NEGATIVE) Urine Urobilinogen 1 H (NEGATIVE) mg/dL Ur Leukocyte Esterase Small H (NEGATIVE) Urine RBC 30-40 H (0-5) Urine WBC 5-10 H (0-5) Ur Squamous Epith Cells Few H (NS,R,O) Urine Bacteria Moderate H (NS) Urine Mucus Moderate H (NS) 03/26/21 03/26/21 03/26/21 Range/Units 16:30 16:30 16:30 WBC (3.0-10.3) x10-3/uL RBC (3.60-5.20) x10(6)uL Hgb (11.4-15.5) g/dL Hct (34.2-48.2) % MCV (76.7-100.5) fL MCH (23.9-33.9) pg MCHC (31.9-34.8) g/dL RDW (12.3-16.5) % Plt Count (151-488) x10(3)uL MPV (7.1-12.4) fL Neut % (Auto) (30.8-76.2) % Lymph % (Auto) (18.4-52.1) % [place] % (Auto) (4.4-15.7) % Eos % (Auto) (0.6-8.1) % Baso % (Auto) (0.2-1.5) % Neut # (Auto) (1.5-6.3) x10-3/uL Lymph # (Auto) (1.0-4.4) x10-3/uL [place] # (Auto) (0.3-1.0) x10-3/uL Eos # (Auto) (0.0-0.8) x10-3/uL Baso # (Auto) (0.0-0.1) x10-3/uL POC VBG pH 7.44 H (7.32-7.43) pH Units POC VBG pCO2 34 L (41-51) mmHg POC VBG HCO3 23 (21-29) mmol/L VBG Base Excess -0 (-2-3) mmol/L O2 Delivery Device Room air Sodium (135-145) mmol/L Potassium (3.5-5.3) mmol/L Chloride (100-110) mmol/L Carbon Dioxide (21-32) mmol/L BUN (7-18) mg/dL Creatinine (0.55-1.02) mg/dL Est Cr Clr Drug Dosing mL/min Estimated GFR (MDRD) (>60) BUN/Creatinine Ratio (9-20) Glucose (80-116) mg/dL Hemoglobin A1c 7.1 H (<5.7) % Calcium (8.6-10.2) mg/dL Total Bilirubin (0.1-1.3) mg/dL AST (5-25) IU/L ALT (12-36) U/L Alkaline Phosphatase (56-112) IU/L C-Reactive Protein 1.5 H (0.5-0.9) mg/dL Total Protein (6.0-8.0) g/dL Albumin (3.5-5.2) g/dL Globulin g/dL Albumin/Globulin Ratio Urine Color (YELLOW) Urine Appearance (CLEAR) Urine pH (5.0-6.5) Ur Specific [place] (1.010-1.025) Urine Protein (NEGATIVE) mg/dL Urine Glucose (UA) (NORMAL) mg/dL Urine Ketones (NEGATIVE) mg/dL Urine Occult Blood (NEGATIVE) Urine Nitrite (NEGATIVE) Urine Bilirubin (NEGATIVE) Urine Urobilinogen (NEGATIVE) mg/dL Ur Leukocyte Esterase (NEGATIVE) Urine RBC (0-5) Urine WBC (0-5) Ur Squamous Epith Cells (NS,R,O) Urine Bacteria (NS) Urine Mucus (NS) Meds: Medications Generic Name Dose Route Start Last Admin Trade Name Freq PRN Reason Stop Dose Admin Ciprofloxacin 500 mg 03/26/21 18:03 Ciprofloxacin 500 Mg Tab PO 03/26/21 18:04 ONETIME ONE Discontinued Medications Generic Name Dose Route Start Last Admin Trade Name Freq PRN Reason Stop Dose Admin Sodium Chloride 1,000 mls @ 999 mls/hr 03/26/21 14:22 03/26/21 15:18 Normal Saline IV 03/26/21 15:22 999 mls/hr .BOLUS ONE Administration Sodium Chloride 1,000 mls @ 999 mls/hr 03/26/21 16:09 03/26/21 16:45 Normal Saline IV 03/26/21 17:09 999 mls/hr .BOLUS ONE Administration Ketorolac Tromethamine 30 mg 03/26/21 16:13 03/26/21 16:45 Ketorolac 30 Mg/Ml Sdv IVPUSH 03/26/21 16:14 30 mg ONETIME ONE Administration Ondansetron HCl 4 mg 03/26/21 14:22 03/26/21 15:18 Ondansetron 4 Mg/2 Ml Sdv IVPUSH 03/26/21 14:23 4 mg ONETIME ONE Administration - Re-Assessments/Exams Free Text/Narrative Re-Assessment/Exam: 03/26/21 18:11 labs done, no evidence of DKA given 2 liters NS, inc'd ketones in urine but bicarb fine has apt with PCP Dr Seymour in 2d, will likely need to see GI, it has a few years since she had a colonoscopy with Dr Jennings who is no longer here pt felt better after meds here, at home as ibuprofen/apap/reglan/suflasalazine at d/c said she had pain x 2d in left ear, had put q-tip in ear, L TM wnl, however moderate red off roof of canal with slight swell c/w abrasion and possible infection from q-tip, little wax Departure - Departure Time of Disposition: 18:03 Disposition: Home, Self-Care 01 Condition: Good Clinical Impression: Cyclic vomiting syndrome, Dehydration, Urinary tract infection, Left otitis externa - Discharge Information *PRESCRIPTION DRUG MONITORING PROGRAM REVIEWED*: Not Applicable *COPY OF PRESCRIPTION DRUG MONITORING REPORT IN PATIENT JOCELYNN: Not Applicable Prescriptions: Ciprofloxacin [Cipro XR] 500 mg PO BID #10 tab.er Hydrocort/Neomycin/Polymyxin B [Vbvgqdgn-Muyewddye-RV Otic Susp] 3 drop EARLF TID 5 Days #5 ml Instructions: Nausea and Vomiting, Adult, Dehydration, Adult, Otitis Externa Additional Instructions: Continue your current meds as prescribed. Increase fluids. For bladder infection, take ciprofloxacin 500 mg 1 tab 2 times a day foar 5 days. For inflammation and infection in left ear canal, use medication 3 drops 3 times a day in ear canal for [address] Seymour in 2 days as scheduled. Sepsis Event Note (ED) - Focused Exam Vital Signs: Vital Signs Temp Pulse Resp BP Pulse Ox 03/26/21 13:58 37.0 C 62 18 192/109 H 98 - My Orders Last 24 Hours: My Active Orders 03/26/21 16:09 CULTURE URINE [RM] Stat 03/26/21 18:03 Ciprofloxacin [Ciprofloxacin HCl] 500 mg PO ONETIME ONE - Assessment/Plan Last 24 Hours: My Active Orders 03/26/21 16:09 CULTURE URINE [RM] Stat 03/26/21 18:03 Ciprofloxacin [Ciprofloxacin HCl] 500 mg PO ONETIME ONE
[2021-03-26 16:13] VITALS: BP 192/109; PULSE 62
[2021-03-26] MEDS ORDERED: Ketorolac 30 MG/ML SDV IVPUSH ONE (16:13)
[2021-03-26 16:54] LABS: HEMOGLOBIN A1C 7.1 % (<5.7)
[2021-03-26 16:58] LABS: HCO3 VENOUS,POC 23 mmol/L (21-29); PCO2 VENOUS,POC 34 mmHg (41-51); PH VENOUS,POC 7.44 pH Units (7.32-7.43)
[2021-03-26] MEDS ORDERED: Ciprofloxacin 500 MG Tab PO ONE (18:03)
== END 2021-03-26 18:22 | disposition home or self-care (01) ==
LOC: FB.ED 13:54
DX: E86.0 Dehydration (principal); N39.0 Urinary tract infection, site not specified; R11.15 Cyclical vomiting syndrome unrelated to migraine; H60.92 Unspecified otitis externa, left ear; J45.909 Unspecified asthma, uncomplicated; K21.9 Gastro-esophageal reflux disease without esophagitis; Z91.048 Other nonmedicinal substance allergy status; Z88.1 Allergy status to other antibiotic agents; Z88.8 Allergy status to other drugs, medicaments and biological substances; Z88.5 Allergy status to narcotic agent; Z91.040 Latex allergy status; Z79.4 Long term (current) use of insulin; Z79.899 Other long term (current) drug therapy
CPT/HCPCS: 36415; 80053; 81001; 83036; 85025; 86140; 87086; 96374; 96375; 99284-25; A9270-GY; J1885; J2405; J7030

== ENCOUNTER 2021-10-29 13:58 | Emergency (ER) | payer OTHER, MEDICAID ==
[2021-10-29 15:09] VITALS: BP 159/98; PULSE 92
== END 2021-10-29 14:50 | disposition home or self-care (01) ==
LOC: FB.ED 13:58
DX: S93.402A Sprain of unspecified ligament of left ankle, initial encounter (principal); K21.9 Gastro-esophageal reflux disease without esophagitis; E10.9 Type 1 diabetes mellitus without complications; E66.9 Obesity, unspecified; Z68.36 Body mass index [BMI] 36.0-36.9, adult; Z91.040 Latex allergy status; Z91.048 Other nonmedicinal substance allergy status; Z88.5 Allergy status to narcotic agent; Z88.1 Allergy status to other antibiotic agents; X50.1XXA Overexertion from prolonged static or awkward postures, initial encounter
CPT/HCPCS: 73630-LT; 99283; 99283-25

== ENCOUNTER 2023-02-18 06:50 | Day surgery (SDC) | payer MEDICAID, OTHER ==
[2023-02-18] MEDS ORDERED: Lidocaine 2% 5 ML SDV IV ONE (06:51)
[2023-02-18] MEDS ORDERED: Propofol 200 MG/20 ML SDV IV ONE (06:51)
[2023-02-18] MEDS ORDERED: Midazolam 1 MG/ML 2 ML SDV IV ONE (06:51)
[2023-02-18] MEDS ORDERED: Sodium Chloride 0.9% 10 ML Syringe FLUSH PRN (07:00)
[2023-02-18] MEDS ORDERED: Lactated Ringers 1,000 ML IV SCH (07:00)
[2023-02-18] MEDS ORDERED: Simethicone Drops 40 MG/0.6 ML 30 ML Bottle ONE (08:15)
[2023-02-18 10:32] VITALS: BP 106/70; PULSE 72
== END 2023-02-18 10:03 | disposition home or self-care (01) ==
LOC: FB.SDS 06:50
PROVIDERS: ATTEND Surgery
DX: Z12.11 Encounter for screening for malignant neoplasm of colon (principal); D12.6 Benign neoplasm of colon, unspecified; K52.9 Noninfective gastroenteritis and colitis, unspecified; F41.9 Anxiety disorder, unspecified; D63.1 Anemia in chronic kidney disease; F32.A Depression, unspecified; E66.9 Obesity, unspecified; K21.9 Gastro-esophageal reflux disease without esophagitis; F90.9 Attention-deficit hyperactivity disorder, unspecified type; E11.22 Type 2 diabetes mellitus with diabetic chronic kidney disease; N18.30 Chronic kidney disease, stage 3 unspecified; E87.1 Hypo-osmolality and hyponatremia; Z79.899 Other long term (current) drug therapy; Z79.84 Long term (current) use of oral hypoglycemic drugs; Z91.040 Latex allergy status; Z91.048 Other nonmedicinal substance allergy status; Z88.0 Allergy status to penicillin; Z88.6 Allergy status to analgesic agent; Z88.5 Allergy status to narcotic agent; Z88.8 Allergy status to other drugs, medicaments and biological substances; Z88.1 Allergy status to other antibiotic agents; Z98.890 Other specified postprocedural states; Z68.35 Body mass index [BMI] 35.0-35.9, adult
CPT/HCPCS: 00811; 45385; 88305; A9270; J2250; J2704; J7120

== ENCOUNTER 2024-02-12 21:40 | Emergency (ER) | payer BC ==
[2024-02-12] MEDS ORDERED: Naloxone 0.4 MG/ML SDV IVPUSH PRN (21:49)
[2024-02-12] MEDS: HYDROmorphone 2 MG/ML SDV IM ONE (21:59)
[2024-02-12] MEDS: hydrOXYzine HCl 50 MG/ML SDV IM ONE (21:59)
[2024-02-12 22:25] VITALS: BP 103/61; PULSE 82
== END 2024-02-12 22:28 | disposition home or self-care (01) ==
LOC: FB.ED 21:40
DX: E10.9 Type 1 diabetes mellitus without complications (principal); Z79.4 Long term (current) use of insulin; K21.9 Gastro-esophageal reflux disease without esophagitis; E66.9 Obesity, unspecified; E03.9 Hypothyroidism, unspecified; Z88.0 Allergy status to penicillin; Z88.5 Allergy status to narcotic agent; Z91.040 Latex allergy status; Z91.048 Other nonmedicinal substance allergy status; Z88.8 Allergy status to other drugs, medicaments and biological substances; Z79.890 Hormone replacement therapy; Z79.899 Other long term (current) drug therapy; Z90.710 Acquired absence of both cervix and uterus
CPT/HCPCS: 96372; 99283; 99284; J1170; J3410

== ENCOUNTER 2024-03-10 00:16 | Emergency (ER) | payer BC ==
[2024-03-10] MEDS: Sodium Chloride 0.9% 1,000 ML IV ONE ×2 (00:41→02:04)
[2024-03-10 00:42] LABS: BASOPHILS PERCENT AUTO 0.3 % (0.2-1.5); EOSINOPHILS PERCENT AUTO 0.2 % (0.6-8.1); HEMATOCRIT 44.8 % (34.2-48.2); HEMOGLOBIN 14.8 g/dL (11.4-15.5); LYMPHOCYTES ABSOLUTE AUTO 2.1 x10-3/uL (1.0-4.4); LYMPHOCYTES PERCENT AUTO 23.4 % (18.4-52.1); MEAN CORPUSCULAR HGB CONC 33.1 g/dL (31.9-34.8); MEAN CORPUSCULAR VOLUME 93.6 fL (76.7-100.5); MEAN PLATELET VOLUME 7.5 fL (7.1-12.4); MONOCYTES ABSOLUTE AUTO 0.7 x10-3/uL (0.3-1.0); MONOCYTES PERCENT AUTO 7.2 % (4.4-15.7); NEUTROPHILS ABSOLUTE AUTO 6.3 x10-3/uL (1.5-6.3); NEUTROPHILS PERCENT AUTO 68.9 % (30.8-76.2); PLATELET COUNT,PLT 319 x10(3)uL (151-488); RED BLOOD CELL COUNT 4.78 x10(6)uL (3.60-5.20); RED CELL DISTRIBUTION WIDTH 14.6 % (12.3-16.5); WHITE BLOOD CELL COUNT,WBC 9.1 x10-3/uL (3.0-10.3)
[2024-03-10] MEDS: Prochlorperazine 10 MG in Sodium Chloride 0.9% 50 ML IV ONE (00:42)
[2024-03-10] MEDS: Ondansetron 4 MG/2 ML SDV IVPUSH ONE (00:43)
[2024-03-10 00:46] LABS: BLOOD UREA NITROGEN,BUN 6 mg/dL (7-18); BUN/CREATININE RATIO 4.6 (9-20); CALCIUM 9.4 mg/dL (8.6-10.2); CARBON DIOXIDE,CO2 22 mmol/L (21-32); CHLORIDE,CL 107 mmol/L (100-110); CREATININE 1.3 mg/dL (0.55-1.02); ESTIMATED GFR 55 mL/min (>60); GLUCOSE RANDOM 177 mg/dL (80-116); POTASSIUM,K 3.4 mmol/L (3.5-5.3); SODIUM,NA 144 mmol/L (135-145)
[2024-03-10 00:52] LABS: ALANINE AMINOTRANSFERASE,ALT 41 U/L (12-36); ALBUMIN 3.8 g/dL (3.5-5.2); ALKALINE PHOSPHATASE 97 IU/L (56-112); ASPARTATE AMNIOTRANSFERASE,AST 30 IU/L (5-25); BILIRUBIN TOTAL 0.7 mg/dL (0.1-1.3); PROTEIN TOTAL,TP 7.7 g/dL (6.0-8.0)
[2024-03-10] MEDS: diphenhydrAMINE 50 MG/ML SDV IVPUSH ONE (01:25)
[2024-03-10] MEDS: LORazepam 2 MG/ML SDV IVPUSH ONE (02:21)
[2024-03-10 02:44] LABS: BILIRUBIN,URINE NEGATIVE (NEGATIVE); GLUCOSE,URINE >1000 mg/dL (NORMAL); KETONES,URINE 15 mg/dL (NEGATIVE); LEUKOCYTE ESTERASE,URINE NEGATIVE (NEGATIVE); NITRITE,URINE NEGATIVE (NEGATIVE); OCCULT BLOOD,URINE NEGATIVE (NEGATIVE); PROTEIN,URINE NEGATIVE (NEGATIVE); UROBILINOGEN,URINE NORMAL (NEGATIVE)
[2024-03-10 02:59] LABS: AMPHETAMINES SCREEN, URINE NEGATIVE (NEGATIVE); BARBITURATE SCREEN,URINE NEGATIVE (NEGATIVE); BENZODIAZEPINES SCREEN,URINE NEGATIVE (NEGATIVE); METHADONE SCREEN, URINE NEGATIVE (NEGATIVE); METHAMPHETAMINE SCREEN, URINE NEGATIVE (NEGATIVE); OXYCODONE SCREEN,URINE NEGATIVE (NEGATIVE); THC SCREEN,URINE NEGATIVE (NEGATIVE)
[2024-03-10 03:00] LABS: BUPRENORPHINE SCREEN,URINE NEGATIVE (NEGATIVE)
[2024-03-10 04:08] LABS: APPEARANCE,URINE SLIGHTLY CLOUDY (CLEAR); BACTERIA,URINE FEW (NS); COLOR,URINE YELLOW (YELLOW); RBC,URINE 0-5 (0-5); SQUAMOUS EPITHELIAL CELLS,UR MODERATE (NS,R,O); WBC,URINE 0-5 (0-5)
[2024-03-10 05:47] VITALS: BP 102/55; PULSE 125
== END 2024-03-10 05:43 | disposition home or self-care (01) ==
LOC: FB.ED 00:16
DX: R11.15 Cyclical vomiting syndrome unrelated to migraine (principal); F41.9 Anxiety disorder, unspecified; E10.22 Type 1 diabetes mellitus with diabetic chronic kidney disease; J45.909 Unspecified asthma, uncomplicated; K21.9 Gastro-esophageal reflux disease without esophagitis; E66.9 Obesity, unspecified; E03.9 Hypothyroidism, unspecified; Z88.0 Allergy status to penicillin; Z91.040 Latex allergy status; Z88.6 Allergy status to analgesic agent; Z88.8 Allergy status to other drugs, medicaments and biological substances; Z91.048 Other nonmedicinal substance allergy status; Z79.4 Long term (current) use of insulin; Z86.16 Personal history of COVID-19; Z90.710 Acquired absence of both cervix and uterus; Z68.35 Body mass index [BMI] 35.0-35.9, adult
CPT/HCPCS: 36415; 80053; 80307; 81001; 83605; 83690; 85025; 93005; 96361; 96365; 96372; 96375; 99284-25; J0780; J1200; J2060; J2405; J3230; J3490; J7030

== ENCOUNTER 2024-09-09 09:45 | Emergency (ER) | payer BC ==
[2024-09-09] MEDS: Sodium Chloride 0.9% 1,000 ML IV ONE ×2 (10:17→13:43)
[2024-09-09] MEDS: LORazepam 2 MG/ML SDV IVPUSH ONE ×2 (10:17→15:46)
[2024-09-09] MEDS: Ondansetron 4 MG/2 ML SDV IVPUSH ONE (10:47)
[2024-09-09 11:05] LABS: BASOPHILS PERCENT AUTO 0.3 % (0.2-1.5); EOSINOPHILS ABSOLUTE AUTO 0.1 x10-3/uL (0.0-0.8); EOSINOPHILS PERCENT AUTO 0.5 % (0.6-8.1); HEMATOCRIT 40.8 % (34.2-48.2); HEMOGLOBIN 13.5 g/dL (11.4-15.5); LYMPHOCYTES ABSOLUTE AUTO 1.3 x10-3/uL (1.0-4.4); LYMPHOCYTES PERCENT AUTO 13.8 % (18.4-52.1); MEAN CORPUSCULAR HEMOGLOBIN 30.9 pg (23.9-33.9); MEAN CORPUSCULAR HGB CONC 33.1 g/dL (31.9-34.8); MEAN CORPUSCULAR VOLUME 93.4 fL (76.7-100.5); MEAN PLATELET VOLUME 7.4 fL (7.1-12.4); MONOCYTES ABSOLUTE AUTO 0.4 x10-3/uL (0.3-1.0); MONOCYTES PERCENT AUTO 4.6 % (4.4-15.7); NEUTROPHILS ABSOLUTE AUTO 7.5 x10-3/uL (1.5-6.3); NEUTROPHILS PERCENT AUTO 80.8 % (30.8-76.2); PLATELET COUNT,PLT 320 x10(3)uL (151-488); RED BLOOD CELL COUNT 4.37 x10(6)uL (3.60-5.20); RED CELL DISTRIBUTION WIDTH 14.1 % (12.3-16.5); WHITE BLOOD CELL COUNT,WBC 9.3 x10-3/uL (3.0-10.3)
[2024-09-09 11:06] LABS: BLOOD UREA NITROGEN,BUN 9 mg/dL (7-18); CARBON DIOXIDE,CO2 23 mmol/L (21-32); CHLORIDE,CL 106 mmol/L (100-110); GLUCOSE RANDOM 158 mg/dL (80-116); POTASSIUM,K 3.8 mmol/L (3.5-5.3); SODIUM,NA 143 mmol/L (135-145)
[2024-09-09 11:07] LABS: BUN/CREATININE RATIO 8.2 (9-20); CALCIUM 8.7 mg/dL (8.6-10.2); CREATININE 1.1 mg/dL (0.55-1.02); ESTIMATED GFR 67 mL/min (>60)
[2024-09-09 11:12] LABS: A/G RATIO 1.1; ALANINE AMINOTRANSFERASE,ALT 26 U/L (12-36); ALBUMIN 3.7 g/dL (3.5-5.2); ALKALINE PHOSPHATASE 75 IU/L (56-112); ASPARTATE AMNIOTRANSFERASE,AST 20 IU/L (5-25); BILIRUBIN TOTAL 0.6 mg/dL (0.1-1.3); PROTEIN TOTAL,TP 7.2 g/dL (6.0-8.0)
[2024-09-09 11:24] LABS: LACTIC ACID 3.3 mmol/L (0.4-2.0)
[2024-09-09] MEDS: Haloperidol Lactate 5 MG/ML SDV IM ONE (11:27)
[2024-09-09] MEDS: diphenhydrAMINE 50 MG/ML SDV IVPUSH ONE (11:28)
[2024-09-09 12:16] VITALS: BP 131/73; PULSE 73
[2024-09-09 13:09] LABS: BILIRUBIN,URINE NEGATIVE (NEGATIVE); GLUCOSE,URINE NORMAL (NORMAL); KETONES,URINE 15 mg/dL (NEGATIVE); LEUKOCYTE ESTERASE,URINE NEGATIVE (NEGATIVE); NITRITE,URINE NEGATIVE (NEGATIVE); OCCULT BLOOD,URINE NEGATIVE (NEGATIVE); PH,URINE 6.5 (5.0-6.5); PROTEIN,URINE NEGATIVE (NEGATIVE); UROBILINOGEN,URINE NORMAL (NEGATIVE)
[2024-09-09 13:10] LABS: APPEARANCE,URINE TURBID (CLEAR); COLOR,URINE YELLOW (YELLOW)
[2024-09-09] MEDS: Aluminum Hydroxide/Magnesium Hydroxide Susp 30 ML Cup PO ONE (13:43)
[2024-09-09] MEDS: Pantoprazole 40 MG Vial IVPUSH ONE (13:43)
[2024-09-09] MEDS: hydrOXYzine HCl 50 MG/ML SDV IM ONE (14:43)
== END 2024-09-09 18:25 | disposition home or self-care (01) ==
LOC: FB.ED 09:45
DX: R11.15 Cyclical vomiting syndrome unrelated to migraine (principal); J45.909 Unspecified asthma, uncomplicated; K21.9 Gastro-esophageal reflux disease without esophagitis; E10.9 Type 1 diabetes mellitus without complications; E03.9 Hypothyroidism, unspecified; E66.9 Obesity, unspecified; Z90.710 Acquired absence of both cervix and uterus; Z88.0 Allergy status to penicillin; Z88.8 Allergy status to other drugs, medicaments and biological substances; Z91.040 Latex allergy status; Z91.048 Other nonmedicinal substance allergy status; Z79.4 Long term (current) use of insulin; Z79.52 Long term (current) use of systemic steroids; Z79.890 Hormone replacement therapy; Z79.899 Other long term (current) drug therapy
CPT/HCPCS: 36415; 80053; 81003; 83605; 85025; 86140; 96361; 96372; 96374; 96375; 96376; 99284; A9270; J1200; J1630; J2060; J2405; J2470; J3410; J7030

== ENCOUNTER 2024-09-11 11:47 | Emergency (ER) | payer BC, MEDICAID ==
[2024-09-11] MEDS: Alum Hydroxide/Mag Hydroxide 15 ML, Lidocaine 2% 15 ML PO ONE (12:12)
[2024-09-11 12:26] LABS: BASOPHILS ABSOLUTE AUTO 0.1 x10-3/uL (0.0-0.1); BASOPHILS PERCENT AUTO 0.7 % (0.2-1.5); EOSINOPHILS PERCENT AUTO 0.2 % (0.6-8.1); HEMATOCRIT 39.5 % (34.2-48.2); HEMOGLOBIN 13.7 g/dL (11.4-15.5); LYMPHOCYTES ABSOLUTE AUTO 2.4 x10-3/uL (1.0-4.4); LYMPHOCYTES PERCENT AUTO 26.3 % (18.4-52.1); MEAN CORPUSCULAR HEMOGLOBIN 31.2 pg (23.9-33.9); MEAN CORPUSCULAR HGB CONC 34.7 g/dL (31.9-34.8); MEAN CORPUSCULAR VOLUME 89.9 fL (76.7-100.5); MEAN PLATELET VOLUME 7.2 fL (7.1-12.4); MONOCYTES ABSOLUTE AUTO 0.7 x10-3/uL (0.3-1.0); NEUTROPHILS PERCENT AUTO 64.8 % (30.8-76.2); PLATELET COUNT,PLT 331 x10(3)uL (151-488); RED BLOOD CELL COUNT 4.39 x10(6)uL (3.60-5.20); RED CELL DISTRIBUTION WIDTH 13.9 % (12.3-16.5); WHITE BLOOD CELL COUNT,WBC 9.2 x10-3/uL (3.0-10.3)
[2024-09-11 12:27] LABS: BLOOD UREA NITROGEN,BUN 9 mg/dL (7-18); CALCIUM 8.8 mg/dL (8.6-10.2); CARBON DIOXIDE,CO2 25 mmol/L (21-32); CHLORIDE,CL 105 mmol/L (100-110); ESTIMATED GFR 75 mL/min (>60); GLUCOSE RANDOM 94 mg/dL (80-116); SODIUM,NA 143 mmol/L (135-145)
[2024-09-11 12:33] LABS: A/G RATIO 1.1; ALANINE AMINOTRANSFERASE,ALT 30 U/L (12-36); ALBUMIN 3.8 g/dL (3.5-5.2); ALKALINE PHOSPHATASE 72 IU/L (56-112); ASPARTATE AMNIOTRANSFERASE,AST 20 IU/L (5-25); BILIRUBIN TOTAL 0.6 mg/dL (0.1-1.3); PROTEIN TOTAL,TP 7.3 g/dL (6.0-8.0)
[2024-09-11] MEDS: Haloperidol Lactate 5 MG/ML SDV IVPUSH ONE ×2 (13:12→14:19)
[2024-09-11] MEDS: Prochlorperazine 10 MG/2 ML SDV IVPUSH ONE (13:53)
[2024-09-11 14:13] VITALS: BP 140/90; PULSE 82
== END 2024-09-11 16:00 | disposition home or self-care (01) ==
LOC: FB.ED 11:47
DX: R07.89 Other chest pain (principal); E87.6 Hypokalemia; R11.15 Cyclical vomiting syndrome unrelated to migraine; J45.909 Unspecified asthma, uncomplicated; K21.9 Gastro-esophageal reflux disease without esophagitis; E10.22 Type 1 diabetes mellitus with diabetic chronic kidney disease; N18.9 Chronic kidney disease, unspecified; E03.9 Hypothyroidism, unspecified; E66.9 Obesity, unspecified; Z90.710 Acquired absence of both cervix and uterus; Z79.899 Other long term (current) drug therapy; Z79.4 Long term (current) use of insulin; Z91.040 Latex allergy status; Z88.8 Allergy status to other drugs, medicaments and biological substances; Z91.048 Other nonmedicinal substance allergy status; Z88.6 Allergy status to analgesic agent; Z88.0 Allergy status to penicillin; Z88.1 Allergy status to other antibiotic agents
CPT/HCPCS: 36415; 80053; 84484; 85025; 93005; 96374; 96375; 96376; 99285; A9270; J0780; J1630

== ENCOUNTER 2024-09-13 10:17 | Observation (INO) | payer BC, MEDICAID ==
[2024-09-13 11:12] LABS: BASOPHILS ABSOLUTE AUTO 0.1 x10-3/uL (0.0-0.1); BASOPHILS PERCENT AUTO 0.7 % (0.2-1.5); EOSINOPHILS PERCENT AUTO 0.2 % (0.6-8.1); HEMATOCRIT 42.4 % (34.2-48.2); HEMOGLOBIN 14.6 g/dL (11.4-15.5); LYMPHOCYTES ABSOLUTE AUTO 2.2 x10-3/uL (1.0-4.4); LYMPHOCYTES PERCENT AUTO 23.8 % (18.4-52.1); MEAN CORPUSCULAR HEMOGLOBIN 31.1 pg (23.9-33.9); MEAN CORPUSCULAR HGB CONC 34.4 g/dL (31.9-34.8); MEAN CORPUSCULAR VOLUME 90.5 fL (76.7-100.5); MEAN PLATELET VOLUME 7.4 fL (7.1-12.4); MONOCYTES ABSOLUTE AUTO 0.7 x10-3/uL (0.3-1.0); MONOCYTES PERCENT AUTO 7.4 % (4.4-15.7); NEUTROPHILS ABSOLUTE AUTO 6.2 x10-3/uL (1.5-6.3); NEUTROPHILS PERCENT AUTO 67.9 % (30.8-76.2); PLATELET COUNT,PLT 346 x10(3)uL (151-488); RED BLOOD CELL COUNT 4.68 x10(6)uL (3.60-5.20); WHITE BLOOD CELL COUNT,WBC 9.2 x10-3/uL (3.0-10.3)
[2024-09-13] MEDS: HYDROmorphone 2 MG/ML SDV IVPUSH ONE ×2 (11:16→14:13)
[2024-09-13] MEDS: Ondansetron 4 MG/2 ML SDV IVPUSH ONE (11:16)
[2024-09-13] MEDS: Sodium Chloride 0.9% 10 ML Syringe FLUSH PRN (11:18)
[2024-09-13 11:19] LABS: BLOOD UREA NITROGEN,BUN 9 mg/dL (7-18); BUN/CREATININE RATIO 8.2 (9-20); CALCIUM 9.4 mg/dL (8.6-10.2); CARBON DIOXIDE,CO2 28 mmol/L (21-32); CHLORIDE,CL 103 mmol/L (100-110); CREATININE 1.1 mg/dL (0.55-1.02); ESTIMATED GFR 67 mL/min (>60); GLUCOSE RANDOM 170 mg/dL (80-116); POTASSIUM,K 3.5 mmol/L (3.5-5.3); SODIUM,NA 142 mmol/L (135-145)
[2024-09-13 11:25] LABS: A/G RATIO 1.1; ALANINE AMINOTRANSFERASE,ALT 29 U/L (12-36); ALBUMIN 4.1 g/dL (3.5-5.2); ALKALINE PHOSPHATASE 79 IU/L (56-112); ASPARTATE AMNIOTRANSFERASE,AST 16 IU/L (5-25); BILIRUBIN TOTAL 0.6 mg/dL (0.1-1.3); PROTEIN TOTAL,TP 7.9 g/dL (6.0-8.0)
[2024-09-13 11:26] LABS: C-REACTIVE PROTEIN 1.45 mg/dL (<0.50)
[2024-09-13] MEDS: diphenhydrAMINE 50 MG/ML SDV IVPUSH ONE (11:26)
[2024-09-13 11:28] LABS: INR 1.13 (1.00-1.24); PROTHROMBIN TIME 11.6 sec (9.0-11.1); PTT,PARTIAL THROMBOPLSTIN TIME 24.5 SECONDS (24.4-33.2)
[2024-09-13] MEDS: Sodium Chloride 0.9% 1,000 ML IV ONE ×2 (11:35→13:07)
[2024-09-13] MEDS: Iopamidol 755 Mg/ML 100 ML Bottle IV STA (11:51)
[2024-09-13 12:40] LABS: BILIRUBIN,URINE NEGATIVE (NEGATIVE); GLUCOSE,URINE 50 mg/dL (NORMAL); KETONES,URINE 15 mg/dL (NEGATIVE); LEUKOCYTE ESTERASE,URINE NEGATIVE (NEGATIVE); NITRITE,URINE NEGATIVE (NEGATIVE); OCCULT BLOOD,URINE NEGATIVE (NEGATIVE); PROTEIN,URINE TRACE mg/dL (NEGATIVE); UROBILINOGEN,URINE NORMAL (NEGATIVE)
[2024-09-13 12:44] LABS: AMPHETAMINES SCREEN, URINE NEGATIVE (NEGATIVE); BARBITURATE SCREEN,URINE NEGATIVE (NEGATIVE); BENZODIAZEPINES SCREEN,URINE POSITIVE (NEGATIVE); BUPRENORPHINE SCREEN,URINE NEGATIVE (NEGATIVE); METHADONE SCREEN, URINE NEGATIVE (NEGATIVE); METHAMPHETAMINE SCREEN, URINE NEGATIVE (NEGATIVE); OXYCODONE SCREEN,URINE NEGATIVE (NEGATIVE); THC SCREEN,URINE NEGATIVE (NEGATIVE)
[2024-09-13 12:45] LABS: APPEARANCE,URINE CLEAR (CLEAR); COLOR,URINE YELLOW (YELLOW)
[2024-09-13 12:56] LABS: BACTERIA,URINE FEW (NS); EPITHELIAL CELLS,URINE MODERATE; RBC,URINE 0-5 (0-5); WBC,URINE 0-5 (0-5)
[2024-09-13] MEDS ORDERED: Lidocaine 2% Viscous Solution 15 ML UD PO ONE (13:23)
[2024-09-13] MEDS ORDERED: Propofol 200 MG/20 ML SDV IV ONE (13:23)
[2024-09-13] MEDS ORDERED: Midazolam 1 MG/ML 2 ML SDV IV ONE (13:23)
[2024-09-13] MEDS ORDERED: Lidocaine 2% 100 MG/5 ML Syringe IVPUSH ONE (13:23)
[2024-09-13] MEDS ORDERED: Acetaminophen 500 MG Tab PO PRN (15:53)
[2024-09-13] MEDS ORDERED: 50% Dextrose in Water 50 ML Syringe IVPUSH PRN (15:59)
[2024-09-13] MEDS ORDERED: Glucagon,Human Recombinant 1 MG Vial IM PRN (15:59)
[2024-09-13] MEDS ORDERED: Acetaminophen 650 MG Supp RECTAL PRN (16:05)
[2024-09-13] MEDS ORDERED: Acetaminophen 325 MG Tab PO PRN (16:05)
[2024-09-13] MEDS ORDERED: Melatonin 3 MG Tab PO PRN (16:06)
[2024-09-13] MEDS ORDERED: SUMAtriptan 50 MG Tab PO PRN (16:09)
[2024-09-13] MEDS ORDERED: Naloxone 0.4 MG/ML SDV IVPUSH PRN (16:16)
[2024-09-13] MEDS: Sodium Chloride 0.9% 1,000 ML IV SCH (16:40)
[2024-09-13] MEDS: Ondansetron 4 MG/2 ML SDV IVPUSH SCH (16:44)
[2024-09-13] MEDS: Insulin Lispro 100 Unit/ML 3 ML KwikPen SUBCUT SCH (18:03)
[2024-09-13] MEDS: Levothyroxine 50 MCG Tab PO SCH (21:10)
[2024-09-13] MEDS: busPIRone 15 MG Tab PO SCH (21:10)
[2024-09-13] MEDS: Pravastatin 20 MG Tab PO SCH (21:10)
[2024-09-13] MEDS: Mirtazapine 15 MG Tab PO SCH (21:10)
[2024-09-13] MEDS: sulfaSALAzine 500 MG Tab PO SCH (21:11)
[2024-09-13] MEDS: Escitalopram 20 MG Tab PO SCH (21:11)
[2024-09-13] MEDS: Gabapentin 300 MG Cap PO SCH (21:24)
[2024-09-13] MEDS: Insulin Glargine,Human Rec. Analog 100 Units/ML 3 ML Pen SUBCUT SCH (21:24)
[2024-09-14 07:16] LABS: BASOPHILS ABSOLUTE AUTO 0.1 x10-3/uL (0.0-0.1); BASOPHILS PERCENT AUTO 0.9 % (0.2-1.5); EOSINOPHILS ABSOLUTE AUTO 0.1 x10-3/uL (0.0-0.8); EOSINOPHILS PERCENT AUTO 1.1 % (0.6-8.1); HEMATOCRIT 36.5 % (34.2-48.2); HEMOGLOBIN 12.3 g/dL (11.4-15.5); LYMPHOCYTES ABSOLUTE AUTO 2.9 x10-3/uL (1.0-4.4); LYMPHOCYTES PERCENT AUTO 38.4 % (18.4-52.1); MEAN CORPUSCULAR HEMOGLOBIN 30.7 pg (23.9-33.9); MEAN CORPUSCULAR HGB CONC 33.7 g/dL (31.9-34.8); MEAN CORPUSCULAR VOLUME 91.2 fL (76.7-100.5); MEAN PLATELET VOLUME 7.3 fL (7.1-12.4); MONOCYTES ABSOLUTE AUTO 0.6 x10-3/uL (0.3-1.0); MONOCYTES PERCENT AUTO 7.5 % (4.4-15.7); NEUTROPHILS ABSOLUTE AUTO 3.9 x10-3/uL (1.5-6.3); NEUTROPHILS PERCENT AUTO 52.1 % (30.8-76.2); PLATELET COUNT,PLT 293 x10(3)uL (151-488); RED CELL DISTRIBUTION WIDTH 13.9 % (12.3-16.5); WHITE BLOOD CELL COUNT,WBC 7.5 x10-3/uL (3.0-10.3)
[2024-09-14 07:30] LABS: ALANINE AMINOTRANSFERASE,ALT 22 U/L (12-36); ALBUMIN 2.9 g/dL (3.5-5.2); ALKALINE PHOSPHATASE 62 IU/L (56-112); ASPARTATE AMNIOTRANSFERASE,AST 15 IU/L (5-25); BILIRUBIN TOTAL 0.6 mg/dL (0.1-1.3); BLOOD UREA NITROGEN,BUN 6 mg/dL (7-18); BUN/CREATININE RATIO 6.7 (9-20); CALCIUM 7.7 mg/dL (8.6-10.2); CARBON DIOXIDE,CO2 25 mmol/L (21-32); CHLORIDE,CL 109 mmol/L (100-110); CREATININE 0.9 mg/dL (0.55-1.02); EST CRCL DRUG DOSING (CG) 62.07 mL/min; ESTIMATED GFR 85 mL/min (>60); GLUCOSE RANDOM 128 mg/dL (80-116); POTASSIUM,K 3.2 mmol/L (3.5-5.3); PROTEIN TOTAL,TP 5.8 g/dL (6.0-8.0); SODIUM,NA 143 mmol/L (135-145)
[2024-09-14] MEDS: Morphine 2 MG/ML SYRINGE IVPUSH PRN (07:40)
[2024-09-14] MEDS: Potassium Chloride 20 MEQ in Premix Bag 1 BAG IV SCH (09:28)
[2024-09-14] MEDS: Ondansetron 4 MG/2 ML SDV IVPUSH PRN (13:02)
[2024-09-14] MEDS: Insulin Lispro 100 Unit/ML 3 ML KwikPen SUBCUT ONE (15:39)
[2024-09-14] MEDS: Morphine 2 MG/ML SYRINGE IVPUSH ONE (15:58)
[2024-09-14] MEDS: Sodium Chloride 0.9% 1,000 ML IV SCH (16:55)
[2024-09-14] MEDS: Iopamidol 755 Mg/ML 100 ML Bottle IV SCH (17:30)
[2024-09-14] MEDS: ClonazePAM 0.5 MG Tab PO PRN (18:23)
[2024-09-14] MEDS: Haloperidol Lactate 5 MG/ML SDV IV ONE ×2 (19:13→20:09)
[2024-09-15 06:20] LABS: BASOPHILS ABSOLUTE AUTO 0.1 x10-3/uL (0.0-0.1); BASOPHILS PERCENT AUTO 0.8 % (0.2-1.5); EOSINOPHILS ABSOLUTE AUTO 0.1 x10-3/uL (0.0-0.8); EOSINOPHILS PERCENT AUTO 0.6 % (0.6-8.1); HEMATOCRIT 39.8 % (34.2-48.2); HEMOGLOBIN 13.4 g/dL (11.4-15.5); LYMPHOCYTES ABSOLUTE AUTO 3.6 x10-3/uL (1.0-4.4); LYMPHOCYTES PERCENT AUTO 40.4 % (18.4-52.1); MEAN CORPUSCULAR HEMOGLOBIN 30.6 pg (23.9-33.9); MEAN CORPUSCULAR HGB CONC 33.7 g/dL (31.9-34.8); MEAN CORPUSCULAR VOLUME 90.7 fL (76.7-100.5); MEAN PLATELET VOLUME 7.1 fL (7.1-12.4); MONOCYTES ABSOLUTE AUTO 0.8 x10-3/uL (0.3-1.0); MONOCYTES PERCENT AUTO 8.4 % (4.4-15.7); NEUTROPHILS ABSOLUTE AUTO 4.5 x10-3/uL (1.5-6.3); NEUTROPHILS PERCENT AUTO 49.8 % (30.8-76.2); PLATELET COUNT,PLT 292 x10(3)uL (151-488); RED BLOOD CELL COUNT 4.39 x10(6)uL (3.60-5.20); RED CELL DISTRIBUTION WIDTH 13.8 % (12.3-16.5)
[2024-09-15 06:24] LABS: BLOOD UREA NITROGEN,BUN 6 mg/dL (7-18); BUN/CREATININE RATIO 7.5 (9-20); CALCIUM 8.3 mg/dL (8.6-10.2); CARBON DIOXIDE,CO2 26 mmol/L (21-32); CHLORIDE,CL 103 mmol/L (100-110); CREATININE 0.8 mg/dL (0.55-1.02); EST CRCL DRUG DOSING (CG) 69.83 mL/min; ESTIMATED GFR 98 mL/min (>60); GLUCOSE RANDOM 256 mg/dL (80-116); POTASSIUM,K 3.5 mmol/L (3.5-5.3); SODIUM,NA 140 mmol/L (135-145)
[2024-09-15 12:50] VITALS: BP 116/72; PULSE 90
== END 2024-09-15 13:12 | disposition home or self-care (01) ==
LOC: FB.ED 10:17 → FB.MS 13:22
PROVIDERS: ADMIT Family Medicine; ATTEND Internal Medicine
DX: R10.13 Epigastric pain (principal); R63.0 Anorexia; G43.A0 Cyclical vomiting, in migraine, not intractable; K92.0 Hematemesis; K51.90 Ulcerative colitis, unspecified, without complications; E10.9 Type 1 diabetes mellitus without complications; E03.9 Hypothyroidism, unspecified; E66.9 Obesity, unspecified; Z79.899 Other long term (current) drug therapy; Z79.4 Long term (current) use of insulin; Z79.890 Hormone replacement therapy; Z88.1 Allergy status to other antibiotic agents; Z88.8 Allergy status to other drugs, medicaments and biological substances; Z91.040 Latex allergy status; Z68.30 Body mass index [BMI] 30.0-30.9, adult
CPT/HCPCS: 00731; 36415; 73701; 74177; 80048; 80053; 80307; 81001; 82947; 83605; 83690; 85025; 85610; 85730; 86140; 87040; 94150; 96361; 96374; 96375; 99285; A9270; J1171; J1200; J1630; J1815; J2250; J2270; J2405; J2704; J3480; J7030; Q9967; 88305; 88342; 96365; 96366; 96376; 99222; 99232; 99238; G0378

== ENCOUNTER 2024-10-10 18:41 | Emergency (ER) | payer BC, MEDICAID ==
[2024-10-10 18:55] VITALS: BP 127/88; PULSE 109
[2024-10-10] MEDS ORDERED: Sodium Chloride 0.9% 10 ML Syringe FLUSH PRN (19:18)
[2024-10-10] MEDS: Haloperidol Lactate 5 MG/ML SDV IM ONE (19:33)
[2024-10-10] MEDS: LORazepam 2 MG/ML SDV IM ONE (19:34)
[2024-10-10 19:38] LABS: HEMOGLOBIN 14.1 g/dL (11.4-15.5); MEAN CORPUSCULAR HEMOGLOBIN 30.6 pg (23.9-33.9); MEAN CORPUSCULAR HGB CONC 33.5 g/dL (31.9-34.8); MEAN CORPUSCULAR VOLUME 91.5 fL (76.7-100.5); MEAN PLATELET VOLUME 7.2 fL (7.1-12.4); PLATELET COUNT,PLT 370 x10(3)uL (151-488); RED BLOOD CELL COUNT 4.59 x10(6)uL (3.60-5.20); RED CELL DISTRIBUTION WIDTH 14.1 % (12.3-16.5); WHITE BLOOD CELL COUNT,WBC 14.6 x10-3/uL (3.0-10.3)
[2024-10-10 19:48] LABS: BLOOD UREA NITROGEN,BUN 14 mg/dL (7-18); BUN/CREATININE RATIO 10.8 (9-20); CALCIUM 9.9 mg/dL (8.6-10.2); CARBON DIOXIDE,CO2 18 mmol/L (21-32); CHLORIDE,CL 101 mmol/L (100-110); CREATININE 1.3 mg/dL (0.55-1.02); ESTIMATED GFR 55 mL/min (>60); GLUCOSE RANDOM 386 mg/dL (80-116); POTASSIUM,K 4.4 mmol/L (3.5-5.3); SODIUM,NA 136 mmol/L (135-145)
[2024-10-10 19:54] LABS: ALANINE AMINOTRANSFERASE,ALT 46 U/L (12-36); ALBUMIN 4.1 g/dL (3.5-5.2); ALKALINE PHOSPHATASE 121 IU/L (56-112); ASPARTATE AMNIOTRANSFERASE,AST 23 IU/L (5-25); BILIRUBIN TOTAL 0.9 mg/dL (0.1-1.3); MAGNESIUM 1.5 mg/dL (1.8-2.5); PROTEIN TOTAL,TP 8.3 g/dL (6.0-8.0)
[2024-10-10 19:56] LABS: BAND PERCENT MAN 3 % (0-6); LIPASE 14 U/L (16-77); LYMPHOCYTES PERCENT MAN 14 % (13-37); MONOCYTES PERCENT MAN 6 % (4-12); SEG NEUTROPHILS PERCENT MAN 77 % (46-82)
[2024-10-10 19:59] LABS: TROPONIN I < 4.0 pg/mL (4.0-60.3)
[2024-10-10] MEDS: Sodium Chloride 0.9% 1,000 ML IV ONE ×2 (20:16→22:45)
[2024-10-10] MEDS: Magnesium Sulfate/Water Premix 2 GM in Premix Bag 1 BAG IV ONE (22:54)
[2024-10-11 00:38] LABS: BILIRUBIN,URINE NEGATIVE (NEGATIVE); GLUCOSE,URINE >1000 mg/dL (NORMAL); KETONES,URINE 50 mg/dL (NEGATIVE); LEUKOCYTE ESTERASE,URINE NEGATIVE (NEGATIVE); NITRITE,URINE NEGATIVE (NEGATIVE); OCCULT BLOOD,URINE NEGATIVE (NEGATIVE); PROTEIN,URINE 30 mg/dL (NEGATIVE); UROBILINOGEN,URINE NORMAL (NEGATIVE)
[2024-10-11 00:48] LABS: APPEARANCE,URINE CLEAR (CLEAR); COLOR,URINE YELLOW (YELLOW); RBC,URINE 0-5 (0-5); WBC,URINE 0-5 (0-5)
[2024-10-11 00:49] LABS: BACTERIA,URINE FEW (NS); SQUAMOUS EPITHELIAL CELLS,UR OCCASIONAL (NS,R,O)
== END 2024-10-11 03:40 | disposition home or self-care (01) ==
LOC: FB.ED 18:41
DX: E86.0 Dehydration (principal); E10.9 Type 1 diabetes mellitus without complications; R11.15 Cyclical vomiting syndrome unrelated to migraine; E83.42 Hypomagnesemia; E87.20 Acidosis, unspecified; Z91.048 Other nonmedicinal substance allergy status; Z88.0 Allergy status to penicillin; Z88.5 Allergy status to narcotic agent; Z91.040 Latex allergy status; Z88.8 Allergy status to other drugs, medicaments and biological substances; Z79.4 Long term (current) use of insulin; Z79.899 Other long term (current) drug therapy; Z79.890 Hormone replacement therapy; Z86.16 Personal history of COVID-19
CPT/HCPCS: 36415; 80053; 81001; 82947; 83605; 83690; 83735; 84484; 85025; 87086; 87186; 96361; 96365; 96366; 96372; 99284; J1630; J2060; J3475; J7030

== ENCOUNTER 2024-10-12 10:39 | Emergency (ER) | payer BC, MEDICAID ==
[2024-10-12] MEDS: Prochlorperazine 10 MG/2 ML SDV IVPUSH ONE (11:19)
[2024-10-12] MEDS: Sodium Chloride 0.9% 1,000 ML IV SCH (11:19)
[2024-10-12 11:24] LABS: BLOOD UREA NITROGEN,BUN 12 mg/dL (7-18); CALCIUM 9.1 mg/dL (8.6-10.2); CARBON DIOXIDE,CO2 19 mmol/L (21-32); CHLORIDE,CL 104 mmol/L (100-110); CREATININE 1.2 mg/dL (0.55-1.02); ESTIMATED GFR 60 mL/min (>60); GLUCOSE RANDOM 233 mg/dL (80-116); POTASSIUM,K 4.4 mmol/L (3.5-5.3); SODIUM,NA 140 mmol/L (135-145)
[2024-10-12 11:27] LABS: BILIRUBIN,URINE NEGATIVE (NEGATIVE); GLUCOSE,URINE >1000 mg/dL (NORMAL); KETONES,URINE 15 mg/dL (NEGATIVE); LEUKOCYTE ESTERASE,URINE NEGATIVE (NEGATIVE); NITRITE,URINE NEGATIVE (NEGATIVE); OCCULT BLOOD,URINE NEGATIVE (NEGATIVE); PROTEIN,URINE TRACE mg/dL (NEGATIVE); UROBILINOGEN,URINE NORMAL (NEGATIVE)
[2024-10-12 11:30] LABS: ALANINE AMINOTRANSFERASE,ALT 38 U/L (12-36); ALKALINE PHOSPHATASE 103 IU/L (56-112); ASPARTATE AMNIOTRANSFERASE,AST 38 IU/L (5-25); BASOPHILS PERCENT AUTO 0.4 % (0.2-1.5); BILIRUBIN TOTAL 0.5 mg/dL (0.1-1.3); EOSINOPHILS PERCENT AUTO 0.1 % (0.6-8.1); HEMOGLOBIN 13.4 g/dL (11.4-15.5); LYMPHOCYTES ABSOLUTE AUTO 1.5 x10-3/uL (1.0-4.4); LYMPHOCYTES PERCENT AUTO 14.1 % (18.4-52.1); MAGNESIUM 1.6 mg/dL (1.8-2.5); MEAN CORPUSCULAR HEMOGLOBIN 30.7 pg (23.9-33.9); MEAN CORPUSCULAR HGB CONC 33.5 g/dL (31.9-34.8); MEAN CORPUSCULAR VOLUME 91.7 fL (76.7-100.5); MEAN PLATELET VOLUME 7.2 fL (7.1-12.4); MONOCYTES ABSOLUTE AUTO 0.5 x10-3/uL (0.3-1.0); MONOCYTES PERCENT AUTO 4.4 % (4.4-15.7); NEUTROPHILS ABSOLUTE AUTO 8.7 x10-3/uL (1.5-6.3); PLATELET COUNT,PLT 385 x10(3)uL (151-488); PROTEIN TOTAL,TP 8.1 g/dL (6.0-8.0); RED BLOOD CELL COUNT 4.36 x10(6)uL (3.60-5.20); RED CELL DISTRIBUTION WIDTH 14.3 % (12.3-16.5); WHITE BLOOD CELL COUNT,WBC 10.8 x10-3/uL (3.0-10.3)
[2024-10-12 11:31] LABS: APPEARANCE,URINE CLEAR (CLEAR); COLOR,URINE YELLOW (YELLOW)
[2024-10-12 11:41] LABS: RBC,URINE 0-5 (0-5); WBC,URINE 0-5 (0-5)
[2024-10-12 11:42] LABS: AMORPHOUS SEDIMENT,URINE FEW; BACTERIA,URINE FEW (NS); SQUAMOUS EPITHELIAL CELLS,UR MODERATE (NS,R,O)
[2024-10-12] MEDS: Morphine 4 MG/ML VIAL IVPUSH ONE (12:15)
[2024-10-12] MEDS: Ondansetron 4 MG/2 ML SDV IVPUSH ONE ×2 (12:15→12:21)
[2024-10-12] MEDS: LORazepam 2 MG/ML SDV IVPUSH ONE ×2 (12:18→12:21)
[2024-10-12] MEDS: Pantoprazole 40 MG Vial IVPUSH ONE (12:34)
[2024-10-12] MEDS: Sodium Chloride 0.9% 10 ML Syringe FLUSH PRN (12:37)
[2024-10-12 13:39] VITALS: BP 105/64; PULSE 94
== END 2024-10-12 14:15 ==
LOC: FB.ED 10:39
DX: K51.90 Ulcerative colitis, unspecified, without complications (principal); K21.9 Gastro-esophageal reflux disease without esophagitis; E83.42 Hypomagnesemia; A08.4 Viral intestinal infection, unspecified; E10.9 Type 1 diabetes mellitus without complications; F41.9 Anxiety disorder, unspecified; R11.15 Cyclical vomiting syndrome unrelated to migraine; N18.9 Chronic kidney disease, unspecified; E03.9 Hypothyroidism, unspecified; Z88.0 Allergy status to penicillin; Z91.048 Other nonmedicinal substance allergy status; Z91.040 Latex allergy status; Z88.5 Allergy status to narcotic agent; Z88.1 Allergy status to other antibiotic agents; Z79.4 Long term (current) use of insulin; Z79.899 Other long term (current) drug therapy; Z79.890 Hormone replacement therapy; Z86.16 Personal history of COVID-19
CPT/HCPCS: 36415; 80053; 81001; 83690; 83735; 85025; 87428-QW; 96361; 96374; 96375; 99285; 99285-25; J0780; J2060; J2270; J2405; J2470; J7030

== ENCOUNTER 2024-10-16 11:54 | Emergency (ER) | payer BC, MEDICAID ==
[2024-10-16] MEDS: hydrOXYzine HCl 50 MG/ML SDV IM ONE (12:21)
[2024-10-16] MEDS: LORazepam 2 MG/ML SDV IM ONE (12:24)
[2024-10-16 15:27] VITALS: BP 135/86; PULSE 84
== END 2024-10-16 15:05 | disposition home or self-care (01) ==
LOC: FB.ED 11:54
DX: F30.10 Manic episode without psychotic symptoms, unspecified (principal); N18.9 Chronic kidney disease, unspecified; E10.22 Type 1 diabetes mellitus with diabetic chronic kidney disease; E03.9 Hypothyroidism, unspecified; E66.9 Obesity, unspecified; Z90.710 Acquired absence of both cervix and uterus; Z79.899 Other long term (current) drug therapy; Z79.890 Hormone replacement therapy; Z79.4 Long term (current) use of insulin; Z91.040 Latex allergy status; Z88.8 Allergy status to other drugs, medicaments and biological substances; Z88.5 Allergy status to narcotic agent; Z88.0 Allergy status to penicillin; Z88.1 Allergy status to other antibiotic agents; Z91.048 Other nonmedicinal substance allergy status; Z88.6 Allergy status to analgesic agent
CPT/HCPCS: 96372; 99283; J2060; J3410

== ENCOUNTER 2024-10-18 12:40 | Emergency (ER) | payer BC, MEDICAID ==
[2024-10-18] MEDS: Haloperidol Lactate 5 MG/ML SDV IM ONE ×2 (13:40→19:31)
[2024-10-18] MEDS: LORazepam 2 MG/ML SDV IM ONE (13:40)
[2024-10-18 14:01] LABS: BASOPHILS PERCENT AUTO 0.4 % (0.2-1.5); EOSINOPHILS PERCENT AUTO 0.3 % (0.6-8.1); HEMATOCRIT 40.7 % (34.2-48.2); HEMOGLOBIN 13.8 g/dL (11.4-15.5); LYMPHOCYTES ABSOLUTE AUTO 1.4 x10-3/uL (1.0-4.4); LYMPHOCYTES PERCENT AUTO 13.7 % (18.4-52.1); MEAN CORPUSCULAR HEMOGLOBIN 30.6 pg (23.9-33.9); MEAN CORPUSCULAR HGB CONC 33.9 g/dL (31.9-34.8); MEAN CORPUSCULAR VOLUME 90.4 fL (76.7-100.5); MEAN PLATELET VOLUME 7.5 fL (7.1-12.4); MONOCYTES ABSOLUTE AUTO 0.5 x10-3/uL (0.3-1.0); MONOCYTES PERCENT AUTO 4.8 % (4.4-15.7); NEUTROPHILS ABSOLUTE AUTO 8.2 x10-3/uL (1.5-6.3); NEUTROPHILS PERCENT AUTO 80.8 % (30.8-76.2); PLATELET COUNT,PLT 302 x10(3)uL (151-488); RED BLOOD CELL COUNT 4.51 x10(6)uL (3.60-5.20); RED CELL DISTRIBUTION WIDTH 13.9 % (12.3-16.5); WHITE BLOOD CELL COUNT,WBC 10.1 x10-3/uL (3.0-10.3)
[2024-10-18 14:08] LABS: BLOOD UREA NITROGEN,BUN 7 mg/dL (7-18); CALCIUM 8.9 mg/dL (8.6-10.2); CARBON DIOXIDE,CO2 23 mmol/L (21-32); CHLORIDE,CL 101 mmol/L (100-110); EST CRCL DRUG DOSING (CG) 55.86 mL/min; ESTIMATED GFR 75 mL/min (>60); GLUCOSE RANDOM 228 mg/dL (80-116); POTASSIUM,K 3.6 mmol/L (3.5-5.3); SODIUM,NA 136 mmol/L (135-145)
[2024-10-18 14:11] LABS: BASE EXCESS VENOUS,POC -4 mmol/L (-2 - 3+); PCO2 VENOUS,POC 24 mmHg (41-51); PH VENOUS,POC 7.47 pH Units (7.32-7.43)
[2024-10-18 14:13] LABS: ALANINE AMINOTRANSFERASE,ALT 20 U/L (12-36); ALBUMIN 3.9 g/dL (3.5-5.2); ALKALINE PHOSPHATASE 85 IU/L (56-112); ASPARTATE AMNIOTRANSFERASE,AST 14 IU/L (5-25); BILIRUBIN TOTAL 0.7 mg/dL (0.1-1.3); MAGNESIUM 1.7 mg/dL (1.8-2.5); PROTEIN TOTAL,TP 7.9 g/dL (6.0-8.0); SALICYLATE 0.4 mg/dL (<2.8)
[2024-10-18 14:17] LABS: ACETAMINOPHEN < 2 ug/mL (<2)
[2024-10-18 14:28] LABS: APPEARANCE,URINE CLEAR (CLEAR); BACTERIA,URINE FEW (NS); BILIRUBIN,URINE NEGATIVE (NEGATIVE); COLOR,URINE YELLOW (YELLOW); GLUCOSE,URINE >1000 mg/dL (NORMAL); KETONES,URINE 50 mg/dL (NEGATIVE); LEUKOCYTE ESTERASE,URINE NEGATIVE (NEGATIVE); NITRITE,URINE NEGATIVE (NEGATIVE); OCCULT BLOOD,URINE NEGATIVE (NEGATIVE); PROTEIN,URINE NEGATIVE (NEGATIVE); RBC,URINE 0-5 (0-5); SQUAMOUS EPITHELIAL CELLS,UR FEW (NS,R,O); UROBILINOGEN,URINE NORMAL (NEGATIVE); WBC,URINE 0-5 (0-5)
[2024-10-18 14:30] LABS: AMPHETAMINES SCREEN, URINE NEGATIVE (NEGATIVE); BARBITURATE SCREEN,URINE NEGATIVE (NEGATIVE); BENZODIAZEPINES SCREEN,URINE POSITIVE (NEGATIVE); METHADONE SCREEN, URINE NEGATIVE (NEGATIVE); METHAMPHETAMINE SCREEN, URINE NEGATIVE (NEGATIVE); OXYCODONE SCREEN,URINE NEGATIVE (NEGATIVE); THC SCREEN,URINE NEGATIVE (NEGATIVE)
[2024-10-18 14:31] LABS: BUPRENORPHINE SCREEN,URINE NEGATIVE (NEGATIVE)
[2024-10-18 18:08] VITALS: BP 130/79
[2024-10-18 19:24] VITALS: PULSE 95
[2024-10-18] MEDS: diphenhydrAMINE 50 MG/ML SDV IM ONE (19:32)
== END 2024-10-18 19:50 ==
LOC: FB.ED 12:40
DX: F41.0 Panic disorder [episodic paroxysmal anxiety] (principal); R45.851 Suicidal ideations; J45.909 Unspecified asthma, uncomplicated; E10.22 Type 1 diabetes mellitus with diabetic chronic kidney disease; N18.9 Chronic kidney disease, unspecified; E03.9 Hypothyroidism, unspecified; E66.9 Obesity, unspecified; Z68.41 Body mass index [BMI] 40.0-44.9, adult; Z86.16 Personal history of COVID-19; Z90.710 Acquired absence of both cervix and uterus; Z88.0 Allergy status to penicillin; Z88.5 Allergy status to narcotic agent; Z88.8 Allergy status to other drugs, medicaments and biological substances; Z91.048 Other nonmedicinal substance allergy status; Z91.040 Latex allergy status; Z79.4 Long term (current) use of insulin; Z79.899 Other long term (current) drug therapy
CPT/HCPCS: 36415; 80053; 80143; 80179; 80307; 81001; 81025; 83735; 85025; 96372; 99285; J1200; J1630; J2060

== ENCOUNTER 2024-12-06 05:02 | Emergency (ER) | payer BC, MEDICAID ==
[2024-12-06] MEDS: Ondansetron 4 MG/2 ML SDV IVPUSH PRN (05:24)
[2024-12-06 05:41] LABS: BASOPHILS PERCENT AUTO 0.2 % (0.2-1.5); BLOOD UREA NITROGEN,BUN 12 mg/dL (7-18); CALCIUM 9.3 mg/dL (8.6-10.2); CARBON DIOXIDE,CO2 17 mmol/L (21-32); CHLORIDE,CL 102 mmol/L (100-110); CREATININE 1.2 mg/dL (0.55-1.02); EOSINOPHILS ABSOLUTE AUTO 0.1 x10-3/uL (0.0-0.8); EOSINOPHILS PERCENT AUTO 0.7 % (0.6-8.1); ESTIMATED GFR 60 mL/min (>60); GLUCOSE RANDOM 319 mg/dL (80-116); HEMATOCRIT 40.7 % (34.2-48.2); HEMOGLOBIN 13.5 g/dL (11.4-15.5); LYMPHOCYTES ABSOLUTE AUTO 1.1 x10-3/uL (1.0-4.4); LYMPHOCYTES PERCENT AUTO 11.6 % (18.4-52.1); MEAN CORPUSCULAR HEMOGLOBIN 29.7 pg (23.9-33.9); MEAN CORPUSCULAR HGB CONC 33.1 g/dL (31.9-34.8); MEAN CORPUSCULAR VOLUME 89.9 fL (76.7-100.5); MEAN PLATELET VOLUME 7.2 fL (7.1-12.4); MONOCYTES ABSOLUTE AUTO 0.3 x10-3/uL (0.3-1.0); MONOCYTES PERCENT AUTO 3.5 % (4.4-15.7); NEUTROPHILS ABSOLUTE AUTO 7.6 x10-3/uL (1.5-6.3); PLATELET COUNT,PLT 276 x10(3)uL (151-488); POTASSIUM,K 4.1 mmol/L (3.5-5.3); RED BLOOD CELL COUNT 4.53 x10(6)uL (3.60-5.20); RED CELL DISTRIBUTION WIDTH 13.6 % (12.3-16.5); SODIUM,NA 137 mmol/L (135-145); WHITE BLOOD CELL COUNT,WBC 9.1 x10-3/uL (3.0-10.3)
[2024-12-06 05:47] LABS: A/G RATIO 1.1; ALANINE AMINOTRANSFERASE,ALT 33 U/L (12-36); ALBUMIN 4.1 g/dL (3.5-5.2); ALKALINE PHOSPHATASE 76 IU/L (56-112); ASPARTATE AMNIOTRANSFERASE,AST 20 IU/L (5-25); BILIRUBIN TOTAL 0.8 mg/dL (0.1-1.3)
[2024-12-06 05:55] LABS: BILIRUBIN,URINE NEGATIVE (NEGATIVE); GLUCOSE,URINE >1000 mg/dL (NORMAL); KETONES,URINE 50 mg/dL (NEGATIVE); LEUKOCYTE ESTERASE,URINE NEGATIVE (NEGATIVE); NITRITE,URINE NEGATIVE (NEGATIVE); OCCULT BLOOD,URINE MODERATE (NEGATIVE); PROTEIN,URINE NEGATIVE (NEGATIVE); UROBILINOGEN,URINE NORMAL (NEGATIVE)
[2024-12-06 06:04] LABS: APPEARANCE,URINE CLEAR (CLEAR); COLOR,URINE YELLOW (YELLOW)
[2024-12-06 06:06] LABS: BACTERIA,URINE OCCASIONAL (NS); RBC,URINE 0-5 (0-5); SQUAMOUS EPITHELIAL CELLS,UR OCCASIONAL (NS,R,O); WBC,URINE 0-5 (0-5)
[2024-12-06] MEDS: Acetaminophen 500 MG Tab PO ONE (06:12)
[2024-12-06] MEDS: Haloperidol Lactate 5 MG/ML SDV IV ONE (06:12)
[2024-12-06 07:23] VITALS: BP 151/99; PULSE 88
== END 2024-12-06 07:22 | disposition home or self-care (01) ==
LOC: FB.ED 05:02
DX: K52.9 Noninfective gastroenteritis and colitis, unspecified (principal); E10.9 Type 1 diabetes mellitus without complications; E03.9 Hypothyroidism, unspecified; E66.9 Obesity, unspecified; Z88.8 Allergy status to other drugs, medicaments and biological substances; Z88.1 Allergy status to other antibiotic agents; Z91.040 Latex allergy status; Z91.048 Other nonmedicinal substance allergy status; Z79.4 Long term (current) use of insulin; Z86.16 Personal history of COVID-19; Z90.710 Acquired absence of both cervix and uterus; Z68.39 Body mass index [BMI] 39.0-39.9, adult
CPT/HCPCS: 80053; 81001; 85025; 96374; 96375; 99284; 99284-25; A9270-GY; J1630; J2405

== ENCOUNTER 2025-03-03 02:43 | Emergency (ER) | payer BC, MEDICAID ==
[2025-03-03] MEDS: Ondansetron 4 MG/2 ML SDV IVPUSH PRN (03:03)
[2025-03-03] MEDS: Sodium Chloride 0.9% 1,000 ML IV SCH (03:03)
[2025-03-03] MEDS: LORazepam 2 MG/ML SDV IVPUSH PRN (03:05)
[2025-03-03] MEDS: fentaNYL 100 MCG/2 ML SDV IVPUSH PRN (03:07)
[2025-03-03 03:12] LABS: BASOPHILS PERCENT AUTO 0.3 % (0.2-1.5); EOSINOPHILS PERCENT AUTO 0.1 % (0.6-8.1); HEMOGLOBIN 13.3 g/dL (11.4-15.5); LYMPHOCYTES ABSOLUTE AUTO 1.6 x10-3/uL (1.0-4.4); LYMPHOCYTES PERCENT AUTO 13.6 % (18.4-52.1); MEAN CORPUSCULAR HEMOGLOBIN 29.1 pg (23.9-33.9); MEAN CORPUSCULAR HGB CONC 34.1 g/dL (31.9-34.8); MEAN CORPUSCULAR VOLUME 85.2 fL (76.7-100.5); MEAN PLATELET VOLUME 6.5 fL (7.1-12.4); MONOCYTES ABSOLUTE AUTO 0.4 x10-3/uL (0.3-1.0); MONOCYTES PERCENT AUTO 3.7 % (4.4-15.7); NEUTROPHILS ABSOLUTE AUTO 9.6 x10-3/uL (1.5-6.3); NEUTROPHILS PERCENT AUTO 82.3 % (30.8-76.2); PLATELET COUNT,PLT 392 x10(3)uL (151-488); RED BLOOD CELL COUNT 4.58 x10(6)uL (3.60-5.20); RED CELL DISTRIBUTION WIDTH 13.5 % (12.3-16.5); WHITE BLOOD CELL COUNT,WBC 11.6 x10-3/uL (3.0-10.3)
[2025-03-03 03:27] LABS: BASE EXCESS VENOUS,POC -1 mmol/L (-2 - 3+); PCO2 VENOUS,POC 20 mmHg (41-51); PH VENOUS,POC 7.58 pH Units (7.32-7.43)
[2025-03-03 03:27] LABS: ALANINE AMINOTRANSFERASE,ALT 28 U/L (12-36); ALBUMIN 3.9 g/dL (3.5-5.2); ALKALINE PHOSPHATASE 104 IU/L (56-112); ASPARTATE AMNIOTRANSFERASE,AST 21 IU/L (5-25); BILIRUBIN TOTAL 0.8 mg/dL (0.1-1.3); BLOOD UREA NITROGEN,BUN 15 mg/dL (7-18); BUN/CREATININE RATIO 11.5 (9-20); CALCIUM 9.4 mg/dL (8.6-10.2); CARBON DIOXIDE,CO2 19 mmol/L (21-32); CHLORIDE,CL 101 mmol/L (100-110); CREATININE 1.3 mg/dL (0.55-1.02); ESTIMATED GFR 54 mL/min (>60); SODIUM,NA 134 mmol/L (135-145)
[2025-03-03 03:29] LABS: GLUCOSE RANDOM 423 mg/dL (80-116)
[2025-03-03] MEDS ORDERED: Glucagon,Human Recombinant 1 MG Vial IM PRN (03:32)
[2025-03-03] MEDS ORDERED: 50% Dextrose in Water 50 ML Syringe IVPUSH PRN (03:32)
[2025-03-03] MEDS: Insulin Regular, Human 100 Units/ML 10 ML Vial IV ONE (03:43)
[2025-03-03] MEDS: Sodium Chloride 0.9% 1,000 ML IV ONE (03:45)
[2025-03-03] MEDS: Levofloxacin/Dextrose 5%-Water 750 MG in Premix Bag 1 BAG IV ONE (04:03)
[2025-03-03] MEDS: LORazepam 2 MG/ML SDV IVPUSH ONE (07:15)
[2025-03-03 07:21] VITALS: BP 130/89; PULSE 102
[2025-03-03] MEDS: Sodium Chloride 0.9% 10 ML Syringe FLUSH PRN (07:30)
== END 2025-03-03 07:20 | disposition home or self-care (01) ==
LOC: FB.ED 02:43
DX: F41.0 Panic disorder [episodic paroxysmal anxiety] (principal); J45.909 Unspecified asthma, uncomplicated; K21.9 Gastro-esophageal reflux disease without esophagitis; E10.22 Type 1 diabetes mellitus with diabetic chronic kidney disease; N18.9 Chronic kidney disease, unspecified; Z86.16 Personal history of COVID-19; Z90.710 Acquired absence of both cervix and uterus; Z88.0 Allergy status to penicillin; Z88.1 Allergy status to other antibiotic agents; Z88.5 Allergy status to narcotic agent; Z88.8 Allergy status to other drugs, medicaments and biological substances; Z91.040 Latex allergy status; Z91.048 Other nonmedicinal substance allergy status; Z79.4 Long term (current) use of insulin; Z79.899 Other long term (current) drug therapy
CPT/HCPCS: 36415; 80053; 82947; 83605; 85025; 86140; 96361; 96365; 96375; 96376; 99283; 99284; A9270; J1956; J2060; J2405; J3010; J7030

== ENCOUNTER 2025-03-03 11:01 | Emergency (ER) | payer BC, MEDICAID ==
[2025-03-03 11:21] VITALS: PULSE 89
[2025-03-03] MEDS ORDERED: Sodium Chloride 0.9% 10 ML Syringe FLUSH PRN (11:21)
[2025-03-03] MEDS: LORazepam 2 MG/ML SDV IVPUSH ONE (11:42)
[2025-03-03] MEDS: Sodium Chloride 0.9% 1,000 ML IV ONE (11:42)
[2025-03-03 11:53] LABS: BLOOD UREA NITROGEN,BUN 12 mg/dL (7-18); BUN/CREATININE RATIO 10.9 (9-20); CALCIUM 9.1 mg/dL (8.6-10.2); CARBON DIOXIDE,CO2 20 mmol/L (21-32); CHLORIDE,CL 103 mmol/L (100-110); CREATININE 1.1 mg/dL (0.55-1.02); ESTIMATED GFR 66 mL/min (>60); GLUCOSE RANDOM 253 mg/dL (80-116); SODIUM,NA 136 mmol/L (135-145)
[2025-03-03 11:59] LABS: A/G RATIO 0.9; ALANINE AMINOTRANSFERASE,ALT 27 U/L (12-36); ALBUMIN 3.7 g/dL (3.5-5.2); ALKALINE PHOSPHATASE 98 IU/L (56-112); ASPARTATE AMNIOTRANSFERASE,AST 32 IU/L (5-25); BILIRUBIN TOTAL 0.8 mg/dL (0.1-1.3); PROTEIN TOTAL,TP 7.7 g/dL (6.0-8.0)
[2025-03-03 12:02] LABS: POTASSIUM,K 4.7 mmol/L (3.5-5.3)
[2025-03-03 12:04] LABS: LACTIC ACID 2.8 mmol/L (0.4-2.0)
[2025-03-03] MEDS: hydrOXYzine HCl 50 MG/ML SDV IM ONE (13:03)
[2025-03-03 14:53] VITALS: BP 121/76
== END 2025-03-03 13:48 | disposition home or self-care (01) ==
LOC: FB.ED 11:01
DX: R11.15 Cyclical vomiting syndrome unrelated to migraine (principal); E87.20 Acidosis, unspecified; F41.8 Other specified anxiety disorders; E10.9 Type 1 diabetes mellitus without complications; J45.909 Unspecified asthma, uncomplicated; E10.22 Type 1 diabetes mellitus with diabetic chronic kidney disease; Z86.16 Personal history of COVID-19; Z90.710 Acquired absence of both cervix and uterus; Z88.0 Allergy status to penicillin; Z88.5 Allergy status to narcotic agent; Z88.8 Allergy status to other drugs, medicaments and biological substances; Z91.048 Other nonmedicinal substance allergy status; Z91.040 Latex allergy status; Z79.4 Long term (current) use of insulin; Z79.899 Other long term (current) drug therapy
CPT/HCPCS: 36415; 80053; 83605; 96361; 96372; 96374; 99284; J2060; J3410; J7030

== ENCOUNTER 2025-03-04 16:00 | Inpatient (IN) | payer BC, MEDICAID ==
[2025-03-04 16:35] LABS: BASOPHILS PERCENT AUTO 0.2 % (0.2-1.5); EOSINOPHILS PERCENT AUTO 0.2 % (0.6-8.1); HEMATOCRIT 36.7 % (34.2-48.2); HEMOGLOBIN 12.2 g/dL (11.4-15.5); LYMPHOCYTES ABSOLUTE AUTO 1.8 x10-3/uL (1.0-4.4); LYMPHOCYTES PERCENT AUTO 14.4 % (18.4-52.1); MEAN CORPUSCULAR HEMOGLOBIN 28.7 pg (23.9-33.9); MEAN CORPUSCULAR HGB CONC 33.2 g/dL (31.9-34.8); MEAN CORPUSCULAR VOLUME 86.4 fL (76.7-100.5); MEAN PLATELET VOLUME 6.8 fL (7.1-12.4); MONOCYTES ABSOLUTE AUTO 0.7 x10-3/uL (0.3-1.0); MONOCYTES PERCENT AUTO 5.3 % (4.4-15.7); NEUTROPHILS ABSOLUTE AUTO 10.2 x10-3/uL (1.5-6.3); NEUTROPHILS PERCENT AUTO 79.9 % (30.8-76.2); PLATELET COUNT,PLT 338 x10(3)uL (151-488); RED BLOOD CELL COUNT 4.25 x10(6)uL (3.60-5.20); RED CELL DISTRIBUTION WIDTH 13.8 % (12.3-16.5); WHITE BLOOD CELL COUNT,WBC 12.7 x10-3/uL (3.0-10.3)
[2025-03-04] MEDS: Ketorolac 30 MG/ML SDV IM ONE (16:36)
[2025-03-04] MEDS: LORazepam 2 MG/ML SDV IM ONE (16:37)
[2025-03-04 16:38] LABS: BLOOD UREA NITROGEN,BUN 10 mg/dL (7-18); BUN/CREATININE RATIO 8.3 (9-20); CARBON DIOXIDE,CO2 17 mmol/L (21-32); CHLORIDE,CL 104 mmol/L (100-110); CREATININE 1.2 mg/dL (0.55-1.02); ESTIMATED GFR 60 mL/min (>60); GLUCOSE RANDOM 186 mg/dL (80-116); SODIUM,NA 138 mmol/L (135-145)
[2025-03-04] MEDS: Sodium Chloride 0.9% 10 ML Syringe FLUSH PRN (16:38)
[2025-03-04] MEDS: Sodium Chloride 0.9% 1,000 ML IV ONE (16:43)
[2025-03-04] MEDS: LORazepam 2 MG/ML SDV IVPUSH ONE (16:43)
[2025-03-04 16:44] LABS: ALANINE AMINOTRANSFERASE,ALT 21 U/L (12-36); ALBUMIN 3.6 g/dL (3.5-5.2); ALKALINE PHOSPHATASE 91 IU/L (56-112); ASPARTATE AMNIOTRANSFERASE,AST 15 IU/L (5-25); BILIRUBIN TOTAL 0.6 mg/dL (0.1-1.3); PROTEIN TOTAL,TP 7.3 g/dL (6.0-8.0)
[2025-03-04 16:48] LABS: LACTIC ACID 3.1 mmol/L (0.4-2.0)
[2025-03-04] MEDS: hydrOXYzine HCl 50 MG/ML SDV IM ONE (17:39)
[2025-03-04] MEDS: Ketorolac 15 MG/ML SDV IVPUSH ONE (18:11)
[2025-03-04] MEDS ORDERED: Sodium Chloride 0.9% 10 ML Syringe FLUSH PRN (19:26)
[2025-03-04 19:34] LABS: BASE EXCESS VENOUS,POC -3 mmol/L (-2 - 3+); PCO2 VENOUS,POC 19 mmHg (41-51); PH VENOUS,POC 7.56 pH Units (7.32-7.43)
[2025-03-04] MEDS ORDERED: Glucagon,Human Recombinant 1 MG Vial IM PRN ×2 (19:51→20:55)
[2025-03-04] MEDS ORDERED: HYDROmorphone 2 MG/ML SDV IVPUSH PRN (19:51)
[2025-03-04] MEDS ORDERED: 50% Dextrose in Water 50 ML Syringe IVPUSH PRN ×2 (19:51→20:55)
[2025-03-04] MEDS: Sodium Chloride 0.9% 1,000 ML IV SCH (20:45)
[2025-03-04] MEDS: Ondansetron 4 MG/2 ML SDV IV PRN (20:53)
[2025-03-04] MEDS: LORazepam 2 MG/ML SDV IV PRN (21:06)
[2025-03-04] MEDS: Pantoprazole 40 MG Vial IVPUSH ONE (21:07)
[2025-03-04] MEDS: Insulin Regular, Human 100 Units/ML 10 ML Vial IV ONE (21:09)
[2025-03-04] MEDS: Levofloxacin/Dextrose 5%-Water 750 MG in Premix Bag 1 BAG IV SCH (21:10)
[2025-03-04] MEDS: NS + KCl 20mEq/L 1,000 ML IV SCH (21:52)
[2025-03-04] MEDS: Insulin Lispro 100 Unit/ML 3 ML KwikPen SUBCUT PRN (23:16)
[2025-03-05] MEDS: Insulin Regular, Human 100 Units/ML 10 ML Vial IV ONE (03:43)
[2025-03-05 06:21] LABS: BASOPHILS ABSOLUTE AUTO 0.1 x10-3/uL (0.0-0.1); BASOPHILS PERCENT AUTO 0.6 % (0.2-1.5); EOSINOPHILS PERCENT AUTO 0.3 % (0.6-8.1); HEMATOCRIT 31.9 % (34.2-48.2); HEMOGLOBIN 10.9 g/dL (11.4-15.5); LYMPHOCYTES ABSOLUTE AUTO 3.5 x10-3/uL (1.0-4.4); LYMPHOCYTES PERCENT AUTO 33.8 % (18.4-52.1); MEAN CORPUSCULAR HEMOGLOBIN 29.6 pg (23.9-33.9); MEAN CORPUSCULAR HGB CONC 34.3 g/dL (31.9-34.8); MEAN CORPUSCULAR VOLUME 86.3 fL (76.7-100.5); MEAN PLATELET VOLUME 6.7 fL (7.1-12.4); MONOCYTES ABSOLUTE AUTO 0.8 x10-3/uL (0.3-1.0); MONOCYTES PERCENT AUTO 8.1 % (4.4-15.7); NEUTROPHILS ABSOLUTE AUTO 5.9 x10-3/uL (1.5-6.3); NEUTROPHILS PERCENT AUTO 57.2 % (30.8-76.2); PLATELET COUNT,PLT 287 x10(3)uL (151-488); RED CELL DISTRIBUTION WIDTH 13.7 % (12.3-16.5); WHITE BLOOD CELL COUNT,WBC 10.3 x10-3/uL (3.0-10.3)
[2025-03-05 06:35] LABS: A/G RATIO 0.9; ALANINE AMINOTRANSFERASE,ALT 17 U/L (12-36); ALBUMIN 2.8 g/dL (3.5-5.2); ALKALINE PHOSPHATASE 75 IU/L (56-112); ASPARTATE AMNIOTRANSFERASE,AST 19 IU/L (5-25); BILIRUBIN TOTAL 0.6 mg/dL (0.1-1.3); BLOOD UREA NITROGEN,BUN 9 mg/dL (7-18); CALCIUM 7.8 mg/dL (8.6-10.2); CARBON DIOXIDE,CO2 21 mmol/L (21-32); CHLORIDE,CL 107 mmol/L (100-110); EST CRCL DRUG DOSING (CG) 55.33 mL/min; ESTIMATED GFR 74 mL/min (>60); GLUCOSE RANDOM 228 mg/dL (80-116); SODIUM,NA 138 mmol/L (135-145)
[2025-03-05] MEDS: ClonazePAM 0.5 MG Tab PO SCH (10:22)
[2025-03-05] MEDS: Sucralfate 1 GM Tab PO SCH (11:34)
[2025-03-05] MEDS: Insulin Lispro 100 Unit/ML 3 ML KwikPen SUBCUT SCH (11:43)
[2025-03-05] MEDS: Gabapentin 300 MG Cap PO SCH (13:04)
[2025-03-05] MEDS: hydrOXYzine HCl 25 MG Tab PO PRN (17:15)
[2025-03-05] MEDS: Acetaminophen/Codeine 300-30 MG Tab PO PRN (17:15)
[2025-03-05 17:43] LABS: BLOOD UREA NITROGEN,BUN 10 mg/dL (7-18); CALCIUM 8.5 mg/dL (8.6-10.2); CARBON DIOXIDE,CO2 17 mmol/L (21-32); CHLORIDE,CL 103 mmol/L (100-110); EST CRCL DRUG DOSING (CG) 55.33 mL/min; ESTIMATED GFR 74 mL/min (>60); GLUCOSE RANDOM 265 mg/dL (80-116); POTASSIUM,K 4.4 mmol/L (3.5-5.3); SODIUM,NA 134 mmol/L (135-145)
[2025-03-05 18:45] LABS: BASE EXCESS VENOUS,POC -6 mmol/L (-2 - 3+); PCO2 VENOUS,POC 27 mmHg (41-51); PH VENOUS,POC 7.41 pH Units (7.32-7.43)
[2025-03-05] MEDS: Sodium Chloride 0.9% 1,000 ML IV SCH (20:49)
[2025-03-05] MEDS: busPIRone 5 MG Tab PO SCH (21:19)
[2025-03-05] MEDS: Insulin Glargine,Human Rec. Analog 100 Units/ML 3 ML Pen SUBCUT SCH (21:22)
[2025-03-05] MEDS: Miconazole 2% Vaginal Crm 45 GM Tube TOP SCH (21:42)
[2025-03-05 22:01] VITALS: PULSE 76
[2025-03-06 00:44] VITALS: BP 123/79
[2025-03-06] MEDS ORDERED: Pantoprazole 40 MG Tab.CR PO SCH (06:00)
[2025-03-06] MEDS ORDERED: DULoxetine 60 MG Cap PO SCH (09:00)
== END 2025-03-06 00:25 | DRG 139 ==
LOC: FB.ED 16:00 → FB.MS 19:51 → OBSVTOIN 03-05 17:00
PROVIDERS: ADMIT Family Medicine; ATTEND Family Medicine
DX: J18.9 Pneumonia, unspecified organism (principal); E10.43 Type 1 diabetes mellitus with diabetic autonomic (poly)neuropathy; E03.9 Hypothyroidism, unspecified; E87.6 Hypokalemia; E86.0 Dehydration; E87.20 Acidosis, unspecified; H54.7 Unspecified visual loss; J45.909 Unspecified asthma, uncomplicated; K21.9 Gastro-esophageal reflux disease without esophagitis; K58.9 Irritable bowel syndrome, unspecified; Z87.442 Personal history of urinary calculi; G43.909 Migraine, unspecified, not intractable, without status migrainosus; F90.9 Attention-deficit hyperactivity disorder, unspecified type; F41.9 Anxiety disorder, unspecified; F32.9 Major depressive disorder, single episode, unspecified; E66.9 Obesity, unspecified; Z86.16 Personal history of COVID-19; Z98.890 Other specified postprocedural states; Z79.899 Other long term (current) drug therapy; Z90.710 Acquired absence of both cervix and uterus; Z88.1 Allergy status to other antibiotic agents; Z88.0 Allergy status to penicillin; Z88.6 Allergy status to analgesic agent; Z91.048 Other nonmedicinal substance allergy status; Z91.040 Latex allergy status; Z88.8 Allergy status to other drugs, medicaments and biological substances; Z98.51 Tubal ligation status; Z90.6 Acquired absence of other parts of urinary tract; E10.22 Type 1 diabetes mellitus with diabetic chronic kidney disease; N18.31 Chronic kidney disease, stage 3a; K31.84 Gastroparesis
CPT/HCPCS: 36415; 80048; 80053; 82947; 83605; 84484; 85025; 86140; 93005; 93010; 96361; 96365; 96366; 96368; 96372; 96375; 96376; 99222; 99238; 99285; 99285-25; A9270-GY; G0378; J1815-GY; J1885; J1956; J2060; J2405; J2470; J3410; J3480; J7030

== ENCOUNTER 2025-03-26 00:28 | Emergency (ER) | payer BC, MEDICAID ==
[2025-03-26 00:40] VITALS: BP 113/81; PULSE 90
[2025-03-26] MEDS ORDERED: Sodium Chloride 0.9% 10 ML Syringe FLUSH PRN (00:40)
[2025-03-26 00:52] LABS: BASOPHILS ABSOLUTE AUTO 0.0 x10-3/uL (0.0-0.1); BASOPHILS PERCENT AUTO 0.3 % (0.2-1.5); EOSINOPHILS ABSOLUTE AUTO 0.0 x10-3/uL (0.0-0.8); EOSINOPHILS PERCENT AUTO 0.1 % (0.6-8.1); LYMPHOCYTES ABSOLUTE AUTO 1.7 x10-3/uL (1.0-4.4); LYMPHOCYTES PERCENT AUTO 14.8 % (18.4-52.1); MEAN PLATELET VOLUME 6.8 fL (7.1-12.4); MONOCYTES ABSOLUTE AUTO 0.6 x10-3/uL (0.3-1.0); MONOCYTES PERCENT AUTO 5.0 % (4.4-15.7); NEUTROPHILS ABSOLUTE AUTO 9.0 x10-3/uL (1.5-6.3); NEUTROPHILS PERCENT AUTO 79.8 % (30.8-76.2); PLATELET COUNT,PLT 307 x10(3)uL (151-488); RED BLOOD CELL COUNT 4.63 x10(6)uL (3.60-5.20); RED CELL DISTRIBUTION WIDTH 14.4 % (12.3-16.5); WHITE BLOOD CELL COUNT,WBC 11.2 x10-3/uL (3.0-10.3)
[2025-03-26] MEDS: Ondansetron 4 MG/2 ML SDV IVPUSH PRN (00:52)
[2025-03-26] MEDS: LORazepam 2 MG/ML SDV IVPUSH PRN (00:57)
[2025-03-26 00:58] LABS: BLOOD UREA NITROGEN,BUN 14 mg/dL (7-18); CARBON DIOXIDE,CO2 20 mmol/L (21-32); CHLORIDE,CL 105 mmol/L (100-110); CREATININE 1.2 mg/dL (0.55-1.02); EST CRCL DRUG DOSING (CG) 48.44 mL/min; ESTIMATED GFR 60 mL/min (>60); GLUCOSE RANDOM 237 mg/dL (80-116); POTASSIUM,K 3.8 mmol/L (3.5-5.3); SODIUM,NA 139 mmol/L (135-145)
[2025-03-26] MEDS: Ketorolac 30 MG/ML SDV IVPUSH PRN (01:01)
[2025-03-26 01:03] LABS: A/G RATIO 1.1; ALANINE AMINOTRANSFERASE,ALT 23 U/L (12-36); ASPARTATE AMNIOTRANSFERASE,AST 16 IU/L (5-25); BILIRUBIN TOTAL 0.6 mg/dL (0.1-1.3); PROTEIN TOTAL,TP 7.5 g/dL (6.0-8.0)
== END 2025-03-26 02:34 | disposition home or self-care (01) ==
LOC: FB.ED 00:28
DX: F41.1 Generalized anxiety disorder (principal); J45.909 Unspecified asthma, uncomplicated; K21.9 Gastro-esophageal reflux disease without esophagitis; E10.22 Type 1 diabetes mellitus with diabetic chronic kidney disease; N18.9 Chronic kidney disease, unspecified; Z86.16 Personal history of COVID-19; Z90.710 Acquired absence of both cervix and uterus; Z88.0 Allergy status to penicillin; Z88.1 Allergy status to other antibiotic agents; Z88.8 Allergy status to other drugs, medicaments and biological substances; Z91.040 Latex allergy status; Z91.048 Other nonmedicinal substance allergy status; Z79.4 Long term (current) use of insulin; Z79.899 Other long term (current) drug therapy
CPT/HCPCS: 80053; 85025; 96361; 96374; 96375; 99285-25; J1885; J2060; J2405; J7030

== ENCOUNTER 2025-03-26 08:13 | Emergency (ER) | payer BC, MEDICAID ==
[2025-03-26] MEDS: LORazepam 2 MG/ML SDV IM ONE (08:26)
[2025-03-26 10:33] VITALS: BP 105/66; PULSE 101
== END 2025-03-26 10:52 | disposition home or self-care (01) ==
LOC: FB.ED 08:13
DX: R11.2 Nausea with vomiting, unspecified (principal); E10.22 Type 1 diabetes mellitus with diabetic chronic kidney disease; N18.9 Chronic kidney disease, unspecified; E03.9 Hypothyroidism, unspecified; E66.9 Obesity, unspecified; K21.9 Gastro-esophageal reflux disease without esophagitis; J45.909 Unspecified asthma, uncomplicated; Z86.16 Personal history of COVID-19; Z90.710 Acquired absence of both cervix and uterus; Z79.899 Other long term (current) drug therapy; Z79.4 Long term (current) use of insulin; Z91.048 Other nonmedicinal substance allergy status; Z88.0 Allergy status to penicillin; Z88.1 Allergy status to other antibiotic agents; Z88.6 Allergy status to analgesic agent; Z91.040 Latex allergy status; Z88.8 Allergy status to other drugs, medicaments and biological substances; Z68.36 Body mass index [BMI] 36.0-36.9, adult
CPT/HCPCS: 96372; 99284; J2060; J2765

== ENCOUNTER 2025-05-23 07:04 | Emergency (ER) | payer BC, MEDICAID ==
[2025-05-23] MEDS: LORazepam 2 MG/ML SDV IM ONE (08:08)
[2025-05-23] MEDS: Ondansetron 4 MG Tab.DIS PO ONE (08:09)
[2025-05-23] MEDS ORDERED: Sodium Chloride 0.9% 10 ML Syringe FLUSH PRN (08:20)
[2025-05-23] MEDS: Prochlorperazine 10 MG/2 ML SDV IVPUSH ONE (08:42)
[2025-05-23 09:49] LABS: MEAN PLATELET VOLUME 6.9 fL (7.1-12.4); PLATELET COUNT,PLT 285 x10(3)uL (151-488); RED BLOOD CELL COUNT 4.88 x10(6)uL (3.60-5.20); RED CELL DISTRIBUTION WIDTH 14.4 % (12.3-16.5); WHITE BLOOD CELL COUNT,WBC 13.4 x10-3/uL (3.0-10.3)
[2025-05-23 09:50] LABS: BLOOD UREA NITROGEN,BUN 11 mg/dL (7-18); CARBON DIOXIDE,CO2 22 mmol/L (21-32); CHLORIDE,CL 107 mmol/L (100-110); CREATININE 0.9 mg/dL (0.55-1.02); ESTIMATED GFR 84 mL/min (>60); GLUCOSE RANDOM 157 mg/dL (80-116); POTASSIUM,K 3.8 mmol/L (3.5-5.3); SODIUM,NA 140 mmol/L (135-145)
[2025-05-23 09:55] LABS: A/G RATIO 1.1; ALANINE AMINOTRANSFERASE,ALT 26 U/L (12-36); ASPARTATE AMNIOTRANSFERASE,AST 22 IU/L (5-25); BILIRUBIN TOTAL 0.8 mg/dL (0.1-1.3); PROTEIN TOTAL,TP 7.9 g/dL (6.0-8.0)
[2025-05-23 09:59] LABS: LYMPHOCYTES PERCENT MAN 6 % (13-37); MONOCYTES PERCENT MAN 5 % (4-12); SEG NEUTROPHILS PERCENT MAN 89 % (46-82)
[2025-05-23 12:51] VITALS: BP 120/84; PULSE 74
== END 2025-05-23 12:00 | disposition home or self-care (01) ==
LOC: FB.ED 07:04
DX: R11.15 Cyclical vomiting syndrome unrelated to migraine (principal); E10.9 Type 1 diabetes mellitus without complications; E03.9 Hypothyroidism, unspecified; K21.9 Gastro-esophageal reflux disease without esophagitis; Z91.048 Other nonmedicinal substance allergy status; Z88.1 Allergy status to other antibiotic agents; Z88.8 Allergy status to other drugs, medicaments and biological substances; Z91.040 Latex allergy status; Z88.5 Allergy status to narcotic agent; Z79.4 Long term (current) use of insulin; Z79.899 Other long term (current) drug therapy
CPT/HCPCS: 36415; 80053; 83690; 83735; 85025; 96361; 96372; 96374; 99284; J0780; J2060; J2765; J7030

== ENCOUNTER 2025-05-23 18:29 | Emergency (ER) | payer BC, MEDICAID ==
[2025-05-23] MEDS: Prochlorperazine 10 MG/2 ML SDV IVPUSH ONE (19:33)
[2025-05-23] MEDS ORDERED: 50% Dextrose in Water 50 ML Syringe IVPUSH PRN (19:55)
[2025-05-23] MEDS: Iopamidol 755 Mg/ML 100 ML Bottle IV SCH (19:57)
[2025-05-23] MEDS: Insulin Lispro 100 Unit/ML 3 ML KwikPen SUBCUT STA (20:07)
[2025-05-23 21:04] LABS: AMPHETAMINES SCREEN, URINE NEGATIVE (NEGATIVE); METHADONE SCREEN, URINE NEGATIVE (NEGATIVE); METHAMPHETAMINE SCREEN, URINE NEGATIVE (NEGATIVE); OXYCODONE SCREEN,URINE NEGATIVE (NEGATIVE)
[2025-05-23 21:05] LABS: BUPRENORPHINE SCREEN,URINE NEGATIVE (NEGATIVE)
[2025-05-23 22:00] VITALS: BP 136/74; PULSE 88
[2025-05-25 19:12] LABS: FENTANYL, URN, SCREEN Negative
== END 2025-05-23 21:44 | disposition home or self-care (01) ==
LOC: FB.ED 18:29
DX: R11.15 Cyclical vomiting syndrome unrelated to migraine (principal); K21.9 Gastro-esophageal reflux disease without esophagitis; N18.9 Chronic kidney disease, unspecified; E03.9 Hypothyroidism, unspecified; E10.22 Type 1 diabetes mellitus with diabetic chronic kidney disease; Z91.048 Other nonmedicinal substance allergy status; Z88.1 Allergy status to other antibiotic agents; Z91.040 Latex allergy status; Z88.8 Allergy status to other drugs, medicaments and biological substances; Z88.0 Allergy status to penicillin; Z79.4 Long term (current) use of insulin; Z79.899 Other long term (current) drug therapy; Z86.16 Personal history of COVID-19
CPT/HCPCS: 36415; 74177; 80307; 82947; 84702; 96361; 96372; 96374; 99284; J0780; J1815; J2359; J7030; Q9967; 80053; 83690; 83735; 85025; A9270-GY; J2060; J2765